=== PATIENT | female | born 1960 | race Caucasian/White ===

== ENCOUNTER → 2020-12-22 08:59 | Outpatient (BNVA) | payer BC, SELFPAY | PROVIDERS: PCP Family Medicine ==

== ENCOUNTER → 2021-01-26 09:30 | Outpatient (BNVA) | payer BC, SELFPAY | PROVIDERS: PCP Family Medicine ==

== ENCOUNTER → 2021-07-29 08:39 | Outpatient (BNVA) | payer BC, SELFPAY | PROVIDERS: PCP Family Medicine ==

== ENCOUNTER → 2021-12-08 08:55 | Outpatient (BNVA) | payer BC, SELFPAY | PROVIDERS: PCP Physician Assistant | DX: R32 Unspecified urinary incontinence (principal) | CPT/HCPCS: 51798 ==

== ENCOUNTER → 2022-11-02 08:41 | Outpatient (BNVA) | payer BC, SELFPAY | PROVIDERS: PCP Physician Assistant; Visit Provider Nurse Practitioner Family ==

== ENCOUNTER 2023-05-07 09:08 | Outpatient (AMB) | payer BC, SELFPAY ==
--- NOTE | 2023-05-07 09:45 | MHC.OFFVIS ---
Intake Intake Visit Reasons: 6m/PVR Intake Note: Patient is present for follow up incontinence Urology Medications: oxybutynin Blood Thinner: none PVR: 161ml's Attendant [employer] Required: No Accompanied by: Spouse Allergies lisinopril Allergy (Intermediate, Verified 05/07/23 22:51) Cough Medication List - Last Reconciled 05/07/23 by TRINIDAD Dawson-REY erythromycin 1,000 mg ophthalmic (eye) TID fluoxetine 20 mg PO DAILY fluticasone propionate 50 mcg/actuation 1 spray intranasal DAILY gabapentin 300 mg PO TID losartan 100 mg PO DAILY metoprolol succinate ER 50 mg PO DAILY HPI HPI Comments History of Present Illness Details Genevieve is a pleasant 62 year old female patient of who is accompained by her at todays visit. She presents to the office today for follow-up of her urinary incontinence. She has a PMH of cardiac arrest, depression, HTN, and osteoarthritis. In discussion with the patient her today they discuss at length patient has new diagnosis of white matter disease. They report patient to have had MRI in March due to worsening balance issues and is undergoing further assessment and evaluation. Patient with previous neurologist Олег Griffin however the discuss upcoming 2nd opinion appointment in August with [facility]. They also discuss patient is undergoing physical therapy in [place] for assistance with her gait and mobility. They discuss feeling lower urinary tract symptoms of mixed urinary incontinence continue and do feel episodes of unsensed incontinence at night have worsened. During last office visit approximately 6 months ago recommendations were made for switching oxybutynin to Myrbetriq given patient's history of TBI however patient felt oxybutynin was effective and hesitant doing so as she felt it had really worked well for her. Unable to obtain urine for urinalysis today as patient unable to void however PVR 161ml's. Discussed discontinuation of medications at this time given incomplete bladder emptying as well as current neurology workup. When asked she denies hematuria, dysuria, foul-smelling urine, changes to urinary stream, flank pain, fever, and or chills. Discussed at length importance of timed voiding and drinking adequate amount of water daily. Discussed further sleep apnea workup given episodes of nocturia as well as history of snoring. Patient otherwise offers no issues or concerns at this time. [facility] Medical History HTN (hypertension) Cardiac arrest Urinary incontinence OA (osteoarthritis) Depression Surgical History History of appendectomy Review of Systems Const Reports as per HPI and Reports headache(s) Eyes Reports no additional complaints ENT Reports no additional complaints and Reports headache(s) Card Reports no additional complaints Resp Reports no additional complaints GI Reports no additional complaints Reports as per HPI Musc Reports as per HPI Neuro Reports as per HPI and Reports headache(s) Psych Reports no additional complaints Endo Reports no additional complaints Zbigniew/Lymph Reports no additional complaints Aller/Immun Reports no additional complaints Physical Exam Const General: cooperative, healthy appearing, comfortable, no acute distress, well developed, alert and awake Orientation/consciousness: patient oriented x3 Limitations: ambulation with walker HEENT Head: Yes normal to inspection, Yes normocephalic and Yes atraumatic Ears: hearing grossly normal bilaterally Eyes General: appearance normal, both eyes and all related structures Neck Neck: Yes normal visual inspection and Yes trachea midline Chest Chest palpation & inspection: normal inspection of the chest Resp Effort & Inspection: normal respiratory effort and able to speak in complete sentences Cardio Rate: regular rate GI Inspection: Yes normal to inspection General: Yes no CVA tenderness Back/Spine/Pelvis Back: no CVA tenderness Skin General skin exam: no rashes or lesions noted Neuro General: patient oriented x3 Extrem General: Yes normal to inspection Psych Appearance: grossly normal and well kempt Mental Status: mental status grossly normal Speech and movement: Clear speech present Affect: normal affect Attitude: cooperative Thought process: Normal thought process present Thought content: Normal thought content present Insight: Fair insight present (Psych) Judgement: Fair judgement present (Psych) Office Procedures Post Void Residual Post Residual Void Post Void Residual (PVR): 161 [id number] Void Residual by ultrasound Assessment & Plan Assessment & Plan (1) Snoring: Code(s): R06.83 - Snoring (2) Nocturia: Code(s): R35.1 - Nocturia (3) Urinary incontinence: Code(s): R32 - Unspecified urinary incontinence (4) Incomplete bladder emptying: Code(s): R33.9 - Retention of urine, unspecified Plan Unable to obtain urine for urinalysis as patient unable to void PVR 161 mL. Stop oxybutynin as discussed. Will refer for further assessment evaluation of sleep apnea; as noted above. Discussed at length importance of timed/scheduled voiding. Discussed attempting to limit fluids 3-4 hours prior to bed to assist with decreasing episodes of nocturia. Discussed at length potential causes and affects of incomplete bladder emptying. Follow-up in 6 weeks with PVR; or sooner with any issues, concerns, and or questions. Orders: Orders RT home sleep study Today R06.83 - Snoring, R32 - Unspecified urinary incontinence, R33.9 - Retention of urine, unspecified, R35.1 - Nocturia AMB Urinalysis Automated Today Z13.9 - Encounter for screening, unspecified AMB Post Void Residual by ultrasound Today R32 - Unspecified urinary incontinence Medications: Discontinued oxybutynin chloride ER Discontinued Reason: Doctor's Order 10 mg PO DAILY 30 days 90 tabs 3RF OAB R35.0 - Frequency of micturition oxybutynin chloride ER Discontinued Reason: Doctor's Order 15 mg (1.5 x 10 mg) PO DAILY 90 days 135 tabs 3RF N32.81 - Overactive bladder Patient Instructions: The patient had an opportunity to ask questions regarding the treatment plan. All questions were answered. Physical exam, labs, and imaging were discussed and reviewed in detail. As well as risks, benefits, and discussion of treatment choices. No major barriers to understanding were identified. The patient expressed understanding and agreement with the above treatment plan. The patient was made aware they should contact our office by phone for worsening of their current condition, the appearance of new symptoms, or with any questions or concerns. Compliance is encouraged with any medications and follow up testing that is ordered. It is a privilege to be allowed the opportunity to participate in? your urological care.? Again, if you have any questions or concerns If you have any questions or concerns please do not hesitate to contact me. The office is [phone]. This note is constructed using voice recognition software. While every effort has been made to ensure accuracy audio technician errors may have been included. Yours sincerely, TRINIDAD Dawson-REY Coding Level of Care Code Est Pt Level 3 (03373) Diagnoses Snoring R06.83 Nocturia R35.1 Urinary incontinence R32 Incomplete bladder emptying R33.9 CPT Codes Post Residual Void - PVR CPT Code: 54261-Szxm Void Residual by ultrasound ([id number])
== END 2023-05-07 10:38 | disposition home or self-care (01) ==
PROVIDERS: PCP Physician Assistant; Visit Provider Nurse Practitioner Family
DX: R06.83 Snoring (principal); R35.1 Nocturia; R32 Unspecified urinary incontinence; R33.9 Retention of urine, unspecified
CPT/HCPCS: 99213

== ENCOUNTER → 2023-05-07 09:08 | Outpatient (BNVA) | payer BC, SELFPAY | PROVIDERS: PCP Physician Assistant; Visit Provider Nurse Practitioner Family | DX: R33.9 Retention of urine, unspecified (principal); R35.1 Nocturia; R32 Unspecified urinary incontinence; R06.83 Snoring | CPT/HCPCS: 51798 ==

== ENCOUNTER → 2023-06-18 08:11 | Outpatient (REF) | payer BC, SELFPAY | LOC: HO.SL 08:11 | PROVIDERS: PCP Physician Assistant; Visit Provider Nurse Practitioner Family | DX: G47.33 Obstructive sleep apnea (adult) (pediatric) (principal); R06.83 Snoring | CPT/HCPCS: 95806 ==

== ENCOUNTER → 2023-06-18 08:25 | Outpatient (BNV) | payer BC, SELFPAY | PROVIDERS: PCP Physician Assistant; Visit Provider Internal Medicine | DX: G47.33 Obstructive sleep apnea (adult) (pediatric) (principal) | CPT/HCPCS: 95806 ==

== ENCOUNTER 2023-06-19 09:39 | Outpatient (AMB) | payer BC, SELFPAY ==
--- NOTE | 2023-06-19 10:07 | A.OFFVIS_ITS ---
Intake Intake Visit Reasons: 6w/PVR Intake Note: Patient is present for follow up incontinence with PVR Urology Medications: none Blood Thinner: none PVR: 0ml Speech And Language Assistant Required: No Accompanied by: Spouse Allergies lisinopril Allergy (Intermediate, Verified 06/19/23 10:27) Cough Medication List - Last Reconciled 06/19/23 by DEREK Dawson erythromycin 1,000 mg ophthalmic (eye) TID fluoxetine 20 mg PO DAILY fluticasone propionate 50 mcg/actuation 1 spray intranasal DAILY gabapentin 300 mg PO TID losartan 100 mg PO DAILY metoprolol succinate ER 50 mg PO DAILY HPI HPI Comments History of Present Illness Details Mandy is a pleasant 62 year old female patient of Dr. Barba who is accompained by her at todays visit. She presents to the office today for follow-up of her urinary incontinence. She has a PMH of cardiac arrest, depression, HTN, and osteoarthritis. Of note, patient was seen approximately 6 weeks ago at which time her oxybutynin was discontinued due to question of confusion. In discussion with the patient and her today she reports to be doing much better. She reports having stopped her oxybutynin as prescribed as well as decreasing her dose of gabapentin per her neurologist and feels the combination of this has been helpful. In office urinalysis results reviewed with the patient today. PVR 0 mL. She does continue to have episodes of incontinence at night however does not find this bothersome and per the patient is sleeping when this happens. She otherwise denies any bothersome urinary issues or concerns. When asked she denies hematuria, dysuria, foul- smelling urine, changes to urinary stream, flank pain, fever, and or chills. Will continue with surveillance monitoring at this time. Discussed, educated, and stressed the importance of drinking water daily. She otherwise offers no other issues or concerns at this time. [facility] Medical History HTN (hypertension) Cardiac arrest Urinary incontinence OA (osteoarthritis) Depression Surgical History History of appendectomy Review of Systems Const Reports as per HPI and Reports headache(s) Eyes Reports no additional complaints ENT Reports no additional complaints and Reports headache(s) Card Reports no additional complaints Resp Reports no additional complaints GI Reports no additional complaints Reports as per HPI Musc Reports as per HPI Neuro Reports as per HPI and Reports headache(s) Psych Reports no additional complaints Endo Reports no additional complaints Zbigniew/Lymph Reports no additional complaints Aller/Immun Reports no additional complaints Physical Exam Const General: cooperative, healthy appearing, comfortable, no acute distress, well developed, alert and awake Orientation/consciousness: patient oriented x3 Limitations: ambulation with walker HEENT Head: Yes normal to inspection, Yes normocephalic and Yes atraumatic Ears: hearing grossly normal bilaterally Eyes General: appearance normal, both eyes and all related structures Neck Neck: Yes normal visual inspection and Yes trachea midline Chest Chest palpation & inspection: normal inspection of the chest Resp Effort & Inspection: normal respiratory effort and able to speak in complete sentences Cardio Rate: regular rate GI Inspection: Yes normal to inspection General: Yes no CVA tenderness Back/Spine/Pelvis Back: no CVA tenderness Skin General skin exam: no rashes or lesions noted Neuro General: patient oriented x3 Extrem General: Yes normal to inspection Psych Appearance: grossly normal and well kempt Mental Status: mental status grossly normal Speech and movement: Clear speech present Affect: normal affect Attitude: cooperative Thought process: Normal thought process present Thought content: Normal thought content present Insight: Fair insight present (Psych) Judgement: Fair judgement present (Psych) Office Procedures Post Void Residual Post Residual Void Post Void Residual (PVR): 0 [id number] Void Residual by ultrasound Results AMB Urinalysis, Automated UA Leukoctes 0 Claudia/uL Last Edit by Kasey Rodriguez [facility] on 06/19/23 10 :23 UA Nitrite Negative Last Edit by Kasey Rodriguez [facility] on 06/19/23 10: 23 UA Urobilinogen 0.2 mg/dL Last Edit by Kasey Rodriguez [facility] on 4 10:23 UA Protein 15 mg/dL Last Edit by Kasey Rodriguez [facility] on 06/19/23 10:2 3 UA pH 6.5 Last Edit by Kasey Rodriguez [facility] on 06/19/23 10:23 UA Blood 0 Ajith/uL Last Edit by Kasey Rodriguez [facility] on 06/19/23 10:23 UA Specific [place] 1.015 Last Edit by Kasey Rodriugez CMA on 10:23 UA Ketone Negative Last Edit by Kasey Rodriguez CMA on 06/19/23 10:2 3 UA Bilirubin 0 mg/dL Last Edit by Kasey Rodriguez CMA on 06/19/23 10: 23 UA Glucose 0 mg/dL Last Edit by Kasey Rodriguez CMA on 06/19/23 10:23 Results Reviewed Results Reviewed: Laboratory Last Values Urine pH (Auto) 6.5 06/19/23 10:19 Specific [place] (Auto) 1.015 06/19/23 10:19 Urine Protein (Auto) 15 mg/dL 06/19/23 10:19 Glucose (UA)(Auto) 0 mg/dL 06/19/23 10:19 Urine Ketones (Auto) Negative 06/19/23 10:19 Urine Blood (Auto) 0 Ajith/uL 06/19/23 10:19 Urine Nitrite (Auto) Negative 06/19/23 10:19 Urine Bilirubin (Auto) 0 mg/dL 06/19/23 10:19 Urine Urobilinogen (Auto) 0.2 mg/dL 06/19/23 10:19 Leukocyte Esterase (Auto) 0 Claudia/uL 06/19/23 10:19 Assessment & Plan Assessment & Plan (1) Snoring: Code(s): R06.83 - Snoring (2) Nocturia: Code(s): R35.1 - Nocturia (3) Urinary incontinence: Code(s): R32 - Unspecified urinary incontinence Plan In office urinalysis results reviewed with the patient today; as noted above. PVR 0 mL. Patient currently denies any bothersome urinary issues or concerns. Discussed at length importance of timed/scheduled voiding. Discussed attempting to limit fluids 3-4 hours prior to bed to assist with decreasing episodes of nocturia. Follow-up in 3 months with PVR; or sooner with any issues, concerns, and or questions. Orders: Orders AMB Urinalysis Automated Today R32 - Unspecified urinary incontinence, R33.9 - Retention of urine, unspecified, R35.1 - Nocturia AMB Post Void Residual by ultrasound Today R32 - Unspecified urinary incontinence, R33.9 - Retention of urine, unspecified, R35.1 - Nocturia Patient Instructions: The patient had an opportunity to ask questions regarding the treatment plan. All questions were answered. Physical exam, labs, and imaging were discussed and reviewed in detail. As well as risks, benefits, and discussion of treatment choices. No major barriers to understanding were identified. The patient expressed understanding and agreement with the above treatment plan. The patient was made aware they should contact our office by phone for worsening of their current condition, the appearance of new symptoms, or with any questions or concerns. Compliance is encouraged with any medications and follow up testing that is ordered. It is a privilege to be allowed the opportunity to participate in? your urological care.? Again, if you have any questions or concerns If you have any questions or concerns please do not hesitate to contact me. The office is [phone]. This note is constructed using voice recognition software. While every effort has been made to ensure accuracy diesel truck crane operator errors may have been included. Yours sincerely, DEREK Dawson Coding Level of Care Code Est Pt Level 3 (77859) Diagnoses Snoring R06.83 Nocturia R35.1 Urinary incontinence R32 CPT Codes Post Residual Void - PVR CPT Code: 08878-Bmdj Void Residual by ultrasound ([id number])
== END 2023-06-19 10:28 | disposition home or self-care (01) ==
PROVIDERS: PCP Physician Assistant; Visit Provider Nurse Practitioner Family
DX: R33.9 Retention of urine, unspecified (principal); R35.1 Nocturia; R32 Unspecified urinary incontinence; R06.83 Snoring
CPT/HCPCS: 99213

== ENCOUNTER → 2023-06-19 09:39 | Outpatient (BNVA) | payer BC, SELFPAY | PROVIDERS: PCP Physician Assistant; Visit Provider Nurse Practitioner Family | DX: R06.83 Snoring (principal); R35.1 Nocturia; R32 Unspecified urinary incontinence; R33.9 Retention of urine, unspecified | CPT/HCPCS: 51798; 81003 ==

== ENCOUNTER 2023-08-16 10:23 | Outpatient (AMB) | payer BC, SELFPAY ==
[2023-08-16 10:35] VITALS: BP 110/78; PULSE 75; O2SAT 99; BMI 21.6
--- NOTE | 2023-08-16 10:35 | A.OFFVIS_ITS ---
Intake Vital Signs 08/16/23 10:35 Height 3 ft 10 in Weight 65 lb 0.582 oz BMI 21.6 BP 110/78 Blood Pressure Location Rt brachial Position Sitting Pulse 75 Pulse Source Doppler Pulse Oximetry (%) 99 Oxygen Delivery Method Room Air Intake Visit Reasons: Sleep apnea Allergies lisinopril Allergy (Intermediate, Verified 08/16/23 10:39) Cough HPI Sleep apnea HPI Details 63-year-old lady, nonsmoker, with recent diagnosis of severe obstructive sleep apnea presents to establish care. Patient is interested in trying CPAP therapy. She does complain of daytime somnolence and unrestful sleep. [facility] Medical History HTN (hypertension) Cardiac arrest Urinary incontinence OA (osteoarthritis) Depression Surgical History History of appendectomy Review of Systems Const Denies daytime sleepiness, Denies excessive sweating, Denies fatigue, Denies fever(s), Denies lethargy, Denies malaise, Denies night sweats, Denies snoring and Denies weight loss Eyes Denies blurry vision and Denies itchy eyes ENT Denies nasal congestion, Denies post nasal drip, Denies sinus pain, Denies sinus pressure and Denies other ( Thrush) Card Denies chest pain, Denies pedal edema, Denies dyspnea, Denies orthopnea and Denies paroxysmal nocturnal dyspnea Resp Denies cough, Denies hemoptysis, Denies excessive phlegm production, Denies dyspnea, Denies snoring and Denies wheezing GI Denies abdominal pain and Denies heartburn Musc Denies myalgias, Denies arthralgias and Denies joint swelling Skin/Breast Denies rash Neuro Denies memory loss and Denies seizure-like activity Psych Denies abnormal sleep pattern, Denies anxiety and Denies memory loss Endo Denies excessive sweating, Denies fatigue and Denies heat intolerance Zbigniew/Lymph Denies easy bruising Aller/Immun Denies itchy eyes, Denies seasonal rhinorrhea and Denies wheezing Physical Exam Vital Signs: Last Vital Signs Pulse 75 08/16/23 10:35 BP 110/78 08/16/23 10:35 Pulse Ox 99 08/16/23 10:35 Oxygen Delivery Method Room Air 08/16/23 10:35 BMI result Body Mass Index 21.6 Const General: no acute distress and alert Nutritional Appearance: not obese Orientation/consciousness: Other orientation findings ( oriented) HEENT Head: Yes atraumatic Eyes General: appearance normal, both eyes and all related structures Sclerae: sclerae normal EOM: EOMs intact bilaterally Neck Neck: Yes supple Lymphatic: no lymphadenopathy noted Resp Effort & Inspection: normal respiratory effort and no use of accessory muscles Auscultation: clear to auscultation bilaterally Cardio Rate: regular rate Rhythm: regular rhythm Heart sounds: no gallops, no murmurs and no rubs Skin General skin exam: other ( warm) Extrem General: No clubbing, No cyanosis and No edema Assessment & Plan Assessment & Plan (1) Sleep apnea: Code(s): G47.30 - Sleep apnea, unspecified Plan: Sleep study results reviewed. Underlying severe KISHORE. Will start on APAP of 6- 16 cm of water. Coding Level of Care Code New Pt Level 3 (81506) Diagnoses Sleep apnea G47.30
== END 2023-08-16 10:53 | disposition home or self-care (01) ==
PROVIDERS: PCP Physician Assistant; Visit Provider Internal Medicine Pulmonary Disease
DX: G47.30 Sleep apnea, unspecified (principal)
CPT/HCPCS: 99203

== ENCOUNTER → 2023-08-16 10:23 | Outpatient (BNVA) | payer BC, SELFPAY | PROVIDERS: PCP Physician Assistant; Visit Provider Internal Medicine Pulmonary Disease ==

== ENCOUNTER 2023-09-19 09:57 | Outpatient (AMB) | payer BC, SELFPAY ==
--- NOTE | 2023-09-19 10:01 | A.OFFVIS_ITS ---
Intake Intake Visit Reasons: 3m/PVR Intake Note: Patient is present for follow up incontinence with PVR Urology Medications: none Blood Thinner: none PVR: 0ml's Ladies' Hat Trimmer Required: No Accompanied by: Spouse Allergies lisinopril Allergy (Intermediate, Verified 09/19/23 21:59) Cough Medication List - Last Reconciled 09/19/23 by DEREK Dawson atorvastatin 10 mg PO DAILY erythromycin 1,000 mg ophthalmic (eye) TID fluoxetine 20 mg PO DAILY gabapentin 300 mg PO TID losartan 100 mg PO DAILY metoprolol succinate ER 50 mg PO DAILY HPI HPI Comments History of Present Illness Details Mandy is a pleasant 63 year old female patient of Dr. Barba who is accompained by her at todays visit. She presents to the office today for follow-up of her urinary incontinence. She has a PMH of cardiac arrest, depression, HTN, and osteoarthritis. In discussion with the patient and her today she discusses her ongoing issues with worsening memory loss and decreased mobility. Since last office visit approximately 3 months ago patient has since been diagnosed with sleep apnea and referral was placed to pulmonology for further assessment evaluation and management of sleep apnea as sleep study that was ordered noted sleep apnea. She continues to follow-up with pulmonology as she has had some difficulty with applying sleep apnea mask appropriately. In discussion with the patient today regarding her nocturia and urinary incontinence she does report episodes of nocturia and incontinence have lessened when she is able to be compliant with her sleep apnea machine. She discusses having less episodes of urinary incontinence throughout the day and has been able to lessen the use of adult diapers. She currently utilizes 2-4 adult diapers per day. She does continue with intermittent episodes of incontinence at night. She otherwise denies hematuria, dysuria, foul smelling urine, changes to urinary stream, flank pain, fever, and or chills. She is happy with her current voiding parameters. Of note, patient was previously on oxybutynin however discontinued due to question of confusion. In office urinalysis results reviewed with the patient today. PVR 0 mL. She otherwise offers no other issues or concerns at this time. [facility], LAT[facility] Medical History HTN (hypertension) Cardiac arrest Urinary incontinence OA (osteoarthritis) Depression Surgical History History of appendectomy Review of Systems Const Reports as per HPI and Reports headache(s) Eyes Reports no additional complaints ENT Reports no additional complaints and Reports headache(s) Card Reports no additional complaints Resp Reports no additional complaints GI Reports no additional complaints Reports as per HPI Musc Reports as per HPI Neuro Reports as per HPI and Reports headache(s) Psych Reports no additional complaints Endo Reports no additional complaints Zbigniew/Lymph Reports no additional complaints Aller/Immun Reports no additional complaints Physical Exam Const General: cooperative, healthy appearing, comfortable, no acute distress, well developed, alert and awake Orientation/consciousness: patient oriented x3 Limitations: ambulation with walker HEENT Head: Yes normal to inspection, Yes normocephalic and Yes atraumatic Ears: hearing grossly normal bilaterally Eyes General: appearance normal, both eyes and all related structures Neck Neck: Yes normal visual inspection and Yes trachea midline Chest Chest palpation & inspection: normal inspection of the chest Resp Effort & Inspection: normal respiratory effort and able to speak in complete sentences Cardio Rate: regular rate GI Inspection: Yes normal to inspection General: Yes no CVA tenderness Back/Spine/Pelvis Back: no CVA tenderness Skin General skin exam: no rashes or lesions noted Neuro General: patient oriented x3 Extrem General: Yes normal to inspection Psych Appearance: grossly normal and well kempt Mental Status: mental status grossly normal Speech and movement: Clear speech present Affect: normal affect Attitude: cooperative Thought process: Normal thought process present Thought content: Normal thought content present Insight: Fair insight present (Psych) Judgement: Fair judgement present (Psych) Office Procedures Post Void Residual Post Residual Void Post Void Residual (PVR): 0 42294-Pvgx Void Residual by ultrasound Results AMB Urinalysis, Automated UA Leukoctes 0 Claudia/uL Last Edit by Sorbisense Diamante on 09/19/23 10:37 UA Nitrite Negative Last Edit by Sorbisense Diamante on 09/19/23 10:37 UA Urobilinogen 0.2 mg/dL Last Edit by [employer] Bobby on 09/19/23 10:37 UA Protein 15 mg/dL Last Edit by [employer] Bobby on 09/19/23 10:37 UA pH 6.5 Last Edit by [employer] Bobby on 09/19/23 10:37 UA Blood 0 Ajith/uL Last Edit by Abelardo Chandvicki on 09/19/23 10:37 UA Specific Jbphh 1.015 Last Edit by Abelardo Bobby on 09/19/23 10:37 UA Ketone Negative Last Edit by Abelardo Bobby on 09/19/23 10:37 UA Bilirubin 0 mg/dL Last Edit by Abelardo Bobby on 09/19/23 10:37 UA Glucose 0 mg/dL Last Edit by Abelardo Bobby on 09/19/23 10:37 Results Reviewed Results Reviewed: Laboratory Last Values Urine pH (Auto) 6.5 09/19/23 10:02 Specific Jbphh (Auto) 1.015 09/19/23 10:02 Urine Protein (Auto) 15 mg/dL 09/19/23 10:02 Glucose (UA)(Auto) 0 mg/dL 09/19/23 10:02 Urine Ketones (Auto) Negative 09/19/23 10:02 Urine Blood (Auto) 0 Ajith/uL 09/19/23 10:02 Urine Nitrite (Auto) Negative 09/19/23 10:02 Urine Bilirubin (Auto) 0 mg/dL 09/19/23 10:02 Urine Urobilinogen (Auto) 0.2 mg/dL 09/19/23 10:02 Leukocyte Esterase (Auto) 0 Claudia/uL 09/19/23 10:02 Assessment & Plan Assessment & Plan (1) Nocturia: Code(s): R35.1 - Nocturia (2) Urinary incontinence: Code(s): R32 - Unspecified urinary incontinence Plan In office urinalysis results reviewed with the patient today; as noted above. PVR 0 mL. Patient currently denies any bothersome urinary issues or concerns. Discussed at length importance of timed/scheduled voiding. Discussed continuing to follow up with pulmonology for further assessment evaluation of sleep apnea and Education regarding sleep apnea machine. Discussed attempting to limit fluids 3-4 hours prior to bed to assist with decreasing episodes of nocturia. Follow-up in 6 months with PVR; or sooner with any issues, concerns, and or questions. Orders: Orders AMB Post Void Residual by ultrasound Today R33.9 - Retention of urine, unspecified AMB Urinalysis Automated Today Z13.9 - Encounter for screening, unspecified Patient Instructions: The patient had an opportunity to ask questions regarding the treatment plan. All questions were answered. Physical exam, labs, and imaging were discussed and reviewed in detail. As well as risks, benefits, and discussion of treatment choices. No major barriers to understanding were identified. The patient expressed understanding and agreement with the above treatment plan. The patient was made aware they should contact our office by phone for worsening of their current condition, the appearance of new symptoms, or with any questions or concerns. Compliance is encouraged with any medications and follow up testing that is ordered. It is a privilege to be allowed the opportunity to participate in? your urological care.? Again, if you have any questions or concerns If you have any questions or concerns please do not hesitate to contact me. The office is [phone]. This note is constructed using voice recognition software. While every effort has been made to ensure accuracy cement and concrete plant worker errors may have been included. Yours sincerely, DEREK Dawson Coding Level of Care Code Est Pt Level 3 (65531) Diagnoses Nocturia R35.1 Urinary incontinence R32 CPT Codes Post Residual Void - PVR CPT Code: 33555-Tebv Void Residual by ultrasound ([id number])
== END 2023-09-19 10:59 | disposition home or self-care (01) ==
PROVIDERS: PCP Physician Assistant; Visit Provider Nurse Practitioner Family
DX: R35.1 Nocturia (principal); R32 Unspecified urinary incontinence
CPT/HCPCS: 99213

== ENCOUNTER → 2023-09-19 09:57 | Outpatient (BNVA) | payer BC, SELFPAY | PROVIDERS: PCP Physician Assistant; Visit Provider Nurse Practitioner Family | DX: R35.1 Nocturia (principal); R32 Unspecified urinary incontinence; R33.9 Retention of urine, unspecified | CPT/HCPCS: 51798; 81003 ==

== ENCOUNTER → 2023-11-20 20:30 | Outpatient (REF) | payer BC, SELFPAY | LOC: HO.SL 20:30 | PROVIDERS: PCP Physician Assistant; Visit Provider Internal Medicine Pulmonary Disease | DX: G47.33 Obstructive sleep apnea (adult) (pediatric) (principal) | CPT/HCPCS: 95811 ==

== ENCOUNTER → 2023-11-20 20:57 | Outpatient (BNV) | payer BC, SELFPAY | PROVIDERS: PCP Physician Assistant; Visit Provider Psychiatry & Neurology Neurology | DX: G47.33 Obstructive sleep apnea (adult) (pediatric) (principal) | CPT/HCPCS: 95811 ==

== ENCOUNTER 2023-11-29 10:39 | Outpatient (AMB) | payer BC, SELFPAY ==
[2023-11-29 10:47] VITALS: BP 132/78; PULSE 78; O2SAT 96; BMI 23.1
--- NOTE | 2023-11-29 10:47 | MHC.OFFVIS ---
Vital Signs 11/29/23 10:47 Height 3 ft 10 in Weight 69 lb 7.13 oz BMI 23.1 BP 132/78 Blood Pressure Location Rt brachial Position Sitting Pulse 78 Pulse Source Doppler Pulse Oximetry (%) 96 Intake Visit Reasons: Sleep apnea Allergies lisinopril Allergy (Intermediate, Verified 09/19/23 21:59) Cough HPI HPI Sleep apnea: Details: 63-year-old lady, nonsmoker, with underlying severe obstructive sleep apnea. After the last office visit she was started on CPAP with excellent compliance, however suboptimal control of her symptoms. She has had titration study that showed that she requires BiPAP therapy. Updated order has been placed with her [employer]. [facility] Medical History HTN (hypertension) Cardiac arrest Urinary incontinence OA (osteoarthritis) Depression Surgical History History of appendectomy Review of Systems Const Denies daytime sleepiness, Denies excessive sweating, Denies fatigue, Denies fever(s), Denies lethargy, Denies malaise, Denies night sweats, Denies snoring and Denies weight loss Eyes Denies blurry vision and Denies itchy eyes ENT Denies nasal congestion, Denies post nasal drip, Denies sinus pain, Denies sinus pressure and Denies other ( Thrush) Card Denies chest pain, Denies pedal edema, Denies dyspnea, Denies orthopnea and Denies paroxysmal nocturnal dyspnea Resp Denies cough, Denies hemoptysis, Denies excessive phlegm production, Denies dyspnea, Denies snoring and Denies wheezing GI Denies abdominal pain and Denies heartburn Musc Denies myalgias, Denies arthralgias and Denies joint swelling Skin/Breast Denies rash Neuro Denies memory loss and Denies seizure-like activity Psych Denies abnormal sleep pattern, Denies anxiety and Denies memory loss Endo Denies excessive sweating, Denies fatigue and Denies heat intolerance Zbigniew/Lymph Denies easy bruising Aller/Immun Denies itchy eyes, Denies seasonal rhinorrhea and Denies wheezing Physical Exam Vital Signs: Last Vital Signs Pulse 78 11/29/23 10:47 BP 132/78 11/29/23 10:47 Pulse Ox 96 11/29/23 10:47 BMI result Body Mass Index 23.1 Const General: no acute distress and alert Nutritional Appearance: not obese Orientation/consciousness: Other orientation findings ( oriented) HEENT Head: Yes atraumatic Eyes General: appearance normal, both eyes and all related structures Sclerae: sclerae normal EOM: EOMs intact bilaterally Neck Neck: Yes supple Lymphatic: no lymphadenopathy noted Resp Effort & Inspection: normal respiratory effort and no use of accessory muscles Auscultation: clear to auscultation bilaterally Cardio Rate: regular rate Rhythm: regular rhythm Heart sounds: no gallops, no murmurs and no rubs Skin General skin exam: other ( warm) Extrem General: No clubbing, No cyanosis and No edema Assessment & Plan Assessment & Plan (1) Sleep apnea: Code(s): G47.30 - Sleep apnea, unspecified Category: Medical Plan: Severe KISHORE suboptimally controlled on CPAP. Now status post titration study, requiring BiPAP. BiPAP ordered. Coding Level of Care Code Est Pt Level 3 (43370) Diagnoses Sleep apnea G47.30
== END 2023-11-29 11:32 | disposition home or self-care (01) ==
PROVIDERS: PCP Physician Assistant; Visit Provider Internal Medicine Pulmonary Disease
DX: G47.30 Sleep apnea, unspecified (principal)
CPT/HCPCS: 99213

== ENCOUNTER → 2023-11-29 10:39 | Outpatient (BNVA) | payer BC, SELFPAY | PROVIDERS: PCP Physician Assistant; Visit Provider Internal Medicine Pulmonary Disease ==

== ENCOUNTER 2024-03-19 09:26 | Outpatient (AMB) | payer BC, SELFPAY ==
--- NOTE | 2024-03-19 09:44 | A.OFFVIS_ITS ---
Intake Visit Reasons: 6m/PVR Intake Note: Patient is present for follow up incontinence with PVR Urology Medications: none Blood Thinner: none PVR: 0ml's Retail Specialist Required: No Accompanied by: Spouse Allergies lisinopril Allergy (Intermediate, Verified 03/19/24 13:43) Cough Medication List - Last Reconciled 03/19/24 by DEREK Dawson atorvastatin 10 mg PO DAILY fluoxetine 40 mg PO DAILY gabapentin 300 mg PO TID losartan 100 mg PO DAILY metoprolol succinate ER 50 mg PO DAILY HPI Comments Details: Mandy is a pleasant 63 year old female patient of Dr. Barba who is accompained by her at todays visit. She presents to the office today for follow-up of her urinary incontinence. She has a PMH of cardiac arrest, depression, HTN, and osteoarthritis. In discussion with the patient and her today she reports to be doing and feeling well. She reports having followed up with pulmonology since her last office visit here approximately 6 months ago and has switched her CPAP to BiPAP and has decreased her events from 50 to approximately 5 per night. She reports feeling this has been extremely helpful with episodes of nocturia as well as memory issue she had been experiencing. She does continue to report intermittent episodes of urinary incontinence however these have been manageable and she denies any bothersome urinary issues or concerns. In office urinalysis results reviewed with the patient today. PVR 0 mL. When asked she denies hematuria, dysuria, foul smelling urine, changes to urinary stream, flank pain, fever, and or chills. She is happy with her current voiding parameters. Of note, patient had previously been on oxybutynin however this has since been discontinued and patient has been self managing urinary issues and does not currently wish to undergo further treatment options. She otherwise offers no other issues or concerns at this time. [facility] Medical History HTN (hypertension) Cardiac arrest Urinary incontinence OA (osteoarthritis) Depression Surgical History History of appendectomy Review of Systems Const Reports as per HPI Eyes Reports no additional complaints ENT Reports no additional complaints Card Reports no additional complaints Resp Reports no additional complaints GI Reports no additional complaints Reports as per HPI Musc Reports as per HPI Neuro Reports as per HPI Psych Reports no additional complaints Endo Reports no additional complaints Zbigniew/Lymph Reports no additional complaints Aller/Immun Reports no additional complaints Physical Exam Const General: cooperative, healthy appearing, comfortable, no acute distress, well developed, alert and awake Orientation/consciousness: patient oriented x3 Limitations: ambulation with walker HEENT Head: Yes normal to inspection, Yes normocephalic and Yes atraumatic Ears: hearing grossly normal bilaterally Eyes General: appearance normal, both eyes and all related structures Neck Neck: Yes normal visual inspection and Yes trachea midline Chest Chest palpation & inspection: normal inspection of the chest Resp Effort & Inspection: normal respiratory effort and able to speak in complete sentences Cardio Rate: regular rate GI Inspection: Yes normal to inspection General: Yes no CVA tenderness Back/Spine/Pelvis Back: no CVA tenderness Skin General skin exam: no rashes or lesions noted Neuro General: patient oriented x3 Extrem General: Yes normal to inspection Psych Appearance: grossly normal and well kempt Mental Status: mental status grossly normal Speech and movement: Clear speech present Affect: normal affect Attitude: cooperative Thought process: Normal thought process present Thought content: Normal thought content present Insight: Fair insight present (Psych) Judgement: Fair judgement present (Psych) Office Procedures Post Void Residual Post Residual Void Post Void Residual (PVR): 0 [id number]-Eqsn Void Residual by ultrasound Results AMB Urinalysis, Automated UA Leukoctes 70 Claudia/uL Last Edit by Abelardo Bobby on 03/19/24 10:33 UA Nitrite Last Edit by Abelardo Bobby on 03/19/24 10:33 UA Urobilinogen 0.2 mg/dL Last Edit by Abelardo Bobby on 03/19/24 10:33 UA Protein 15 mg/dL Last Edit by Abelardo Bobby on 03/19/24 10:33 UA pH 6.0 Last Edit by Abelardo Bobby on 03/19/24 10:33 UA Blood 25 Ajith/uL Last Edit by Abelardo Bobyb on 03/19/24 10:33 UA Specific Leburn 1.015 Last Edit by Seferinojennadelores Chandvicki on 03/19/24 10:33 UA Ketone Negative Last Edit by Abelardo Chandvicki on 03/19/24 10:33 UA Bilirubin 0 mg/dL Last Edit by Seferinojennadelores Chandvicki on 03/19/24 10:33 UA Glucose 0 mg/dL Last Edit by Seferinogina Jagrutivicki on 03/19/24 10:33 Results Reviewed Results Reviewed: Laboratory Last Values Urine pH (Auto) 6.0 03/19/24 10:32 Specific Leburn (Auto) 1.015 03/19/24 10:32 Urine Protein (Auto) 15 mg/dL 03/19/24 10:32 Glucose (UA)(Auto) 0 mg/dL 03/19/24 10:32 Urine Ketones (Auto) Negative 03/19/24 10:32 Urine Blood (Auto) 25 Ajith/uL 03/19/24 10:32 Urine Bilirubin (Auto) 0 mg/dL 03/19/24 10:32 Urine Urobilinogen (Auto) 0.2 mg/dL 03/19/24 10:32 Leukocyte Esterase (Auto) 70 Claudia/uL 03/19/24 10:32 Assessment & Plan Assessment & Plan (1) Incomplete bladder emptying: Code(s): R33.9 - Retention of urine, unspecified Category: Medical (2) Nocturia: Code(s): R35.1 - Nocturia Category: Medical (3) Urinary incontinence: Code(s): R32 - Unspecified urinary incontinence Category: Medical Plan In office urinalysis results reviewed with the patient today; as noted above. PVR 0 mL. Patient currently denies any bothersome urinary issues or concerns. Discussed at length importance of timed/scheduled voiding. She reports be happy with current voiding parameters. Follow-up in 6 months with PVR; or sooner with any issues, concerns, and or questions. Orders: Orders AMB Urinalysis Automated Today Z13.9 - Encounter for screening, unspecified AMB Post Void Residual by ultrasound Today N39.41 - Urge incontinence, R33.9 - Retention of urine, unspecified Patient Instructions: The patient had an opportunity to ask questions regarding the treatment plan. All questions were answered. Physical exam, labs, and imaging were discussed and reviewed in detail. As well as risks, benefits, and discussion of treatment choices. No major barriers to understanding were identified. The patient expressed understanding and agreement with the above treatment plan. The patient was made aware they should contact our office by phone for worsening of their current condition, the appearance of new symptoms, or with any questions or concerns. Compliance is encouraged with any medications and follow up testing that is ordered. It is a privilege to be allowed the opportunity to participate in? your urological care.? Again, if you have any questions or concerns If you have any questions or concerns please do not hesitate to contact me. The office is [phone]. This note is constructed using voice recognition software. While every effort has been made to ensure accuracy supervisor research kennel errors may have been included. Yours sincerely, DEREK Dawson Coding Level of Care Code Est Pt Level 3 (75672) Complex EM visit Add On G2211 Diagnoses Incomplete bladder emptying R33.9 Nocturia R35.1 Urinary incontinence R32 CPT Codes Post Residual Void - PVR CPT Code: 08602-Mssu Void Residual by ultrasound ([id number])
== END 2024-03-19 10:48 | disposition home or self-care (01) ==
PROVIDERS: PCP Physician Assistant; Visit Provider Nurse Practitioner Family
DX: R33.9 Retention of urine, unspecified (principal); R35.1 Nocturia; R32 Unspecified urinary incontinence; Z13.9 Encounter for screening, unspecified
CPT/HCPCS: 99213

== ENCOUNTER → 2024-03-19 09:26 | Outpatient (BNVA) | payer BC, SELFPAY | PROVIDERS: PCP Physician Assistant; Visit Provider Nurse Practitioner Family | DX: R32 Unspecified urinary incontinence (principal); R33.9 Retention of urine, unspecified; R35.1 Nocturia | CPT/HCPCS: 51798; 81003 ==

== ENCOUNTER 2024-09-18 10:07 | Outpatient (AMB) | payer BC, SELFPAY ==
--- NOTE | 2024-09-18 10:55 | A.OFFVIS_ITS ---
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 Barba who is accompained by her at todays visit. She presents to the office today for follow-up of her urinary incontinence. She has a PMH of cardiac arrest, depression, HTN, and osteoarthritis. In discussion with the patient and her today she reports to be doing and feeling well. She discusses having had no bothersome urinary issues or concerns since her last office visit here. She reports since her diagnosis of sleep apnea in compliance with BiPAP her episodes of nocturia have significantly decreased. She does report infrequent episodes of urinary incontinence. In office urinalysis results reviewed with the patient today. PVR 97mls. When asked she denies hematuria, dysuria, foul smelling urine, changes to urinary stream, flank pain, fever, and or chills. She is happy with her current voiding parameters. Of note, patient had previously been on oxybutynin however this has since been discontinued and patient has been self managing urinary issues and does not currently wish to undergo further treatment options. She otherwise offers no other issues or concerns at this time. [facility] Medical History HTN (hypertension) Cardiac arrest Urinary incontinence OA (osteoarthritis) Depression Surgical History History of appendectomy Review of Systems Const Reports as per HPI Eyes Reports no additional complaints ENT Reports no additional complaints Card Reports no additional complaints Resp Reports no additional complaints GI Reports no additional complaints Reports as per HPI Musc Reports as per HPI Neuro Reports as per HPI Psych Reports no additional complaints Endo Reports no additional complaints Zbigniew/Lymph Reports no additional complaints Aller/Immun Reports no additional complaints Physical Exam Const General: cooperative, healthy appearing, comfortable, no acute distress, well developed, alert and awake Orientation/consciousness: patient oriented x3 Limitations: wheelchair HEENT Head: Yes normal to inspection, Yes normocephalic and Yes atraumatic Ears: hearing grossly normal bilaterally Eyes General: appearance normal, both eyes and all related structures Neck Neck: Yes normal visual inspection and Yes trachea midline Chest Chest palpation & inspection: normal inspection of the chest Resp Effort & Inspection: normal respiratory effort and able to speak in complete sentences Cardio Rate: regular rate GI Inspection: Yes normal to inspection General: Yes no CVA tenderness Back/Spine/Pelvis Back: no CVA tenderness Skin General skin exam: no rashes or lesions noted Neuro General: patient oriented x3 Extrem General: Yes normal to inspection Psych Appearance: grossly normal and well kempt Mental Status: mental status grossly normal Speech and movement: Clear speech present Affect: normal affect Attitude: cooperative Thought process: Normal thought process present Thought content: Normal thought content present Insight: Fair insight present (Psych) Judgement: Fair judgement present (Psych) Office Procedures Post Void Residual Post Residual Void Post Void Residual (PVR): [id number] Void Residual by ultrasound Results AMB Urinalysis, Automated UA Leukoctes 0 Claudia/uL Last Edit by [employer] Diamante on 09/18/24 15:07 UA Nitrite Last Edit by [employer] on 09/18/24 15:07 UA Urobilinogen 0.2 mg/dL Last Edit by [employer] on 09/18/24 15:07 UA Protein 15 mg/dL Last Edit by [employer] on 09/18/24 15:07 UA pH 6.0 Last Edit by [employer] Diamante on 09/18/24 15:07 UA Blood 10 Ajith/uL Last Edit by [employer] on 09/18/24 15:07 UA Specific Woodman 1.025 Last Edit by [employer] on 09/18/24 15:07 UA Ketone Last Edit by Abelardo Bobby on 09/18/24 15:07 UA Bilirubin 1 mg/dL Last Edit by [employer] on 09/18/24 15:07 UA Glucose 0 mg/dL Last Edit by Abel[employer] Bobby on 09/18/24 15:07 Results Reviewed Results Reviewed: Laboratory Last Values Urine pH (Auto) 6.0 09/18/24 15:05 Specific Woodman (Auto) 1.025 09/18/24 15:05 Urine Protein (Auto) 15 mg/dL 09/18/24 15:05 Glucose (UA)(Auto) 0 mg/dL 09/18/24 15:05 Urine Blood (Auto) 10 Ajith/uL 09/18/24 15:05 Urine Bilirubin (Auto) 1 mg/dL 09/18/24 15:05 Urine Urobilinogen (Auto) 0.2 mg/dL 09/18/24 15:05 Leukocyte Esterase (Auto) 0 Claudia/uL 09/18/24 15:05 Assessment & Plan Assessment & Plan (1) Incomplete bladder emptying: Code(s): R33.9 - Retention of urine, unspecified Category: Medical (2) Nocturia: Code(s): R35.1 - Nocturia Category: Medical (3) Urinary incontinence: Code(s): R32 - Unspecified urinary incontinence Category: Medical Plan In office urinalysis results reviewed with the patient today; as noted above. PVR 97ml's. Patient currently denies any bothersome urinary issues or concerns. Discussed at length importance of timed/scheduled voiding. She reports be happy with current voiding parameters. Follow-up in 6 months with PVR; or sooner with any issues, concerns, and or questions. Orders: Orders AMB Urinalysis Automated 09/18/24 Z13.9 - Encounter for screening, unspecified AMB Post Void Residual by ultrasound 09/18/24 R33.9 - Retention of urine, unspecified Patient Instructions: The patient had an opportunity to ask questions regarding the treatment plan. All questions were answered. Physical exam, labs, and imaging were discussed and reviewed in detail. As well as risks, benefits, and discussion of treatment choices. No major barriers to understanding were identified. The patient expressed understanding and agreement with the above treatment plan. The patient was made aware they should contact our office by phone for worsening of their current condition, the appearance of new symptoms, or with any questions or concerns. Compliance is encouraged with any medications and follow up testing that is ordered. It is a privilege to be allowed the opportunity to participate in? your urological care.? Again, if you have any questions or concerns If you have any questions or concerns please do not hesitate to contact me. The office is [phone]. This note is constructed using voice recognition software. While every effort has been made to ensure accuracy shoer errors may have been included. Yours sincerely, DEREK Dawson Coding Level of Care Code Est Pt Level 3 (83576) Complex EM visit Add On G2211 Diagnoses Incomplete bladder emptying R33.9 Nocturia R35.1 Urinary incontinence R32 CPT Codes Post Residual Void - PVR CPT Code: 12900-Svqh Void Residual by ultrasound ([id number])
--- OUTSIDE RECORDS SUMMARY | 2024-09-18 11:57 | XMS_ITS | Data Portability ---
Author Organization [facility] [employer] [place] [facility] [employer] Address [address] [place] [address] [place] [address] Care Team Providers Care Hand I Cutter Name Role Phone TAWANNAANGELOD Primary Care Provider Assessment Encounter Date Assessment Date Assessment LastModified by Organization Details LastModified Time 12/20/2020 12/20/2020 IMPRESSION: Even t of sudden unconsciousness, possibly a seizure, now off of levetiracetam which had caused side effects. On gabapentin for tingling in distal upper extremities likely residual from cervical myelopathy status post cervical spine surgery. TINGLING AND MYELOPATHY I asked if the residual tingling bothers her sufficiently to make any changes. She says that it does not. She is not even interested in a change in gabapentin dose or another medication for neuropathic pain. She is certainly not bothered enough by the tingling to consider repeat surgery. She understands that the numbness would not be helped by any repeat surgery. I agree with holding off on any repeat surgery. I am unclear what the purpose of the surgery would be. In the big picture, there is symptomatology for which it is indicated from my point of view. To review discussion with patient, November 2017, on myelopathic and/or radiculopathic weakness, numbness and sensory symptomatology in upper and lower extremities status post 2017 and 2018 C-spine surgery: I cannot treat the weakness directly from a neurological perspective. To the extent that there has been motor radiculopathy and to the extent that surgery has removed potential compressive radiculopathic abnormality, healing and regeneration can take place along the nerve roots and nerves and physical therapy with gentle strengthening balance with stretching might help/accelerate at least partial strengthening. To the extent that there has been motor myelopathy, there is less potential for strengthening as spinal motor neurons do not regenerate as peripheral nerves do from nerve roots. Numbness cannot be treated. This is differentiated from abnormal sensation such as tingling which can. Medication for neuropathic discomfort is the main mode of treatment. She states that the gabapentin is providing ideal help. Therefore no further assistance is needed for me in this direction. The [place] consultation has recommended physical therapy. This has also been recommended by others. Blade Aligner with experience in rehabilitation is the best type of physician to guide the above discussed physical therapy that might be of benefit. UNCONSCIOUSNESS EPISODE We again review our reasoning pathway starting from the chart notes from the event and subsequent hospital stay January 2019. There is no definitive information for diagnosis of seizure. The description of the reflects atypical features for seizure. There was no shaking from the husbands memory. This is in contrast to a summary in a transfer note, cardiac arrest possibly following seizure-like activity is mentioned. Eyes were open according to discharge summary, but the is not sure. He has not remembered that his ? s eyes were open as the chart reports. He affirms that there was no shaking. Her limbs were relaxed, not stiff. SUDEP, sudden from epilepsy, may theoretically be mediated by cardiac or respiratory arrest after seizure. Rarely, seizure may present with cardiac arrest and no other signs to suggest seizure. Cardiology has found no abnormality to suggest a predisposition to dysrhythmia/arrhyt hmia. Mild prolonged QTC was seen, EKG was otherwise benign. On the other hand, chart has notation that cardiology felt her history and evaluation to be consistent with primary respiratory arrest. There are brain MRI abnormalities, some undoubtedly developmental, and this statistically increases the risk of seizure. There is no history of seizure before January 2019, however. The morbidity of staying on levetiracetam is now more certain. The is quite sure that it was causing side effects of somnolence and irritability, especially irritability about eating sufficient food at meal times. This was from observation of patient's improvement after January 2020 discontinuation of levetiracetam. The patient has not changed her decision to stop driving and leave all the driving to her . They both remain happy with this decision. PLAN Mandy Triana December 20, 2020 Stay off of levetiracetam 500 mg every 12 hours that was stopped in January 2020 as we have agreed that the likelihood of your event in January 2019 having been seizure is low. Also, levetiracetam in particular caused side effects of tiredness and irritability. You and your have decided that he will do all the driving indefinitely. Follow-up as needed for neurological issues. lino Not available 12/20/2020 11:48:48 04/06/2022 04/06/2022 IMPRESSION: --1 month of increased difficulty ambulating and getting into a car and increased difficulty writing (right-handed) and using utensils --January 2019Event of sudden unconsciousness, possibly a seizure, off of levetiracetam since 01/2020 which had caused side effects. --On gabapentin for tingling in distal upper extremities likely residual from cervical myelopathy status post August 2016 and July 02, 2017 cervical spine surgery at [facility], With subsequent opinion from neurosurgery at [facility] that further spine surgery was not advisable TINGLING AND MYELOPATHY She is weaker in her hip flexors in the lower extremities and has distal weakness on the right in her upper extremities? t his was only on the left at December 2020 exam. There is worsened hyperreflexia. Repeat MRI cervical spine is indicated. They are agreeable to this. Her further notes that every time she falls she loses confidence and this further worsens her walking. I sympathize and say that we will consider sending her to a physical therapist who can help her with her fear of walking. First toe, I want to make sure there is no situation in her cervical spine that might motivate change in opinion of neurosurgery towards consideration of repeat cervical spine surgery. There has been discussion about repeat C-spine surgery in the past but that was when she was not having worsening symptoms or signs. Details are discussed on this below. December 2020: I asked if the residual tingling bothers her sufficiently to make any changes. She says that it does not. She is not even interested in a change in gabapentin dose or another medication for neuropathic pain. She is certainly not bothered enough by the tingling to consider repeat surgery. She understands that the numbness would not be helped by any repeat surgery. I agree with holding off on any repeat surgery. I am unclear what the purpose of the surgery would be. In the big picture, there is symptomatology for which it is indicated from my point of view. To review discussion with patient, November 2017, on myelopathic and/or radiculopathic weakness, numbness and sensory symptomatology in upper and lower extremities status post 2017 and 2018 C-spine surgery: I cannot treat the weakness directly from a neurological perspective. To the extent that there has been motor radiculopathy and to the extent that surgery has removed potential compressive radiculopathic abnormality, healing and regeneration can take place along the nerve roots and nerves and physical therapy with gentle strengthening balance with stretching might help/accelerate at least partial strengthening. To the extent that there has been motor myelopathy, there is less potential for strengthening as spinal motor neurons do not regenerate as peripheral nerves do from nerve roots. Numbness cannot be treated. This is differentiated from abnormal sensation such as tingling which can. Medication for neuropathic discomfort is the main mode of treatment. She states that the gabapentin is providing ideal help. Therefore no further assistance is needed for me in this direction. The [place] consultation has recommended physical therapy. This has also been recommended by others. Blade Aligner with experience in rehabilitation is the best type of physician to guide the above discussed physical therapy that might be of benefit. UNCONSCIOUSNESS EPISODE We again review our reasoning pathway starting from the chart notes from the event and subsequent hospital stay January 2019. There is no definitive information for diagnosis of seizure. The description of the reflects atypical features for seizure. There was no shaking from the husbands memory. This is in contrast to a summary in a transfer note, cardiac arrest possibly following seizure-like activity is mentioned. Eyes were open according to discharge summary, but the is not sure. He has not remembered that his ? s eyes were open as the chart reports. He affirms that there was no shaking. Her limbs were relaxed, not stiff. SUDEP, sudden from epilepsy, may theoretically be mediated by cardiac or respiratory arrest after seizure. Rarely, seizure may present with cardiac arrest and no other signs to suggest seizure. Cardiology has found no abnormality to suggest a predisposition to dysrhythmia/arrhyt hmia. Mild prolonged QTC was seen, EKG was otherwise benign. On the other hand, chart has notation that cardiology felt her history and evaluation to be consistent with primary respiratory arrest. There are brain MRI abnormalities, some undoubtedly developmental, and this statistically increases the risk of seizure. There is no history of seizure before January 2019, however. The morbidity of staying on levetiracetam is now more certain. The is quite sure that it was causing side effects of somnolence and irritability, especially irritability about eating sufficient food at meal times. This was from observation of patient's improvement after January 2020 discontinuation of levetiracetam. The patient has not changed her decision to stop driving and leave all the driving to her . They both remain happy with this decision. PLAN Mandy Triana April 06, 2022 Cervical spine MRI with and without contrast for: worsening UE & LE strength, hyper-reflexia , s/p August 2016 and July 02, 2017 [facility] surgery [facility] [address] [facility] will call you to schedule the imaging. Since 2020: You and your have decided that he will do all the driving indefinitely. Please use your cane at all times. Follow-up After imaging [email or web address] Not available 04/06/2022 13:14:45 06/08/2022 06/08/2022 IMPRESSION: --1 month of increased difficulty ambulating and getting into a car and increased difficulty writing (right-handed) and using utensils --January 2019Event of sudden unconsciousness, possibly a seizure, off of levetiracetam since 01/2020 which had caused side effects. --On gabapentin for tingling in distal upper extremities likely residual from cervical myelopathy status post August 2016 and July 02, 2017 cervical spine surgery at [facility], With subsequent opinion from neurosurgery at [facility] that further spine surgery was not advisable IMAGING MRI cervical spine April 30, 2022 with and without contrast compared to previous MRI cervical spine September 23, 2020 per dictation [facility] radiology: Evidence of prior surgery with posterior decompression and fusion C3-C6 with fusion hardware; and intervertebral disc spacer at C4-5; Spinal cord with no change of C4-5 0.8 cm region of increased T2 signal and C2 linear increased T2 signal with atrophy; No evidence of cord compression or high-grade stenosis. Unchanged narrowing at cervical medullary junction; Multilevel degenerative changes are noted, unchanged, not described, referral given to MRI report of September 23, 2020. TINGLING AND MYELOPATHY She is weaker in her hip flexors in the lower extremities and has distal weakness on the right in her upper extremities? t his was only on the left at December 2020 exam. There is worsened hyperreflexia On April 06, 2022 exam. However, radiology states that MRI cervical spine is both without significant cord compression or high-grade stenosis and unchanged from September 2020. The changing symptoms plausibly relate to deconditioning; the changing signs may relate to day-to-day variability of exam or the natural history of aging superimposed on chronic myelopathy. Her has noted that she falls and then loses confidence in this further with worsens her walking. Physical therapy is indicated. I suggest physical therapy. 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 I therefore have no further suggestions for changes in management for the neurological perspective except for the use of trekking poles when climbing mount time as discussed in the HPI. To review, before 12/20/21 initial consult with me, She has had consultation in [place] with neurosurgery. They have suggested repeat surgery in her neck to change everything back from what is there in the context of her previous August 2016 and July 02, 2017 C3 6 fusion & C4-5 laminectomy. She has had second opinion in the [facility] in [facility]. They have recommended against any such repeat cervical spine surgery and in favor of physical therapy. Blade Aligner with experience in rehabilitation is the best type of physician to guide the above discussed physical therapy that might be of benefit. I am unclear what the purpose of any surgery would be from the symptom perspective. To review discussion with patient, November 2017, on myelopathic and/or radiculopathic weakness, numbness and sensory symptomatology in upper and lower extremities status post 2017 and 2018 C-spine surgery: I cannot treat the weakness directly from a neurological perspective. To the extent that there has been motor radiculopathy and to the extent that surgery has removed potential compressive radiculopathic abnormality, healing and regeneration can take place along the nerve roots and nerves and physical therapy with gentle strengthening balance with stretching might help/accelerate at least partial strengthening. To the extent that there has been motor myelopathy, there is less potential for strengthening as spinal motor neurons do not regenerate as peripheral nerves do from nerve roots. Painless numbness part of her symptoms cannot be treated. This is differentiated from abnormal sensation such as tingling which can. Medication for neuropathic discomfort is the main mode of treatment. She states that the gabapentin is providing ideal help. Therefore no further assistance is needed for me in this direction. December 2020: I asked if the residual tingling bothers her sufficiently to make any changes. She says that it does not. She is not even interested in a change in gabapentin dose or another medication for neuropathic pain. UNCONSCIOUSNESS EPISODE We review our reasoning pathway deciding against seizure diagnosis and therefore against levetiracetam, starting from the chart notes from the event and subsequent hospital stay January 2019. There is no definitive information for diagnosis of seizure. The description of the reflects atypical features for seizure. There was no shaking from the husbands memory. This is in contrast to a summary in a transfer note, cardiac arrest possibly following seizure-like activity is mentioned. Eyes were open according to discharge summary, but the is not sure. He has not remembered that his ? s eyes were open as the chart reports. He affirms that there was no shaking. Her limbs were relaxed, not stiff. SUDEP, sudden from epilepsy, may theoretically be mediated by cardiac or respiratory arrest after seizure. Rarely, seizure may present with cardiac arrest and no other signs to suggest seizure. Cardiology has found no abnormality to suggest a predisposition to dysrhythmia/arrhyt hmia. Mild prolonged QTC was seen, EKG was otherwise benign. On the other hand, chart has notation that cardiology felt her history and evaluation to be consistent with primary respiratory arrest. There are brain MRI abnormalities, some undoubtedly developmental, and this statistically increases the risk of seizure. There is no history of seizure before January 2019, however. The morbidity of staying on levetiracetam is now more certain. The is quite sure that it was causing side effects of somnolence and irritability, especially irritability about eating sufficient food at meal times. This was from observation of patient's improvement after January 2020 discontinuation of levetiracetam. The patient has not changed her decision to stop driving and leave all the driving to her . They both remain happy with this decision. PLAN Mandy Triana June 08, 2022 Since 2020: You and your have decided that he will do all the driving indefinitely. Please use your cane at all times : Inside and outside of the house in the neighborhood; and trekking poles for more adventure some outings such as climbing [place]. Follow-up As needed lino Not available 06/08/2022 12:44:33 Plan of Treatment Reminders Order Date Submit Date Provider Last Modified By Organization Details Last Modified Time Details Appointments None recorded. Lab None recorded. Referral None recorded. Procedures None recorded. Surgeries None recorded. Imaging MRI, cervical spine, w/wo contrast - worsening UE & LE strength, hyper-refl exia , s/p August 2016 and July 02, 2017 [facility] cspine surgery 2021 022 PARI Not available 15:26:46 Medication Orders None recorded. Patient TargetsNo targets recorded. Patient Instructions Encounter Date Encounter Id Patient Instructions Last Modified By Organization Details Last Modified Time 04/06/2022 [id number] PREVIOUS MEDICATION December 2020: Stay off of levetiracetam 500 mg every 12 hours that was stopped in January 2020 as we have agreed that the likelihood of your event in January 2019 having been seizure is low. Also, levetiracetam in particular caused side effects of tiredness and irritability. Discussion across issues of diagnoses and management and same day associated chart review and management greater than 50% greater than 40 minutes [email or web address] Not available 04/06/2022 13:14:54 06/08/2022 [id number] PREVIOUS MEDICATION December 2020: Stay off of levetiracetam 500 mg every 12 hours that was stopped in January 2020 as we have agreed that the likelihood of your event in January 2019 having been seizure is low. Also, levetiracetam in particular caused side effects of tiredness and irritability. Discussion across issues of diagnoses and management and same day associated chart review and management greater than 50% greater than 40 minutes [email or web address] Not available 06/08/2022 12:03:25 Reason for Referral None Reported. Results Created Date Observation Date Name Description Value Unit Range Abnormal Flag Note LastModifiedBy Organization Detail LastModifiedTime 12/21/19 21 11/09/2020 elect romyo gram + nerve condu ction study No observ ation record ed. [address] [facility] (Imaging) [address] [place], [address], 12/22/2020 16:51:55 04/30/20 22 04/30/2022 MRI, cervi sarah spine , w/wo contr ast No observ ation record ed. [address] [facility] [address] [place], [address], 05/01/2022 11:40:44 05/22/2004/30/2022 MRI, cervi sarah spine , w/wo contr ast No observ ation record ed. [address] [facility] [address] [place], [address], 05/25/2022 14:36:26 Result Notes None recorded. Procedures Surgical History Date Name Laterality Status Provider Name and Address Organization Details Recorded Time 06/08/2022 DATA REVIEW completed Alberto Robles MD [address] [place] [address] [place], [phone], [facility] [employer] 06/08/2022 12:13:28 04/06/2022 DATA REVIEW completed Alberto Robles MD [address] [place] [address] [place], [id number], [employer] [place] [employer] 04/06/2022 12:34:55 12/20/2020 DATA REVIEW completed Alberto Robles MD [address] [place] [address] [place], [id number], [employer] [place] [employer] [place] [employer] 12/20/2020 11:51:28 Imaging Results Imaging Date Name Status LastModified by Organization Details LastModified Time 11/09/2020 electromyogram + nerve conduction study completed [address] [facility] ([facility]) [address] [place], [address], 12/22/2020 16:51:55 04/30/2022 MRI, cervical spine, w/wo contrast completed [address] [facility] [address] [place], [address], 05/01/2022 11:40:44 04/30/2022 MRI, cervical spine, w/wo contrast completed [address] [facility] [address] [place], [address], 05/25/2022 14:36:26 Procedure Notes None recorded. Medical Equipment None Reported. Medications Name Sig Start Date Stop Date Status Note LastModified by Organization Details LastModified Time losartan 50 mg tablet TAKE 1 TABLET BY MOUTH EVERY DAY active Not Available Not Available No t Available oxybutynin chloride ER 10 mg tablet,exten ded release 24 hr TAKE 1 TABLET BY MOUTH EVERY DAY active Not Available Not Available No t Available metoprolol succinate ER 50 mg tablet,exten ded release 24 hr TAKE 1 TABLET BY MOUTH EVERY DAY active Not Available Not Available No t Available ciprofloxaci n 250 mg tablet TAKE 1 TABLET BY MOUTH EVERY 12 HOURS FOR 7 DAYS active Not Available Not Available N ot Available cephalexin 500 mg capsule TAKE 1 CAPSULE BY MOUTH THREE TIMES A DAY FOR 7 DAYS active Not Available Not Available N ot Available erythromycin 5 mg/gram (0.5 %) eye ointment APPLY 1 CM RIBBON INTO THE LOWER CONJUNCTIVA L SAC(S) IN THE AFFECTED EYE(S) 3 TIMES PER DAY active Not Available Not Available No t Available nystatin 100,000 unit/gram topical cream APPLY TO AFFECTED AREA TOPICALLY TWICE A DAY FOR 2 WEEKS active Not Available Not Available Not Available clobetasol 0.05 % topical foam APPLY TO THE AFFECTED AREA(S) BY TOPICAL ROUTE TWICE DAILY IN THE MORNING AND EVENING active Not Available Not Available Not Available fluoxetine 10 mg capsule TAKE 1 CAPSULE DAILY, THEN IN 3 DAYS IF TOLERATING WELL CAN INCREASE TO 2 CAPSULES DAILY. active Not Available Not Available No t Available gabapentin 300 mg capsule TAKE 1 CAPSULE BY MOUTH THREE TIMES A DAY active Not Available Not Available Not Available gabapentin 100 mg capsule TAKE 2 CAPSULES BY MOUTH 3 TIMES A DAY active Not Available Not Available Not Available losartan 100 mg tablet TAKE 1 TABLET BY MOUTH EVERY DAY active Not Available Not Available No t Available fluoxetine 20 mg capsule TAKE 1 CAPSULE BY MOUTH EVERY DAY active Not Available Not Available No t Available fluticasone propionate 50 mcg/actuatio n nasal spray,suspen sudheer SPRAY 1 SPRAY EVERY DAY BY INTRANASAL ROUTE. active Not Available Not Available No t Available nitrofuranto in monohydrate/ macrocrystal s 100 mg capsule TAKE 1 CAPSULE BY MOUTH EVERY 12 HOURS FOR 5 DAYS active Not Available Not Available N ot Available Vitals None Recorded Social History None recorded. Functional Status None recorded. Mental Status None recorded. Family History Nothing Reported. Medical History No medical history recorded. Gynecological HistoryNo gynecological history recorded. Obstetrics History GPAL:G 0 P 0 0 0 0 Past Encounters Encounter ID Performer Location Encounter Start Date Encounter Closed Date Diagnosis/Indication Diagnosis SNOMED-CT Code Diagnosis ICD10 Code Diagnosis Note [id number] Alberto Robles MD [address] [place] [address] 12/20/2020 08:39:57 12/20/2020 11:54:41 Brief loss of consciousness 25820392 R55 Cervical d isc prolapse with myelopathy 913287521 M50.021 [id number] Alberto Robles MD [address] [place] [address] 04/06/2022 12:33:26 04/06/2022 14:42:16 Brief loss of consciousness [id number] R55 Cervical d isc prolapse with myelopathy [id number] M50.021 [id number] Alberto Robles MD [address] [place] [address] 06/08/2022 11:59:26 06/08/2022 17:07:29 Brief loss of consciousness [id number] R55 Abnormal gait [id number] R 26.81 Health Concerns Section Related Observation LastModified by Organization Detai ls LastModified Time None Recorded Concern Status LastModified by Organization Details LastModified Time None Recorded Advance Directives Directive None Recorded Payers Encounter Date Sequence Insurance Name Policy Number Policy Lamar Covered Member ID Lamar Member ID Guarantor Name 12/20/2020 1 [place] [facility] (HMO) [id number] Junior Triana [id number] Mandy Triana 04/06/2022 1 [place] [id number] Mandy Triana [id number] Mandy Triana 06/08/2022 1 [place] [id number] Mandy Triana [id number] Mandy Triana Notes Date Note Type Note Provider Name and Address Organization Details Recorded Time 12/20/2020 text/html Reconsultation f or January 2019 seizure. She is a previous patient of Dr. Butcher, neurology, [facility]. I saw her once previously, November 20, 2017, for symptoms status post cervical spine surgery, including left arm weakness, left greater than right extremity numbness and tingling. She is accompanied by her significant other, who helps with history. Since July 22, 2020 neurology follow-up encounter, she again has had no concerning symptomatology. She has had no episodes of unconsciousness or other symptoms to suggest seizure in the context of discontinuation of levetiracetam 500 mg every 12 hours in January 2020, the levetiracetam having been for events with unconsciousness previous to that. There has been no change in her tingling bilaterally in hands and more mildly in forearms and lack of feeling in her hands. She has continued on gabapentin which helps significantly for the tingling. She has had consultation in [place] with neurosurgery. They have suggested repeat surgery in her neck to change everything back from what is there in the context of her previous surgery. She has had second opinion in the hospital for special needs in [facility]. They have recommended against any such repeat cervical spine surgery. Presenting symptomatology relating to post cervical spine surgery is reviewed from initial neurology consultation November 20, 2017: In approximately 2015, she began having left sided upper extremity numbness/tingling and weakness. Soon after this, she noticed more mild similar tingling in the right upper extremity. Over ensuing months or year or so, she began noticing left greater than right foot tingling and dragging of her left foot. She presented for diagnostic evaluation, first with [facility] and then with spine surgery, Dr. Galicia. Carpal tunnel syndrome was entertained at first but then was not found, per patient report. 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 She had a second opinion with Dr. Daniel melgar, [facility] neurosurgeon and has subsequently had 2 surgeries for pressure on my spinal cord, August 2016 and July 02, 2017. She remembers no immediate improvement or worsening in the above-described symptoms after either of the surgeries. There has been gradual worsening of her tingling symptomatology independent of the surgeries. Gabapentin has been started and titrated to effect without side effects. It helps her tingling ideally if I remember the medication. It does not help her numbness. She continues with weakness in her left upper extremity. When she uses her left arm, she has aching pain in her anterior shoulder. She has frequent intermittent tight/stiff posterior neck discomfort. She has dull head pain at night. She has had physical therapy since her surgeries. It has not helped with the symptoms. Alberto Robles MD [address] [place] [address] [place], [phone], [facility] 12/20/2020 11:51:48 04/06/2022 text/html Reconsultation f or January 2019 seizure. She is a previous patient of Dr. Butcher, neurology, [facility]. I saw her once previously, November 20, 2017, for symptoms status post cervical spine surgery, including left arm weakness, left greater than right extremity numbness and tingling. She is accompanied by her significant other, who helps with history.Since December 20, 2020 neurology follow-up encounter, 1 year and 4 months ago, starting about a month ago, she has been having more trouble maneuvering on her feet. She has trouble lifting her left leg? h er better leg? w hen getting into the car. She has had falls for the first time in a while, three over the past week. She hit her head after the first fall and went to [facility] emergency room from which she was discharged with no clear diagnosis. She has had two further falls. All have been falling backwards ((one triggered by a dog jumping at her). All have been without her cane which she otherwise usually uses. She has no neck pain or back pain. Interim history from December 20, 2020 after she had discontinued her levetiracetam but continued her gabapentin which helps for chronic tingling:Since July 22, 2020 neurology follow-up encounter, she again has had no concerning symptomatology. She has had no episodes of unconsciousness or other symptoms to suggest seizure in the context of discontinuation of levetiracetam 500 mg every 12 hours in January 2020, the levetiracetam having been for events with unconsciousness previous to that. There has been no change in her tingling bilaterally in hands and more mildly in forearms and lack of feeling in her hands. She has continued on gabapentin which helps significantly for the tingling. She has had consultation in [place] with neurosurgery. They have suggested repeat surgery in her neck to change everything back from what is there in the context of her previous surgery. She has had second opinion in the hospital for special needs in [facility]. They have recommended against any such repeat cervical spine surgery. Presenting symptomatology relating to post cervical spine surgery is reviewed from initial neurology consultation November 20, 2017: In approximately 2015, she began having left sided upper extremity numbness/tingling and weakness. Soon after this, she noticed more mild similar tingling in the right upper extremity. Over ensuing months or year or so, she began noticing left greater than right foot tingling and dragging of her left foot. She presented for diagnostic evaluation, first with [facility] and then with spine surgery, Dr. Galicia. Carpal tunnel syndrome was entertained at first but then was not found, per patient report. 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 She had a second opinion with Dr. Daniel melgar, [facility] neurosurgeon and has subsequently had 2 surgeries for pressure on my spinal cord, August 2016 and July 02, 2017. She remembers no immediate improvement or worsening in the above-described symptoms after either of the surgeries. There has been gradual worsening of her tingling symptomatology independent of the surgeries. Gabapentin has been started and titrated to effect without side effects. It helps her tingling ideally if I remember the medication. It does not help her numbness. She continues with weakness in her left upper extremity. When she uses her left arm, she has aching pain in her anterior shoulder. She has frequent intermittent tight/stiff posterior neck discomfort. She has dull head pain at night. She has had physical therapy since her surgeries. It has not helped with the symptoms. Alberto Robles MD [address] [place] [address], [phone], [facility] 04/06/2022 13:15:40 06/08/2022 text/html Reconsultation f or January 2019 seizure. She is a previous patient of Dr. Butcher, neurology, [facility]. I saw her once previously, November 20, 2017, for symptoms status post cervical spine surgery, including left arm weakness, left greater than right extremity numbness and tingling. She is accompanied by her significant other, who helps with history. Since April 06, 2022 neurology follow-up, she has had no further falls? h er describes the falls around the beginning of March 2022 as four freak falls over a week. Her trouble maneuvering is also better. 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 They have guided her improvement. She felt better by early May 2022 but she is still improving with her maneuverability. She states that she uses her cane all the time. On the other hand, her adds that they climbed mount [place] recently without a cane or without trekking poles that she owns. Her notes that every time she falls she takes three steps backwards. I add that it seems like she takes 2 months backwards as it took 2 months from march through early May for her to feel significantly better after the falls in early March. Climbing [place] without trekking poles increases the risk of further falls. She agrees to use trekking poles in such situations in the future. April 06, 2022 history when she reported three or four falls at the beginning of March 2022 and reduced maneuverability:Since December 20, 2020 neurology follow-up encounter, 1 year and 4 months ago, starting about a month ago, she has been having more trouble maneuvering on her feet. She has trouble lifting her left leg? h er better leg? w hen getting into the car. She has had falls for the first time in a while, three over the past week. She hit her head after the first fall and went to [facility] emergency room from which she was discharged with no clear diagnosis. She has had two further falls. All have been falling backwards ((one triggered by a dog jumping at her). All have been without her cane which she otherwise usually uses. She has no neck pain or back pain. Interim history from December 20, 2020 after she had discontinued her levetiracetam but continued her gabapentin which helps for chronic tingling:Since July 22, 2020 neurology follow-up encounter, she again has had no concerning symptomatology. She has had no episodes of unconsciousness or other symptoms to suggest seizure in the context of discontinuation of levetiracetam 500 mg every 12 hours in January 2020, the levetiracetam having been for events with unconsciousness previous to that. There has been no change in her tingling bilaterally in hands and more mildly in forearms and lack of feeling in her hands. She has continued on gabapentin which helps significantly for the tingling. She has had consultation in [place] with neurosurgery. They have suggested repeat surgery in her neck to change everything back from what is there in the context of her previous surgery. She has had second opinion in the hospital for special needs in [facility]. They have recommended against any such repeat cervical spine surgery. Presenting symptomatology relating to post cervical spine surgery is reviewed from initial neurology consultation November 20, 2017: In approximately 2015, she began having left sided upper extremity numbness/tingling and weakness. Soon after this, she noticed more mild similar tingling in the right upper extremity. Over ensuing months or year or so, she began noticing left greater than right foot tingling and dragging of her left foot. She presented for diagnostic evaluation, first with [facility] and then with spine surgery, Dr. Galicia. Carpal tunnel syndrome was entertained at first but then was not found, per patient report. 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 She had a second opinion with Dr. Daniel melgar, [facility] neurosurgeon and has subsequently had 2 surgeries for pressure on my spinal cord, August 2016 and July 02, 2017. She remembers no immediate improvement or worsening in the above-described symptoms after either of the surgeries. There has been gradual worsening of her tingling symptomatology independent of the surgeries. Gabapentin has been started and titrated to effect without side effects. It helps her tingling ideally if I remember the medication. It does not help her numbness. She continues with weakness in her left upper extremity. When she uses her left arm, she has aching pain in her anterior shoulder. She has frequent intermittent tight/stiff posterior neck discomfort. She has dull head pain at night. She has had physical therapy since her surgeries. It has not helped with the symptoms. Alberto Robles MD [address] [place] [address] [place], [phone], [facility] 06/08/2022 12:46:35 OBGyn Episode No OBEpisode recorded.
== END 2024-09-18 11:53 | disposition home or self-care (01) ==
LOC: HO.HUSH 10:08
PROVIDERS: PCP Physician Assistant; Visit Provider Nurse Practitioner Family
DX: Z13.9 Encounter for screening, unspecified (principal)

== ENCOUNTER → 2024-09-18 10:07 | Outpatient (BNVA) | payer BC, SELFPAY | PROVIDERS: PCP Physician Assistant; Visit Provider Nurse Practitioner Family | DX: R35.1 Nocturia (principal); R32 Unspecified urinary incontinence; R33.9 Retention of urine, unspecified | CPT/HCPCS: 51798; 81003 ==

== ENCOUNTER 2025-02-03 12:51 | Outpatient (AMB) | payer BC, SELFPAY ==
--- OUTSIDE RECORDS SUMMARY | 2016-06-08 01:00 | XMS_ITS | Encounter Summary ---
Author Organization [facility] Address [address] [facility] [address] [place] [address] Phone Care Team Providers Care Physical Therapy Technician Name Role Phone Unavailable Primary Care Provider Unavailabl e Encounter Details Date Type Department Care Team ([facility] st Contact Info) Description 06/08/2016 Hospital Encounter [facility] Imaging [address] [place] [address] Cody Velazquez MD 123 [facility] [address] [place] [address] Social History Tobacco Use Types Packs/Day Years [...] No Risk Indicated 05/13/2024 1:07 AM Oleg Miramontes RN * [place] Suicide Severity Rating Scale (Screener/Recent Self-Report) Question [...] st Contact Info) Description 03/13/2024 Procedure Pass [address] [address] 03/09/2025 8:30 AM EDT Appointment [address] [address] Trisha Abrams PA [address] [place] [address] [email or web address] documented as of this encounter Procedures Procedure Name Priority Date/Time Associated Diagnosis Comments XR SPINE OUTSIDE (NO INTERPRETATION) Routine 06/08/2016 12:00 AM EST documented in this encounter Results * XR SPINE OUTSIDE(NO INTERPRETATION) (06/08/2016 12:00 AM EST) Narrative [facility] - 08/11/2016 8:34 AM EST This study is for PACS storage only and not for interpretation. us Cody Velazquez MD IMG OUTSIDE IMAGING W/OUT INTERPRETATION Final Result [facility] documented in this encounter Visit Diagnoses Not on filedocumented in this encounter Additional Health Concerns Infection Onset Date Last Indicated Resolved Time CoV-Risk 12/10/2020 12/11/2020 12/20/2020 1:23 AM EDT documented as of this encounter Additional Source Comments The information contained in this document represents components of the legal health record. It is not the complete legal health record.[facility]
--- OUTSIDE RECORDS SUMMARY | 2016-06-25 01:00 | XMS_ITS | Encounter Summary ---
Author Organization [facility] Address [address] [facility] [address] [place] [address] Phone Care Team Providers Care Channeler Runner Name Role Phone Unavailable Primary Care Provider Unavailabl e Reason for Visit * MRI/CAT Scan - Closed Specialty Diagnoses / Procedures Referred By Radha huertas Referred To Contact Procedures MRI Spine (Bone) Outside (No Interpretation) Cody Velazquez MD [address] [address] Phone: tel: fax: mailto:[email or web address] Referral ID Status Reason Start Date Expiration Date Visits Re quested Visits Authorized [id number] Closed 08/11/2016 08/11/2017 1 1 Encounter Details Date Type Department Care Team ([facility] Contact Info) Description 06/25/2016 Hospital Encounter [facility] General Imaging [address] [facility] [place] [address] Cody Velazquez MD 123 [facility] [address] [place] [address] [email or web address] Social History Tobacco Use Types Packs/Day Years [...] 05/13/2024 1:07 AM Oleg Miramontes, DILLAN * [place] Suicide Severity Rating Scale (Screener/Recent Self-Report) Question Answer Date of Assessment Author 1. Wish to be (Past 1 Month) No 024 1:07 AM Oleg Miramontes, DILLAN 2. Non-Specific Active Suici martha Thoughts (Past 1 Month) No 05/13/2024 1:07 AM Raymond Miramontes, RN 6. Suicidal Behavior (Lifetime) No 4 1:07 AM Oleg Miramontes, RN documented as of this encounter Plan of Treatment Upcoming Encounters Date Type Department Care Team (Late st Contact Info) Description 03/13/2024 Procedure Pass [address] [address] 03/09/2025 8:30 AM EDT Appointment [facility] [address] [place] [address] Trisha Abrams PA [address] [place] [address] [email or web address] documented as of this encounter Procedures Procedure Name Priority Date/Time Associated Diagnosis Comments MRI SPINE MUSCULOSKELETAL FOCUS OUTSIDE (NO INTERPRETATION) Routine 06/25/2016 12:00 AM EST documented in this encounter Results * MRI Spine (Bone) Outside (No Interpretation) (06/25/2016 12:00 AM EST) Narrative [facility] INTERFACES - 08/11/2016 8:33 AM EST This study is for PACS storage only and not for interpretation. Cody Velazquez MD IMG OUTSIDE IMAGING W/OUT INTERPRETATION Final Result Performing Organization Address City/State/[facility] Co de Phone Number [facility] documented in this encounter Visit Diagnoses Not on filedocumented in this encounter Additional Health Concerns Infection Onset Date Last Indicated Resolved Time CoV-Risk 12/10/2020 12/11/2020 12/20/2020 1:23 AM EDT documented as of this encounter Additional Source Comments The information contained in this document represents components of the legal health record. It is not the complete legal health record.[facility]
--- OUTSIDE RECORDS SUMMARY | 2016-06-25 01:15 | XMS_ITS | Encounter Summary ---
Author Organization [facility] Address [address] [facility] [address] [place] [address] Phone Care Team Providers Care Repair Department Manager Name Role Phone Unavailable Primary Care Provider Unavailabl e Reason for Visit * MRI/CAT Scan - Closed Specialty Diagnoses / Procedures Referred By Radha huertas Referred To Contact Procedures MRI Spine (Bone) Outside (No Interpretation) Cody Velazquez MD [address] [address] Phone: tel: fax: mailto:[email or web address] Referral ID Status Reason Start Date Expiration Date Visits Re quested Visits Authorized [id number] Closed 08/11/2016 08/11/2017 1 1 Encounter Details Date Type Department Care Team ([facility] Contact Info) Description 06/25/2016 12:15 AM EST Hospital Encounter [facility] General Imaging [address] [facility] [place] [address] Cody Velazquez MD [address] [address] [email or web address] Social History Tobacco Use Types Packs/Day Years [...] Risk Indicated 05/13/2024 1:07 AM Oleg Miramontes, RN * [place] Suicide Severity Rating Scale (Screener/Recent Self-Report) Question [...] st Contact Info) Description 03/13/2024 Procedure Pass [address] [address] 03/09/2025 8:30 AM EDT Appointment [facility] [address] [place] [address] Trisha Abrams PA [address] [place] [address] [email or web address] documented as of this encounter Procedures Procedure Name Priority Date/Time Associated Diagnosis Comments MRI SPINE MUSCULOSKELETAL FOCUS OUTSIDE (NO INTERPRETATION) Routine 06/25/2016 12:15 AM EST documented in this encounter Results * MRI Spine (Bone) Outside (No Interpretation) (06/25/2016 12:15 AM EST) Narrative [facility] - 08/11/2016 8:34 AM EST This study is for PACS storage only and not for interpretation. Cody Velazquez MD IMG OUTSIDE IMAGING W/OUT INTERPRETATION Final Result Performing Organization Address City/State/[facility] Co de Phone Number [facility] documented in this encounter Visit Diagnoses Not on filedocumented in this encounter Additional Health Concerns Infection Onset Date Last Indicated Resolved Time CoV-Risk 12/10/2020 12/11/2020 12/20/2020 1:23 AM EDT documented as of this encounter Additional Source Comments The information contained in this document represents components of the legal health record. It is not the complete legal health record.[facility]
--- OUTSIDE RECORDS SUMMARY | 2016-06-27 01:00 | XMS_ITS | Encounter Summary ---
Author Organization [facility] Address [address] [facility] [address] [place] [address] Phone Care Team Providers Care Air Tucker Name Role Phone Unavailable Primary Care Provider Unavailabl e Encounter Details Date Type Department Care Team ([facility] st Contact Info) Description 06/27/2016 Hospital Encounter [facility] General Imaging [address] [place] [address] Cody Velazquez MD 123 [facility] [address] [place] [address] Social History Tobacco Use Types Packs/Day Years [...] 05/13/2024 1:07 AM Oleg Miramontes RN * [place] Suicide Severity Rating Scale (Screener/Recent Self-Report) Question [...] st Contact Info) Description 03/13/2024 Procedure Pass [address] [address] 03/09/2025 8:30 AM EDT Appointment [address] [address] Trisha Abrams PA [address] [place] [phone] [email or web address] documented as of this encounter Procedures Procedure Name Priority Date/Time Associated Diagnosis Comments XR SPINE OUTSIDE (NO INTERPRETATION) Routine 06/27/2016 12:00 AM EST documented in this encounter Results * XR SPINE OUTSIDE(NO INTERPRETATION) (06/27/2016 12:00 AM EST) Narrative [facility] IMG INTERFACES - 08/11/2016 8:32 AM EST This study is for PACS storage only and not for interpretation. us Cody Velazquez MD IMG OUTSIDE IMAGING W/OUT INTERPRETATION [facility] documented in this encounter Visit Diagnoses Not on filedocumented in this encounter Additional Health Concerns Infection Onset Date Last Indicated Resolved Time CoV-Risk 12/10/2020 12/11/2020 12/20/2020 1:23 AM EDT documented as of this encounter Additional Source Comments The information contained in this document represents components of the legal health record. It is not the complete legal health record.[facility]
--- OUTSIDE RECORDS SUMMARY | 2016-06-27 01:15 | XMS_ITS | Encounter Summary ---
Author Organization [employer] [facility] Address [address] [facility] [address] [place] [address] Phone Care Team Providers Care Membership Correspondent Name Role Phone Unavailable Primary Care Provider Unavailabl e Encounter Details Date Type Department Care Team ([facility] Contact Info) Description 06/27/2016 12:15 AM EST Hospital Encounter [facility] Imaging [address] [place] [address] Cody Velazquez MD 123 [facility] [address] [place] [address] [email or web address] Social History Tobacco Use Types Packs/Day Years [...] 05/13/2024 1:07 AM Oleg Miramontes, DILLAN * [place] Suicide Severity Rating Scale (Screener/Recent Self-Report) Question [...] st Contact Info) Description 03/13/2024 Procedure Pass [address] [address] 03/09/2025 8:30 AM EDT Appointment [address] [address] Trisha Abrams PA [address] [place] [phone] [email or web address] documented as of this encounter Procedures Procedure Name Priority Date/Time Associated Diagnosis Comments XR SPINE OUTSIDE (NO INTERPRETATION) Routine 06/27/2016 12:15 AM EST documented in this encounter Results * XR SPINE OUTSIDE(NO INTERPRETATION) (06/27/2016 12:15 AM EST) Narrative [facility] IMG INTERFACES - 08/11/2016 8:33 AM EST This study is for PACS storage only and not for interpretation. us Cody Velazquez MD IMG OUTSIDE IMAGING W/OUT INTERPRETATION Final Result [facility] IMG INTERFACES documented in this encounter Visit Diagnoses Not on filedocumented in this encounter Additional Health Concerns Infection Onset Date Last Indicated Resolved Time CoV-Risk 12/10/2020 12/11/2020 12/20/2020 1:23 AM EDT documented as of this encounter Additional Source Comments The information contained in this document represents components of the legal health record. It is not the complete legal health record.[facility]
--- OUTSIDE RECORDS SUMMARY | 2016-08-16 | XMS_ITS | Encounter Summary ---
Author Organization [facility] Address [address] [place] [address] Phone Care Team Providers Care Ferry Hand Name Role Phone Orville Palomino MD Primary Care Provider [phone] Reason for Visit * MRI/CAT Scan - Closed Specialty Diagnoses / Procedures Referred By Radha t Referred To Contact Procedures CT Spine (Bone) Focus Outside (No Interpretation) Cody Velazquez MD [address] [place] [address] Phone: tel: fax: [email or web address]:[email or web address] Referral ID Status Reason Start Date Expiration Date Visits Re quested Visits Authorized [id number] Closed 08/21/2016 08/21/2017 1 1 Encounter Details Date Type Department Care Team ([facility] Contact Info) Description 08/16/2016 Hospital Encounter [facility] [address] [place] [address] Cody Velazquez MD [address] [place] [address] [email or web address] Social History Tobacco Use Types Packs/Day Years [...] 05/13/2024 1:07 AM Oleg Miramontes, RN * [place] Suicide Severity Rating Scale (Screener/Recent Self-Report) Question [...] st Contact Info) Description 03/13/2024 Procedure Pass [address] [address] 03/09/2025 8:30 AM EDT Appointment [facility] [address] [place] [address] Trisha Abrams PA [address] [place] [address] [email or web address] m documented as of this encounter Procedures Procedure Name Priority Date/Time Associated Diagnosis Comments CT SPINE (BONE) OUTSIDE (NO INTERPRETATION) Routine 08/16/2016 12:00 AM EDT documented in this encounter Results * CT Spine (Bone) Focus Outside (No Interpretation) (08/16/2016 12:00 AM EDT) Narrative [facility] - 08/21/2016 10:49 AM EDT This study is for PACS storage only and not for interpretation. Cody Velazquez MD IMG OUTSIDE IMAGING W/OUT INTERPRETATION Final Result Performing Organization Address City/State/[facility] Co de Phone Number [facility] documented in this encounter Visit Diagnoses Not on filedocumented in this encounter Additional Health Concerns Infection Onset Date Last Indicated Resolved Time CoV-Risk 12/10/2020 12/11/2020 12/20/2020 1:23 AM EDT documented as of this encounter Care Teams Ferry Hand Relationship Specialty Start Date End Date Orville Palomino MD [address] [place] [address] [email or web address] PCP - General 07/12/16 03/08/17 documented as of this encounter Additional Source Comments The information contained in this document represents components of the legal health record. It is not the complete legal health record.[facility]
--- NOTE | 2025-02-03 13:03 | MHC.OFFVIS ---
Vital Signs 02/03/25 13:07 Height 3 ft 10 in Weight 65 lb BMI 21.6 BP 109/62 Blood Pressure Location Rt brachial Position Sitting Pulse 65 Pulse Source Pulse Oximeter Pulse Oximetry (%) 95 Oxygen Delivery Method Room Air Comment verbal weight Intake Visit Reasons: Obstructive sleep apnea Allergies lisinopril Allergy (Intermediate, Verified 09/19/24 20:55) Cough HPI HPI Obstructive sleep apnea: Details: 64-year-old lady, nonsmoker, with underlying severe obstructive sleep apnea well controlled on current BiPAP therapy. [facility] Medical History HTN (hypertension) Cardiac arrest Urinary incontinence OA (osteoarthritis) Depression Surgical History History of appendectomy Review of Systems Const Denies daytime sleepiness, Denies excessive sweating, Denies fatigue, Denies fever(s), Denies lethargy, Denies malaise, Denies night sweats, Denies snoring and Denies weight loss Eyes Denies blurry vision and Denies itchy eyes ENT Denies nasal congestion, Denies post nasal drip, Denies sinus pain, Denies sinus pressure and Denies other ( Thrush) Card Denies chest pain, Denies pedal edema, Denies dyspnea, Denies orthopnea and Denies paroxysmal nocturnal dyspnea Resp Denies cough, Denies hemoptysis, Denies excessive phlegm production, Denies dyspnea, Denies snoring and Denies wheezing GI Denies abdominal pain and Denies heartburn Musc Denies myalgias, Denies arthralgias and Denies joint swelling Skin/Breast Denies rash Neuro Denies memory loss and Denies seizure-like activity Psych Denies abnormal sleep pattern, Denies anxiety and Denies memory loss Endo Denies excessive sweating, Denies fatigue and Denies heat intolerance Zbigniew/Lymph Denies easy bruising Aller/Immun Denies itchy eyes, Denies seasonal rhinorrhea and Denies wheezing Physical Exam Vital Signs: Last Vital Signs Pulse 65 02/03/25 13:07 BP 109/62 02/03/25 13:07 Pulse Ox 95 02/03/25 13:07 Oxygen Delivery Method Room Air 02/03/25 13:07 BMI result Body Mass Index 21.6 Const General: no acute distress and alert Nutritional Appearance: not obese Orientation/consciousness: Other orientation findings ( oriented) HEENT Head: Yes atraumatic Eyes General: appearance normal, both eyes and all related structures Sclerae: sclerae normal EOM: EOMs intact bilaterally Neck Neck: Yes supple Lymphatic: no lymphadenopathy noted Resp Effort & Inspection: normal respiratory effort and no use of accessory muscles Auscultation: clear to auscultation bilaterally Cardio Rate: regular rate Rhythm: regular rhythm Heart sounds: no gallops, no murmurs and no rubs Skin General skin exam: other ( warm) Extrem General: No clubbing, No cyanosis and No edema Assessment & Plan Assessment & Plan (1) Sleep apnea: Code(s): G47.30 - Sleep apnea, unspecified Category: Medical Plan: Therapy and compliance report reviewed - patient is benefitting from and is compliant with noninvasive positive pressure ventilation treatment, using it greater than 70% of the time, more than 4 hours per night. Severe obstructive sleep apnea well controlled on current BiPAP therapy. Continue BiPAP therapy. Coding Level of Care Code Est Pt Level 3 (25729) Diagnoses Sleep apnea G47.30
[2025-02-03 13:07] VITALS: BP 109/62; PULSE 65; O2SAT 95; BMI 21.6
--- OUTSIDE RECORDS SUMMARY | 2025-02-03 14:08 | XMS_ITS | Encounter Summary ---
Author Organization [facility] Address [facility] [address] [place] [address] Phone Care Team Providers Care Racquet Maker Name Role Phone Radha Fenton Primary Care Prov ider Trisha Abrams Primary Care Provider [email or web address] Encounter Details Date Type Department Care Team (Late st Contact Info) Description 05/10/2022 Transcribe Orders Virtual Department [address] [place] [address] Radha Fenton PA [address] [place], [place] [id number] [email or web address] Other abnormal and inconclusive findings on diagnostic imaging of breast (Primary Dx) Social History Tobacco Use Types Packs/Day Years Used Date Smoking Tobacco: Never Smokeless Tobacco: Never Alcohol Use Standard Drinks/Week Comments Not Currently 14 (1 standard drink = 0.6 oz pu re alcohol) 2+ glasses of wine per day Comments No Sex and Gender Information Value Date Recorded Sex Assigned at Female 10/01/2021 1:03 PM EDT Legal Sex Female 5:41 PM EST Gender Identity Female 10/01/2021 1:03 PM EDT Sexual Orientation Straight 05/13/2024 2: 08 AM EST documented as of this encounter Functional Status * Patient is deaf or has serious difficulty with hearing Answer Date of Assessment Author No 08/24/2016 11:25 AM Eloina Herrera CNP * Patient is blind or has serious difficulty with seeing, even when wearing glasses Answer Date of Assessment Author No 08/24/2016 11:25 AM Eloina Herrera CNP * Patient has serious difficulty walking or climbing stairs (5yr old or older) Answer Date of Assessment Author No 08/24/2016 11:25 AM Eloina Herrera CNP * Patient has serious difficulty dressing or bathing (5yr old or older) Answer Date of Assessment Author No 08/24/2016 11:25 AM Eloina Herrera CNP * Patient has serious difficulty doing errands alone such as visiting a doctor???s office or shopping, due to physical, mental, or emotional condition (15 years old or older) Answer Date of Assessment Author No 08/24/2016 11:25 AM Eloina Herrera CNP documented as of this encounter Mental Status * Patient has serious difficulty concentrating, remembering, or making decisions due to physical, mental, or emotional condition Answer Entry Date Author No 08/24/2016 11:25 AM Eloina Herrera CNP documented in this encounter Plan of Treatment Upcoming Encounters Date Type Department Care Team (Late st Contact Info) Description 03/13/2024 Procedure Pass [address] [address] 03/09/2025 8:30 AM EDT Appointment [address] [address] Trisha Abrams PA [address] [place] [phone] [email or web address] Scheduled Orders Name Type Priority Associated Diagnoses Orde r Schedule US Breast (Left) Imaging Routine Other abnormal and inconclusive findings on diagnostic imaging of breast Expected: 05/10/2022, Expires: 05/10/2023 documented as of this encounter Results * BI MAMMOGRAM DIAGNOSTIC WITH TOMOSYNTHESIS WITH CAD (LEFT) (06/23/2022 8:44 AM EST) Anatomical Region Laterality Modality Breast Left, Breast Bilateral Left Ma mmography 06/23/2022 9:09 AM EST Impressions 06/23/2022 10:19 AM EST No findings suspicious for malignancy. Bilateral screening mammography in 6 months is recommended. Findings and recommendation conveyed to the patient before she left the breast center. BI-RADS CATEGORY: 2 - Benign finding. DENSITY: The breast tissue is heterogeneously dense, which could obscure a lesion on mammography. Narrative 06/23/2022 10:19 AM EST EXAM: Unilateral left full field digital mammography was obtained with computer-aided detection. 2-D and 2-D C view imaging obtained as well as tomosynthesis images in two projections of the breast was also obtained. COMPARISON: Prior left mammograms as far back as 03/27/2014 and as recent as 12/15/2021. FINDINGS: No evidence of new or residual architectural distortion. Previously described microcalcifications in the upper aspect of the left breast have largely resolved and may have been artifactual. No suspicious groups of microcalcifications. No suspicious masses. Radha [facility] Fi nal Result documented in this encounter Visit Diagnoses Diagnosis Other abnormal and inconclusive findings on diagnostic imaging of breast- Primary Other abnormal and inconclusive findings on diagnostic imaging of breast documented in this encounter Care Teams Racquet Maker Relationship Specialty Start Date End Date Radha Fenton PA [address] [place] [id number] PCP - General 10/01/21 05/12/24 Trisha Abrams [address] [place] [address] PCP - General 05/13/24 documented as of this encounter Additional Source Comments The information contained in this document represents components of the legal health record. It is not the complete legal health record.[facility]
--- OUTSIDE RECORDS SUMMARY | 2025-02-03 14:08 | XMS_ITS | Encounter Summary ---
Author Organization [facility] Address [address] [place] [address] Phone Care Team Providers Care Matchbook Maker Name Role Phone Radha Fenton Primary Care Prov ider Trisha Abrams Primary Care Provider [email or web address] Encounter Details Date Type Department Care Team (Late st Contact Info) Description 12/15/2022 Procedure Pass [facility], [address] [id number] Social History Tobacco Use Types Packs/Day Years Used Date Smoking Tobacco: Never Smokeless Tobacco: Never Alcohol Use Standard Drinks/Week Comments Not Currently 14 (1 standard drink = 0.6 oz pu re alcohol) 2+ glasses of wine per day Education Answer Date Recorded Are you interested in more education? Not on berenice e 09/30/2022 Are you concerned about learning? Not on file 09/30/2022 No 09/30/2022 No 09/30/2022 Digital Access Answer Date Recorded No 10/29/2022 No 10/29/2022 Reliable internet access at home? Not on file 10/29/2022 Device with a working camera? Not on file Comments No Sex and Gender Information Value [...] st Contact Info) Description 03/13/2024 Procedure Pass [address] [address] 03/09/2025 8:30 AM EDT Appointment [address] [address] Trisha Abrams PA [address] [place] [phone] [email or web address] documented as of this encounter Visit Diagnoses Not on filedocumented in this encounter Care Teams Matchbook Maker Relationship Specialty Start Date End Date Radha Fenton PA [address] [place] [address] PCP - General 10/01/21 05/12/24 Trisha Abrams [address] [place] [address] [email or web address] PCP - General 05/13/24 documented as of this encounter Additional Source Comments The information contained in this document represents components of the legal health record. It is not the complete legal health record.[facility]
--- OUTSIDE RECORDS SUMMARY | 2025-02-03 14:08 | XMS_ITS | Encounter Summary ---
Author Organization [facility] Address [facility]ly [facility] [address] [place] [address] Phone Care Team Providers Care Manifold Builder Name Role Phone Orville Palomino MD Primary Care Provider Susana CookM Unavailable Huma Sumner PUPPET MASTER Unavailable [phone] Angy Haywood PUPPET MASTER Unavailable Carl Collins MD Unavailable [phone] Issa Nguyen MD Unavailable Lana Hardy PUPPET MASTER Unavailable Rena Ruff MD Unavailable Yanni Walker MD Unavailable Radha Johnson MD Unavailable [phone] Erika Ceja CERTIFIED CODING SPECIALIST Unavailable Radha Fenton Primary Care Prov ider Trisha Abrams Primary Care Provider tia Reason for Referral * Occupational Therapy (Routine) - Closed Specialty Diagnoses / Procedures Referred By Contac t Referred To Contact 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 Orville Palomino MD Phone: tel: fax: [email or web address] [facility] [address] [place] [address] Phone: tel: Referral ID Status Reason Start Date Expiration Date Visits Re quested Visits Authorized [id number] Closed 12/29/2020 06/03/2021 17 17 Encounter Details Date Type Department Care Team (Latest Contact Info) Description 12/29/2020 Transcribe Orders [facility] [address] [place] [address] Orville Palomino MD 230 [facility] [address] [place] [phone] [email or web address] Encounter for rehabilitation (Primary Dx) Social History Tobacco Use Types Packs/Day Years Used Date Smoking Tobacco: Never Smokeless Tobacco: Never Alcohol Use Standard Drinks/Week Comments Yes 14 (1 standard drink = 0.6 oz pu re alcohol) 2+ glasses of wine per day Comments Unknown Sex and Gender Information Value Date Recorded Sex Assigned at Female 10/01/2021 1:03 PM EDT Legal Sex Female 5:41 PM EST Gender Identity Female 10/01/2021 1:03 PM EDT Sexual Orientation Straight 05/13/2024 2: 08 AM EST documented as of this encounter Functional Status * Patient is deaf or has serious difficulty with hearing Answer Date of Assessment Author No 08/24/2016 11:25 AM EDT Eloina Carlisle CNP * Patient is blind or has serious difficulty with seeing, even when wearing glasses Answer Date of Assessment Author No 08/24/2016 11:25 AM EDT Eloina Carlisle CNP * Patient has serious difficulty walking or climbing stairs (5yr old or older) Answer Date of Assessment Author No 08/24/2016 11:25 AM EDT Eloina Carlisle CNP * Patient has serious difficulty dressing or bathing (5yr old or older) Answer Date of Assessment Author No 08/24/2016 11:25 AM EDEloina Dean CNP * Patient has serious difficulty doing [...] Contact Info) Description 03/13/2024 Procedure Pass [address] [address] 03/09/2025 8:30 AM EDT Appointment [address] [address] Trihsa Abrams PA [address] [place] [address] [email or web address] Scheduled Referrals Name Type Priority Associated Diagnoses Orde r Schedule Ambulatory referral to [facility] Occupational Therapy Outpatient Referral Routine Encounter for rehabilitation Ordered: 12/29/2020 documented as of this encounter Visit Diagnoses Diagnosis Encounter for rehabilitation- Primary documented in this encounter Care Teams Manifold Builder Relationship Specialty Start Date End Date Orville Palomino MD [address] [place] [address] [address] [place] [address] [email or web address] PCP - General 03/09/17 09/30/21 Radha Fenton PA [address] [place] [address] PCP - General 10/01/21 05/12/24 Trisha Abrams [address] [place] [address] PCP - General 05/13/24 Susana Cook CNM [address] [place] [address] Historical LMR Provider 03/25/17 2 Huma Sumner NP [address] [place] [address] [email or web address] Historical LMR Provider 03/25/17 06/11/21 Angy Haywood NP [address] [place] [address] Historical LMR Provider 03/25/17 2 Carl Collins MD [address] [place] [address] Historical LMR Provider 03/25/17 06/11/21 Issa Nguyen MD [address] [place] [phone] Historical LMR Provider 03/25/17 2 Lana Hardy NP [address] [place] [address] Historical LMR Provider 03/25/17 2 Rena Ruff MD [address] [place] [address] [facility], [place] [address] jose Historical LMR Provider 03/25/17 Yanni Walker MD 4 [facility], [place] [address] [email or web address] Historical LMR Provider 03/25/17 06/11/21 Radha Johnson MD [address], [place] [phone] Historical LMR Provider 03/25/17 2 Erika Ceja CNP [address] [place], [place] [address] [place] [address] [email or web address] Historical LMR Provider 03/25/17 documented as of this encounter Additional Source Comments The information contained in this document represents components of the legal health record. It is not the complete legal health record.[facility]
--- OUTSIDE RECORDS SUMMARY | 2025-02-03 14:08 | XMS_ITS | Encounter Summary ---
Author Organization [facility] Address [facility] [address] [place] [address] Phone Care Team Providers Care Tier Lift Truck Operator Name Role Phone Orville Palomino MD Primary Care Provider Susana Cook CNM Unavailable Huma Sumner WESTERN TACK ASSEMBLY LINE WORKER Unavailable [phone] Angy Haywood WESTERN TACK ASSEMBLY LINE WORKER Unavailable Carl Collins MD Unavailable [phone] Issa Nguyen MD Unavailable Lana Hardy WESTERN TACK ASSEMBLY LINE WORKER Unavailable Rena Ruff MD Unavailable Yanni Walker MD Unavailable Radha Johnson MD Unavailable [phone] Erika Ceja ONCOLOGY PHYSICIAN ASSISTANT Unavailable Radha Fenton Primary Care Prov ider Trisha Abrams Primary Care Provider tia Encounter Details Date Type Department Care Team (Late st Contact Info) Description 06/21/2020 Ancillary Orders [facility] at [address] [address] Radha Fenton PA [address] [place] [address] [email or web address] Breast screening Social History Tobacco Use Types Packs/Day Years [...] st Contact Info) Description 03/13/2024 Procedure Pass [address] [address] 03/09/2025 8:30 AM EDT Appointment [address] [address] Trisha Abrams PA [address] [place] [address] [email or web address] documented as of this encounter Results * (ABNORMAL) BI MAMMOGRAM SCREENING WITH TOMOSYNTHESIS WITH CAD (BILATERAL) (12/01/2021 9:05 AM EDT) Anatomical Region Laterality Modality Breast Left, Breast Right, Breast Bilateral Bila teral Mammography 12/01/2021 10:2 8 AM EDT Impressions 12/01/2021 11:49 AM EDT Recommend recalling the patient for potential left breast distortion and calcifications. Radiology department will attempt to recall the patient. Recall views: Spot mag left MLO view. Exaggerated lateral left CC and Left ML views. Ultrasound if necessary. BI-RADS CATEGORY: 0 - Incomplete. Need additional imaging evaluation. DENSITY: The breast tissue is heterogeneously dense, which could obscure a lesion on mammography. LEFT RECOMMENDATION DUE DATE: 1 month. Left Additional Imaging RIGHT RECOMMENDATION DUE DATE: on schedule Right Mammography Screening Narrative 12/01/2021 11:49 AM EDT 61-year-old female. Comparison made to previous on 03/30/2015 and as far back as 08/11/2003. Interpretation made in conjunction with computer-aided detection and tomosynthesis. The breasts are heterogeneously dense, which may obscure small masses. No visible benign right breast vascular calcifications. New potential distortion and microcalcifications in the posterior upper left breast on the MLO view. No mass. Procedure Note Ernie Beck MD - 12/01/2021 61-year-old female. Comparison made to previous on 03/30/2015 and as farback as 08/11/2003. Interpretation made in conjunction with computer-aideddetection and tomosynthesis. The breasts are heterogeneously dense, which may obscure small masses. Novisible benign right breast vascular calcifications. New potentialdistortion and microcalcifications in the posterior upper left breast onthe MLO view. No mass. IMPRESSION: Recommend recalling the patient for potential left breast distortion andcalcifications. Radiology department will attempt to recall the patient. Recall views: Spot mag left MLO view. Exaggerated lateral left CC and LeftML views. Ultrasound if necessary. BI-RADS CATEGORY: 0 - Incomplete. Need additional imaging evaluation. DENSITY: The breast tissue is heterogeneously dense, which could obscurea lesion on mammography. LEFT RECOMMENDATION DUE DATE: 1 month. Left Additional Imaging RIGHT RECOMMENDATION DUE DATE: on schedule Right Mammography Screening us Radha ARREOLA IMG MG EXAMS Fi nal Result documented in this encounter Visit Diagnoses Diagnosis Breast screening Breast screening, unspecified Breast screening Breast screening, unspecified documented in this encounter Additional Health Concerns Infection Onset Date Last Indicated Resolved Time CoV-Risk 12/10/2020 12/11/2020 12/20/2020 1:23 AM EDT documented as of this encounter Care Teams Tier Lift Truck Operator Relationship Specialty Start Date End Date Orville Palomino MD [address] [place] [phone] [email or web address] PCP - General 03/09/17 09/30/21 Radha Fenton PA [address] [place] [address] PCP - General 10/01/21 05/12/24 Trisha Abrams 30 [place] [address] PCP - General 05/13/24 Susana Cook CNM 30 [place] [address] Historical LMR Provider 03/25/17 2 Huma Sumner NP 30 [place] [address] [email or web address] Historical LMR Provider 03/25/17 06/11/21 Angy Haywood NP [address] [place] [address] Historical LMR Provider 03/25/17 2 Carl Collins MD [address] [place] [address] [email or web address] Historical LMR Provider 03/25/17 06/11/21 Issa Nguyen MD [address] [place] [phone] Historical LMR Provider 03/25/17 2 Lana Hardy NP [address] [place] [address] Historical LMR Provider 03/25/17 2 Rena Ruff MD [address] [place] [address] [facility], [place] [address] jose Historical LMR Provider 03/25/17 Yanni Wakler MD [address] [place] [address] [facility], [place] [address] Historical LMR Provider 03/25/17 06/11/21 Radha Johnson MD [address] [place] [address] Historical LMR Provider 03/25/17 2 Erika Ceja CNP [address] [place] [address], [address] [place] [address] [email or web address] Historical LMR Provider 03/25/17 documented as of this encounter Additional Source Comments The information contained in this document represents components of the legal health record. It is not the complete legal health record.[facility]
--- OUTSIDE RECORDS SUMMARY | 2025-02-03 14:08 | XMS_ITS | Encounter Summary ---
Author Organization [facility] Address [facility] [employer] [facility] [address] [place] [address] Phone Care Team Providers Care Loom Fixer Supervisor Name Role Phone Orville Palomino MD Primary Care Provider [phone] Susana Cook CNM Unavailable Huma Sumner CT TECHNOLOGIST Unavailable [phone] TECHNOLOGIST Unavailable Carl Collins MD Unavailable [phone] Issa Nguyen MD Unavailable Lana Hardy CT TECHNOLOGIST Unavailable Rena Ruff MD Unavailable Yanni Walker MD Unavailable Radha Johnson MD Unavailable [phone] Erika Ceja CAMPUS PRESIDENT Unavailable Radha Fenton Primary Care Prov ider Trisha Abrams Primary Care Provider tia Encounter Details Date Type Department Care Team (Late st Contact Info) Description 09/10/2020 Procedure Pass [facility], [address] [address] Social History Tobacco Use Types Packs/Day Years [...] st Contact Info) Description 03/13/2024 Procedure Pass [address] [address] 03/09/2025 8:30 AM EDT Appointment [facility], [address] [address] Trisha Abrams PA [address] [place] [address] [email or web address] documented as of this encounter Visit Diagnoses Not on filedocumented in this encounter Additional Health Concerns Infection Onset Date Last Indicated Resolved Time CoV-Risk 12/10/2020 12/11/2020 12/20/2020 1:23 AM EDT documented as of this encounter Care Teams Loom Fixer Supervisor Relationship Specialty Start Date End Date Orville Palomino MD [address] [phone] [email or web address] PCP - General 03/09/17 09/30/21 Radha Fenton PA [address] [place] [address] PCP - General 10/01/21 05/12/24 Trisha Abrams [address] [place] [address] PCP - General 05/13/24 Susana Cook CNM [address] [place] [address] Historical LMR Provider 03/25/17 2 Huma Sumner NP [address] [place] [address] Historical LMR Provider 03/25/17 06/11/21 Angy Haywood NP [address] [place] [address] Historical LMR Provider 03/25/17 2 Carl Collins MD 22 [facility], [address] [place] [address] Historical LMR Provider 03/25/17 06/11/21 Issa Nguyen MD [address] [place] [address] 7 [place] [phone] Historical LMR Provider 03/25/17 2 Lana Hardy NP [address] [place] [address] Historical LMR Provider 03/25/17 2 Rena Ruff MD [address] [place] [address] [facility], [place] [address] [email or web address] Historical LMR Provider 03/25/17 Yanni Walker MD [address] [place] [address] Orthopedics & Sports [facility], [place] [address] Historical LMR Provider 03/25/17 06/11/21 Radha Johnson MD [address] [place] [address] Historical LMR Provider 03/25/17 2 Erika Ceja CNP [address] [place] [address], [address] [place] [address] Historical LMR Provider 03/25/17 documented as of this encounter Additional Source Comments The information contained in this document represents components of the legal health record. It is not the complete legal health record.[facility]
--- OUTSIDE RECORDS SUMMARY | 2025-02-03 14:08 | XMS_ITS | Encounter Summary ---
Author Organization [facility] Address [facility] [address] [place] [address] Phone Care Team Providers Care Superintendent Car Construction Name Role Phone Radha Fenton Primary Care Prov ider Trisha Abrams Primary Care Provider tia [email or web address] Encounter Details Date Type Department Care Team (Late st Contact Info) Description 05/10/2022 Procedure Pass [facility], [address] [phone] Social History Tobacco Use Types Packs/Day Years [...] Author No 08/24/2016 11:25 AM EDT Eloina Carlisle, ENOCH * Patient is blind or has serious [...] st Contact Info) Description 03/13/2024 Procedure Pass [address] [address] 03/09/2025 8:30 AM EDT Appointment [address] [address] Trisha Abrams PA [address] [place] [address] [email or web address] documented as of this encounter Visit Diagnoses Not on filedocumented in this encounter Care Teams Superintendent Car Construction Relationship Specialty Start Date End Date Radha Fenton PA [address] [place] [address] PCP - General 10/01/21 05/12/24 Trisha Abrams [address] [place] [id number] PCP - General 05/13/24 documented as of this encounter Additional Source Comments The information contained in this document represents components of the legal health record. It is not the complete legal health record.[facility]
--- OUTSIDE RECORDS SUMMARY | 2025-02-03 14:08 | XMS_ITS | Encounter Summary ---
Author Organization [facility] Address [facility] [employer] [facility] [address] [place] [address] Phone Care Team Providers Care Veterinary Manager Name Role Phone Orville Palomino MD Primary Care Provider Susana Cook CNM Unavailable Huma Sumner KILN REMOVER Unavailable [phone] Angy Haywood KILN REMOVER Unavailable Carl Collins MD Unavailable [phone] Issa Nguyen MD Unavailable Lana Hardy KILN REMOVER Unavailable Rena Ruff MD Unavailable Yanni Walker MD Unavailable Radha Johnson MD Unavailable [phone] Erika Ceja FIELD SERVICE MANAGER Unavailable Radha Fenton Primary Care Prov ider Trisha Abrams Primary Care Provider tia Encounter Details Date Type Department Care Team (Late st Contact Info) Description 09/12/2020 Transcribe Orders Virtual Department [address] [place] [address] Wade Garrison MD [address] [place] [address] Social History Tobacco Use Types Packs/Day Years [...] st Contact Info) Description 03/13/2024 Procedure Pass [facility], [address] [address] 03/09/2025 8:30 AM EDT Appointment [facility], [address] [address] Trisha Abrams PA [address] [place] [address] [email or web address] documented as of this encounter Visit Diagnoses Not on filedocumented in this encounter Additional Health Concerns Infection Onset Date Last Indicated Resolved Time CoV-Risk 12/10/2020 12/11/2020 12/20/2020 1:23 AM EDT documented as of this encounter Care Teams Veterinary Manager Relationship Specialty Start Date End Date Orville Palomino MD [address] [place] [address] [place] [phone] [email or web address] PCP - General 03/09/17 09/30/21 Radha Fenton PA [address] [place] [address] PCP - General 10/01/21 05/12/24 Trisha Abrams [address] [place] [address] PCP - General 05/13/24 Susana Cook CNM [address] [place] [address] Historical LMR Provider 03/25/17 2 Huma Sumner NP [address] [place] [address] Historical LMR Provider 03/25/17 06/11/21 Angy Haywood NP [address] [place] [address] Historical LMR Provider 03/25/17 2 Carl Collins MD [address] [place] [address], [address] [place] [address] Historical LMR Provider 03/25/17 06/11/21 Issa Nguyen MD [address] [place] [address] 7 [place] [phone] Historical LMR Provider 03/25/17 2 Lana Hardy NP [address] [place] [address] Historical LMR Provider 03/25/17 2 Rena Ruff MD [address] [place] [address] [facility], [place] [address] jose Historical LMR Provider 03/25/17 Yanni Walker MD [address] [place] [address] [facility], [facility] [place] [address] Historical LMR Provider 03/25/17 06/11/21 Radha Johnson MD [address] [place] [address] Historical LMR Provider 03/25/17 2 Erika Ceja CNP [address] [place] [address], [address] [place] [address] Historical LMR Provider 03/25/17 documented as of this encounter Additional Source Comments The information contained in this document represents components of the legal health record. It is not the complete legal health record.[facility]
--- OUTSIDE RECORDS SUMMARY | 2025-02-03 14:08 | XMS_ITS | Encounter Summary ---
Author Organization [facility] Address [facility] [address] [place] [address] Phone Care Team Providers Care Dentist/Owner Name Role Phone Orville Palomino MD Primary Care Provider Susana Cook CNM Unavailable Huma Sumner BOARD MIXER TENDER Unavailable [phone] Angy Haywood BOARD MIXER TENDER Unavailable Carl Collins MD Unavailable [phone] Issa Nguyen MD Unavailable Lana Hardy BOARD MIXER TENDER Unavailable Rena Ruff MD Unavailable Yanni Walker MD Unavailable Radha Johnson MD Unavailable [phone] Erika Ceja RAMP JOCKEY Unavailable Radha Fenton Primary Care Prov ider Trisha Abrams Primary Care Provider tia Encounter Details Date Type Department Care Team (Late st Contact Info) Description 09/10/2020 Procedure Pass [facility], [address] [address] Social History Tobacco Use Types Packs/Day Years [...] st Contact Info) Description 03/13/2024 Procedure Pass [address] [address] 03/09/2025 8:30 AM EDT Appointment [facility], [address] [address] Trisha Abrams PA [address] [place] [address] [email or web address] documented as of this encounter Visit Diagnoses Not on filedocumented in this encounter Additional Health Concerns Infection Onset Date Last Indicated Resolved Time CoV-Risk 12/10/2020 12/11/2020 12/20/2020 1:23 AM EDT documented as of this encounter Care Teams Dentist/Owner Relationship Specialty Start Date End Date Orville Palomino MD [address] [phone] [email or web address] PCP - General 03/09/17 09/30/21 Radha Fenton PA [address] [place] [address] PCP - General 10/01/21 05/12/24 Trisha Abrams [address] [place] [address] PCP - General 05/13/24 Susana Cook CNM [address] [place] [address] Historical LMR Provider 03/25/17 2 Huma Sumner NP [address] [place] [address] Historical LMR Provider 03/25/17 06/11/21 Angy Haywood NP [address] [place] [address] Historical LMR Provider 03/25/17 2 Carl Collins MD 22 [facility], [address] [place] [address] Historical LMR Provider 03/25/17 06/11/21 Issa Nguyen MD [address] [place] [address] 7 [place] [phone] Historical LMR Provider 03/25/17 2 Lana Hardy NP [address] [place] [address] Historical LMR Provider 03/25/17 2 Rena Ruff MD [address] [place] [address] [facility], [place] [address] [email or web address] Historical LMR Provider 03/25/17 Yanni Walker MD [address] [place] [address] [facility], [place] [address] Historical LMR Provider 03/25/17 06/11/21 Radha Johnson MD [address] [place] [address] Historical LMR Provider 03/25/17 2 Erika Ceja CNP [address] [place] [address], [address] [place] [address] Historical LMR Provider 03/25/17 documented as of this encounter Additional Source Comments The information contained in this document represents components of the legal health record. It is not the complete legal health record.[facility]
--- OUTSIDE RECORDS SUMMARY | 2025-02-03 14:08 | XMS_ITS | Encounter Summary ---
Author Organization [facility] Address [facility] [address] [place] [address] Phone Care Team Providers Care Certified Drug Counselor Name Role Phone Orville Palomino MD Primary Care Provider Susana Cook CNM Unavailable Huma Sumner FIRE PREVENTION CHIEF Unavailable [phone] Angy Haywood FIRE PREVENTION CHIEF Unavailable Carl Collins MD Unavailable [phone] Issa Nguyen MD Unavailable Lana Hardy FIRE PREVENTION CHIEF Unavailable Rena Ruff MD Unavailable Yanni Walker MD Unavailable Radha Johnson MD Unavailable [phone] Erika Ceja BASKET OPERATOR Unavailable Radha Fenton Primary Care Prov ider Trisha Abrams Primary Care Provider tia Reason for Referral * MRI/CAT Scan - Closed Specialty Diagnoses / Procedures Referred By Contac t Referred To Contact Radiology Diagnoses Lumbar back pain Procedures MRI Lumbar Spine CHG MRI, LUMBAR SPINE Wade Dos Santos MD Phone: tel: fax: [address] Phone: tel: Referral ID Status Reason Start Date Expiration Date Visits Re quested Visits Authorized [id number] Closed 09/24/2020 10/24/2020 1 1 * MRI/CAT Scan - Closed Specialty Diagnoses / Procedures Referred By Contac t Referred To Contact Radiology Diagnoses Acute thoracic back pain, unspecified back pain laterality Procedures MRI Thoracic Spine CHG MRI, DORSAL SPINE Wade Dos Santos MD Phone: tel: fax: [address] Phone: tel: Referral ID Status Reason Start Date Expiration Date Visits Re quested Visits Authorized [id number] Closed 09/23/2020 10/23/2020 1 1 * MRI/CAT Scan - Closed Specialty Diagnoses / Procedures Referred By Contac t Referred To Contact Radiology Diagnoses Cervicalgia Procedures MRI Cervical Spine CHG MRI, CERV SPINE Wade Dos Santos MD Phone: tel: fax: [address] Phone: tel: Referral ID Status Reason Start Date Expiration Date Visits Re quested Visits Authorized [id number] Closed 09/23/2020 10/23/2020 1 1 Encounter Details Date Type Department Care Team (Late st Contact Info) Description 09/10/2020 Ancillary Orders Virtual Department [address] [place] [id number] Wade Garrison MD [address] [place] [id number] Cervicalgia; Acute thoracic back pain, unspecified back pain laterality; Lumbar back pain Social History Tobacco Use Types Packs/Day Years [...] st Contact Info) Description 03/13/2024 Procedure Pass [address] [address] 03/09/2025 8:30 AM EDT Appointment [address] [address] Trisha Abrams PA [address] [place] [address] [email or web address] documented as of this encounter Results * MRI LUMBAR SPINE (NEURO) WITHOUT CONTRAST (09/24/2020 8:54 AM EDT) Anatomical Region Laterality Modality L-spine Magnetic Resonan ce 09/24/2020 9:17 AM EDT Narrative 09/24/2020 9:43 AM EDT TECHNIQUE: MRI LUMBAR SPINE (NEURO) WITHOUT CONTRAST CLINICAL HISTORY: Lower back pain. FINDINGS: Comparison is made with MRI examination dated 08/08/2018. There is degenerative decreased water content of lower thoracic and lumbar intervertebral discs, lower thoracic and upper lumbar levoconvex scoliosis and moderate mid to lower lumbar dextro convex scoliosis. Again noted is a moderate increase in lumbar lordosis and lumbosacral lordotic junction curvature. Lumbar vertebral pedicles are congenitally towards the lower limits of normal in size. T10-T11 and T11-T12 levels: These intervertebral discs demonstrates small posterior protrusions with evidence of slight cord contact at T10-T11 level. Visualized lower thoracic spinal cord and conus medullaris demonstrate no intramedullary signal abnormalities. T12-L1 level: Small broad-based posterior and slightly right posterolateral disc protrusion disc protrusion. Facet arthropathy with moderate left and mild right neural foraminal narrowing. L1-L2 level: Small broad-based posterior disc bulge. Moderate facet arthropathy without central canal stenosis. Moderate bilateral neural foraminal narrowing. L2-L3 level: Moderate broad-based posterior, left paramedian left posterolateral disc protrusion extending into inferior aspect of left neural foramen. Facet arthropathy with severe central canal stenosis. Severe left neural foraminal narrowing with compression of exiting intraforaminal left L2 nerve root. Severe right neural foraminal narrowing with encroachment upon exiting right L2 nerve root. L3-L4 level: Small broad-based posterior slightly left posterolateral disc protrusion extending into the neural foramina, larger on the left side. Facet arthropathy with severe central canal stenosis. Protruding disc extends into the neural foramina bilaterally, slightly larger on the left side. Severe bilateral neural foraminal narrowing with compression of exiting intraforaminal left L3 nerve root and encroachment upon the exiting right L3 nerve root. Further laterally protruding disc displaces extraforaminal left L3 nerve root. L4-L5 level: Small broad-based posterior disc protrusion. Status post bilateral L4-L5 decompressive hemilaminectomies. This allows moderate decompression of the intrathecal nerve roots. Facet arthropathy with mild central canal stenosis. Severe narrowing of lateral recesses with encroachment upon proximal L5 nerve root. Moderate severe bilateral neural foraminal narrowing with bilateral encroachment upon exiting intraforaminal L4 nerve roots. L5-S1 level: Grade 1 L5 on S1 vertebral body anterolisthesis, without interval change, with slight unroofing of the intervertebral disc with moderate impression upon the thecal sac. Possible left L5 unilateral pars articularis defect. Status post bilateral L5-S1 decompressive hemilaminectomies which allows for moderate decompression of the intrathecal nerve roots. Severe facet arthropathy with mild central canal stenosis. Severe narrowing of lateral recesses with encroachment upon proximal S1 nerve roots. Moderate severe bilateral neural foraminal narrowing with bilateral encroachment upon exiting to foraminal L5 nerve roots. CONCLUSION: Lower thoracic and upper lumbar dextro convex scoliosis and moderate mid to lower lumbar dextro convex scoliosis, increased lumbar lordosis with increased apposition of L2-L4 spinous processes and increased lordosis of lumbosacral junction. Moderate lumbar spondylosis without significant interval change since comparison examination dated 08/08/2018. L5-S1 level: Mild grade 1 L5 on S1 vertebral body anterolisthesis with moderate impression upon the thecal sac. Status post bilateral decompressive hemilaminectomies. Facet arthropathy with mild central canal stenosis and severe narrowing of lateral recesses. Moderately severe neural foraminal narrowing. L4-L5 level: Small posterior disc protrusion. Bilateral L4-L5 decompressive hemilaminectomies. Mild central canal stenosis. Severe narrowing of lateral recesses. Moderately severe neural foraminal narrowing. L4 level: Posterior and slightly left posterolateral disc protrusion. Severe central canal stenosis. Severe neural foraminal narrowing. L2-L3 level: Posterior and left paramedian-left posterolateral disc protrusion. Severe central canal stenosis. Severe left neural foraminal narrowing. Additional findings, as described. Procedure Note Mega Mathew MD - 09/24/2020 TECHNIQUE: MRI LUMBAR SPINE (NEURO) WITHOUT CONTRAST CLINICAL HISTORY: Lower back pain. FINDINGS: Comparison is made with MRI examination dated 08/08/2018. There is degenerative decreased water content of lower thoracic and lumbarintervertebral discs, lower thoracic and upper lumbar levoconvex scoliosisand moderate mid to lower lumbar dextro convex scoliosis. Again noted is amoderate increase in lumbar lordosis and lumbosacral lordotic junctioncurvature. Lumbar vertebral pedicles are congenitally towards the lower limits ofnormal in size. T10-T11 and T11-T12 levels: These intervertebral discs demonstrates smallposterior protrusions with evidence of slight cord contact at [id number]. Visualized lower thoracic spinal cord and conus medullarisdemonstrate no intramedullary signal abnormalities. T12-L1 level: Small broad-based posterior and slightly rightposterolateral disc protrusion disc protrusion. Facet arthropathy withmoderate left and mild right neural foraminal narrowing. L1-L2 level: Small broad-based posterior disc bulge. Moderate facetarthropathy without central canal stenosis. Moderate bilateral neuralforaminal narrowing. L2-L3 level: Moderate broad-based posterior, left paramedian leftposterolateral disc protrusion extending into inferior aspect of leftneural foramen. Facet arthropathy with severe central canal stenosis.Severe left neural foraminal narrowing with compression of exitingintraforaminal left L2 nerve root. Severe right neural foraminal narrowingwith encroachment upon exiting right L2 nerve root. L3-L4 level: Small broad-based posterior slightly left posterolateral discprotrusion extending into the neural foramina, larger on the left side.Facet arthropathy with severe central canal stenosis. Protruding discextends into the neural foramina bilaterally, slightly larger on the leftside. Severe bilateral neural foraminal narrowing with compression ofexiting intraforaminal left L3 nerve root and encroachment upon theexiting right L3 nerve root. Further laterally protruding disc displacesextraforaminal left L3 nerve root. L4-L5 level: Small broad-based posterior disc protrusion. Status postbilateral L4-L5 decompressive hemilaminectomies. This allows moderatedecompression of the intrathecal nerve roots. Facet arthropathy with mildcentral canal stenosis. Severe narrowing of lateral recesses withencroachment upon proximal L5 nerve root. Moderate severe bilateral neuralforaminal narrowing with bilateral encroachment upon exitingintraforaminal L4 nerve roots. L5-S1 level: Grade 1 L5 on S1 vertebral body anterolisthesis, withoutinterval change, with slight unroofing of the intervertebral disc withmoderate impression upon the thecal sac. Possible left L5 unilateral parsarticularis defect. Status post bilateral L5-S1 decompressivehemilaminectomies which allows for moderate decompression of theintrathecal nerve roots. Severe facet arthropathy with mild central canalstenosis. Severe narrowing of lateral recesses with encroachment uponproximal S1 nerve roots. Moderate severe bilateral neural foraminalnarrowing with bilateral encroachment upon exiting to foraminal L5 nerveroots. CONCLUSION: Lower thoracic and upper lumbar dextro convex scoliosis and moderate midto lower lumbar dextro convex scoliosis, increased lumbar lordosis withincreased apposition of L2-L4 spinous processes and increased lordosis oflumbosacral junction. Moderate lumbar spondylosis without significantinterval change since comparison examination dated 08/08/2018. L5-S1 level: Mild grade 1 L5 on S1 vertebral body anterolisthesis withmoderate impression upon the thecal sac. Status post bilateraldecompressive hemilaminectomies. Facet arthropathy with mild central canalstenosis and severe narrowing of lateral recesses. Moderately severeneural foraminal narrowing. L4-L5 level: Small posterior disc protrusion. Bilateral L4-[id number] hemilaminectomies. Mild central canal stenosis. Severenarrowing of lateral recesses. Moderately severe neural foraminalnarrowing. L4 level: Posterior and slightly left posterolateral disc protrusion.Severe central canal stenosis. Severe neural foraminal narrowing. L2-L3 level: Posterior and left paramedian-left posterolateral discprotrusion. Severe central canal stenosis. Severe left neural foraminalnarrowing. Additional findings, as described. Wade Garrison MD IMG MR XSPECIALTY Fi nal Result * MRI THORACIC SPINE (NEURO) WITHOUT CONTRAST (09/23/2020 10:33 AM EDT) Anatomical Region Laterality Modality T-spine Magnetic Resonan ce 09/23/2020 11:1 9 AM EDT Impressions 09/23/2020 11:30 AM EDT 1. No evidence of myelitis. 2. Degenerative disc and endplate changes in the lower thoracic spine. Kyphosis. No compression fractures. 3. No evidence of significant focal disc abnormalities or central canal stenosis or high-grade neuroforaminal narrowing. Narrative 09/23/2020 11:30 AM EDT HISTORY: Acute thoracic back pain. COMPARISON: None. TECHNIQUE: Exam performed on a 1.5 Annette high-field MRI scanner. Sagittal T1, T2 and STIR sequences were obtained. FINDINGS: Vertebrae/marrow signal: No compression fractures. No suspicious marrow signal abnormalities. No subluxations. There is kyphosis. Disc spaces/endplates: Mild-moderate degenerative disc and endplate changes in the lower thoracic spine from T8-T9 to T11-T12. More mild degenerative changes more proximally in the thoracic spine. Small posterior disc-osteophyte complexes. No focal disc protrusions or extrusions. Central canal/neural foramina: Narrowing of the central canal at multiple levels, particularly T8-T9 due to disc-osteophyte complexes and thickening of the ligamentum flavum but no central canal stenosis. No evidence of high-grade neuroforaminal narrowing. Spinal cord: No evidence of spinal cord lesions in the thoracic region. Soft tissues: No evidence of paravertebral masses. Procedure Note Dane Villalobos MD - 09/23/2020 HISTORY: Acute thoracic back pain. COMPARISON: None. TECHNIQUE: Exam performed on a 1.5 Annette high-field MRI scanner. SagittalT1, T2 and STIR sequences were obtained. FINDINGS: Vertebrae/marrow signal: No compression fractures. No suspicious marrowsignal abnormalities. No subluxations. There is kyphosis. Disc spaces/endplates: Mild-moderate degenerative disc and endplatechanges in the lower thoracic spine from T8-T9 to T11-T12. More milddegenerative changes more proximally in the thoracic spine. Smallposterior disc-osteophyte complexes. No focal disc protrusions orextrusions. Central canal/neural foramina: Narrowing of the central canal at multiplelevels, particularly T8-T9 due to disc-osteophyte complexes and thickeningof the ligamentum flavum but no central canal stenosis. No evidence ofhigh-grade neuroforaminal narrowing. Spinal cord: No evidence of spinal cord lesions in the thoracic region. Soft tissues: No evidence of paravertebral masses. IMPRESSION: 1. No evidence of myelitis. 2. Degenerative disc and endplate changes in the lower thoracic spine.Kyphosis. No compression fractures. 3. No evidence of significant focal disc abnormalities or central canalstenosis or high-grade neuroforaminal narrowing. Wade Garrison MD IMG MR XSPECIALTY Fi nal Result * MRI CERVICAL SPINE (NEURO) FOCUS WITHOUT CONTRAST (09/23/2020 10:33 AM EDT) Anatomical Region Laterality Modality C-spine Magnetic Resonan ce 09/23/2020 10:5 9 AM EDT Impressions 09/23/2020 11:19 AM EDT No significant changes from 11/21/2019. POS [id number] Narrative 09/23/2020 11:19 AM EDT HISTORY:. Cervical pain, bilateral arm pain and numbness in hands, abnormal previous exam, COMPARISON: MRI cervical spine . TECHNIQUE: Exam performed on a 1.5 Annette high-field MRI scanner. Sagittal T1, T2 and STIR, axial T2* gradient echo and 3-D bright fluid sequences were obtained. FINDINGS: Cervicomedullary junction: No significant changes. Spinal cord: An approximate 1.1 cm long T2 hyperintense lesion within the proximal spinal cord at the level of C2 appears stable. Similar atrophy of the spinal cord at this level. Approximate 8 mm long T2 hyperintense lesion within the spinal cord at the level of C4-C5 does not appear significantly changed. No evidence of new spinal cord lesions. C2-C3: Small central disc bulge appears stable. No evidence of central canal stenosis. No other significant changes. C3-C4: Similarly limited evaluation due to artifact. No definite changes. No evidence of central canal stenosis. C4-C5: Similarly limited evaluation due to artifact. No definite changes. Similar fusion of the bodies of C4 and C5. No evidence of central canal stenosis. C5-C6: Similarly limited evaluation due to artifact. Stable disc space narrowing. No definite changes. No evidence of central canal stenosis. C6-C7: Similarly limited evaluation due to artifact. Stable disc space narrowing and degenerative endplate changes. No other significant changes. No evidence of central canal stenosis. C7-T1: Similar loss of T2 signal within the disc and mild degenerative endplate changes. Stable disc-osteophyte complex. No other significant changes. Similar narrowing of the central canal without definite central canal stenosis. Similar moderate narrowing of the right neuroforamen and more mild narrowing of the left neuroforamen. Vertebrae: No subluxations. No suspicious marrow signal abnormalities. Soft tissue: No evidence of paravertebral masses. Procedure Note Dane Villalobos MD - 09/23/2020 HISTORY:. Cervical pain, bilateral arm pain and numbness in hands,abnormal previous exam, COMPARISON: MRI cervical spine 6 is 1920. TECHNIQUE: Exam performed on a 1.5 Annette high-field MRI scanner.Sagittal T1, T2 and STIR, axial T2* gradient echo and 3-D bright fluidsequences were obtained. FINDINGS: Cervicomedullary junction: No significant changes. Spinal cord: An approximate 1.1 cm long T2 hyperintense lesion within theproximal spinal cord at the level of C2 appears stable. Similar atrophy ofthe spinal cord at this level. Approximate 8 mm long T2 hyperintenselesion within the spinal cord at the level of C4-C5 does not appearsignificantly changed. No evidence of new spinal cord lesions. C2-C3: Small central disc bulge appears stable. No evidence of centralcanal stenosis. No other significant changes. C3-C4: Similarly limited evaluation due to artifact. No definite changes.No evidence of central canal stenosis. C4-C5: Similarly limited evaluation due to artifact. No definite changes.Similar fusion of the bodies of C4 and C5. No evidence of central canalstenosis. C5-C6: Similarly limited evaluation due to artifact. Stable disc spacenarrowing. No definite changes. No evidence of central canal stenosis. C6-C7: Similarly limited evaluation due to artifact. Stable disc spacenarrowing and degenerative endplate changes. No other significant changes.No evidence of central canal stenosis. C7-T1: Similar loss of T2 signal within the disc and mild degenerativeendplate changes. Stable disc-osteophyte complex. No other significantchanges. Similar narrowing of the central canal without definite centralcanal stenosis. Similar moderate narrowing of the right neuroforamen andmore mild narrowing of the left neuroforamen. Vertebrae: No subluxations. No suspicious marrow signal abnormalities. Soft tissue: No evidence of paravertebral masses. IMPRESSION: No significant changes from 11/21/2019. POS [id number] Wade Garrison MD IMG MR XSPECIALTY Fi nal Result documented in this encounter Visit Diagnoses Diagnosis Cervicalgia Acute thoracic back pain, unspecified back pain laterality Lumbar back pain Lumbago Cervicalgia Acute thoracic back pain, unspecified back pain laterality Lumbar back pain Lumbago documented in this encounter Additional Health Concerns Infection Onset Date Last Indicated Resolved Time CoV-Risk 12/10/2020 12/11/2020 12/20/2020 1:23 AM EDT documented as of this encounter Care Teams Certified Drug Counselor Relationship Specialty Start Date End Date Orville Palomino MD [address] [place] [address] [place] [phone] [email or web address] PCP - General 03/09/17 09/30/21 Radha Fenton PA [address] [place] [id number] PCP - General 10/01/21 05/12/24 Trisha Abrams [address] [place] [address] PCP - General 05/13/24 Susana Cook CNM [address] [place] [address] Historical LMR Provider 03/25/17 2 Huma Sumner NP [address] [place] [address] Historical LMR Provider 03/25/17 06/11/21 Angy Haywood NP [address] [place] [address] Historical LMR Provider 03/25/17 2 Carl Collins MD [address] [place] [address] Historical LMR Provider 03/25/17 06/11/21 Issa Nguyen MD [address] [place] [phone] Historical LMR Provider 03/25/17 2 Lana Hardy NP [address] [place] [address] Historical LMR Provider 03/25/17 2 Rena Ruff MD [address] [place] [address] Orthopedics & Sports Medicine, [facility] [place] [address] jose Historical LMR Provider 03/25/17 Yanni Walker MD 4 [facility], [facility] [place] [address] [email or web address] Historical LMR Provider 03/25/17 06/11/21 Radha Johnson MD [address] [place] [address] Historical LMR Provider 03/25/17 2 Erika Ceja CNP [address] [facility], [address] [place] [address] [email or web address] Historical LMR Provider 03/25/17 documented as of this encounter Additional Source Comments The information contained in this document represents components of the legal health record. It is not the complete legal health record.[facility]
--- OUTSIDE RECORDS SUMMARY | 2025-02-03 14:08 | XMS_ITS | Encounter Summary ---
Author Organization [facility] Address [facility] [address] [place] [address] Phone Care Team Providers Care Technical Support Analyst Name Role Phone Orville Palomino MD Primary Care Provider Susana Cook CNM Unavailable Huma Sumner LINE ASSEMBLY UTILITY WORKER Unavailable [phone] Angy Haywood LINE ASSEMBLY UTILITY WORKER Unavailable Carl Collins MD Unavailable [phone] Issa Nguyen MD Unavailable Lana Hardy LINE ASSEMBLY UTILITY WORKER Unavailable Rena Ruff MD Unavailable Yanni Walker MD Unavailable Radha Johnson MD Unavailable [phone] Erika Ceja POULTRY SLAUGHTERER Unavailable Radha Fenton Primary Care Prov ider Trisha Abrams Primary Care Provider tia Encounter Details Date Type Department Care Team (Late st Contact Info) Description 09/10/2020 Procedure Pass [facility] [place], [address] [address] Social History Tobacco Use Types Packs/Day Years [...] st Contact Info) Description 03/13/2024 Procedure Pass [address] [address] 03/09/2025 8:30 AM EDT Appointment [facility], [address] [address] Trisha Abrams PA [address] [place] [address] [email or web address] documented as of this encounter Visit Diagnoses Not on filedocumented in this encounter Additional Health Concerns Infection Onset Date Last Indicated Resolved Time CoV-Risk 12/10/2020 12/11/2020 12/20/2020 1:23 AM EDT documented as of this encounter Care Teams Technical Support Analyst Relationship Specialty Start Date End Date Orville Palomino MD [address] [phone] [email or web address] PCP - General 03/09/17 09/30/21 Radha Fenton PA [address] [place] [address] PCP - General 10/01/21 05/12/24 Trisha Abrams [address] [place] [address] PCP - General 05/13/24 Susana Cook CNM [address] [place] [address] Historical LMR Provider 03/25/17 2 Huma Sumner NP [address] [place] [address] Historical LMR Provider 03/25/17 06/11/21 Angy Haywood NP [address] [place] [address] Historical LMR Provider 03/25/17 2 Carl Collins MD [address] [facility], [address] [place] [address] Historical LMR Provider 03/25/17 06/11/21 Issa Nguyen MD [address] [place] [address] 7 [place] [phone] Historical LMR Provider 03/25/17 2 Lana Hardy NP [address] [place] [address] Historical LMR Provider 03/25/17 2 Rena Ruff MD [address] [place] [address] [facility], [place] [address] [email or web address] Historical LMR Provider 03/25/17 Yanni Walker MD [address] [place] [address] Orthopedics & Sports [facility], [place] [address] Historical LMR Provider 03/25/17 06/11/21 Radha Johnson MD [address] [place] [address] Historical LMR Provider 03/25/17 2 Erika Ceja CNP [address] [place] [address], [address] [place] [address] Historical LMR Provider 03/25/17 documented as of this encounter Additional Source Comments The information contained in this document represents components of the legal health record. It is not the complete legal health record.[facility]
--- OUTSIDE RECORDS SUMMARY | 2025-02-03 14:08 | XMS_ITS | Encounter Summary ---
Author Organization [facility] Address [address] [facility] [facility] [address] [place] [address] Phone Care Team Providers Care Legislative Assistant Name Role Phone Radha Fenton Primary Care Prov ider Trisha Abrams Primary Care Provider [email or web address] Encounter Details Date Type Department Care Team (Late st Contact Info) Description 12/15/2022 Transcribe Orders Virtual Department 30 [place] [address] Radha Fenton PA 70 [place], [place] [phone] sandra Breast screening (Primary Dx) Social History Tobacco Use Types [...] st Contact Info) Description 03/13/2024 Procedure Pass [address] [address] 03/09/2025 8:30 AM EDT Appointment [address] [address] Trisha Abrams PA [address] [place] [address] [email or web address] documented as of this encounter Results * BI MAMMOGRAM SCREENING WITH TOMOSYNTHESIS WITH CAD (BILATERAL) (01/19/2023 9:51 AM EDT) Anatomical Region Laterality Modality Breast Left, Breast Right, Breast Bilateral Bila teral Mammography 01/24/2023 5:41 PM EDT Impressions 01/24/2023 6:08 PM EDT No mammographic signs of malignancy. Annual screening is recommended. BI-RADS CATEGORY: 1 - Negative. DENSITY: The breast tissue is heterogeneously dense, which could obscure a lesion on mammography. Narrative 01/24/2023 6:08 PM EDT Bilateral mammography is performed in conjunction with computed aided detection. 3-D tomography along with 2-D C view imaging was also performed. Comparison made to previous dated as far back as 03/30/2015 and as recent as 06/23/2022. Limited images once again obtained due to patient's stature and limited mobility. No suspicious masses, areas of architectural distortion or suspicious microcalcifications. Procedure Note Dane Villalobos MD - 01/24/2023 Bilateral mammography is performed in conjunction with computed aideddetection. 3-D tomography along with 2-D C view imaging was alsoperformed. Comparison made to previous dated as far back as 03/30/2015 andas recent as 06/23/2022. Limited images once again obtained due to patient's stature and limitedmobility. No suspicious masses, areas of architectural distortion or suspiciousmicrocalcifications. IMPRESSION: No mammographic signs of malignancy. Annual screening is recommended. BI-RADS CATEGORY: 1 - Negative. DENSITY: The breast tissue is heterogeneously dense, which could obscurea lesion on mammography. Radha ARREOLA IMG MG EXAMS Fi nal Result documented in this encounter Visit Diagnoses Diagnosis Breast screening- Primary Breast screening, unspecified Breast screening Breast screening, unspecified documented in this encounter Care Teams Legislative Assistant Relationship Specialty Start Date End Date Radha Fenton PA [address] [place] [address] PCP - General 10/01/21 05/12/24 Trisha Abrams [address] [place] [address] [email or web address] PCP - General 05/13/24 documented as of this encounter Additional Source Comments The information contained in this document represents components of the legal health record. It is not the complete legal health record.[facility]
--- OUTSIDE RECORDS SUMMARY | 2025-02-03 14:08 | XMS_ITS | Encounter Summary ---
Author Organization [facility] Address [address] [place] [address] [address] [place] [address] Phone Care Team Providers Care Offender Employment Specialist Name Role Phone Orville Palomino MD Primary Care Provider Orville Palomnio MD Primary Care Provider [phone] Susnaa Cook CNM Unavailable Huma Sumner LABORATORY APPARATUS GLASS BLOWER Unavailable [phone] Angy Haywood LABORATORY APPARAT[employer] GLASS BLOWER Unavailable PerCarl olivo MD Unavailable [phone] Issa Nguyen MD Unavailable Lana Hardy LABORATORY APPARAT[employer] GLASS BLOWER Unavailable Rena Ruff MD Unavailable Yanni Walker MD Unavailable Radha Johnson MD Unavailable [phone] Erika Ceja PC INSTALLATION ENGINEER Unavailable Radha Fenton Primary Care Prov ider Trisha Abrams Primary Care Provider tia Encounter Details Date Type Department Care Team (Late st Contact Info) Description 08/11/2016 Procedure Pass [facility] [address] [place] [address] Social History Tobacco Use Types Packs/Day Years Used Date Smoking Tobacco: Never Smokeless Tobacco: Never Alcohol Use Standard Drinks/Week Comments Yes 0 (1 standard drink = 0.6 oz pur e alcohol) occassional Comments No Sex and Gender Information Value Date Recorded Sex Assigned at Female 10/01/2021 1:03 PM EDT Legal Sex Female 5:41 PM EST Gender Identity Female 10/01/2021 1:03 PM EDT Sexual Orientation Straight 05/13/2024 2: 08 AM EST documented as of this encounter Plan of Treatment Upcoming Encounters Date Type Department Care Team (Late st Contact Info) Description 03/13/2024 Procedure Pass [address] [address] 03/09/2025 8:30 AM EDT Appointment [address] [address] Trisha Abrams PA [address] [place] [address] [email or web address] documented as of this encounter Visit Diagnoses Not on filedocumented in this encounter Additional Health Concerns Infection Onset Date Last Indicated Resolved Time CoV-Risk 12/10/2020 12/11/2020 12/20/2020 1:23 AM EDT documented as of this encounter Care Teams Offender Employment Specialist Relationship Specialty Start Date End Date Orville Palomino MD [address] [place] [phone] [email or web address] PCP - General 07/12/16 03/08/17 Orville Palomino MD [address] [place] [phone] [email or web address] PCP - General 03/09/17 09/30/21 Radha Fenton PA 70 [place] [address] PCP - General 10/01/21 05/12/24 Aliza Trisha 30 [place] [address] PCP - General 05/13/24 Susana Cook CNM [address] [place] [address] Historical LMR Provider 03/25/17 2 Huma Sumner NP [address] [place] [address] [email or web address] Historical LMR Provider 03/25/17 06/11/21 Angy Haywood NP [address] [place] [address] Historical LMR Provider 03/25/17 2 Carl Collins MD [address] [place] [address] Historical LMR Provider 03/25/17 06/11/21 Issa Nguyen MD [address] [place] [phone] Historical LMR Provider 03/25/17 2 Lana Hardy NP [address] [place] [address] Historical LMR Provider 03/25/17 2 Rena Ruff MD 4 [facility] Medicine, [place] [address] jose Historical LMR Provider 03/25/17 Yanni Walker MD 4 [facility] Orthopedics Sports [facility], [place] [address] Historical LMR Provider 03/25/17 06/11/21 Radha Johnson MD [address] [address] Historical LMR Provider 03/25/17 2 Erika Ceja CNP [address] [place] [address], [address] [place] [address] [email or web address] Historical LMR Provider 03/25/17 documented as of this encounter Additional Source Comments The information contained in this document represents components of the legal health record. It is not the complete legal health record.[facility]
--- OUTSIDE RECORDS SUMMARY | 2025-02-03 14:08 | XMS_ITS | Encounter Summary ---
Author Organization [facility] Address [facility] [address] [place] [address] Phone Care Team Providers Care Nuclear Plant Equipment Operator Name Role Phone Radha Fenton Primary Care Prov ider Trisha Abrams Primary Care Provider [email or web address] Reason for Referral * MRI/CAT Scan - Closed Specialty Diagnoses / Procedures Referred By Contac t Referred To Contact Radiology Diagnoses Cervical disc disorder at C4-C5 level with myelopathy Procedures MRI Cervical Spine CHG MRI, CERV SPINE CHG MRI, CERV SPINE CONTRAST CHG MRI, CERV SPINE COMBO Alberto Robles MD, PhD Phone: tel: fax: [email or web address] [address] Phone: tel: Referral ID Status Reason Start Date Expiration Date Visits Re quested Visits Authorized [id number] Closed 04/30/2022 05/30/2022 1 1 Encounter Details Date Type Department Care Team (Latest Contact Info) Description 04/06/2022 Transcribe Orders [facility] Department [address] [place] [address] Alberto Robles MD, PhD [address] [place] [address] B ELPIDIO Cervantes [email or web address] Cervical disc disorder at C4-C5 level with myelopathy (Primary Dx) Social History Tobacco Use Types [...] st Contact Info) Description 03/13/2024 Procedure Pass [facility], [address] [address] 03/09/2025 8:30 AM EDT Appointment [address] [address] Trisha Abrams PA 70 [place] [address] [email or web address] documented as of this encounter Results * MRI CERVICAL SPINE (BONE) WITH AND WITHOUT CONTRAST (04/30/2022 8:35 AM EST) Anatomical Region Laterality Modality C-spine Magnetic Resonan ce 04/30/2022 2:53 PM EST Impressions 04/30/2022 3:08 PM EST Motion degraded study. Within this confine: No significant change from 09/23/2020. No abnormal enhancement. Narrative 04/30/2022 3:08 PM EST MRI CERVICAL SPINE (BONE) WITH AND WITHOUT CONTRAST TECHNIQUE: MRI CERVICAL SPINE (BONE) WITH AND WITHOUT CONTRAST Multi-sequence, multi-planar MRI of the cervical spine was performed with and without intravenous contrast. COMPARISON: MRI dated 09/23/2020. CT dated 02/13/2020 FINDINGS: CERVICAL SPINE: Patient motion artifact moderately degrades several sequences. Within this confine: Alignment and Vertebrae: Stable postoperative changes of prior posterior decompression and fusion from C3 through C6 with metallic streak artifact from the posterior fusion hardware. There is an intervertebral disc spacer between C4 and C5 with near complete osseous fusion of these vertebral bodies as before. The vertebral body heights are overall maintained. There is 2 mm anterolisthesis of C5 on C6, as before, with stable alignment. Marrow: No bone marrow replacing lesion. Discs and Endplates: There is mild to moderate C2-C3 and C7-T1 disc height loss and dehydration. Moderate to severe intervertebral disc height loss is seen at C3- C4, C5-C6 and C6-C7. There are chronic multilevel degenerative changes, stable from the prior exam. Please refer to Cervical MRI report of 09/23/2020 for detailed level by level description. Spinal Cord: There is narrowing at the craniocervical junction as before. Again seen is a 1 cm linear T2 hyperintense area involving the spinal cord at the level of C2, with associated atrophy, as well as a 0.8 cm T2 hyperintense area at the level of C4-C5, not significantly changed from 09/23/2020. These are consistent with myelomalacia. Otherwise, the spinal cord demonstrates normal morphology and signal intensities. No evidence of cord compression or high-grade stenosis. Contrast: No abnormal enhancement. Soft Tissue: No prevertebral edema. Procedure Note Kit Guzmán MD - 04/30/2022 MRI CERVICAL SPINE (BONE) WITH AND WITHOUT CONTRAST TECHNIQUE: MRI CERVICAL SPINE (BONE) WITH AND WITHOUT CONTRAST Multi-sequence, multi-planar MRI of the cervical spine was performed withand without intravenous contrast. COMPARISON: MRI dated 09/23/2020. CT dated 02/13/2020 FINDINGS: CERVICAL SPINE: Patient motion artifact moderately degrades several sequences. Within thisconfine: Alignment and Vertebrae: Stable postoperative changes of prior posteriordecompression and fusion from C3 through C6 with metallic streak artifactfrom the posterior fusion hardware. There is an intervertebral disc spacer between C4 and C5 with nearcomplete osseous fusion of these vertebral bodies as before. The vertebralbody heights are overall maintained. There is 2 mm anterolisthesis of C5on C6, as before, with stable alignment. Marrow: No bone marrow replacing lesion. Discs and Endplates: There is mild to moderate C2-C3 and C7-T1 disc heightloss and dehydration. Moderate to severe intervertebral disc height lossis seen at C3-C4, C5-C6 and C6-C7. There are chronic multilevel degenerative changes, stable from the priorexam. Please refer to Cervical MRI report of 09/23/2020 for detailed levelby level description. Spinal Cord: There is narrowing at the craniocervical junction asbefore. Again seen is a 1 cm linear T2 hyperintense area involving the spinal cordat the level of C2, with associated atrophy, as well as a 0.8 cm [id number] area at the level of C4-C5, not significantly changed from09/23/2020. These are consistent with myelomalacia. Otherwise, the spinal cord demonstrates normal morphology and signalintensities. No evidence of cord compression or high-grade stenosis. Contrast: No abnormal enhancement. Soft Tissue: No prevertebral edema. IMPRESSION: Motion degraded study. Within this confine: No significant change from 09/23/2020. No abnormal enhancement. Alberto Robles MD, PhD IMG MR XSPECIALTY Final Result documented in this encounter Visit Diagnoses Diagnosis Cervical disc disorder at C4-C5 level with myelopathy- Primary Cervical disc disorder at C4-C5 level with myelopathy documented in this encounter Care Teams Nuclear Plant Equipment Operator Relationship Specialty Start Date End Date Radha Fenton PA [address] [place] [address] PCP - General 10/01/21 05/12/24 Trisha Abrams [address] [place] [address] [email or web address] PCP - General 05/13/24 documented as of this encounter Additional Source Comments The information contained in this document represents components of the legal health record. It is not the complete legal health record.[facility]
--- OUTSIDE RECORDS SUMMARY | 2025-02-03 14:08 | XMS_ITS | Encounter Summary ---
Author Organization [facility] Address [facility] [address] [address] Phone Care Team Providers Care Beef Cattle Farm Manager Name Role Phone Radha Fenton Primary Care Prov ider Trisha Abrams Primary Care Provider [email or web address] Encounter Details Date Type Department Care Team (Latest Contact Info) Description 04/17/2022 Transcribe Orders Virtual Department [address] [place] [address] Alberto Robles MD, PhD [address] [place] [email or web address] Cervical disc disorder at C4-C5 level with [...] Contact Info) Description 03/13/2024 Procedure Pass [address] [address] 03/09/2025 8:30 AM EDT Appointment [address] [address] Trisha Abrams PA [address] [place] [address] [email or web address] documented as of this encounter Visit Diagnoses Diagnosis Cervical disc disorder at C4-C5 level with myelopathy- Primary documented in this encounter Care Teams Beef Cattle Farm Manager Relationship Specialty Start Date End Date Radha Fenton PA [address] [place] [address] PCP - General 10/01/21 05/12/24 Trisha Abrams [address] [place] [address] [email or web address] PCP - General 05/13/24 documented as of this encounter Additional Source Comments The information contained in this document represents components of the legal health record. It is not the complete legal health record.[facility]
--- OUTSIDE RECORDS SUMMARY | 2025-02-03 14:08 | XMS_ITS | Encounter Summary ---
Author Organization [facility] Address [address] [facility] [address] [place] [address] Phone Care Team Providers Care Retirement Administrator Name Role Phone Orville Palomino MD Primary Care Provider [phone] Susana Cook CNM Unavailable Huma Sumner CATHOLIC PRIEST Unavailable [phone] Angy Haywood CATHOLIC PRIEST Unavailable Carl Collins MD Unavailable [phone] Issa Nguyen MD Unavailable Lana Hardy CATHOLIC PRIEST Unavailable Rena Ruff MD Unavailable Yanni Walker MD Unavailable Radha Johnson MD Unavailable [phone] Erika Ceja [employer] Unavailable Radha Fenton Primary Care Prov ider Trisha Abrams Primary Care Provider tia Encounter Details Date Type Department Care Team (Late st Contact Info) Description 01/20/2020 Procedure Pass [facility], Ct Scan - [address] [address] Social History Tobacco Use Types Packs/Day Years [...] st Contact Info) Description 03/13/2024 Procedure Pass [address] [address] 03/09/2025 8:30 AM EDT Appointment [facility], [address] [address] Trisha Abrams PA [address] [place] [address] [email or web address] documented as of this encounter Visit Diagnoses Not on filedocumented in this encounter Additional Health Concerns Infection Onset Date Last Indicated Resolved Time CoV-Risk 12/10/2020 12/11/2020 12/20/2020 1:23 AM EDT documented as of this encounter Care Teams Retirement Administrator Relationship Specialty Start Date End Date Orville Palomino MD [address] [phone] [email or web address] PCP - General 03/09/17 09/30/21 Radha Fenton PA [address] [place] [address] PCP - General 10/01/21 05/12/24 Trisha Abrams [address] [place] [address] PCP - General 05/13/24 Susana Cook CNM [address] [place] [address] Historical LMR Provider 03/25/17 2 Huma Sumner NP [address] [place] [address] Historical LMR Provider 03/25/17 06/11/21 Angy Haywood NP [address] [place] [address] Historical LMR Provider 03/25/17 2 Carl Collins MD 22 [facility], [address] [place] [address] Historical LMR Provider 03/25/17 06/11/21 Issa Nguyen MD [address] [place] [address] 7 [place] [phone] Historical LMR Provider 03/25/17 2 Lana Hardy NP [address] [place] [address] Historical LMR Provider 03/25/17 2 Rena Ruff MD [address] [place] [address] Orthopedics [facility] Sports Medicine, [place] [address] [email or web address] Historical LMR Provider 03/25/17 Yanni Walker MD [address] [place] [address] Orthopedics & Sports [facility], [place] [address] Historical LMR Provider 03/25/17 06/11/21 Radha Johnson MD [address] [place] [address] Historical LMR Provider 03/25/17 2 Erika Ceja CNP [address] [place] [address], [address] [place] [address] Historical LMR Provider 03/25/17 documented as of this encounter Additional Source Comments The information contained in this document represents components of the legal health record. It is not the complete legal health record.[facility]
--- OUTSIDE RECORDS SUMMARY | 2025-02-03 14:08 | XMS_ITS | Encounter Summary ---
Author Organization [facility] Address [facility] [address] [place] [address] Phone Care Team Providers Care Application Manager Name Role Phone Orville Palomino MD Primary Care Provider Susana CookM Unavailable Huma Sumner EDITOR GREETING CARD Unavailable [phone] Angy Haywood EDITOR GREETING CARD Unavailable Carl Collins MD Unavailable [phone] Issa Nguyen MD Unavailable Lana Hardy EDITOR GREETING CARD Unavailable Rena Ruff MD Unavailable Yanni Walker MD Unavailable Radha Johnson MD Unavailable [phone] Erika Ceja DECORATOR INSPECTOR Unavailable Radha Fenton Primary Care Prov ider Trisha Abrams Primary Care Provider tia Reason for Referral * Physical Therapy (Routine) - Closed Specialty Diagnoses / Procedures Referred By Contac t Referred To Contact Physical Therapy Diagnoses Encounter for rehabilitation Orville Palomino MD Phone: tel: fax: [email or web address] [address] [place] [address] Phone: tel: Referral ID Status Reason Start Date Expiration Date Visits Re quested Visits Authorized [id number] Closed 05/07/2019 06/03/2020 60 60 Encounter Details Date Type Department Care Team (Latest Contact Info) Description 05/07/2019 Transcribe Orders [facility] [address] [place] [address] Orville Palomino MD 230 [facility] [address] [place] [phone] [email or web address] Encounter for rehabilitation (Primary Dx) Social History [...] Carlisle CNP * Patient has serious difficulty doing errands alone such as visiting a doctor???s office or shopping, due to physical, mental, or emotional condition (15 years old or older) Answer Date of Assessment Author No 08/24/2016 11:25 AM EDT Eloina Carlisle CNP documented as of this encounter Mental Status * Patient has serious difficulty concentrating, remembering, or making decisions due to physical, mental, or emotional condition Answer Entry Date Author No 08/24/2016 11:25 AM EDT Eloina Carlisle CNP documented in this encounter Plan of Treatment Upcoming Encounters Date Type Department Care Team (Late st Contact Info) Description 03/13/2024 Procedure Pass [address] [address] 03/09/2025 8:30 AM EDT Appointment [address] [address] Trisha Abrams PA [address] [place] [address] [email or web address] documented as of this encounter Procedures Procedure Name Priority Date/Time Associated Diagnosis Comments AMB REFERRAL TO [facility] PHYSICAL THERAPY Routine 05/14/2019 8:35 PM EST Encounter for rehabilitation documented in this encounter Results * Ambulatory referral to [facility] Physical Therapy (05/14/2019 8:35 PM EST) Orville Palomino MD AMB [facility] REFERRALS Final Result documented in this encounter Visit Diagnoses Diagnosis Encounter for rehabilitation- Primary documented in this encounter Additional Health Concerns Infection Onset Date Last Indicated Resolved Time CoV-Risk 12/10/2020 12/11/2020 12/20/2020 1:23 AM EDT documented as of this encounter Care Teams Application Manager Relationship Specialty Start Date End Date Orville Palomino MD 230 [facility] [address] [place] [address] [email or web address] PCP - General 03/09/17 09/30/21 Radha Fenton PA [address] [place] [address] PCP - General 10/01/21 05/12/24 Trisha Abrams 30 [place] [address] PCP - General 05/13/24 Susana Cook CNM [address] [place] [address] Historical LMR Provider 03/25/17 2 Huma Sumner NP [address] [place] [address] [email or web address] Historical LMR Provider 03/25/17 06/11/21 Angy Haywood NP [address] [place] [address] Historical LMR Provider 03/25/17 2 Carl Collins MD [address] [place] [address] [address] [place] [address] Historical LMR Provider 03/25/17 06/11/21 Issa Nguyen MD [address] [place] [phone] Historical LMR Provider 03/25/17 2 Lana Hadry EDITOR GREETING CARD [address] [place] [address] Historical LMR Provider 03/25/17 2 Rena Ruff MD 4 [facility], [place] [address] jose Historical LMR Provider 03/25/17 Yanni Walker MD 4 [facility], [place] [address] Historical LMR Provider 03/25/17 06/11/21 Radha Johsnon MD [address], [place] [address] Historical LMR Provider 03/25/17 2 Erika Ceja CNP [address] [place] [address], [address] [place] [address] [email or web address] Historical LMR Provider 03/25/17 documented as of this encounter Additional Source Comments The information contained in this document represents components of the legal health record. It is not the complete legal health record.[facility]
--- OUTSIDE RECORDS SUMMARY | 2025-02-03 14:08 | XMS_ITS | Encounter Summary ---
Author Organization [facility] Address [facility] [address] [place] [address] Phone Care Team Providers Care Nurse Plastics Name Role Phone Radha Fenton Primary Care Prov ider Trisha Abrams Primary Care Provider [email or web address] Encounter Details Date Type Department Care Team (Late st Contact Info) Description 04/06/2022 Procedure Pass [facility], [address] [address] Social History Tobacco Use Types Packs/Day Years [...] st Contact Info) Description 03/13/2024 Procedure Pass [address] [address] 03/09/2025 8:30 AM EDT Appointment [address] [address] Trisha Abrams PA [address] [place] [address] [email or web address] documented as of this encounter Visit Diagnoses Not on filedocumented in this encounter Care Teams Nurse Plastics Relationship Specialty Start Date End Date Radha Fenton PA [address] [place] [address] PCP - General 10/01/21 05/12/24 Trisha Abrams [address] [place] [address]Kenneth PCP - General 05/13/24 documented as of this encounter Additional Source Comments The information contained in this document represents components of the legal health record. It is not the complete legal health record.[facility]
--- OUTSIDE RECORDS SUMMARY | 2025-02-03 14:09 | XMS_ITS | Encounter Summary ---
Author Organization [facility] Address [address] [place] [address] [address] [place] [address] Phone Care Team Providers Care Bowl Turner Name Role Phone Orville Palomino MD Primary Care Provider Orville Palomino MD Primary Care Provider [phone] Susana Cook CNM Unavailable Huma Sumner CNC OPERATOR MACHINIST Unavailable [phone] Angy Haywood CNC OPERATOR MACHINIST Unavailable PerCarl olivo MD Unavailable [phone] Issa Nguyen MD Unavailable Lana Hardy CNC OPERATOR MACHINIST Unavailable Rena Ruff MD Unavailable Yanni Walker MD Unavailable Radha Johnson MD Unavailable [phone] Erika Ceja GO CART MECHANIC Unavailable Radha Fenton Primary Care Prov ider Trisha Abrams Primary Care Provider tia Encounter Details Date Type Department Care Team (Late st Contact Info) Description 08/11/2016 Procedure Pass [facility] [address] [place] [address] Social History Tobacco Use Types Packs/Day Years [...] st Contact Info) Description 03/13/2024 Procedure Pass [address] [address] 03/09/2025 8:30 AM EDT Appointment [address] [address] Trisha Abrams PA [address] [place] [address] [email or web address] documented as of this encounter Visit Diagnoses Not on filedocumented in this encounter Additional Health Concerns Infection Onset Date Last Indicated Resolved Time CoV-Risk 12/10/2020 12/11/2020 12/20/2020 1:23 AM EDT documented as of this encounter Care Teams Bowl Turner Relationship Specialty Start Date End Date Orville Palomino MD [address] [place] [phone] [email or web address] PCP - General 07/12/16 03/08/17 Orville Palomino MD [address] [place] [phone] [email or web address] PCP - General 03/09/17 09/30/21 Radha Fenton PA 70 [place] [address] PCP - General 10/01/21 05/12/24 Aliza Trisha 30 [place] [address] PCP - General 05/13/24 Susana Cook CNM [address] [place] [address] Historical LMR Provider 03/25/17 2 Huma Sumner NP [address] [place] [address] [email or web address] Historical LMR Provider 03/25/17 06/11/21 Angy Haywood NP [address] [place] [address] Historical LMR Provider 03/25/17 2 Carl Collins MD [address] [place] [address] Historical LMR Provider 03/25/17 06/11/21 Issa Nguyen MD [address] [place] [phone] Historical LMR Provider 03/25/17 2 Lana Hardy NP [address] [place] [address] Historical LMR Provider 03/25/17 2 Rena Ruff MD 4 [facility], [facility] [place] [address] jose Historical LMR Provider 03/25/17 Yanni Walker MD 4 [facility], [place] [address] Historical LMR Provider 03/25/17 06/11/21 Radha Johnson MD [address], [place] [address] Historical LMR Provider 03/25/17 2 Erika Ceja CNP [address] [place] [address], [address] [place] [address] [email or web address] Historical LMR Provider 03/25/17 documented as of this encounter Additional Source Comments The information contained in this document represents components of the legal health record. It is not the complete legal health record.[facility]
--- OUTSIDE RECORDS SUMMARY | 2025-02-03 14:09 | XMS_ITS | Encounter Summary ---
Author Organization [facility] Address [address] [place] [address] Phone Care Team Providers Care Paper Rewinder Operator Name Role Phone Trisha Abrams Primary Care Provider [email or web address] Encounter Details Date Type Department Care Team (Late st Contact Info) Description 06/12/2024 Procedure Pass [facility], [address] [place] [address] Social History Tobacco Use Types Packs/Day Years [...] Contact Info) Description 03/13/2024 Procedure Pass [address] [address] 03/09/2025 8:30 AM EDT Appointment [address] [place] [address] Trisha Abrams PA 70 [place] [address] [email or web address] documented as of this encounter Visit Diagnoses Not on filedocumented in this encounter Care Teams Paper Rewinder Operator Relationship Specialty Start Date End Date Trisha Abrams 30 [place] [address] [email or web address] PCP - General 05/13/24 documented as of this encounter Additional Source Comments The information contained in this document represents components of the legal health record. It is not the complete legal health record.[facility]
--- OUTSIDE RECORDS SUMMARY | 2025-02-03 14:09 | XMS_ITS | Encounter Summary ---
Author Organization [facility] Address [address] [facility] [address] [place] [address] Phone Care Team Providers Care Front End Web Designer Name Role Phone Radha Fenton Primary Care Prov ider Trisha Abrams Primary Care Provider [email or web address] Encounter Details Date Type Department Care Team (Late st Contact Info) Description 11/30/2023 Procedure Pass [facility], [address] [phone] Social History Tobacco Use Types Packs/Day Years [...] st Contact Info) Description 03/13/2024 Procedure Pass [address] [address] 03/09/2025 8:30 AM EDT Appointment [address] [address] Trisha Abrams PA [address] [place] [address] [email or web address] documented as of this encounter Visit Diagnoses Not on filedocumented in this encounter Care Teams Front End Web Designer Relationship Specialty Start Date End Date Radha Fenton PA 70 [place] [address] PCP - General 10/01/21 05/12/24 Trisha Abrams 30 [place] [address] [email or web address] PCP - General 05/13/24 documented as of this encounter Additional Source Comments The information contained in this document represents components of the legal health record. It is not the complete legal health record.[facility]
--- OUTSIDE RECORDS SUMMARY | 2025-02-03 14:09 | XMS_ITS | Encounter Summary ---
Author Organization [facility] Address [facility] hospital [employer] [facility] [address] [place] [address] Phone Care Team Providers Care Project Manager/Team Coach Name Role Phone Orville Palomino MD Primary Care Provider Susana Cook CNM Unavailable Huma Sumner MEDICAL PROGRAM SPECIALIST Unavailable [phone] Angy Haywood MEDICAL PROGRAM SPECIALIST Unavailable Carl Collins MD Unavailable [phone] Issa Nguyen MD Unavailable Lana Hardy MEDICAL PROGRAM SPECIALIST Unavailable Rena Ruff MD Unavailable Yanni Walker MD Unavailable Radha Johnson MD Unavailable [phone] Erika Ceja UMBRELLA TIPPER MACHINE Unavailable Radha Fenton Primary Care Prov ider Trisha Abrams Primary Care Provider tia Encounter Details Date Type Department Care Team (Late st Contact Info) Description 10/09/2017 Procedure Pass [facility], [address] [address] Social History Tobacco Use Types Packs/Day Years [...] Contact Info) Description 03/13/2024 Procedure Pass [address] [address] 03/09/2025 8:30 AM EDT Appointment [facility] 30 [place] [address] Trisha Abrams PA 70 [place] [address] [email or web address] documented as of this encounter Visit Diagnoses Not on filedocumented in this encounter Additional Health Concerns Infection Onset Date Last Indicated Resolved Time CoV-Risk 12/10/2020 12/11/2020 12/20/2020 1:23 AM EDT documented as of this encounter Care Teams Project Manager/Team Coach Relationship Specialty Start Date End Date Orville Palomino MD [address] [phone] [email or web address] PCP - General 03/09/17 09/30/21 Radha Fenton PA [address] [place] [address] PCP - General 10/01/21 05/12/24 Trisha Abrams [address] [place] [address] PCP - General 05/13/24 Susana Cook CNM [address] [place] [address] Historical LMR Provider 03/25/17 2 Huma Sumner NP [address] [place] [address] Historical LMR Provider 03/25/17 06/11/21 Angy Haywood NP [address] [place] [address] Historical LMR Provider 03/25/17 2 Carl Collins MD 22 [facility], [address] [place] [address] Historical LMR Provider 03/25/17 06/11/21 Issa Nguyen MD [address] [place] [address] 7 [place] [phone] Historical LMR Provider 03/25/17 2 Lana Hardy NP [address] [place] [address] Historical LMR Provider 03/25/17 2 Rena Ruff MD [address] [place] [address] Orthopedics & Sports Medicine, [place] [address] [email or web address] Historical LMR Provider 03/25/17 Yanni Walker MD [address] [place] [address] Orthoped[facility], [place] [address] Historical LMR Provider 03/25/17 06/11/21 Radha Johnson MD [address] [place] [address] Historical LMR Provider 03/25/17 2 Erika Ceja CNP [address] [place] [address], [address] [place] [address] Historical LMR Provider 03/25/17 documented as of this encounter Additional Source Comments The information contained in this document represents components of the legal health record. It is not the complete legal health record.[facility]
--- OUTSIDE RECORDS SUMMARY | 2025-02-03 14:09 | XMS_ITS | Encounter Summary ---
Author Organization [facility] Address [address] [place] [address] Phone Care Team Providers Care Dynamo Repairer Name Role Phone Trisha Abrams Primary Care Provider [email or web address] Encounter Details Date Type Department Care Team (Late st Contact Info) Description 06/25/2024 Procedure Pass [facility], [address] [place] [address] Social History Tobacco Use Types Packs/Day Years [...] Contact Info) Description 03/13/2024 Procedure Pass [address] [address] 03/09/2025 8:30 AM EDT Appointment [address] [place] [address] Trisha Abrams PA 70 [place] [address] [email or web address] documented as of this encounter Visit Diagnoses Not on filedocumented in this encounter Care Teams Dynamo Repairer Relationship Specialty Start Date End Date Trisha Abrams 30 [place] [address] [email or web address] PCP - General 05/13/24 documented as of this encounter Additional Source Comments The information contained in this document represents components of the legal health record. It is not the complete legal health record.[facility]
--- OUTSIDE RECORDS SUMMARY | 2025-02-03 14:09 | XMS_ITS | Encounter Summary ---
Author Organization [facility] Address [address] [place] [address] 9[address] [place] [address] Phone Care Team Providers Care Spinneret Person Name Role Phone Orville Palomino MD Primary Care Provider Orville Palomino MD Primary Care Provider [phone] Susana Cook CNM Unavailable Huma Sumner RETAIL ASSISTANT MANAGER Unavailable [phone] Angy Haywood RETAIL ASSISTANT MANAGER Unavailable PerCarl olivo MD Unavailable [phone] Issa Nguyen MD Unavailable Lana Hardy RETAIL ASSISTANT MANAGER Unavailable Rena Ruff MD Unavailable Yanni Walker MD Unavailable Radha Johnson MD Unavailable [phone] Erika Ceja JEWELRY CUTTER Unavailable Radha Fenton Primary Care Prov ider Trisha Abrams Primary Care Provider tia Encounter Details Date Type Department Care Team (Late st Contact Info) Description 08/21/2016 Procedure Pass [facility] [address] [place] [address] Social History Tobacco Use Types Packs/Day Years [...] st Contact Info) Description 03/13/2024 Procedure Pass [address] [address] 03/09/2025 8:30 AM EDT Appointment [address] [address] Trisha Abrams PA [address] [place] [address] [email or web address] documented as of this encounter Visit Diagnoses Not on filedocumented in this encounter Additional Health Concerns Infection Onset Date Last Indicated Resolved Time CoV-Risk 12/10/2020 12/11/2020 12/20/2020 1:23 AM EDT documented as of this encounter Care Teams Spinneret Person Relationship Specialty Start Date End Date Orville Palomino MD [address] [place] [phone] [email or web address] PCP - General 07/12/16 03/08/17 Orville Palomino MD [address] [place] [phone] [email or web address] PCP - General 03/09/17 09/30/21 Radha Fenton PA 70 [place] [address] PCP - General 10/01/21 05/12/24 Aliza Trisha 30 [place] [address] PCP - General 05/13/24 Susana Cook CNM [address] [place] [address] Historical LMR Provider 03/25/17 2 Huma Sumner NP [address] [place] [address] [email or web address] Historical LMR Provider 03/25/17 06/11/21 Angy Haywood NP [address] [place] [address] Historical LMR Provider 03/25/17 2 Carl Collins MD [address] [place] [address] Historical LMR Provider 03/25/17 06/11/21 Issa Nguyen MD [address] [place] [phone] Historical LMR Provider 03/25/17 2 Lana Hardy NP [address] [place] [address] Historical LMR Provider 03/25/17 2 Rena Ruff MD 4 [facility], [facility] [place] [address] jose Historical LMR Provider 03/25/17 Yanni Walker MD 4 [facility] Sports [facility], [place] [address] Historical LMR Provider 03/25/17 06/11/21 Radha Johnson MD [address] [address] Historical LMR Provider 03/25/17 2 Erika Ceja CNP [address] [place] [address], [address] [place] [address] [email or web address] Historical LMR Provider 03/25/17 documented as of this encounter Additional Source Comments The information contained in this document represents components of the legal health record. It is not the complete legal health record.[facility]
--- OUTSIDE RECORDS SUMMARY | 2025-02-03 14:09 | XMS_ITS | Encounter Summary ---
Author Organization [facility] Address [address] [place], [place] [address] [place] [address] Phone Care Team Providers Care Infantryman Name Role Phone Orville Palomino MD Primary Care Provider Orville Palomino MD Primary Care Provider [phone] Susana Cook CNM Unavailable Huma Sumner BULK PLANT MANAGER Unavailable [phone] Angy Haywood BULK PLANT MANAGER Unavailable PerCarl olivo MD Unavailable [phone] Issa Nguyen MD Unavailable Lana Hardy BULK PLANT MANAGER Unavailable Rena Ruff MD Unavailable Yanni Walker MD Unavailable Radha Johnson MD Unavailable [phone] Erika Ceja PARK RANGER Unavailable Radha Fenton Primary Care Prov ider Trisha Abrams Primary Care Provider tia Encounter Details Date Type Department Care Team (Late st Contact Info) Description 08/23/2016 Procedure Pass [facility] [address] [place] [address] Social History Tobacco Use Types Packs/Day Years [...] st Contact Info) Description 03/13/2024 Procedure Pass [address] [address] 03/09/2025 8:30 AM EDT Appointment [address] [address] Trisha Abrams PA [address] [place] [address] [email or web address] documented as of this encounter Visit Diagnoses Not on filedocumented in this encounter Additional Health Concerns Infection Onset Date Last Indicated Resolved Time CoV-Risk 12/10/2020 12/11/2020 12/20/2020 1:23 AM EDT documented as of this encounter Care Teams Infantryman Relationship Specialty Start Date End Date Orville Palomino MD [address] [place] [address] [email or web address] PCP - General 07/12/16 03/08/17 Orville Palomino MD [address] [place] [address] [email or web address] PCP - General 03/09/17 09/30/21 Radha Fenton PA [address] [place] [address] PCP - General 10/01/21 05/12/24 Trisha Abrams [address] [place] [address] PCP - General 05/13/24 Susana Cook CNM [address] [place] [address] Historical LMR Provider 03/25/17 2 Huma Sumner NP [address] [place] [address] [email or web address] Historical LMR Provider 03/25/17 06/11/21 Angy Haywood NP [address] [place] [address] Historical LMR Provider 03/25/17 2 Carl Collins MD [address] [place] [address] [address] [place] [address] Historical LMR Provider 03/25/17 06/11/21 Issa Nguyen MD [address] [place] [address] Historical LMR Provider 03/25/17 2 Lana Hardy BULK PLANT MANAGER [address] [place] [address] Historical LMR Provider 03/25/17 2 Rena Ruff MD 4 [facility] [place] [address] jose Historical LMR Provider 03/25/17 Yanni Walker MD 4 [facility], [place] [address] Historical LMR Provider 03/25/17 06/11/21 Radha Johnson MD [address], [place] [address] Historical LMR Provider 03/25/17 2 Erika Ceja CNP [address] [place] [address], [address] [place] [address] [email or web address] Historical LMR Provider 03/25/17 documented as of this encounter Additional Source Comments The information contained in this document represents components of the legal health record. It is not the complete legal health record.[facility]
--- OUTSIDE RECORDS SUMMARY | 2025-02-03 14:09 | XMS_ITS | Encounter Summary ---
Author Organization [facility] Address [address] [place] [address] Phone Care Team Providers Care Enrobing Machine Operator Name Role Phone Radha Fenton Primary Care Prov ider Trisha Abrams Primary Care Provider tia [email or web address] Encounter Details Date Type Department Care Team (Late st Contact Info) Description 02/27/2023 Procedure Pass [address] [place] [address] Social History Tobacco Use Types Packs/Day Years Used Date Smoking Tobacco: Never Smokeless Tobacco: Never Alcohol Use Standard Drinks/Week Comments Not Currently 0 (1 standard drink = 0.6 oz pur e alcohol) Education Answer Date Recorded Are you interested [...] 11:25 AM EDEloina Dean CNP * Patient is blind or has serious difficulty with seeing, even when wearing glasses Answer Date of Assessment Author No 08/24/2016 11:25 AM Eloina Herrera CNP * Patient has serious difficulty walking or climbing stairs (5yr old or older) Answer Date of Assessment Author No 08/24/2016 11:25 AM EDEloina Dean CNP * Patient has serious difficulty dressing [...] Contact Info) Description 03/13/2024 Procedure Pass [address] [address] 03/09/2025 8:30 AM EDT Appointment [address] [address] Trisha Abrams PA [address] [place] [address] [email or web address] documented as of this encounter Visit Diagnoses Not on filedocumented in this encounter Care Teams Enrobing Machine Operator Relationship Specialty Start Date End Date Radha Fenton PA [address] [place] [address] PCP - General 10/01/21 05/12/24 Trisha Abrams [address] [place] [address] [email or web address] PCP - General 05/13/24 documented as of this encounter Additional Source Comments The information contained in this document represents components of the legal health record. It is not the complete legal health record.[facility]
--- OUTSIDE RECORDS SUMMARY | 2025-02-03 14:09 | XMS_ITS | Encounter Summary ---
Author Organization [facility] Address [address] [address] [place] [address] [place] [address] Phone Care Team Providers Care Office Services Representative Name Role Phone Radha Fenton Primary Care Prov ider Trisha Abrams Primary Care Provider tia [email or web address] Reason for Referral * MRI/CAT Scan - Closed Specialty Diagnoses / Procedures Referred By Radha huertas Referred To Contact Radiology Diagnoses Expressive language disorder Procedures MRI Brain CHG MRI BRAIN COMBO CHG MRI BRAIN CHG MRI BRAIN CONTRAST Radha Fenton PA [address] [place] [address] Phone: tel: fax: mailto:[email or web address] Referral ID Status Reason Start Date Expiration Date Visits Re quested Visits Authorized [id number] Closed 02/27/2023 04/26/2023 1 1 Encounter Details Date Type Department Care Team (Late st Contact Info) Description 02/27/2023 Transcribe Orders [facility] Department [address] [place] [address] Radha Fenton PA [address] [place], [place] [id number] [email or web address] Expressive language disorder (Primary Dx) Social History Tobacco Use Types [...] st Contact Info) Description 03/13/2024 Procedure Pass [address] [address] 03/09/2025 8:30 AM EDT Appointment [address] [address] Trisha Abrams PA [address] [place] [address] [email or web address] documented as of this encounter Results * MRI BRAIN WITHOUT CONTRAST (03/21/2023 9:18 AM EDT) Anatomical Region Laterality Modality Head Magnetic Resonan ce 03/22/2023 11:0 2 AM EDT Impressions 03/22/2023 12:47 PM EDT Moderate chronic supratentorial white matter disease has mildly progressed since 01/18/2019, nonspecific, but likely related to chronic small vessel disease. There is similar left hemispheric white matter volume loss with associated asymmetric prominence of the left lateral ventricle. Redemonstrated scattered predominantly supratentorial microhemorrhages, with a few new foci of microhemorrhage since 01/18/2019, nonspecific. These could relate to areas of microvascular injury in the setting of prior Covid 19 infection and/or cardiac arrest. Given that a few of the lesions are located in the deep gordillo nuclei, these findings are not specific for cerebral amyloid angiopathy at this time, though continued follow-up imaging would be helpful to assess temporal evolution, particularly if symptoms continue to worsen. No acute intracranial findings. Narrative 03/22/2023 12:47 PM EDT MRI BRAIN WITHOUT CONTRAST TECHNIQUE: MRI BRAIN WITHOUT CONTRAST Multi-sequence, multi-planar MRI of the brain was performed without intravenous contrast. COMPARISON: Brain MRI 01/18/2019. FINDINGS: Brain Parenchyma: There is moderate confluent T2/FLAIR hyperintensity in the periventricular and deep white matter which is nonspecific and can be seen in the setting of chronic small vessel disease, mildly worsened since 01/18/2019.. No evidence of acute infarct, mass lesion, or hemorrhage. Scattered punctate supratentorial microhemorrhages, many of which are similar to prior, but a few of which are new, for example in the left posterior periventricular white matter on 9:50 and left thalamic region on 9:40. 9. Ventricular System and Extra-Axial Spaces: Similar chronic asymmetric prominence of the left lateral ventricle, without specific evidence of hydrocephalus this is likely related to some degree of loss of left hemispheric white matter volume related to old insult.. Extracranial Structures: Arterial flow voids in the skull base are present. Partially imaged cervical spinal fusion hardware. Procedure Note Agustin Berry MD - 03/22/2023 MRI BRAIN WITHOUT CONTRAST TECHNIQUE: MRI BRAIN WITHOUT CONTRAST Multi-sequence, multi-planar MRI of the brain was performed withoutintravenous contrast. COMPARISON: Brain MRI 01/18/2019. FINDINGS: Brain Parenchyma: There is moderate confluent T2/FLAIR hyperintensity inthe periventricular and deep white matter which is nonspecific and can beseen in the setting of chronic small vessel disease, mildly worsened since01/18/2019.. No evidence of acute infarct, mass lesion, or hemorrhage.Scattered punctate supratentorial microhemorrhages, many of which aresimilar to prior, but a few of which are new, for example in the leftposterior periventricular white matter on 9:50 and left thalamic region on9:40. 9. Ventricular System and Extra-Axial Spaces: Similar chronic asymmetricprominence of the left lateral ventricle, without specific evidence ofhydrocephalus this is likely related to some degree of loss of lefthemispheric white matter volume related to old insult.. Extracranial Structures: Arterial flow voids in the skull base arepresent. Partially imaged cervical spinal fusion hardware. IMPRESSION: Moderate chronic supratentorial white matter disease has mildly progressedsince 01/18/2019, nonspecific, but likely related to chronic small vesseldisease. There is similar left hemispheric white matter volume loss withassociated asymmetric prominence of the left lateral ventricle. Redemonstrated scattered predominantly supratentorial microhemorrhages,with a few new foci of microhemorrhage since 01/18/2019, nonspecific. Thesecould relate to areas of microvascular injury in the setting of priorCovid 19 infection and/or cardiac arrest. Given that a few of the lesionsare located in the deep gordillo nuclei, these findings are not specific forcerebral amyloid angiopathy at this time, though continued follow-upimaging would be helpful to assess temporal evolution, particularly ifsymptoms continue to worsen. No acute intracranial findings. Radha ARREOLA IMG MR HEAD/NECK F inal Result documented in this encounter Visit Diagnoses Diagnosis Expressive language disorder- Primary Expressive language disorder documented in this encounter Care Teams Office Services Representative Relationship Specialty Start Date End Date Radha Fenton PA [address] [place] [address] PCP - General 10/01/21 05/12/24 Trisha Abrams [address] [place] [address] PCP - General 05/13/24 documented as of this encounter Additional Source Comments The information contained in this document represents components of the legal health record. It is not the complete legal health record.[facility]
--- OUTSIDE RECORDS SUMMARY | 2025-02-03 14:09 | XMS_ITS | Encounter Summary ---
Author Organization [facility] Address [facility] [address] [place] [address] Phone Care Team Providers Care Salvage Mechanic Name Role Phone Orville Palomino MD Primary Care Provider [phone] Susana Cook CNM Unavailable Huma Sumner MATERIAL HANDLER LOADER Unavailable [phone] Angy Haywood MATERIAL HANDLER LOADER Unavailable Carl Collins MD Unavailable [phone] Issa Nguyen MD Unavailable Lana Hardy MATERIAL HANDLER LOADER Unavailable Rena Ruff MD Unavailable Yanni Walker MD Unavailable Radha Johnson MD Unavailable [phone] Erika Ceja ASSISTANT CORPORATE SECRETARY Unavailable Radha Fenton Primary Care Prov ider Trisha Abrams Primary Care Provider tia Reason for Referral * MRI/CAT Scan - Closed Specialty Diagnoses / Procedures Referred By Contac t Referred To Contact Radiology Diagnoses Other spondylosis with radiculopathy, lumbar region Spinal stenosis, 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 MRI Lumbar Spine Celso Fair MD Phone: tel: fax: mailto:[email or web address] Referral ID Status Reason Start Date Expiration Date Visits Re quested Visits Authorized [id number] Closed 07/23/2018 08/22/2018 1 1 Encounter Details Date Type Department Care Team (Late st Contact Info) Description 07/18/2018 Ancillary Orders Virtual Department [address] [place] [address] Celso Fair MD [address] [place] [address] [email or web address]) Other spondylosis with radiculopathy, lumbar region; Spinal stenosis, lumbar region with neurogenic claudication; Achondroplasia Social History Tobacco Use Types Packs/Day Years [...] No 08/24/2016 11:25 AM EDEloina Dean CNP documented as of this encounter Mental Status * Patient has serious difficulty concentrating, remembering, or making decisions due to physical, mental, or emotional condition Answer Entry Date Author No 08/24/2016 11:25 AM EDEloina Dean CNP documented in this encounter Plan of Treatment Upcoming Encounters Date Type Department Care Team (Late st Contact Info) Description 03/13/2024 Procedure Pass [address] [address] 03/09/2025 8:30 AM EDT Appointment [address] [address] Trisha Abrams PA [address] [place] [address] [email or web address] documented as of this encounter Results * MRI LUMBAR SPINE (NEURO) WITHOUT CONTRAST (08/08/2018 10:30 AM EST) Anatomical Region Laterality Modality L-spine Magnetic Resonan ce 08/08/2018 11:5 8 AM EST Impressions 08/08/2018 1:28 PM EST 1. Stable left foraminal disc protrusions at T12-L1 and L1-2. 2. Stable multilevel central stenosis, mild at L1-2, moderately severe at L2-3 and severe at L3-4, L4-5 and L5-S1. Much of the stenosis is developmental. 3. No significant new pathology has become apparent. POS - [id number] Edited by: Flower Mitchell on 08/08/2018 12:36 PM Narrative 08/08/2018 1:28 PM EST TECHNIQUE: 1.5 Annette high-field MRI scanner. Sagittal T1, T2 and STIR, axial T1 and T2 sequences . Compare to plain films 06/27/2016 and prior MRI 06/25/2016. The vertebral numbering scheme will follow the same as the prior MRI. FINDINGS: Chronic accentuated lordosis is unchanged. No spondylolisthesis. No worrisome marrow abnormalities. Normal conus position and appearance. T11-12: Sagittal imaging only. Chronic prominent broad disc bulge without focal protrusion or encroachment on the conus. No gross stenosis. T12-L1: Mild broad disc bulge. Chronic small lateral foraminal focal disc protrusion unchanged. Mild to moderate bilateral foraminal stenosis but no significant central canal narrowing. L1-2: Chronic small left foraminal disc protrusion unchanged. No new disc bulge or protrusion. Developmentally short pedicles and minor facet and ligamentous hypertrophy produce mild central stenosis, unchanged. L2-3: Chronic bilateral foraminal disc bulge without focal protrusion unchanged. Short pedicles, endplate spurring and moderate posterior hypertrophy all combine to produce moderately severe central stenosis, unchanged. L3-4: Minimal broad disc bulge without focal protrusion. Short pedicles, minimal endplate spurring and moderate posterior hypertrophy produce severe central stenosis, unchanged. L4-5: Chronic mild to moderate broad disc bulge without focal protrusion unchanged. Short pedicles and developmentally very narrow transverse diameter of the canal accentuated by small endplate spurs and moderate posterior hypertrophy resulting in severe stenosis, unchanged L5-S1: Mild broad disc bulge without focal protrusion. Again short pedicles, and developmentally narrow transverse diameter of the central canal is accentuated by facet and ligamentous hypertrophy resulting in severe central stenosis, unchanged. Procedure Note Basim George MD - 08/08/2018 TECHNIQUE: 1.5 Annette high-field MRI scanner. Sagittal T1, T2 and STIR, axial T1 and T2 sequences . Compare to plain films 06/27/2016 and prior MRI 06/25/2016. The vertebral numbering scheme will follow the same as the prior MRI. FINDINGS: Chronic accentuated lordosis is unchanged. No spondylolisthesis. Noworrisome marrow abnormalities. Normal conus position and appearance. T11-12: Sagittal imaging only. Chronic prominent broad disc bulge withoutfocal protrusion or encroachment on the conus. No gross stenosis. T12-L1: Mild broad disc bulge. Chronic small lateral foraminal focal discprotrusion unchanged. Mild to moderate bilateral foraminal stenosis but nosignificant central canal narrowing. L1-2: Chronic small left foraminal disc protrusion unchanged. No new discbulge or protrusion. Developmentally short pedicles and minor facet andligamentous hypertrophy produce mild central stenosis, unchanged. L2-3: Chronic bilateral foraminal disc bulge without focal protrusionunchanged. Short pedicles, endplate spurring and moderate posteriorhypertrophy all combine to produce moderately severe central stenosis,unchanged. L3-4: Minimal broad disc bulge without focal protrusion. Short pedicles,minimal endplate spurring and moderate posterior hypertrophy producesevere central stenosis, unchanged. L4-5: Chronic mild to moderate broad disc bulge without focal protrusionunchanged. Short pedicles and developmentally very narrow transversediameter of the canal accentuated by small endplate spurs and moderateposterior hypertrophy resulting in severe stenosis, unchanged L5-S1: Mild broad disc bulge without focal protrusion. Again shortpedicles, and developmentally narrow transverse diameter of the centralcanal is accentuated by facet and ligamentous hypertrophy resulting insevere central stenosis, unchanged. IMPRESSION: 1. Stable left foraminal disc protrusions at T12-L1 and L1-2. 2. Stable multilevel central stenosis, mild at L1-2, moderately severe atL2-3 and severe at L3-4, L4-5 and L5-S1. Much of the stenosis isdevelopmental. 3. No significant new pathology has become apparent. 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, lumbar region Spinal stenosis, lumbar region with neurogenic claudication Achondroplasia Chondrodystrophy documented in this encounter Additional Health Concerns Infection Onset Date Last Indicated Resolved Time CoV-Risk 12/10/2020 12/11/202012/20/2020 1:23 AM EDT documented as of this encounter Care Teams Salvage Mechanic Relationship Specialty Start Date End Date Orville Palomino MD [address] [place] [address] [place] [address] [email or web address] PCP - General 03/09/17 09/30/21 Radha Fenton PA [address] [place] [address] PCP - General 10/01/21 05/12/24 Trisha Abrams [address] [place] [address] PCP - General 05/13/24 Susana Cook CNM [address] [place] [address] Historical LMR Provider 03/25/17 2 Huma Sumner NP [address] [place] [address] Historical LMR Provider 03/25/17 06/11/21 Angy Haywood NP [address] [place] [address] Historical LMR Provider 03/25/17 2 Carl Collins MD [address] [place] [address] [address] [place] [address] Historical LMR Provider 03/25/17 06/11/21 Issa Nguyen MD [address] [place] [phone] Historical LMR Provider 03/25/17 2 Lana Hardy NP [address] [place] [address] Historical LMR Provider 03/25/17 2 Rena Ruff MD [address] [place] [address] [facility], [place] [address] jose Historical LMR Provider 03/25/17 Yanni Walker MD [address] [place] [address] Orthoped[facility], [place] [address] Historical LMR Provider 03/25/17 06/11/21 Radha Johnson MD [address] [place] [address] Historical LMR Provider 03/25/17 2 Erika Ceja CNP [address] [facility], [address] [place] [address] Historical LMR Provider 03/25/17 documented as of this encounter Additional Source Comments The information contained in this document represents components of the legal health record. It is not the complete legal health record.[facility]
--- OUTSIDE RECORDS SUMMARY | 2025-02-03 14:09 | XMS_ITS | Encounter Summary ---
Author Organization [facility] Address [facility] [employer] [facility] [address] [place] [address] Phone Care Team Providers Care Recreation Program Coordinator Name Role Phone Orville Palomino MD Primary Care Provider Susana Cook CNM Unavailable Huma Sumner HEALTH ADVISOR Unavailable [phone] Angy Haywood HEALTH ADVISOR Unavailable Carl Collins MD Unavailable [phone] Issa Nguyen MD Unavailable Lana Hardy HEALTH ADVISOR Unavailable Rena Ruff MD Unavailable Yanni Walker MD Unavailable Radha Johnson MD Unavailable [phone] Erika Ceja ELECTRONICS RECYCLER Unavailable Radha Fenton Primary Care Prov ider Trisha Abrams Primary Care Provider tia Encounter Details Date Type Department Care Team (Late st Contact Info) Description 06/21/2020 Procedure Pass [address] [address] Social History Tobacco Use Types Packs/Day Years [...] st Contact Info) Description 03/13/2024 Procedure Pass [address] [address] 03/09/2025 8:30 AM EDT Appointment [facility], [address] [address] Trisha Abrams PA [address] [place] [address] [email or web address] documented as of this encounter Visit Diagnoses Not on filedocumented in this encounter Additional Health Concerns Infection Onset Date Last Indicated Resolved Time CoV-Risk 12/10/2020 12/11/2020 12/20/2020 1:23 AM EDT documented as of this encounter Care Teams Recreation Program Coordinator Relationship Specialty Start Date End Date Orville Palomino MD [address] [phone] [email or web address] PCP - General 03/09/17 09/30/21 Radha Fenton PA [address] [place] [address] PCP - General 10/01/21 05/12/24 Trisha Abrams [address] [place] [address] PCP - General 05/13/24 Susana Cook CNM [address] [place] [address] Historical LMR Provider 03/25/17 2 Huma Sumner NP [address] [place] [address] Historical LMR Provider 03/25/17 06/11/21 Angy Haywood NP [address] [place] [address] Historical LMR Provider 03/25/17 2 Carl Collins MD 22 [facility], [address] [place] [address] Historical LMR Provider 03/25/17 06/11/21 Issa Nguyen MD [address] [place] [address] 7 [place] [phone] Historical LMR Provider 03/25/17 2 Lana Hardy NP [address] [place] [address] Historical LMR Provider 03/25/17 2 Rena Ruff MD [address] [place] [address] [facility], [place] [address] [email or web address] Historical LMR Provider 03/25/17 Yanni Walker MD [address] [place] [address] Orthopedics & Sports [facility] [place], [place] [address] Historical LMR Provider 03/25/17 06/11/21 Radha Johnson MD [address] [place] [address] Historical LMR Provider 03/25/17 2 Erika Ceja CNP [address] [place] [address], [address] [place] [address] Historical LMR Provider 03/25/17 documented as of this encounter Additional Source Comments The information contained in this document represents components of the legal health record. It is not the complete legal health record.[facility]
--- OUTSIDE RECORDS SUMMARY | 2025-02-03 14:09 | XMS_ITS | Encounter Summary ---
Author Organization [facility] Address [facility] [employer] [facility] [address] [place] [address] Phone Care Team Providers Care Banquet Food Server Name Role Phone Radha Fenton Primary Care Prov ider Trisha Abrams Primary Care Provider [email or web address] Encounter Details Date Type Department Care Team (Late st Contact Info) Description 12/01/2021 Procedure Pass [facility], [address] [address] Social History Tobacco Use Types Packs/Day Years [...] of Assessment Author No 08/24/2016 11:25 AM MARIAHT Eloina Carlisle, ENOCH * Patient is blind [...] st Contact Info) Description 03/13/2024 Procedure Pass [address] [address] 03/09/2025 8:30 AM EDT Appointment [address] [address] Trisha Abrams PA [address] [place] [address] [email or web address] documented as of this encounter Visit Diagnoses Not on filedocumented in this encounter Care Teams Banquet Food Server Relationship Specialty Start Date End Date Radha Fenton PA [address] [place] [address] PCP - General 10/01/21 05/12/24 Trisha Abrams [address] [place] [address] PCP - General 05/13/24 documented as of this encounter Additional Source Comments The information contained in this document represents components of the legal health record. It is not the complete legal health record.[facility]
--- OUTSIDE RECORDS SUMMARY | 2025-02-03 14:09 | XMS_ITS | Encounter Summary ---
Author Organization [facility] Address [address] [facility] [address] [place] [address] Phone Care Team Providers Care Juice Scaleman Name Role Phone Orville Palomino MD Primary Care Provider Susana Cook CNM Unavailable Huma Sumner TONGER Unavailable Angy Haywood TONGER Unavailable Carl Collins MD Unavailable [phone] Issa Nguyen MD Unavailable Lana Hardy TONGER Unavailable Rena Ruff MD Unavailable Yanni Walker MD Unavailable Radha Johnson MD Unavailable [phone] Erika Ceja SUPERVISOR NUT PROCESSING Unavailable Radha eFnton Primary Care Prov ider Trisha Abrams Primary Care Provider tia Encounter Details Date Type Department Care Team (Late st Contact Info) Description 05/22/2017 Procedure Pass [facility], [facility] - [address] [address] Social History Tobacco Use Types Packs/Day Years [...] st Contact Info) Description 03/13/2024 Procedure Pass [address] [address] 03/09/2025 8:30 AM EDT Appointment [facility], [address] [address] Trisha Abrams PA [address] [place] [address] [email or web address] documented as of this encounter Visit Diagnoses Not on filedocumented in this encounter Additional Health Concerns Infection Onset Date Last Indicated Resolved Time CoV-Risk 12/10/2020 12/11/2020 12/20/2020 1:23 AM EDT documented as of this encounter Care Teams Juice Scaleman Relationship Specialty Start Date End Date Orville Palomino MD [address] [phone] [email or web address] PCP - General 03/09/17 09/30/21 Radha Fenton PA [address] [place] [address] PCP - General 10/01/21 05/12/24 Trisha Abrams [address] [place] [address] PCP - General 05/13/24 Susana Cook CNM [address] [place] [address] Historical LMR Provider 03/25/17 2 Huma Sumner NP [address] [place] [address] Historical LMR Provider 03/25/17 06/11/21 Angy Haywood NP [address] [place] [address] Historical LMR Provider 03/25/17 2 Carl Collins MD 22 [facility], [address] [place] [address] Historical LMR Provider 03/25/17 06/11/21 Issa Nguyen MD [address] [place] [address] 7 [place] [phone] Historical LMR Provider 03/25/17 2 Lana Hardy NP [address] [place] [address] Historical LMR Provider 03/25/17 2 Rena Ruff MD [address] [place] [address] [facility], [place] [address] [email or web address] Historical LMR Provider 03/25/17 Yanni Walker MD [address] [place] [address] Orthopedics & Sports [facility], [place] [address] Historical LMR Provider 03/25/17 06/11/21 Radha Johnson MD [address] [place] [address] Historical LMR Provider 03/25/17 2 Erika Ceja CNP [address] [place] [address], [address] [place] [address] Historical LMR Provider 03/25/17 documented as of this encounter Additional Source Comments The information contained in this document represents components of the legal health record. It is not the complete legal health record.[facility]
--- OUTSIDE RECORDS SUMMARY | 2025-02-03 14:09 | XMS_ITS | Encounter Summary ---
Author Organization [facility] Address [address] [place] [address] [address]85 [place] [address] Phone Care Team Providers Care Speech Communication Professor Name Role Phone Orville Palomino MD Primary Care Provider [phone] Orivlle Palomino MD Primary Care Provider [phone] Susana Cook CNM Unavailable Huma Sumner JOB PRINTER Unavailable [phone] Angy Haywood JOB PRINTER Unavailable PerCarl olivo MD Unavailable [phone] Issa Nguyne MD Unavailable Lana Hardy JOB PRINTER Unavailable Rena Ruff MD Unavailable Yanni Walker MD Unavailable Radha Johnson MD Unavailable [phone] Erika Ceja ARCHERY INSTRUCTOR Unavailable Radha Fenton Primary Care Prov ider Trisha Abrams Primary Care Provider tia Encounter Details Date Type Department Care Team (Late st Contact Info) Description 02/15/2017 Procedure Pass [facility] [address] [place] [address] Social History Tobacco Use Types Packs/Day Years [...] st Contact Info) Description 03/13/2024 Procedure Pass [address] [address] 03/09/2025 8:30 AM EDT Appointment [address] [address] Trisha Abrams PA [address] [place] [address] [email or web address] documented as of this encounter Visit Diagnoses Not on filedocumented in this encounter Additional Health Concerns Infection Onset Date Last Indicated Resolved Time CoV-Risk 12/10/2020 12/11/2020 12/20/2020 1:23 AM EDT documented as of this encounter Care Teams Speech Communication Professor Relationship Specialty Start Date End Date Orville Palomino MD 230 [facility] [address] [place] [phone] [email or web address] PCP - General 07/12/16 03/08/17 Orville Palomino MD 230 [facility] [address] [place] [phone] [email or web address] PCP - General 03/09/17 09/30/21 Radha Fenton PA [address] [place] [address] PCP - General 10/01/21 05/12/24 Trisha Abrams [address] [place] [address] PCP - General 05/13/24 Susana Cook CNM [address] [place] [address] Historical LMR Provider 03/25/17 2 Huma Sumner NP [address] [place] [address] [email or web address] Historical LMR Provider 03/25/17 06/11/21 Angy Haywood NP [address] [place] [address] Historical LMR Provider 03/25/17 2 Carl Collins MD [address] [place] [address] [address] [place] [address] [email or web address] Historical LMR Provider 03/25/17 06/11/21 Issa Nguyen MD [address] [place] [phone] Historical LMR Provider 03/25/17 2 Lana Hardy NP [address] [place] [address] Historical LMR Provider 03/25/17 2 Rena Ruff MD [address] [place] [address] [facility], [place] [address] jose Historical LMR Provider 03/25/17 Yanni Walker MD [address] [place] [address] [facility], [facility] [place] [address] Historical LMR Provider 03/25/17 06/11/21 Radha Johnson MD [address], [place] [address] Historical LMR Provider 03/25/17 2 Erika Ceja CNP [address] [place] [address], [address] [place] [phone] [email or web address] Historical LMR Provider 03/25/17 documented as of this encounter Additional Source Comments The information contained in this document represents components of the legal health record. It is not the complete legal health record.[facility]
--- OUTSIDE RECORDS SUMMARY | 2025-02-03 14:09 | XMS_ITS | Encounter Summary ---
Author Organization [facility] Address [facility] [employer] [facility] [address] [place] [address] Phone Care Team Providers Care Claims Adjuster Name Role Phone Orville Palomino MD Primary Care Provider Susana Cook CNM Unavailable Huma Sumner ASTRONOMY INSTRUCTOR Unavailable [phone] Angy Haywood ASTRONOMY INSTRUCTOR Unavailable Carl Collins MD Unavailable [phone] Issa Nguyen MD Unavailable Lana Hardy ASTRONOMY INSTRUCTOR Unavailable Rena Ruff MD Unavailable Yanni Walker MD Unavailable Radha Johnson MD Unavailable [phone] Erika Ceja CIRCUS ARTIST Unavailable Radha Fenton Primary Care Prov ider Trisha Abrams Primary Care Provider tia Encounter Details Date Type Department Care Team (Late st Contact Info) Description 11/04/2019 Procedure Pass [facility], [address] [address] Social History Tobacco Use Types Packs/Day Years [...] st Contact Info) Description 03/13/2024 Procedure Pass [address] [address] 03/09/2025 8:30 AM EDT Appointment [facility] [address] [place] [address] Trisha Abrams PA [address] [place] [address] [email or web address] documented as of this encounter Visit Diagnoses Not on filedocumented in this encounter Additional Health Concerns Infection Onset Date Last Indicated Resolved Time CoV-Risk 12/10/2020 12/11/2020 12/20/2020 1:23 AM EDT documented as of this encounter Care Teams Claims Adjuster Relationship Specialty Start Date End Date Orville Palomino MD [address] [phone] [email or web address] PCP - General 03/09/17 09/30/21 Radha Fenton PA [address] [place] [address] PCP - General 10/01/21 05/12/24 Trisha Abrams [address] [place] [address] PCP - General 05/13/24 Susana Cook CNM [address] [place] [address] Historical LMR Provider 03/25/17 2 Huma Sumner NP [address] [place] [address] Historical LMR Provider 03/25/17 06/11/21 Angy Haywood NP [address] [place] [address] Historical LMR Provider 03/25/17 2 Carl Collins MD [address] [facility], [address] [place] [address] Historical LMR Provider 03/25/17 06/11/21 Issa Nguyen MD [address] [place] [address] 7 [place] [phone] Historical LMR Provider 03/25/17 2 Lana Hardy NP [address] [place] [address] Historical LMR Provider 03/25/17 2 Rena Ruff MD [address] [place] [address] [facility], [place] [address] [email or web address] Historical LMR Provider 03/25/17 Yanni Walker MD [address] [place] [address] Orthopedics & Sports [facility], [place] [address] Historical LMR Provider 03/25/17 06/11/21 Radha Johnson MD [address] [place] [address] Historical LMR Provider 03/25/17 2 Erika Ceja CNP [address] [place] [address], [address] [place] [address] Historical LMR Provider 03/25/17 documented as of this encounter Additional Source Comments The information contained in this document represents components of the legal health record. It is not the complete legal health record.[facility]
--- OUTSIDE RECORDS SUMMARY | 2025-02-03 14:09 | XMS_ITS | Encounter Summary ---
Author Organization [facility] Address Critical access hospital [facility] [address] [place] [address] Phone Care Team Providers Care Soccer Commentator Name Role Phone Orville Palomino MD Primary Care Provider Susana Cook CNM Unavailable Huma Sumner ENDOSCOPY REGISTERED NURSE Unavailable [phone] Angy Haywood ENDOSCOPY REGISTERED NURSE Unavailable Carl Collins MD Unavailable [phone] Issa Nguyen MD Unavailable Lana Hardy ENDOSCOPY REGISTERED NURSE Unavailable Rena Ruff MD Unavailable Yanni Walker MD Unavailable Radha Johnson MD Unavailable [phone] Erika Ceja MUSIC ASSISTANT Unavailable Radha Fenton Primary Care Prov ider Trisha Abrams Primary Care Provider tia Reason for Referral * MRI/CAT Scan - Closed Specialty Diagnoses / Procedures Referred By Contjose t Referred To Contact Radiology Diagnoses Achondroplasia Procedures CT Cervical Spine Lana Hardy, ENDOSCOPY REGISTERED NURSE Phone: tel: fax: Referral ID Status Reason Start Date Expiration Date Visits Re quested Visits Authorized [id number] Closed 05/16/2017 06/15/2017 1 1 Encounter Details Date Type Department Care Team (Late st Contact Info) Description 05/22/2017 Ancillary Orders Virtual Department [address] [place] [address] Lana Hardy NP [address] [place] [address] Achondroplasia Social History Tobacco Use Types Packs/Day [...] Author No 08/24/2016 11:25 AM MARIAHT Eloina Carlisle CNP * Patient is blind [...] st Contact Info) Description 03/13/2024 Procedure Pass [address] [address] 03/09/2025 8:30 AM EDT Appointment [address] [address] Trisha Abrams PA [address] [place] [id number] [email or web address] documented as of this encounter Results * CT CERVICAL SPINE WITHOUT CONTRAST (05/30/2017 12:41 PM EST) Anatomical Region Laterality Modality C-spine Computed Tomogra phy 05/30/2017 12:4 7 PM EST Impressions 05/30/2017 5:09 PM EST Bone graft again noted at C4-5 which overhangs the anterior margin of C5 as before. There is bony bridging across the disc space and involving the left posterior elements. Stable grade 1 spondylolisthesis at this level. Progressive degenerative endplate changes along the right side of C5-6. Stable minimal spondylolisthesis at this level. Other multilevel degenerative changes as described. TOTAL CTDIvol: 6.70 mGy POS [id number] Edited by: Flower Mitchell on 05/30/2017 1:34 PM Narrative 05/30/2017 5:09 PM EST COMPARISON: Cervical spine MRI 01/31/2017, radiography 12/08/2016. TECHNIQUE: Axial imaging through the cervical spine without IV contrast. Coronal and sagittal reformatted images are generated. Automated exposure control utilized. FINDINGS: Chronic reversal of the normal cervical lordosis. No new compression deformities. No acute fracture. C2-3: Minimal disc bulging, bilateral uncovertebral spurring, and bilateral facet arthropathy. Neural foramina are at least moderately narrowed. No significant spinal canal narrowing. C3-4: Mild loss of disc height with mild disc bulging. Bilateral uncovertebral spurring. Severe facet arthropathy on the left and moderate on the right. Severe bilateral neural foraminal narrowing again noted. Mild narrowing of the spinal canal. C4-5: There is a bone graft in place at the mid and anterior aspect of the disc space which overhangs the anterior margin of C5 as before. There is bony bridging across the disc space and fusion of the posterior elements on the left. 3 mm of anterolisthesis of C4 on C5 again noted. Neural foramina are severely narrowed. At least moderate narrowing of the spinal canal. Stable small notch along the anterior aspect of C4. C5-6: Moderate loss of disc height. Endplate irregularity, sclerosis, and spurring along the right side has progressed. Mild bilateral facet arthropathy. Mild to moderate bilateral neural foraminal narrowing is present. Stable minimal anterolisthesis of C5 on C6. Spinal canal is mild to moderately narrowed. C6-7: Moderate loss of disc height. Bilateral uncovertebral spurring and facet arthropathy. Neural foramina are moderately narrowed. Moderate narrowing of the spinal canal. C7-T1: No prominent disc bulging. Bilateral uncovertebral spurring and facet arthropathy. Neural foramina are severely narrowed as before. Spinal canal appears mildly narrowed. Thyroid gland is not enlarged. Stable tiny hypodense nodule in the right lobe. Atlantoaxial distance is within normal limits. Procedure Note Priscilla Toro MD - 05/30/2017 COMPARISON: Cervical spine MRI 01/31/2017, radiography 12/08/2016. TECHNIQUE: Axial imaging through the cervical spine without IV contrast.Coronal and sagittal reformatted images are generated. Automated exposurecontrol utilized. FINDINGS: Chronic reversal of the normal cervical lordosis. No new compressiondeformities. No acute fracture. C2-3: Minimal disc bulging, bilateral uncovertebral spurring, andbilateral facet arthropathy. Neural foramina are at least moderatelynarrowed. No significant spinal canal narrowing. C3-4: Mild loss of disc height with mild disc bulging. Bilateraluncovertebral spurring. Severe facet arthropathy on the left and moderateon the right. Severe bilateral neural foraminal narrowing again noted.Mild narrowing of the spinal canal. C4-5: There is a bone graft in place at the mid and anterior aspect of thedisc space which overhangs the anterior margin of C5 as before. There isbony bridging across the disc space and fusion of the posterior elementson the left. 3 mm of anterolisthesis of C4 on C5 again noted. Neuralforamina are severely narrowed. At least moderate narrowing of the spinalcanal. Stable small notch along the anterior aspect of C4. C5-6: Moderate loss of disc height. Endplate irregularity, sclerosis, andspurring along the right side has progressed. Mild bilateral facetarthropathy. Mild to moderate bilateral neural foraminal narrowing ispresent. Stable minimal anterolisthesis of C5 on C6. Spinal canal ismild to moderately narrowed. C6-7: Moderate loss of disc height. Bilateral uncovertebral spurring andfacet arthropathy. Neural foramina are moderately narrowed. Moderatenarrowing of the spinal canal. C7-T1: No prominent disc bulging. Bilateral uncovertebral spurring andfacet arthropathy. Neural foramina are severely narrowed as before.Spinal canal appears mildly narrowed. Thyroid gland is not enlarged. Stable tiny hypodense nodule in the rightlobe. Atlantoaxial distance is within normal limits. IMPRESSION: Bone graft again noted at C4-5 which overhangs the anterior margin of C5as before. There is bony bridging across the disc space and involving theleft posterior elements. Stable grade 1 spondylolisthesis at thislevel. Progressive degenerative endplate changes along the right side of C5-6.Stable minimal spondylolisthesis at this level. Other multilevel degenerative changes as described. 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 Additional Health Concerns Infection Onset Date Last Indicated Resolved Time CoV-Risk 12/10/2020 12/11/2020 12/20/2020 1:23 AM EDT documented as of this encounter Care Teams Soccer Commentator Relationship Specialty Start Date End Date Orville Palomino MD [address] [facility] [address] [place] [phone] [email or web address] PCP - General 03/09/17 09/30/21 Radha Fenton PA [address] [place] [address] PCP - General 10/01/21 05/12/24 Trisha Abrams [address] [place] [address] PCP - General 05/13/24 Susana Cook CNM [address] [place] [address] Historical LMR Provider 03/25/17 2 Huma Sumner NP [address] [place] [address] Historical LMR Provider 03/25/17 06/11/21 Angy Haywood NP [address] [place] [address] Historical LMR Provider 03/25/17 2 Carl Collins MD [address] [place] [address], [facility] [[email or web address]] [address] [place] [address] Historical LMR Provider 03/25/17 06/11/21 Issa Nguyen MD [address] [facility] [address] [place] [phone] Historical LMR Provider 03/25/17 2 Lana Hardy NP [address] [place] [address] Historical LMR Provider 03/25/17 2 Rena Ruff MD [address] [place] [address] [facility], [place] [address] jose Historical LMR Provider 03/25/17 Yanni Walker MD [address] [place] [address] [facility], [place] [address] Historical LMR Provider 03/25/17 06/11/21 Radha Johnson MD [address] [place] [id number] Historical LMR Provider 03/25/17 2 Erika Ceja CNP [address] [facility], [address] [place] [address] Historical LMR Provider 03/25/17 documented as of this encounter Additional Source Comments The information contained in this document represents components of the legal health record. It is not the complete legal health record.[facility]
--- OUTSIDE RECORDS SUMMARY | 2025-02-03 14:09 | XMS_ITS | Encounter Summary ---
Author Organization [facility] Address [address] [place] [address] [address] [place] [address] Phone Care Team Providers Care Airfield Services Officer Name Role Phone Orville Palomino MD Primary Care Provider Orville Palomino MD Primary Care Provider [phone] Susana Cook CNM Unavailable Huma Sumner FORENSICS TEAM DIRECTOR Unavailable Angy Haywood FORENSICS TEAM DIRECTOR Unavailable PerCarl olivo MD Unavailable [phone] Issa Nguyen MD Unavailable Lana Hardy FORENSICS TEAM DIRECTOR Unavailable Rena Ruff MD Unavailable Yanni Walker MD Unavailable Radha Johnson MD Unavailable [phone] Erika Ceja PREASSEMBLER [employer]ARD Unavailable Radha Fenton Primary Care Prov ider Trisha Abrams Primary Care Provider [email or web address] Encounter Details Date Type Department Care Team (Latest Contact Info) Description 08/22/2016 Prep for Surgery [facility] Orth[facility]edic Spine [address] [place], [address] Floor, [address] [place] [address] Cody Velazquez MD [address] [facility] [address] [place] [address] [email or web address] Cervical arthritis with myelopathy (Primary Dx) Social History Tobacco [...] 1:03 PM EDT Sexual Orientation Straight 05/13/2024 2 :08 AM EST documented as of this encounter Plan of Treatment Upcoming Encounters Date Type Department Care Team (Late st Contact Info) Description 03/13/2024 Procedure Pass [address] [address] 03/09/2025 8:30 AM EDT Appointment [address] [address] Trisha Abrams PA [address] [place] [address] [email or web address] documented as of this encounter Visit Diagnoses Diagnosis Cervical arthritis with myelopathy- Primary documented in this encounter Additional Health Concerns Infection Onset Date Last Indicated Resolved Time CoV-Risk 12/10/2020 12/11/2020 12/20/2020 1:23 AM EDT documented as of this encounter Care Teams Airfield Services Officer Relationship Specialty Start Date End Date Orville Palomino MD [address] [place] [address] [address] [place] [address] [email or web address] PCP - General 07/12/16 03/08/17 Orville Palomino MD [address] [facility] [address] [place] [address] [email or web address] PCP - General 03/09/17 09/30/21 Radha Fenton PA [address] [place] [address] PCP - General 10/01/21 05/12/24 Trisha Abrams [address] [place] [address] PCP - General 05/13/24 Susana Cook CNM [address] [place] [address] Historical LMR Provider 03/25/17 2 Huma Sumner NP [address] [place] [address] Historical LMR Provider 03/25/17 06/11/21 Angy Haywood NP [address] [place] [address] Historical LMR Provider 03/25/17 2 Carl Collins MD [address] [place] [address] [address] [place] [address] Historical LMR Provider 03/25/17 06/11/21 Issa Nguyen MD [address] [place] [address] [address] [place] [phone] Historical LMR Provider 03/25/17 2 Lana Hardy NP [address] [place] [address] Historical LMR Provider 03/25/17 2 Rena Ruff MD 4 [facility] Orthopedics & [facility], [place] [address] jose Historical LMR Provider 03/25/17 Yanni Walker MD [address] [place] [address] Orthopedics Sports [facility], [place] [address] [email or web address] Historical LMR Provider 03/25/17 06/11/21 Radha Johnson MD [address] [place] [address] Historical LMR Provider 03/25/17 2 Erika Ceja CNP [address] [facility] [address] [place] [address] [email or web address] Historical LMR Provider 03/25/17 documented as of this encounter Additional Source Comments The information contained in this document represents components of the legal health record. It is not the complete legal health record.[facility]
--- OUTSIDE RECORDS SUMMARY | 2025-02-03 14:09 | XMS_ITS | Encounter Summary ---
Author Organization [facility] Address [address] [place] [address] Phone Care Team Providers Care Cad Detailer Name Role Phone Trisha Abrams Primary Care Provider [email or web address] Encounter Details Date Type Department Care Team (Late st Contact Info) Description 06/25/2024 Transcribe Orders Virtual Department [address] [place] [address] Celso Fair MD [address] [place] [address] [email or web address] Social History Tobacco Use Types Packs/Day Years [...] st Contact Info) Description 03/13/2024 Procedure Pass [address] [address] 03/09/2025 8:30 AM EDT Appointment [address] [address] Trisha Abrams PA [address] [place] [address] [email or web address] documented as of this encounter Visit Diagnoses Not on filedocumented in this encounter Care Teams Cad Detailer Relationship Specialty Start Date End Date Trisha Abrams [address] [place] [address] PCP - General 05/13/24 documented as of this encounter Additional Source Comments The information contained in this document represents components of the legal health record. It is not the complete legal health record.[facility]
--- OUTSIDE RECORDS SUMMARY | 2025-02-03 14:09 | XMS_ITS | Encounter Summary ---
Author Organization [facility] Address [facility] [address] [place] [address] Phone Care Team Providers Care Stamp Analyst Name Role Phone Trisha Abrams Primary Care Provider tia Encounter Details Date Type Department Care Team (Late st Contact Info) Description 08/28/2024 Ancillary Orders [address] [address] Rena Ruff MD [address] [place] [address] Orthopedics & Sports Medicine, [place] [address] [email or web address] Chronic right hip pain (Primary Dx) Social History Tobacco Use Types [...] Upcoming Encounters Date Type Department Care Team (Daniel Contact Info) Description 03/13/2024 Procedure Pass [address] [address] 03/09/2025 8:30 AM EDT Appointment [address] [address] Trisha Abrams PA [address] [place] [address] [email or web address] Pending Results Name Type Priority Associated Diagnoses Date /Time FL Guidance Needle Placement Non-Spine Imaging Routine Chronic right hip pain 09/02/2024 10:12 AM EDT Scheduled Orders Name Type Priority Associated Diagnoses Orde r Schedule FL Guidance Needle Placement Non-Spine Imaging Routine Chronic right hip pain 1 Occurrences starting 08/28/2024 until 11/28/2024 documented as of this encounter Visit Diagnoses Diagnosis Chronic right hip pain- Primary documented in this encounter Care Teams Stamp Analyst Relationship Specialty Start Date End Date Trisha Abrams [address] [place] [address] PCP - General 05/13/24 documented as of this encounter Additional Source Comments The information contained in this document represents components of the legal health record. It is not the complete legal health record.[facility]
--- OUTSIDE RECORDS SUMMARY | 2025-02-03 14:09 | XMS_ITS | Encounter Summary ---
Author Organization [facility] Address [address] [place] [address] Phone Care Team Providers Care Health Nurse Name Role Phone Trisha Abrams Primary Care Provider [email or web address] Encounter Details Date Type Department Care Team (Late st Contact Info) Description 05/13/2024 Procedure Pass [facility], Ct Scan - [address] [address] Social History Tobacco Use Types Packs/Day Years [...] as food, clothing, or medical care? No 05/13/2024 In the past 12 months have y ou been in a relationship with a person who hurts, threatens, or tries to control you? No 05/13/2024 Are you denied basic needs s uch as food, clothing, or medical care? No 05/13/2024 In the past 12 months have y ou been in a relationship with a person who hurts, threatens, or tries to control you? No 05/13/2024 Comments No Sex and Gender Information Value [...] 08/24/2016 11:25 AM Eloina Herrera CNP * Calculated C-SSRS Risk Score (Lifetime/Recent) Answer Date of Assessment Author No Risk Indicated 05/13/2024 1:07 AM Oleg Miramontes, DILLAN * [place] Suicide Severity Rating Scale (Screener/Recent Self-Report) Question Answer Date of Assessment Author 1. Wish to be (Past 1 Month) No 024 1:07 AM Oleg Mirmaontes, RN 2. Non-Specific Active Suici martha Thoughts (Past 1 Month) No 05/13/2024 1:07 AM Raymond Miramontes, RN 6. Suicidal Behavior (Lifetime) No 1:07 AM Oleg Miramontes RN documented as of this encounter Mental Status * Patient has serious difficulty concentrating, remembering, or making decisions due to physical, mental, or emotional condition Answer Entry Date Author No 08/24/2016 11:25 AM EDT Eloina Carlisle CNP documented in this encounter Plan of Treatment Upcoming Encounters Date Type Department Care Team (Late st Contact Info) Description 03/13/2024 Procedure Pass [address] [address] 03/09/2025 8:30 AM EDT Appointment [address] [address] Trisha Abrams PA [address] [place] [address] [email or web address] documented as of this encounter Visit Diagnoses Not on filedocumented in this encounter Care Teams Health Nurse Relationship Specialty Start Date End Date Trisha Abrams [address] [place] [address] [email or web address] PCP - General 05/13/24 documented as of this encounter Additional Source Comments The information contained in this document represents components of the legal health record. It is not the complete legal health record.[facility]
--- OUTSIDE RECORDS SUMMARY | 2025-02-03 14:09 | XMS_ITS | Encounter Summary ---
Author Organization [facility] Address [address] [facility] [address] [place] [address] Phone Care Team Providers Care Filler Leaf Cutter Long Name Role Phone Trisha Abrams Primary Care Provider [email or web address] Encounter Details Date Type Department Care Team (Late st Contact Info) Description 05/13/2024 Procedure Pass [facility], [address] [address] Social History Tobacco Use Types Packs/Day Years [...] 05/13/2024 1:07 AM Oleg Miramontes, DILLAN * [place] Suicide Severity Rating Scale (Screener/Recent Self-Report) Question [...] st Contact Info) Description 03/13/2024 Procedure Pass [address] [address] 03/09/2025 8:30 AM EDT Appointment [address] [address] Trisha Abrams PA [address] [place] [address] [email or web address] documented as of this encounter Visit Diagnoses Not on filedocumented in this encounter Care Teams Filler Leaf Cutter Long Relationship Specialty Start Date End Date Trisha Abrams [address] [place] [address] [email or web address] PCP - General 05/13/24 documented as of this encounter Additional Source Comments The information contained in this document represents components of the legal health record. It is not the complete legal health record.[facility]
--- OUTSIDE RECORDS SUMMARY | 2025-02-03 14:09 | XMS_ITS | Encounter Summary ---
Author Organization [facility] Address [facility] [address] [place] [address] Phone Care Team Providers Care Manager Investment Name Role Phone Orville Palomino MD Primary Care Provider Susana Cook CNM Unavailable Huma Sumner HYDROSTATIC TESTER Unavailable [phone] Angy Haywood HYDROSTATIC TESTER Unavailable Carl Collins MD Unavailable [phone] Issa Nguyen MD Unavailable Lana Hardy HYDROSTATIC TESTER Unavailable Rena Ruff MD Unavailable Yanni Walker MD Unavailable Radha Johnson MD Unavailable [phone] Erika Ceja LINE REPAIRER TOWER Unavailable Radha Fenton Primary Care Prov ider Trisha Abrams Primary Care Provider tia Encounter Details Date Type Department Care Team (Late st Contact Info) Description 09/30/2018 Ancillary Orders Virtual Department [address] [place], [place] [phone] Celso Fair MD [address] [place] [address] [email or web address] Other spondylosis with myelopathy, cervical region Social History Tobacco Use Types Packs/Day Years [...] st Contact Info) Description 03/13/2024 Procedure [address] [address] 03/09/2025 8:30 AM EDT Appointment [address] [address] Trisha Abrams PA [address] [place] [address] [email or web address] documented as of this encounter Results * XR CERVICAL SPINE 4-5 VIEWS (10/21/2018 10:30 AM EDT) Anatomical Region Laterality Modality C-spine Radiographic Diana ging 10/21/2018 10:4 1 AM EDT Impressions 10/21/2018 10:45 AM EDT No evidence of instability or other post-operative complication. POS [id number] Narrative 10/21/2018 10:45 AM EDT Lateral views in neutral, flexion and extension and AP view Compared to CT 05/30/2017 In the interim the patient has undergone posterior fusion from C3 through C6 with rods and bilateral pedicle screws. No significant subluxation is apparent at any level in neutral, flexion or extension. Diffuse disc narrowing and the bone graft at C4-5 are unchanged. No compression fracture or other bony injury. No signs of infection or metastatic disease. Procedure Note Basim George MD - 10/21/2018 Lateral views in neutral, flexion and extension and AP view Compared to CT 05/30/2017 In the interim the patient has undergone posterior fusion from C3 throughC6 with rods and bilateral pedicle screws. No significant subluxation is apparent at any level in neutral, flexion orextension. Diffuse disc narrowing and the bone graft at C4-5 are unchanged. No compression fracture or other bony injury. No signs of infection or metastatic disease. IMPRESSION: No evidence of instability or other post-operative complication. POS [id number] Celso Fair MD IMG XR SPINE Final R esult documented in this encounter Visit Diagnoses Diagnosis Other spondylosis with myelopathy, cervical region Other spondylosis with myelopathy, cervical region documented in this encounter Additional Health Concerns Infection Onset Date Last Indicated Resolved Time CoV-Risk 12/10/2020 12/11/2020 12/20/2020 1:23 AM EDT documented as of this encounter Care Teams Manager Investment Relationship Specialty Start Date End Date Orville Palomino MD [address] [facility] [address] [place] [phone] [email or web address] PCP - General 03/09/17 09/30/21 Radha Fenton PA [address] [place] [address] PCP - General 10/01/21 05/12/24 Trisha Abrams 30 [place] [address] PCP - General 05/13/24 Susana Cook CNM [address] [place] [address] Historical LMR Provider 03/25/17 2 Huma Sumner HYDROSTATIC TESTER [address] [place] [address] Historical LMR Provider 03/25/17 06/11/21 Angy Haywood, KENISHA [address] [place] [address] Historical LMR Provider 03/25/17 2 Carl Collins MD 22 [facility], [address] [place] [address] [email or web address] Historical LMR Provider 03/25/17 06/11/21 Issa Nguyen MD [address] [place] [address] 7 [place] [phone] Historical LMR Provider 03/25/17 2 Lana Hardy NP [address] [place] [address] Historical LMR Provider 03/25/17 2 Rena Ruff MD [address] [place] [address] Orthopedics & Sports [facility], [place] [address] [email or web address] Historical LMR Provider 03/25/17 Yanni Walker MD [address] [place] [address] Orthopedics Sports [facility], [place] [address] [email or web address] Historical LMR Provider 03/25/17 06/11/21 aRdha Johnson MD [address] [place] [phone] Historical LMR Provider 03/25/17 2 Erika Ceja CNP [address] [place] [address], [address] [place] [address] Historical LMR Provider 03/25/17 documented as of this encounter Additional Source Comments The information contained in this document represents components of the legal health record. It is not the complete legal health record.[facility]
--- OUTSIDE RECORDS SUMMARY | 2025-02-03 14:09 | XMS_ITS | Encounter Summary ---
Author Organization [facility] Address [facility] [address] [place] [address] Phone Care Team Providers Care Insert Operator Name Role Phone Orville Palomino MD Primary Care Provider Susana Cook CNM Unavailable Huma Sumner ASSOCIATE MANAGER AFFILIATE MARKETING Unavailable [phone] Angy Haywood ASSOCIATE MANAGER AFFILIATE MARKETING Unavailable Carl Collins MD Unavailable [phone] Issa Nguyen MD Unavailable Lana Hardy ASSOCIATE MANAGER AFFILIATE MARKETING Unavailable Rena Ruff MD Unavailable Yanni Walker MD Unavailable Radha Johnson MD Unavailable [phone] Erika Ceja CONSTRUCTION REP Unavailable Radha Fenton Primary Care Prov ider Trisha Abrams Primary Care Provider tia Encounter Details Date Type Department Care Team (Late st Contact Info) Description 07/18/2018 Procedure Pass [facility], [address] [address] Social History Tobacco Use Types Packs/Day Years [...] st Contact Info) Description 03/13/2024 Procedure Pass [address] [address] 03/09/2025 8:30 AM EDT Appointment [facility] 30 [place] [address] Trisha Abrams PA [address] [place] [address] [email or web address] documented as of this encounter Visit Diagnoses Not on filedocumented in this encounter Additional Health Concerns Infection Onset Date Last Indicated Resolved Time CoV-Risk 12/10/2020 12/11/2020 12/20/2020 1:23 AM EDT documented as of this encounter Care Teams Insert Operator Relationship Specialty Start Date End Date Orville Palomino MD [address] [phone] [email or web address] PCP - General 03/09/17 09/30/21 Radha Fenton PA [address] [place] [address] PCP - General 10/01/21 05/12/24 Trisha Abrams [address] [place] [address] PCP - General 05/13/24 Susana Cook CNM [address] [place] [address] Historical LMR Provider 03/25/17 2 Huma Sumner NP [address] [place] [address] Historical LMR Provider 03/25/17 06/11/21 Angy Haywood NP [address] [place] [address] Historical LMR Provider 03/25/17 2 Carl Collins MD 22 [facility], [address] [place] [address] Historical LMR Provider 03/25/17 06/11/21 Issa Nguyen MD [address] [place] [address] 7 [place] [phone] Historical LMR Provider 03/25/17 2 Lana Hardy NP [address] [place] [address] Historical LMR Provider 03/25/17 2 Rena Ruff MD [address] [place] [address] Orthopedics & Sports Medicine, [place] [address] [email or web address] Historical LMR Provider 03/25/17 Yanni Walker MD [address] [place] [address] Orthopedics & Sports [facility], [place] [address] Historical LMR Provider 03/25/17 06/11/21 Radha Johnson MD [address] [place] [address] Historical LMR Provider 03/25/17 2 Erika Ceja CNP [address] [place] [address], [address] [place] [address] Historical LMR Provider 03/25/17 documented as of this encounter Additional Source Comments The information contained in this document represents components of the legal health record. It is not the complete legal health record.[facility]
--- OUTSIDE RECORDS SUMMARY | 2025-02-03 14:09 | XMS_ITS | Encounter Summary ---
Author Organization [facility] Address [facility] [place] [address] [address] Phone Care Team Providers Care Continuity Editor Name Role Phone Radha Fenton Primary Care Prov ider Trisha Abrams Primary Care Provider [email or web address] Encounter Details Date Type Department Care Team (Latest Contact Info) Description 03/13/2024 Transcribe Orders Virtual Department 30 [place] [address] Trisha Abrams PA [address] [place] [address] [email or web address] Breast screening (Primary Dx) Social History Tobacco [...] Contact Info) Description 03/13/2024 Procedure Pass [address] [address] 03/09/2025 8:30 AM EDT Appointment [address] [address] Trisha Abrams PA [address] [place] [address] [email or web address] Scheduled Orders Name Type Priority Associated Diagnoses Orde r Schedule Mammogram Screening (Bilateral) Imaging Routine Breast screening Expected: 04/13/2024, Expires: 03/13/2025 documented as of this encounter Visit Diagnoses Diagnosis Breast screening- Primary Breast screening, unspecified documented in this encounter Care Teams Continuity Editor Relationship Specialty Start Date End Date Radha Fenton PA [address] [place] [address] PCP - General 10/01/21 05/12/24 Trisha Abrams [address] [place] [address] [email or web address] PCP - General 05/13/24 documented as of this encounter Additional Source Comments The information contained in this document represents components of the legal health record. It is not the complete legal health record.[facility]
== END 2025-02-03 13:32 | disposition home or self-care (01) ==
LOC: HO.HPS 12:52
PROVIDERS: PCP Physician Assistant; Visit Provider Internal Medicine Pulmonary Disease
DX: G47.30 Sleep apnea, unspecified (principal)
CPT/HCPCS: 99213

== ENCOUNTER 2025-02-25 11:11 | Outpatient (AMB) | payer BC, SELFPAY ==
--- OUTSIDE RECORDS SUMMARY | 2016-06-08 01:00 | XMS_ITS | Encounter Summary ---
Author Organization [facility] Address [address] [facility] [address] [place] [address] Phone Care Team Providers Care Lawn Care Professional Name Role Phone Unavailable Primary Care Provider Unavailabl e Encounter Details Date Type Department Care Team ([facility] st Contact Info) Description 06/08/2016 Hospital Encounter [facility] General Imaging [address] [place] [address] Cody Velazquez MD 123 [facility] [address] [place] [phone] Social History Tobacco Use Types Packs/Day Years Used Date Smoking Tobacco: Never Smokeless Tobacco: Never Alcohol Use Standard Drinks/Week Comments Yes 0 (1 standard drink = 0.6 oz pur e alcohol) occassional Education Answer Date Recorded Are you interested [...] AM EST documented as of this encounter Functional Status * Calculated C-SSRS Risk Score (Lifetime/Recent) Answer Date of Assessment Author No Risk Indicated 05/13/2024 1:07 AM Oleg Miramontes, DILLAN * [place] Suicide Severity Rating Scale (Screener/Recent Self-Report) Question Answer Date of Assessment Author 1. Wish to be (Past 1 Month) No 024 1:07 AM Oleg Miramontes, DILLAN 2. Non-Specific Active Suici martha Thoughts (Past 1 Month) No 05/13/2024 1:07 AM Raymond Miramontes, RN 6. Suicidal Behavior (Lifetime) No 1:07 AM Oleg Miramontes, RN documented as of this encounter Plan of Treatment Upcoming Encounters Date Type Department Care Team (Late st Contact Info) Description 03/13/2024 Procedure Pass [address] [address] 02/19/2025 Procedure Pass [facility] [address] [place] [address] 03/09/2025 8:30 AM EDT Appointment [address] [address] Trisha Abrams PA [address] [place] [address] [email or web address] 03/13/2025 8:15 AM EDT Appointment [facility] [address] [place] [address] System, Provider Not In, [facility] [address] [place] [address] Dougie Feliz MD [address] [place] [phone] documented as of this encounter Procedures Procedure Name Priority Date/Time Associated Diagnosis Comments XR SPINE OUTSIDE (NO INTERPRETATION) Routine 06/08/2016 12:00 AM EST documented in this encounter Results * XR SPINE OUTSIDE(NO INTERPRETATION) (06/08/2016 12:00 AM EST) Narrative [facility] - 08/11/2016 8:34 AM EST This study is for PACS storage only and not for interpretation. Cody Velazquez MD IMG OUTSIDE IMAGING W/OUT INTERPRETATION Final Result [facility] documented in this encounter Visit Diagnoses Not on filedocumented in this encounter Additional Health Concerns Infection Onset Date Last Indicated Resolved Time CoV-Risk 12/10/2020 12/11/2020 12/20/2020 1:23 AM EDT documented as of this encounter Additional Source Comments The information contained in this document represents components of the legal health record. It is not the complete legal health record.[facility]
--- OUTSIDE RECORDS SUMMARY | 2016-06-25 01:00 | XMS_ITS | Encounter Summary ---
Author Organization [facility] Address [address] [facility] [address] [place] [address] Phone Care Team Providers Care Switchboard Operator Helper Name Role Phone Unavailable Primary Care Provider Unavailabl e Reason for Visit * MRI/CAT Scan - Closed Specialty Diagnoses / Procedures Referred By Radha huertas Referred To Contact Procedures MRI Spine (Bone) Outside (No Interpretation) Cody Velazquez MD [address] [address] Phone: tel: fax: mailto:[email or web address] Referral ID Status Reason Start Date Expiration Date Visits Re quested Visits Authorized [id number] Closed 08/11/2016 08/11/2017 1 1 Encounter Details Date Type Department Care Team ([facility] Contact Info) Description 06/25/2016 Hospital Encounter [facility] General Imaging [address] [place] [address] Cody Velazquez MD [address] [facility] [address] [place] [address] [email or web address] Social History Tobacco Use Types Packs/Day Years [...] 05/13/2024 1:07 AM Oleg Miramontes, DILLAN * [place] Suicide Severity Rating Scale (Screener/Recent Self-Report) Question Answer Date of Assessment Author 1. Wish to be (Past 1 Month) No 024 1:07 AM Oleg Miramontes, RN 2. Non-Specific Active Suici martha Thoughts (Past 1 Month) No 05/13/2024 1:07 AM Raymond Miramontes, RN 6. Suicidal Behavior (Lifetime) No 1:07 AM Oleg Miramontes, RN documented as of this encounter Plan of Treatment Upcoming Encounters Date Type Department Care Team (Late st Contact Info) Description 03/13/2024 Procedure Pass [facility] [address] [place] [address] 02/19/2025 Procedure Pass [facility] [address] [place] [address] 03/09/2025 8:30 AM EDT Appointment [facility] [address] [place] [address] Trisha Abrams PA [address] [place] [address] [email or web address] 03/13/2025 8:15 AM EDT Appointment [facility] [place] [facility] [place] [place] [address] System, Provider Not In, [place] [address] Dougie Feliz MD [address] [place] [phone] documented as of this encounter Procedures Procedure Name Priority Date/Time Associated Diagnosis Comments MRI SPINE MUSCULOSKELETAL FOCUS OUTSIDE (NO INTERPRETATION) Routine 06/25/2016 12:00 AM EST documented in this encounter Results * MRI Spine (Bone) Outside (No Interpretation) (06/25/2016 12:00 AM EST) Narrative [facility] - 08/11/2016 8:33 AM EST This study is for PACS storage only and not for interpretation. Cody Velazquez MD IMG OUTSIDE IMAGING W/OUT INTERPRETATION Final Result [facility] documented in this encounter Visit Diagnoses Not on filedocumented in this encounter Additional Health Concerns Infection Onset Date Last Indicated Resolved Time CoV-Risk 12/10/2020 12/11/2020 12/20/2020 1:23 AM EDT documented as of this encounter Additional Source Comments The information contained in this document represents components of the legal health record. It is not the complete legal health record.[facility]
--- OUTSIDE RECORDS SUMMARY | 2016-06-25 01:15 | XMS_ITS | Encounter Summary ---
Author Organization [facility] Address [address] [facility] [address] [place] [address] Phone Care Team Providers Care Outside Installation Machinist Name Role Phone Unavailable Primary Care Provider Unavailabl e Reason for Visit * MRI/CAT Scan - Closed Specialty Diagnoses / Procedures Referred By Radha huertas Referred To Contact Procedures MRI Spine (Bone) Outside (No Interpretation) Cody Velazquez MD [address] [address] Phone: tel: fax: [email or web address] Referral ID Status Reason Start Date Expiration Date Visits Re quested Visits Authorized [id number] Closed 08/11/2016 08/11/2017 1 1 Encounter Details Date Type Department Care Team ([facility] Contact Info) Description 06/25/2016 12:15 AM EST Hospital Encounter [facility] General Imaging [address] [facility] [place] [address] Cody Velazquez MD [address] [address] [email or web address] Social History Tobacco Use Types Packs/Day Years [...] 05/13/2024 1:07 AM Oleg Miramontes, RN * [place] Suicide Severity Rating Scale (Screener/Recent Self-Report) Question [...] st Contact Info) Description 03/13/2024 Procedure Pass [address] [address] 02/19/2025 Procedure Pass Echo [facility] [address] [place] [address] 03/09/2025 8:30 AM EDT Appointment [facility] [address] [place] [address] Trisha Abrams PA [address] [place] [address] [email or web address] 03/13/2025 8:15 AM EDT Appointment Echo [facility] [address] [place] [address] System, Provider Not In, [facility] [address] [address] Dougie Feliz MD [address] [place] [phone] documented as of this encounter Procedures Procedure Name Priority Date/Time Associated Diagnosis Comments MRI SPINE MUSCULOSKELETAL FOCUS OUTSIDE (NO INTERPRETATION) Routine 06/25/2016 12:15 AM EST documented in this encounter Results * MRI Spine (Bone) Outside (No Interpretation) (06/25/2016 12:15 AM EST) Narrative [facility] IMG INTERFACES - 08/11/2016 8:34 AM EST This study is for PACS storage only and not for interpretation. Cody Velazquez MD IMG OUTSIDE IMAGING W/OUT INTERPRETATION Final Result [facility] IMG INTERFACES documented in this encounter Visit Diagnoses Not on filedocumented in this encounter Additional Health Concerns Infection Onset Date Last Indicated Resolved Time CoV-Risk 12/10/2020 12/11/2020 12/20/2020 1:23 AM EDT documented as of this encounter Additional Source Comments The information contained in this document represents components of the legal health record. It is not the complete legal health record.[facility]
--- OUTSIDE RECORDS SUMMARY | 2016-06-27 01:00 | XMS_ITS | Encounter Summary ---
Author Organization [facility] Address [address] [facility] [address] [place] [address] Phone Care Team Providers Care Gravity Meter Observer Name Role Phone Unavailable Primary Care Provider Unavailabl e Encounter Details Date Type Department Care Team ([facility] st Contact Info) Description 06/27/2016 Hospital Encounter [facility] [address] [place] [address] Cody Velazquez MD 123 [facility] [address] [place] [address] Social History Tobacco Use Types Packs/Day Years [...] 05/13/2024 1:07 AM Oleg Miramontes, DILLAN * [place] Suicide Severity Rating Scale (Screener/Recent Self-Report) Question [...] st Contact Info) Description 03/13/2024 Procedure Pass [address] [address] 02/19/2025 Procedure Pass Echo [facility] [address] [place] [address] 03/09/2025 8:30 AM EDT Appointment [address] [address] Trisha Abrams PA [address] [place] [address] [email or web address] 03/13/2025 8:15 AM EDT Appointment [facility] [address] [place] [address] System, Provider Not In, [facility] [address] [place] [address] Dougie Feliz MD [address] [place] [phone] documented as of this encounter Procedures Procedure Name Priority Date/Time Associated Diagnosis Comments XR SPINE OUTSIDE (NO INTERPRETATION) Routine 06/27/2016 12:00 AM EST documented in this encounter Results * XR SPINE OUTSIDE(NO INTERPRETATION) (06/27/2016 12:00 AM EST) Narrative [facility] IMG INTERFACES - 08/11/2016 8:32 AM EST This study is for PACS storage only and not for interpretation. Cody Velazquez MD IMG OUTSIDE IMAGING W/OUT INTERPRETATION Final Result [facility] IMG INTERFACES documented in this encounter Visit Diagnoses Not on filedocumented in this encounter Additional Health Concerns Infection Onset Date Last Indicated Resolved Time CoV-Risk 12/10/2020 12/11/2020 12/20/2020 1:23 AM EDT documented as of this encounter Additional Source Comments The information contained in this document represents components of the legal health record. It is not the complete legal health record.[facility]
--- OUTSIDE RECORDS SUMMARY | 2016-06-27 01:15 | XMS_ITS | Encounter Summary ---
Author Organization [employer] [facility] Address [address] [facility] [address] [place] [address] Phone Care Team Providers Care Law Researcher Name Role Phone Unavailable Primary Care Provider Unavailabl e Encounter Details Date Type Department Care Team ([facility] Contact Info) Description 06/27/2016 12:15 AM EST Hospital Encounter [facility] Imaging [address] [place] [address] Cody Velazquez MD 123 [facility] [address] [place] [phone] Social History Tobacco Use Types Packs/Day Years [...] 05/13/2024 1:07 AM Oleg Miramontes, DILLAN * [place] Suicide Severity Rating Scale (Screener/Recent Self-Report) Question [...] st Contact Info) Description 03/13/2024 Procedure Pass [address] [address] 02/19/2025 Procedure Pass Echo [facility] [address] [place] [address] 03/09/2025 8:30 AM EDT Appointment [address] [address] Trisha Abrams PA [address] [place] [address] [email or web address] 03/13/2025 8:15 AM EDT Appointment Echo [facility] [address] [place] [address] System, Provider Not In, [place] [address] Dougie Feliz MD [address] [place] [phone] documented as of this encounter Procedures Procedure Name Priority Date/Time Associated Diagnosis Comments XR SPINE OUTSIDE (NO INTERPRETATION) Routine 06/27/2016 12:15 AM EST documented in this encounter Results * XR SPINE OUTSIDE(NO INTERPRETATION) (06/27/2016 12:15 AM EST) Narrative [facility] IMG INTERFACES - 08/11/2016 8:33 AM EST This study is for PACS storage only and not for interpretation. Cody Velazquez MD IMG OUTSIDE IMAGING W/OUT INTERPRETATION Final Result [facility] IMG INTERFACES documented in this encounter Visit Diagnoses Not on filedocumented in this encounter Additional Health Concerns Infection Onset Date Last Indicated Resolved Time CoV-Risk 12/10/2020 12/11/2020 12/20/2020 1:23 AM EDT documented as of this encounter Additional Source Comments The information contained in this document represents components of the legal health record. It is not the complete legal health record.[facility]
--- OUTSIDE RECORDS SUMMARY | 2016-08-16 | XMS_ITS | Encounter Summary ---
Author Organization [facility] Address [address] [facility] [address] [place] [address] Phone Care Team Providers Care Medical Doctor Md Name Role Phone Orville Palomino MD Primary Care Provider [phone] Reason for Visit * MRI/CAT Scan - Closed Specialty Diagnoses / Procedures Referred By Radha t Referred To Contact Procedures CT Spine (Bone) Focus Outside (No Interpretation) Cody Velazquez MD 123 [facility] [address] [place] [address] Phone: tel: fax: [email or web address]:[email or web address] Referral ID Status Reason Start Date Expiration Date Visits Re quested Visits Authorized [id number] Closed 08/21/2016 08/21/2017 1 1 Encounter Details Date Type Department Care Team ([facility] Contact Info) Description 08/16/2016 Hospital Encounter [facility] [address] [place] [address] Cody Velazquez MD 123 [facility] [address] [place] [address] [email or web address] Social History Tobacco Use Types Packs/Day Years [...] 05/13/2024 1:07 AM Oleg Miramontes, RN * [place] Suicide Severity Rating Scale (Screener/Recent Self-Report) Question [...] st Contact Info) Description 03/13/2024 Procedure Pass [address] [address] 02/19/2025 Procedure Pass [facility] [address] [place] [address] 03/09/2025 8:30 AM EDT Appointment [address] [address] Trisha Abrams PA [address] [place] [address] [email or web address] 03/13/2025 8:15 AM EDT Appointment Echo [facility] [address] [place], [place] [address] System, Provider Not In, [place] [address] Dougie Feliz MD [address] [place] [phone] documented as of this encounter Procedures Procedure Name Priority Date/Time Associated Diagnosis Comments CT SPINE (BONE) OUTSIDE (NO INTERPRETATION) Routine 08/16/2016 12:00 AM EDT documented in this encounter Results * CT Spine (Bone) Focus Outside (No Interpretation) (08/16/2016 12:00 AM EDT) Narrative [facility] IMG INTERFACES - 08/21/2016 10:49 AM EDT This study is for PACS storage only and not for interpretation. Cody Velazquez MD IMG OUTSIDE IMAGING W/OUT INTERPRETATION Final Result [facility] IMG INTERFACES documented in this encounter Visit Diagnoses Not on filedocumented in this encounter Additional Health Concerns Infection Onset Date Last Indicated Resolved Time CoV-Risk 12/10/2020 12/11/2020 12/20/2020 1:23 AM EDT documented as of this encounter Care Teams Medical Doctor Md Relationship Specialty Start Date End Date Orville Palomino MD 230 [facility] [address] [place] [address] [email or web address] PCP - General 07/12/16 03/08/17 documented as of this encounter Additional Source Comments The information contained in this document represents components of the legal health record. It is not the complete legal health record.[facility]
--- NOTE | 2025-02-25 11:13 | MHC.OFFVIS ---
Vital Signs 02/25/25 11:20 Height 3 ft 10 in Weight 65 lb 0.017 oz BMI 21.6 Intake Visit Reasons: mulitple hemorrhoids Intake Note: This patient was referred by Sara Anand PA-C for an assessment for multiple hemorrhoids. Pt c/o; reports had an episode where hemorrhoids were too painful and was not able to sit for prolong periods of time or walk, reports no rectal bleeding, reports has used preparation H and a rectal cream with no relieve, reports has not felt has much pain within the last week, last colonoscopy was over 5 years ago at ? [facility]. Group President Required: No Accompanied by: Family/Other Allergies lisinopril Allergy (Intermediate, Verified 02/25/25 11:23) Cough HPI HPI mulitple hemorrhoids: Details: 64 year female referred for hemorrhoids. She had significant swelling of her hemorrhoids about 2 months ago. She has apparently had persisted for a few weeks. She denied any bleeding. She did have discomfort of her anus at that time. She admits to occasional constipation Her says that the pain and swelling have improved significantly. She is able to sit down comfortably without any problems currently. She has achondroplasia. She has very poor balance and arthritis and is mostly in a wheelchair. She is able to stand up for a few sec with assistance. [facility] Medical History (Updated 02/25/25 @ 11:39 by Carlos Peraza MD) Hemorrhoids with complication HTN (hypertension) Cardiac arrest Urinary incontinence OA (osteoarthritis) Depression Surgical History History of appendectomy Social History Alcohol intake: never Patient Tobacco Use Status: Never used Tobacco Review of Systems Const Denies chills and Denies fever(s) Card Denies chest pain, Denies dyspnea and Reports dyspnea on exertion Resp Denies cough, Denies dyspnea and Reports dyspnea on exertion GI Denies hematochezia and Denies change in bowel habits Denies hematuria Musc Reports abnormal gait, Denies back pain, Reports arthralgias and Reports limited range of motion Neuro Details: Poor balance Reports abnormal gait, Denies focal weakness and Denies convulsions Psych Denies depression and Denies mood swings Physical Exam Vital Signs: BMI result Body Mass Index 21.6 Const Other: On wheelchair General: comfortable and no acute distress Orientation/consciousness: patient oriented x3 Neck Neck: Yes no lymphadenopathy Resp Auscultation: clear to auscultation bilaterally Cardio Rhythm: regular rhythm GI Other: Rectal exam shows external hemorrhoids, with some residual edema, no redness, no tenderness currently, no bleeding Palpation (GI): Soft to palpation, nontender and no guarding Neuro General: patient oriented x3 Office Procedures Anoscopy She was in left lateral tongue camilo-knife position. The anoscope was gently inserted. A full examination of the anal canal was done. She did have some small internal hemorrhoids. There was no bleeding or ulceration. There was no fissure or any lesion. He has no induration on digital exam. She did have some edema of external hemorrhoids on both the left and right side [id number] Assessment & Plan Assessment & Plan (1) Hemorrhoids with complication: Code(s): K64.8 - Other hemorrhoids Category: Medical Plan: She has some edema of her external hemorrhoids on both the left of the right side. This has actually worse over a month ago. This has been slowly improving according to the . She does not seem to need surgical intervention currently. I will prescribe her Calmoseptine for symptomatic relief of any discomfort. I will also prescribe her Metamucil to help with her additional constipation I told the to bring her in the office down the line if she has worse symptoms with the hemorrhoids. Coding Level of Care Code New Pt Level 3 (46042) Diagnoses Hemorrhoids with complication K64.8 CPT Codes Details - CPT: 31417-Mybetqve ([id number])
[2025-02-25 11:20] VITALS: BMI 21.6
--- OUTSIDE RECORDS SUMMARY | 2025-02-25 14:19 | XMS_ITS | Encounter Summary ---
Author Organization [facility] Address [facility] [address] [place] [address] Phone Care Team Providers Care Heating Fixture Tender Name Role Phone Orville Palomino MD Primary Care Provider [phone] Susana Cook CNM Unavailable Huma Sumner SIGNAL INTEGRITY ENGINEER Unavailable Angy Haywood SIGNAL INTEGRITY ENGINEER Unavailable Carl Collins MD Unavailable [phone] Issa Nguyen MD Unavailable Lana Hardy SIGNAL INTEGRITY ENGINEER Unavailable Rena Ruff MD Unavailable Yanni Walker MD Unavailable Radha Johnson MD Unavailable [phone] Erika Ceja SUPERVISOR FABRICATION Unavailable Radha Fenton Primary Care Prov ider Trisha Abrams Primary Care Provider Unava ilable Reason for Referral * MRI/CAT Scan - Closed Specialty Diagnoses / Procedures Referred By Contac t Referred To Contact Radiology Diagnoses Lumbar back pain Procedures MRI Lumbar Spine CHG MRI, LUMBAR SPINE Wade Dos Santos MD Phone: tel: fax: [address] Phone: tel: Referral ID Status Reason Start Date Expiration Date Visits Re quested Visits Authorized [id number] Closed 09/24/2020 10/24/2020 1 1 * MRI/CAT Scan - Closed Specialty Diagnoses / Procedures Referred By Contac t Referred To Contact Radiology Diagnoses Acute thoracic back pain, unspecified back pain laterality Procedures MRI Thoracic Spine CHG MRI, DORSAL SPINE COMBO Wade Garrison MD Phone: tel: fax: [address] Phone: tel: Referral ID Status Reason Start Date Expiration Date Visits Re quested Visits Authorized [id number] Closed 09/23/2020 10/23/2020 1 1 * MRI/CAT Scan - Closed Specialty Diagnoses / Procedures Referred By Contac t Referred To Contact Radiology Diagnoses Cervicalgia Procedures MRI Cervical Spine CHG MRI, CERV SPINE Wade Dos Santos MD Phone: tel: fax: [address] Phone: tel: Referral ID Status Reason Start Date Expiration Date Visits Re quested Visits Authorized [id number] Closed 09/23/2020 10/23/2020 1 1 Encounter Details Date Type Department Care Team (Late st Contact Info) Description 09/10/2020 Ancillary Orders Virtual Department [address] [place] [address] Wade Garrison MD [address] [place] [phone] Cervicalgia; Acute thoracic back pain, unspecified [...] st Contact Info) Description 03/13/2024 Procedure Pass [address] [address] 02/19/2025 Procedure Pass [facility] [address] [place] [address] 03/09/2025 8:30 AM EDT Appointment [address] [address] Trisha Abrams PA [address] [place] [address] [email or web address] 03/13/2025 8:15 AM EDT Appointment [facility] [address] Ruvalcaba [place] [address] System, Provider Not In, [place] [address] Dougie Feliz MD [address] [place] [phone] documented as of this encounter Results * [...] with evidence of slight cord contact at [id number]. Visualized lower thoracic spinal cord and conus [...] L4-L5 level: Small posterior disc protrusion. Bilateral L4-T1fqugtmqpcksua hemilaminectomies. Mild central canal stenosis. Severenarrowing of [...] EDT No significant changes from 11/21/2019. POS [id number] Narrative 09/23/2020 11:19 AM EDT HISTORY:. Cervical pain, bilateral arm pain and numbness in hands, abnormal previous exam, COMPARISON: MRI cervical spine 6 is . TECHNIQUE: Exam performed on a 1.5 [...] exam, COMPARISON: MRI cervical spine 6 is . TECHNIQUE: Exam performed on a 1.5 [...] IMPRESSION: No significant changes from 11/21/2019. POS [id number] Wade Garrison MD IM MR XSPECIALTY Fi nal Result documented in [...] documented as of this encounter Care Teams Heating Fixture Tender Relationship Specialty Start Date End Date Orville Palomino MD [address] [place] [address] [address] [place] [address] [email or web address] PCP - General 03/09/17 09/30/21 Radha Fenton PA [address] [place] [address] PCP - General 10/01/21 05/12/24 Trisha Abrams [address] [place] [address] PCP - General 05/13/24 Susana Cook CNM 30 [place] [address] Historical LMR Provider 03/25/17 2 Huma Sumner NP [address] [place] [address] [email or web address] Historical LMR Provider 03/25/17 06/11/21 Angy Haywood NP [address] [place] [address] Historical LMR Provider 03/25/17 2 Carl Collins MD [address] [place] [address] 301 [place] [address] Historical LMR Provider 03/25/17 06/11/21 Issa Nguyen MD [address] [place] [phone] Historical LMR Provider 03/25/17 2 Lana Hardy NP [address] [place] [address] Historical LMR Provider 03/25/17 2 Rena Ruff MD 4 [facility], [place] [address] jose Historical LMR Provider 03/25/17 Yanni Walker MD 4 [facility] Orthopedics Sports Medicine, [place] [address] Historical LMR Provider 03/25/17 06/11/21 Radha Johnson MD [address] [place] [phone] Historical LMR Provider 03/25/17 2 Erika Ceja CNP 22 [facility], [address] [place] [address] [email or web address] Historical LMR Provider 03/25/17 documented as of this encounter Additional Source Comments The information contained in this document represents components of the legal health record. It is not the complete legal health record.[facility]
--- OUTSIDE RECORDS SUMMARY | 2025-02-25 14:19 | XMS_ITS | Encounter Summary ---
Author Organization [facility] Address [facility] [address] [place] [address] Phone Care Team Providers Care Food Service Director Name Role Phone Orville Palomino MD Primary Care Provider Susana CookM Unavailable Huma Sumner SHOP TECHNICIAN Unavailable [phone] Angy Haywood SHOP TECHNICIAN Unavailable Carl Collins MD Unavailable [phone] Issa Nguyen MD Unavailable Lana Hardy SHOP TECHNICIAN Unavailable Rena Ruff MD Unavailable Yanni Walker MD Unavailable Radha Johnson MD Unavailable [phone] Erika Ceja RETAIL PHARMACIST Unavailable Radha Fenton Primary Care Prov ider Trisha Abrams Primary Care Provider Unava ilable Reason for Referral * Occupational Therapy (Routine) - Closed Specialty Diagnoses / Procedures Referred By Contac t Referred To Contact 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 Orville Palomino MD Phone: tel: fax: [email or web address] [address] [place] [address] Phone: tel: Referral ID Status Reason Start Date Expiration Date Visits Re quested Visits Authorized [id number] Closed 12/29/2020 06/03/2021 17 17 Encounter Details Date Type Department Care Team (Latest Contact Info) Description 12/29/2020 Transcribe Orders [facility] [address] [place] [address] Orville Palomino MD 230 [facility] [address] [place] [phone] [email or web address] Encounter for rehabilitation (Primary Dx) Social History [...] st Contact Info) Description 03/13/2024 Procedure Pass [address] [address] 02/19/2025 Procedure Pass [facility] [address] [place] [address] 03/09/2025 8:30 AM EDT Appointment [address] [address] Trisha Abrams PA [address] [place] [address] [email or web address] 03/13/2025 8:15 AM EDT Appointment [facility] [address] [place] [address] System, Provider Not In, [place] [address] Dougie Feliz MD [address] [place] [phone] Scheduled Referrals Name Type Priority Associated Diagnoses Orde r Schedule Ambulatory referral to [facility] Occupational Therapy Outpatient Referral Routine Encounter for rehabilitation Ordered: 12/29/2020 documented as of this encounter Visit Diagnoses Diagnosis Encounter for rehabilitation- Primary documented in this encounter Care Teams Food Service Director Relationship Specialty Start Date End Date Orville Palomino MD [address] [place], [place] [address] [phone] [email or web address] PCP - General 03/09/17 09/30/21 Radha Fenton PA 70 [place] [address] PCP - General 10/01/21 05/12/24 Trisha Abrams 70 [place] [address] PCP - General 05/13/24 Susana Cook CNM 30 [place] [address] Historical LMR Provider 03/25/17 2 Huma Sumner NP [address] [place] [address] Historical LMR Provider 03/25/17 06/11/21 Angy Haywood NP [address] [place] [address] Historical LMR Provider 03/25/17 2 Carl Collins MD [address] [place] [address] [address] [place] [address] Historical LMR Provider 03/25/17 06/11/21 Issa Nguyen MD [address] [place] [phone] Historical LMR Provider 03/25/17 2 Lana Hardy NP [address] [place] [address] Historical LMR Provider 03/25/17 2 Rena Ruff MD [address] [place] [address] Orthopedics & Sports Medicine, [facility] [place] [address] jose Historical LMR Provider 03/25/17 Yanni Walker MD [address] [place] [address] Orthopedics & Sports Medicine, [facility] [place] [address] Historical LMR Provider 03/25/17 06/11/21 Radha Johnson MD [address] [place] [address] Historical LMR Provider 03/25/17 2 Erika Ceja CNP [address] [place] [address], [address] [place] [address] [email or web address] Historical LMR Provider 03/25/17 documented as of this encounter Additional Source Comments The information contained in this document represents components of the legal health record. It is not the complete legal health record.[facility]
--- OUTSIDE RECORDS SUMMARY | 2025-02-25 14:19 | XMS_ITS | Encounter Summary ---
Author Organization [facility] Address [address] [place] [address] [address] [place] [address] Phone Care Team Providers Care Greeting Card Writer Name Role Phone Orville Palomino MD Primary Care Provider Orville Palomino MD Primary Care Provider [phone] Susana Cook CNM Unavailable Huma Sumner COSTUME SEAMSTRESS Unavailable [phone] Angy Haywood COSTUME SEAMSTRESS Unavailable PerCarl olivo MD Unavailable [phone] Issa Nguyen MD Unavailable Lana Hardy COSTUME SEAMSTRESS Unavailable Rena Ruff MD Unavailable Yanni Walker MD Unavailable Radha Johnson MD Unavailable [phone] Erika Ceja ACTIVITY THERAPY TEACHER Unavailable Radha Fenton Primary Care Prov ider Trisha Abrams Primary Care Provider Unava ilable Encounter Details Date Type Department Care Team (Late st Contact Info) Description 08/11/2016 Procedure Pass [facility] [address] [place] [address] Social History Tobacco Use Types Packs/Day Years [...] st Contact Info) Description 03/13/2024 Procedure Pass [address] [address] 02/19/2025 Procedure Pass [facility] [address] [place] [address] 03/09/2025 8:30 AM EDT Appointment [address] [address] Trisha Abrams PA [address] [place] [address] [email or web address] 03/13/2025 8:15 AM EDT Appointment Echo [facility] [address] [place] [address] System, Provider [place] In, [place] [address] Dougie Feliz MD [address] [place] [phone] documented as of this encounter Visit Diagnoses Not on filedocumented in this encounter Additional Health Concerns Infection Onset Date Last Indicated Resolved Time CoV-Risk 12/10/2020 12/11/2020 12/20/2020 1:23 AM EDT documented as of this encounter Care Teams Greeting Card Writer Relationship Specialty Start Date End Date Orville Palomino MD [address] [place] [address] [address] [place] [phone] [email or web address] PCP - General 07/12/16 03/08/17 Orville Palomino MD [address] [phone] [email or web address] PCP - General 03/09/17 09/30/21 Radha Fenton PA 70 [place] [address] PCP - General 10/01/21 05/12/24 Trisha Abrams 70 [place] [address] PCP - General 05/13/24 Susana Cook CNM 30 [place] [address] Historical LMR Provider 03/25/17 2 Huma Sumner NP [address] [place] [address] [email or web address] Historical LMR Provider 03/25/17 06/11/21 Angy Haywood NP [address] [place] [address] Historical LMR Provider 03/25/17 2 Carl Collins MD [address] [place] [address] 301 [place] [address] [email or web address] Historical LMR Provider 03/25/17 06/11/21 Issa Nguyen MD [address] [place] [phone] Historical LMR Provider 03/25/17 2 Lana Hardy NP [address] [place] [address] Historical LMR Provider 03/25/17 2 Rena Ruff MD [address] [place] [address] [facility], [place] [address] jose Historical LMR Provider 03/25/17 Yanni Walker MD [address] [place] [address] Orthopedics Sports [facility], [place] [address] Historical LMR Provider 03/25/17 06/11/21 Radha Johnson MD [address] [place] [address] Historical LMR Provider 03/25/17 2 Erika Ceja CNP 22 [facility], [address] [place] [address] Historical LMR Provider 03/25/17 documented as of this encounter Additional Source Comments The information contained in this document represents components of the legal health record. It is not the complete legal health record.[facility]
--- OUTSIDE RECORDS SUMMARY | 2025-02-25 14:19 | XMS_ITS | Encounter Summary ---
Author Organization [facility] Address [facility] [employer] [facility] [address] [place] [address] Phone Care Team Providers Care Machine Spreader Name Role Phone Orville Palomino MD Primary Care Provider Susana Cook CNM Unavailable Huma Sumner URBAN DESIGNER Unavailable [phone] Angy Haywood URBAN DESIGNER Unavailable Carl Collins MD Unavailable [phone] Issa Nguyen MD Unavailable Lana Hardy URBAN DESIGNER Unavailable Rena Ruff MD Unavailable Yanni Walker MD Unavailable Radha Johnson MD Unavailable [phone] Erika Ceja CERTIFIED PEDIATRIC NURSE PRACTITIONER Unavailable [phone] Radha Fenton Primary Care Prov ider Trisha Abrams Primary Care Provider Unava ilable Reason for Referral * Physical Therapy (Routine) - Closed Specialty Diagnoses / Procedures Referred By Contac t Referred To Contact Physical Therapy Diagnoses Encounter for rehabilitation Orville Palomino MD Phone: tel: fax: [email or web address] [facility] [address] [place] [address] Phone: tel: Referral ID Status Reason Start Date Expiration Date Visits Re quested Visits Authorized [id number] Closed 05/07/2019 06/03/2020 60 60 Encounter Details Date Type Department Care Team (Latest Contact Info) Description 05/07/2019 Transcribe Orders [facility] [address] [place] [address] Orville Palomino MD 230 [facility] [address] [place] [phone] [email or web address] Encounter for rehabilitation (Primary Dx) Social History [...] Contact Info) Description 03/13/2024 Procedure Pass [address] [address] 02/19/2025 Procedure Pass [facility] [address] [place] [address] 03/09/2025 8:30 AM EDT Appointment [address] [address] Trisha Abrams PA [address] [place] [address] [email or web address] 03/13/2025 8:15 AM EDT Appointment [facility] [address] [place] [address] System, Provider [place] In, [place] [address] Dougie Feliz MD [address] [place] [phone] documented as of this encounter Procedures Procedure Name Priority Date/Time Associated Diagnosis Comments AMB REFERRAL TO [facility] PHYSICAL THERAPY Routine 05/14/2019 8:35 PM EST Encounter for rehabilitation documented in this encounter Results * Ambulatory referral to [facility] Physical Therapy (05/14/2019 8:35 PM EST) Orville Palomino MD AMB [facility] REFERRALS Final Result documented in this encounter Visit Diagnoses Diagnosis Encounter for rehabilitation- Primary documented in this encounter Additional Health Concerns Infection Onset Date Last Indicated Resolved Time CoV-Risk 12/10/2020 12/11/2020 12/20/2020 1:23 AM EDT documented as of this encounter Care Teams Machine Spreader Relationship Specialty Start Date End Date Orville Palomino MD 230 [facility] [address] [place] [address] [email or web address] PCP - General 03/09/17 09/30/21 Radha Fenton PA 70 [place] [address] PCP - General 10/01/21 05/12/24 Trisha Abrams 70 [place] [address] PCP - General 05/13/24 Susana Cook CNM 30 [place] [address] Historical LMR Provider 03/25/17 2 Huma Sumner NP [address] [place] [address] [email or web address] Historical LMR Provider 03/25/17 06/11/21 Angy Haywood NP [address] [place] [address] Historical LMR Provider 03/25/17 2 Carl Collins MD [address] [place] [address] [email or web address] Historical LMR Provider 03/25/17 06/11/21 Issa Nguyen MD [address] [place] [address] [place] [address] Historical LMR Provider 03/25/17 2 Lana Hardy NP [address] [place] [address] Historical LMR Provider 03/25/17 2 Rena Ruff MD [address] [place] [address] [facility], [place] [address] jose Historical LMR Provider 03/25/17 Yanni Walker MD [address] [place] [address] Orthopedics Sports [facility], [place] [address] Historical LMR Provider 03/25/17 06/11/21 Radha Johnson MD [address] [place] [phone] Historical LMR Provider 03/25/17 2 Erika Ceja CNP 22 [facility], [address] [place] [address] Historical LMR Provider 03/25/17 documented as of this encounter Additional Source Comments The information contained in this document represents components of the legal health record. It is not the complete legal health record.[facility]
--- OUTSIDE RECORDS SUMMARY | 2025-02-25 14:20 | XMS_ITS | Encounter Summary ---
Author Organization [facility] Address [address] [facility] [address] [place] [address] Phone Care Team Providers Care Spud Driller Name Role Phone Orville Palomino MD Primary Care Provider Susana Cook CNM Unavailable Huma Sumner SERVICE ENGINE REPAIRER Unavailable [phone] Angy Haywood SERVICE ENGINE REPAIRER Unavailable Carl Collins MD Unavailable [phone] Issa Nguyen MD Unavailable Lana Hardy SERVICE ENGINE REPAIRER Unavailable Rena Ruff MD Unavailable Yanni Walker MD Unavailable Radha Johnson MD Unavailable [phone] Erika Ceja WAFER POLISHER Unavailable Radha Fenton Primary Care Prov ider Trisha Abrams Primary Care Provider Unava ilable Encounter Details Date Type Department Care Team (Late st Contact Info) Description 01/20/2020 Procedure Pass [facility], Ct Scan - [address] [phone] Social History Tobacco Use Types Packs/Day Years [...] st Contact Info) Description 03/13/2024 Procedure Pass [facility] [address] [place] [address] 02/19/2025 Procedure Pass [facility] [address] [place] [address] 03/09/2025 8:30 AM EDT Appointment [facility] 30 [place] [address] Trisha Abrams PA 70 [place] [address] [email or web address] 03/13/2025 8:15 AM EDT Appointment [facility] [place] [place] [address] System, Provider Not In, [place] [address] Dougie Feliz MD [address] [place] [phone] documented as of this encounter Visit Diagnoses Not on filedocumented in this encounter Additional Health Concerns Infection Onset Date Last Indicated Resolved Time CoV-Risk 12/10/2020 12/11/2020 12/20/2020 1:23 AM EDT documented as of this encounter Care Teams Spud Driller Relationship Specialty Start Date End Date Orville Palomino MD [address] [place], [place] [phone] [place] [phone] [email or web address] PCP - General 03/09/17 09/30/21 Radha Fenton PA [address] [place] [address] PCP - General 10/01/21 05/12/24 Trisha Abrams [address] [place] [address] PCP - General 05/13/24 Susana Cook CNM 30 [place] [address] Historical LMR Provider 03/25/17 2 Huma Sumner NP 30 [place] [address] [email or web address] Historical LMR Provider 03/25/17 06/11/21 Angy Haywood NP [address] [place] [address] Historical LMR Provider 03/25/17 2 Carl Collins MD 22 [facility] [address] [place] [address] [email or web address] Historical LMR Provider 03/25/17 06/11/21 Issa Nguyen MD [address] [place] [address] 7 [place] [phone] Historical LMR Provider 03/25/17 2 Lana Hardy NP 238 [place] [address] Historical LMR Provider 03/25/17 2 Rena Ruff MD [address] [place] [address] [facility], [place] [address] [email or web address] Historical LMR Provider 03/25/17 Yanni Walker MD [address] [place] [address] [facility], [place] [address] Historical LMR Provider 03/25/17 06/11/21 Radha Johnson MD [address] [place] [address] Historical LMR Provider 03/25/17 2 Erika Ceja CNP 22 [facility] [address] [place] [address] [email or web address] Historical LMR Provider 03/25/17 documented as of this encounter Additional Source Comments The information contained in this document represents components of the legal health record. It is not the complete legal health record.[facility]
--- OUTSIDE RECORDS SUMMARY | 2025-02-25 14:20 | XMS_ITS | Encounter Summary ---
Author Organization [facility] Address [facility] [employer] [facility] [address] [place] [address] Phone Care Team Providers Care Storage Specialist Name Role Phone Orville Palomino MD Primary Care Provider Susana Cook CNM Unavailable Huma Sumner YARD OPERATOR Unavailable [phone] Angy Haywood YARD OPERATOR Unavailable Carl Collins MD Unavailable [phone] Issa Nguyen MD Unavailable Lana Hardy YARD OPERATOR Unavailable Rena Ruff MD Unavailable Yanni Walker MD Unavailable Radha Johnson MD Unavailable [phone] Erika Ceja COLLECTION SPECIALIST Unavailable Radha Fenton Primary Care Prov ider Trisha Abrams Primary Care Provider Unava ilable Encounter Details Date Type Department Care Team (Late st Contact Info) Description 11/04/2019 Procedure Pass [facility], [address] [phone] Social History Tobacco Use Types Packs/Day Years [...] st Contact Info) Description 03/13/2024 Procedure Pass [facility] 30 [place] [address] 02/19/2025 Procedure Pass [facility] [address] [place] [address] 03/09/2025 8:30 AM EDT Appointment [facility] [address] [place] [address] Trisha Abrams PA [address] [place] [address] [email or web address] 03/13/2025 8:15 AM EDT Appointment [facility] [place] [place] [address] System, Provider Not In, [place] [address] Dougie Feliz MD [address] [place] [phone] documented as of this encounter Visit Diagnoses Not on filedocumented in this encounter Additional Health Concerns Infection Onset Date Last Indicated Resolved Time CoV-Risk 12/10/2020 12/11/2020 12/20/2020 1:23 AM EDT documented as of this encounter Care Teams Storage Specialist Relationship Specialty Start Date End Date Orville Palomino MD [address] [place] [address] [place] [phone] [email or web address] PCP - General 03/09/17 09/30/21 Radha Fenton PA [address] [place] [address] PCP - General 10/01/21 05/12/24 Trisha Abrams 70 [place] [address] PCP - General 05/13/24 Susana Cook CNM 30 [place] [address] Historical LMR Provider 03/25/17 2 Huma Sumner NP 30 [place] [address] [email or web address] Historical LMR Provider 03/25/17 06/11/21 Angy Haywood NP 710 [place] [address] Historical LMR Provider 03/25/17 2 Carl Collins MD 22 [facility], [address] [place] [address] [email or web address] Historical LMR Provider 03/25/17 06/11/21 Issa Nguyen MD [address] [place] [address] 7 [place] [phone] Historical LMR Provider 03/25/17 2 Lana Hardy NP 238 [place] [address] Historical LMR Provider 03/25/17 2 Rena Ruff MD [address] [place] [address] [facility], [place] [address] [email or web address] Historical LMR Provider 03/25/17 Yanni Walker MD [address] [place] [address] [facility], [place] [address] Historical LMR Provider 03/25/17 06/11/21 Radha Johnson MD [address] [place] [address] Historical LMR Provider 03/25/17 2 Erika Ceja CNP 22 [facility], [address] [place] [address] [email or web address] Historical LMR Provider 03/25/17 documented as of this encounter Additional Source Comments The information contained in this document represents components of the legal health record. It is not the complete legal health record.[facility]
--- OUTSIDE RECORDS SUMMARY | 2025-02-25 14:20 | XMS_ITS | Encounter Summary ---
Author Organization [facility] Address [address] [place] [address] Phone Care Team Providers Care Horticultural Specialty Grower Name Role Phone Radha Fenton Primary Care Prov ider Trisha Abrams Primary Care Provider Unava ilable Encounter Details Date Type Department Care Team (Late st Contact Info) Description 12/15/2022 Procedure Pass [facility], [address] [address] Social History Tobacco Use Types Packs/Day Years [...] Contact Info) Description 03/13/2024 Procedure Pass [address] [address] 02/19/2025 Procedure Pass [facility] [address] [address] 03/09/2025 8:30 AM EDT Appointment [address] [address] Trisha Abrams PA [address] [place] [address] [email or web address] 03/13/2025 8:15 AM EDT Appointment [facility] [place] [address] [place] [address] System, Provider Not In, [place] [address] Dougie Feliz MD [address] [place] [phone] documented as of this encounter Visit Diagnoses Not on filedocumented in this encounter Care Teams Horticultural Specialty Grower Relationship Specialty Start Date End Date Radha Fenton PA 70 [place] [address] PCP - General 10/01/21 05/12/24 Trisha Abrams 70 [place] [address] PCP - General 05/13/24 documented as of this encounter Additional Source Comments The information contained in this document represents components of the legal health record. It is not the complete legal health record.[facility]
--- OUTSIDE RECORDS SUMMARY | 2025-02-25 14:20 | XMS_ITS | Encounter Summary ---
Author Organization [facility] Address [facility] [employer] [facility] [address] [place] [address] Phone Care Team Providers Care Silviculture Forester Name Role Phone Orville Palomino MD Primary Care Provider Susana Cook CNM Unavailable Huma Sumner INVESTMENT TRADER Unavailable [phone] Angy Haywood INVESTMENT TRADER Unavailable Carl Collins MD Unavailable [phone] Issa Nguyen MD Unavailable Lana Hardy INVESTMENT TRADER Unavailable Rena Ruff MD Unavailable Yanni Walker MD Unavailable Radha Johnson MD Unavailable [phone] Erika Ceja CUSTOMER SECURITY CLERK Unavailable Radha Fenton Primary Care Prov ider Trisha Abrams Primary Care Provider Unava ilable Encounter Details Date Type Department Care Team (Late st Contact Info) Description 09/12/2020 Transcribe Orders Virtual Department 30 [place], [place] [phone] Wade Garrison MD [address] [place] [address] Social History Tobacco Use Types Packs/Day Years [...] Contact Info) Description 03/13/2024 Procedure Pass [address] [address] 02/19/2025 Procedure Pass [facility] [address] [place] [address] 03/09/2025 8:30 AM EDT Appointment [address] [address] Trisha Abrams PA [address] [place] [address] [email or web address] 03/13/2025 8:15 AM EDT Appointment [facility] [address] [place] [address] System, Provider [place] In, [place] [address] Dougie Feliz MD [address] [place] [phone] documented as of this encounter Visit Diagnoses Not on filedocumented in this encounter Additional Health Concerns Infection Onset Date Last Indicated Resolved Time CoV-Risk 12/10/2020 12/11/2020 12/20/2020 1:23 AM EDT documented as of this encounter Care Teams Silviculture Forester Relationship Specialty Start Date End Date Orville Palomino MD [address] [place] [phone] [email or web address] PCP - General 03/09/17 09/30/21 Radha Fenton PA [address] [place] [address] PCP - General 10/01/21 05/12/24 Trisha Abrams 70 [place] [address] PCP - General 05/13/24 Susana Cook CNM 30 [place] [address] Historical LMR Provider 03/25/17 2 Huma Sumner NP 30 [place] [address] [email or web address] Historical LMR Provider 03/25/17 06/11/21 Angy Haywood NP [address] [place] [address] Historical LMR Provider 03/25/17 2 Carl Collins MD [address] [place] [address] 301 [place] [address] [email or web address] Historical LMR Provider 03/25/17 06/11/21 Issa Nguyen MD [address] [place] [phone] Historical LMR Provider 03/25/17 2 Lana Hardy NP [address] [place] [address] Historical LMR Provider 03/25/17 2 Rena Ruff MD [address] [place] [address] [facility], [place] [address] jose Historical LMR Provider 03/25/17 Yanni Walker MD [address] [place] [address] [facility], [place] [address] Historical LMR Provider 03/25/17 06/11/21 Radha Johnson MD [address] [place] [phone] Historical LMR Provider 03/25/17 2 Erika Ceja CNP 22 [facility], [address] [place] [address] [email or web address] Historical LMR Provider 03/25/17 documented as of this encounter Additional Source Comments The information contained in this document represents components of the legal health record. It is not the complete legal health record.[facility]
--- OUTSIDE RECORDS SUMMARY | 2025-02-25 14:20 | XMS_ITS | Encounter Summary ---
Author Organization [facility] Address Pending sale to [facility] [address] [place] [address] Phone Care Team Providers Care Pourer Metal Name Role Phone Orville Palomino MD Primary Care Provider [phone] Susana Cook CNM Unavailable Huma Sumner HOT DOG VENDOR Unavailable [phone] Angy Haywood HOT DOG VENDOR Unavailable Carl Collins MD Unavailable [phone] Issa Nguyen MD Unavailable Lana Hardy HOT DOG VENDOR Unavailable Rena Ruff MD Unavailable Yanni Walker MD Unavailable Radha Johnson MD Unavailable [phone] Erika Ceja SERVICE TECHNICIAN Unavailable Radha Fenton Primary Care Prov ider Trisha Abrams Primary Care Provider Unava ilable Encounter Details Date Type Department Care Team (Late st Contact Info) Description 09/10/2020 Procedure Pass [facility], [address] [id number] Social History Tobacco Use Types Packs/Day Years [...] st Contact Info) Description 03/13/2024 Procedure Pass [facility] [address] [place] [address] 02/19/2025 Procedure Pass [facility] [address] [place] [address] 03/09/2025 8:30 AM EDT Appointment [facility] [address] [place] [address] Trisha Abrams PA [address] [place] [address] [email or web address] 03/13/2025 8:15 AM EDT Appointment [facility] [address] [place] [address] System, Provider [place] In, [place] [address] Dougie Feliz MD [address] [place] [phone] documented as of this encounter Visit Diagnoses Not on filedocumented in this encounter Additional Health Concerns Infection Onset Date Last Indicated Resolved Time CoV-Risk 12/10/2020 12/11/2020 12/20/2020 1:23 AM EDT documented as of this encounter Care Teams Pourer Metal Relationship Specialty Start Date End Date Orville Palomino MD [address] [place], [place] [phone] [place] [phone] [email or web address] PCP - General 03/09/17 09/30/21 Radha Fenton PA [address] [place] [address] PCP - General 10/01/21 05/12/24 Trisha Abrams [address] [place] [address] PCP - General 05/13/24 Susana Cook CNM [address] [place] [address] Historical LMR Provider 03/25/17 2 Huma Sumner NP 30 [place] [address] [email or web address] Historical LMR Provider 03/25/17 06/11/21 Angy Haywood NP [address] [place] [address] Historical LMR Provider 03/25/17 2 Carl Collins MD [address] [facility] [address] [place] [address] [email or web address] Historical LMR Provider 03/25/17 06/11/21 Issa Nguyen MD [address] [place] [address] 7 [place] [phone] Historical LMR Provider 03/25/17 2 Lana Hardy NP [address] [place] [address] Historical LMR Provider 03/25/17 2 Rena Ruff MD [address] [place] [address] [facility], [facility] [place] [address] [email or web address] Historical LMR Provider 03/25/17 Yanni Walker MD [address] [place] [address] [facility], [place] [address] Historical LMR Provider 03/25/17 06/11/21 Radha Johnson MD [address] [place] [address] Historical LMR Provider 03/25/17 2 Erika Ceja CNP 22 [facility], [address] [place] [address] [email or web address] Historical LMR Provider 03/25/17 documented as of this encounter Additional Source Comments The information contained in this document represents components of the legal health record. It is not the complete legal health record.[facility]
--- OUTSIDE RECORDS SUMMARY | 2025-02-25 14:20 | XMS_ITS | Encounter Summary ---
Author Organization [facility] Address [facility] [employer] [facility] [address] [place] [address] Phone Care Team Providers Care Pharmacy Graduate Intern Name Role Phone Orville Palomino MD Primary Care Provider Susana Cook CNM Unavailable Huma Sumner HOGSHEAD HEAD MATCHER Unavailable [phone] Angy Haywood HOGSHEAD HEAD MATCHER Unavailable Carl Collins MD Unavailable Issa Nguyen MD Unavailable Lana Hardy HOGSHEAD HEAD MATCHER Unavailable Rena Ruff MD Unavailable Yanni Walker MD Unavailable Radha Johnson MD Unavailable [phone] Erika Ceja CERTIFIED FINANCIAL PLANNER Unavailable Radha Fenton Primary Care Prov ider Trisha Abrams Primary Care Provider Unava ilable Encounter Details Date Type Department Care Team (Late st Contact Info) Description 09/10/2020 Procedure Pass [facility], [address] [phone] Social History Tobacco Use Types Packs/Day Years [...] st Contact Info) Description 03/13/2024 Procedure Pass [facility] [address] [place] [address] 02/19/2025 Procedure Pass [facility] [address] [place] [address] 03/09/2025 8:30 AM EDT Appointment [facility] [address] [place] [address] Trisha Abrams PA 70 [place] [address] [email or web address] 03/13/2025 8:15 AM EDT Appointment [facility] [address] [place] [address] System, Provider [place] In, [place] [address] Dougie Feliz MD [address] [place] [phone] documented as of this encounter Visit Diagnoses Not on filedocumented in this encounter Additional Health Concerns Infection Onset Date Last Indicated Resolved Time CoV-Risk 12/10/2020 12/11/2020 12/20/2020 1:23 AM EDT documented as of this encounter Care Teams Pharmacy Graduate Intern Relationship Specialty Start Date End Date Orville Palomino MD [address] [place], [place] [phone] [place] [address] [email or web address] PCP - General 03/09/17 09/30/21 Radha Fenton PA [address] [place] [address] PCP - General 10/01/21 05/12/24 Trisha Abrams [address] [place] [address] PCP - General 05/13/24 Susana Cook CNM [address] [place] [address] Historical LMR Provider 03/25/17 2 Huma Sumner NP 30 [place] [address] [email or web address] Historical LMR Provider 03/25/17 06/11/21 Angy Haywood NP [address] [place] [address] Historical LMR Provider 03/25/17 2 Carl Collins MD 22 [facility] [address] [place] [address] [email or web address] Historical LMR Provider 03/25/17 06/11/21 Issa Nguyen MD [address] [place] [address] 7 [place] [phone] Historical LMR Provider 03/25/17 2 Lana Hardy NP [address] [place] [address] Historical LMR Provider 03/25/17 2 Rena Ruff MD [address] [place] [address] Orthopedics & Sports Medicine, [facility] [place] [address] [email or web address] Historical LMR Provider 03/25/17 Yanni Walker MD [address] [place] [address] Orth[facility] Medicine, [place] [address] Historical LMR Provider 03/25/17 06/11/21 Radha Johnson MD [address] [place] [address] Historical LMR Provider 03/25/17 2 Erika Ceja CNP 22 [facility], [address] [place] [address] [email or web address] Historical LMR Provider 03/25/17 documented as of this encounter Additional Source Comments The information contained in this document represents components of the legal health record. It is not the complete legal health record.[facility]
--- OUTSIDE RECORDS SUMMARY | 2025-02-25 14:20 | XMS_ITS | Clinical Summary ---
Author Organization [facility] Address [address] [place] [address] Phone Care Team Providers Care [facility] Pricing Consultant Name Role Phone Trisha Abrams Primary Care Provider Unava ilable Allergies Active Allergy Reactions Criticality Noted Date Comments Lisinopril Cough 08/11/2016 Oxycodone Mental Status Change Low 06/27/2017 Medications gabapentin (NEURONTIN) 300 MG capsule Take 1 capsule (300 mg total) by mouth 3 (three) times a day. 90 capsule 2 7 Active Additional Information Patient taking differently:300 mg OralDaily, Reported on 06/12/2024 metoprolol succinate (TOPROL-XL) 50 MG 24 hr tablet Take 50 mg by mouth daily. Active acetaminophen (TYLENOL) 325 mg tablet Take 2 tablets (650 mg total) by mouth every 6 (six) hours as needed for mild pain or fever. 0 8 Active multivitamin per tablet as directed Orally Active FLUoxetine (PROZAC) 40 MG capsule Take by mouth daily. 3 Active oxyBUTYnin (DITROPAN XL) 15 MG 24 hr tablet Take 15 mg by mouth daily. 3 Active losartan (COZAAR) 100 MG tablet Take 1 tablet by mouth every morning. 3 Active diclofenac sodium (VOLTAREN) 1 % Gel Apply 2 g topically 4 (four) times a day for 5 days. 40 g 4 Active atorvastatin (LIPITOR) 10 MG tablet Take 10 mg by mouth daily. Active Active Problems Problem Noted Date Diagnosed Date Myeloradiculopathy 08/23/2016 Cervical stenosis of spine Encounters Date Type Department Care Team Description 02/19/2025 Transcribe [facility] [address], [address] [place] [address] Merlin Rubio Cardiac murmur, unspecified (Primary Dx) from Last 3 Months Family History Medical History Relation Comments Heart disease Father Heart disease Mother Breast cancer Neg Hx Relation Status Comments Father Mother Social History Tobacco Use Types Packs/Day Years Used Date Smoking Tobacco: Never Smokeless Tobacco: Never Tobacco Cessation:Counseling Given: Not Answered Alcohol Use Standard Drinks/Week Comments Yes 0 [...] 06/12/2024 Are you denied basic needs [facility] as food, clothing, or medical care? No [...] Orientation Straight 05/13/2024 2: 08 AM EST Last Filed Vital Signs Vital Sign Reading Time Taken Comments Blood Pressure 146/78 06/12/2024 1:28 PM EST man ual Pulse 79 05/13/2024 5:16 PM EST Temperature 36.2 C (97.2 F) 05/13/2024 5:16 PM EST Respiratory Rate 16 05/13/2024 5:16 PM EST Oxygen Saturation 95% 05/13/2024 5:16 PM EST Inhaled Oxygen Concentration 28% 07/04/2017 3 :10 AM EST Weight 29.5 kg (65 lb) 07/19/2024 11:08 AM EST Height 116.8 cm (3' 10 ) 07/19/2024 11:08 AM EST Body Mass Index 21.6 07/19/2024 11:08 AM EST Plan of Treatment Upcoming Encounters Date Type Department Care Team (Late st Contact Info) Description 03/13/2024 Procedure Pass [address] [address] 02/19/2025 Procedure Pass [facility] [address] [place] [address] 03/09/2025 8:30 AM EDT Appointment [address] [address] Trisha Abrams PA [address] [place] [address] [email or web address] 03/13/2025 8:15 AM EDT Appointment [facility] [address] [place] [address] System, Provider Not In, PhD Partners [address] [address] Dougie Feliz MD [address] [place] [phone] Health Maintenance Due Date Last Done Comments LIPID PANEL 1959 HEPATITIS C SCREENING 1977 HIV ONE-TIME SCREENING (18-65 YEARS) 1977 COLOGUARD 2004 COLONOSCOPY 2004 COLORECTAL CANCER SCREENING 2004 FIT TEST 2004 FOBT 2004 SIGMOIDOSCOPY 2004 VIRTUAL COLONOSCOPY 2004 PNEUMOCOCCAL VACCINES (50+ years) (1 of 1 - PCV) 2009 Adult Td,Tdap Booster 09/18/2022 09/18/2012, 006 OSTEOPOROSIS SCREENING INITIAL (ONE-TIME) 2024 INFLUENZA VACCINE (#1) 2025 , 04/04/2022, 03/01/2021, Additional history exists COVID-19 VACCINE ( season) 2025 02/13/2022, 02/13/2022, 03/21/2021, Additional history exists CREATININE LEVEL 05/13/2025 05/13/2024, , 10/01/2021, Additional history exists POTASSIUM LEVEL 05/13/2025 05/13/2024, 01/02, 10/01/2021, Additional history exists DEPRESSION SCREENING 06/07/2025 06/07/2024 MAMMOGRAM 03/07/2026 03/07/2024, 01/02, 12/01/2021, Additional history exists RSV VACCINE (1 - 1-dose 75+ series) 2034 ZOSTER VACCINES Completed 09/21/2020, 05/21/2020 SMOKING STATUS SCREENING (Once After 26 Yrs) Completed 07/10/2024 HEPATITIS A VACCINES Aged Out No long er eligible based on patient's age to complete this topic HIB VACCINES Aged Out No longer eligi ble based on patient's age to complete this topic MENINGOCOCCAL VACCINES (ACWY) Aged Out No longer eligible based on patient's age to complete this topic MENINGOCOCCAL VACCINES (B) Aged Out N o longer eligible based on patient's age to complete this topic Medical Devices Implanted Type Area Farm Planner Device Identifier Shelf Expiration Date Model / Serial / Lot Putty Bone Graft [place] Demineralized Matrix Jar 5.0ml - [id number] Implanted:Qty: 1 on 07/02/2017 by Jose Cosme MD at [facility] BONETISSUE N/A: Spine Cervical [employer] 02/06/2020 [id number] / [id number] / S/P Bilateral Tibial Osteotomies Graft Cervical Mj/Can [facility] - [id number] Implanted:Qty: 1 on 08/23/2016 by Cody Velazquez MD at [facility] N/A: Spine Cervical [employer] 12/29/2018 [id number] / [id number] / Screw Set Vuepoint Ii - [id number] Implanted:Qty: 8 on 07/02/2017 by Jose Cosme MD at [facility] N/A: Spine Cervical [employer] [id number] / / Screw Multi Axial 3.5x14mm - [id number] Implanted:Qty: 8 on 07/02/2017 by Jose Cosme MD at [facility] N/A: Spine Cervical [employer] [id number] / / Srinivasan Straight 60mm Vuepoint - [id number] Implanted:Qty: 2 on 07/02/2017 by Jose Cosme MD at [facility] N/A: Spine Cervical [employer] [id number] / / Procedures Procedure Name Priority Date/Time Associated Diagnosis Comments BASIC METABOLIC PANEL STAT 05/13/2024 3:13 AM EST BI MAMMOGRAM SCREENING WITH TOMOSYNTHESIS WITH CAD (BILATERAL) Routine 03/07/2024 9:57 AM EDT Breast screening from Last 3 Months or Most Recently Relevant to Health Maintenance Results * (ABNORMAL) Basic metabolic panel (05/13/2024 3:13 AM EST) SODIUM 138 133 - 146 mmol/L [facility] CHLORIDE 101 96 - 108 mmol/L [facility] POTASSIUM 3.4 3.3 - 5.1 mmol/L [facility] CO2 23 21 - 35 mmol/L [facility] BUN 12 6 - 19 mg/dL [facility] CREATININE 0.30(L) 0.5 - 1.5 mg/dL [facility] GLUCOSE 129(H) 70 - 99 mg/dL [facility] CALCIUM 9.4 8.4 - 10.3 mg/dL [facility] EGFR 118 >59 mL/min/1.7 3m2 [facility] Comment:Estimated glomerular filtration rate calculated using the CKD-EPI refit equation. ANION GAP 17 10 - 20 mmol/L [facility] Blood 05/13/2024 3:13 AM EST 05/13/2024 3:16 AM EST us Wade Clayton PA-C LAB BLOOD ORDERABLES Final R esult [address] [address] * BI MAMMOGRAM SCREENING WITH TOMOSYNTHESIS WITH CAD (BILATERAL) (03/07/2024 9:57 AM EDT) Anatomical Region Laterality Modality Breast Left, Breast Right, Breast Bilateral Bila teral Mammography 03/07/2024 3:13 PM EDT Impressions 03/07/2024 3:14 PM EDT No mammographic evidence of malignancy in either breast. Annual screening mammography is recommended. BI-RADS 1 NEGATIVE The patient will be notified of the results and recommendations. Narrative 03/07/2024 3:14 PM EDT BI MAMMOGRAM SCREENING WITH TOMOSYNTHESIS WITH CAD (BILATERAL) Additional patient information: Screening. COMPARISON: Comparison is made with relevant prior imaging. Breast composition: The breast tissue is heterogeneously dense which may obscure small masses. FINDINGS: Best possible images obtained in the setting of physical limitations. No abnormal masses, suspicious calcifications, or other significant findings are identified mammographically in either breast. Procedure Note Jolly Story MD - 03/07/2024 BI MAMMOGRAM SCREENING WITH TOMOSYNTHESIS WITH CAD (BILATERAL) Additional patient information: Screening. COMPARISON: Comparison is made with relevant prior imaging. Breast composition: The breast tissue is heterogeneously dense which mayobscure small masses. FINDINGS: Best possible images obtained in the setting of physical limitations. No abnormal masses, suspicious calcifications, or other significantfindings are identified mammographically in either breast. IMPRESSION: No mammographic evidence of malignancy in either breast. Annual screening mammography is recommended. BI-RADS 1 NEGATIVE The patient will be notified of the results and recommendations. Radha ARREOLA IMG MG EXAMS Fi nal Result from Last 3 Months or Most Recently Relevant to Health Maintenance [place] [address] [address] [place] [address] [address] [place] [address] [address] PPO EPO [place] [place] [address] PPO EPO [place] [address] PPO EPO [place] [address] PPO EPO Advance Directives For more information, please contact: [phone] (9AM - 5PM [facility], Sunday-Sunday) * Full Code (Presumed) (Latest Code Status on File) Date Activated Date Inactivated Comments 07/02/2017 11:02 AM 07/07/2017 5:23 PM * Full Code (Presumed) Date Activated Date Inactivated Comments 08/23/2016 10:48 AM 08/24/2016 4:18 PM * Full Code (Presumed) Date Activated Date Inactivated Comments 08/23/2016 7:15 AM 08/23/2016 10:48 AM Care Teams Healthcare Network Pricing Consultant Relationship Specialty Start Date End Date Trisha Abrams PCP - General 05/13/24 Additional Source Comments The information contained in this document represents components of the legal health record. It is not the complete legal health record.[facility]
--- OUTSIDE RECORDS SUMMARY | 2025-02-25 14:20 | XMS_ITS | Encounter Summary ---
Author Organization [facility] Address [facility] [employer] [address] [address] Phone Care Team Providers Care Automotive Airconditioning Mechanic Name Role Phone Radha Fenton Primary Care Prov ider Trisha Abrams Primary Care Provider Unava ilable Encounter Details Date Type Department Care Team (Latest Contact Info) Description 04/17/2022 Transcribe Orders Virtual Department [address] [place] [address] Alberto Robles MD, PhD [address] [place] [address] [email or web address] Cervical disc disorder at C4-C5 level with [...] st Contact Info) Description 03/13/2024 Procedure Pass [address] [address] 02/19/2025 Procedure Pass [facility] [address] [place] [address] 03/09/2025 8:30 AM EDT Appointment [address] [address] Trisha Abrams PA [address] [place] [address] [email or web address] 03/13/2025 8:15 AM EDT Appointment [facility] [address] [place] [address] System, Provider [place] In, [place] [address] Dougie Feliz MD [address] [place] [phone] documented as of this encounter Visit Diagnoses Diagnosis 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 It is not the complete legal health record.[facility]
--- OUTSIDE RECORDS SUMMARY | 2025-02-25 14:20 | XMS_ITS | Encounter Summary ---
Author Organization [facility] Address [facility] [address] [place] [address] Phone Care Team Providers Care Securities Clerk Name Role Phone Radha Fenton Primary Care Prov ider Trisha Abrams Primary Care Provider Unava ilable Encounter Details Date Type Department Care Team (Late st Contact Info) Description 12/01/2021 Procedure Pass [facility], [address] [address] Social History Tobacco Use Types Packs/Day Years [...] Contact Info) Description 03/13/2024 Procedure Pass [address] [address] 02/19/2025 Procedure Pass [facility] [address] [place] [address] 03/09/2025 8:30 AM EDT Appointment [address] [address] Trisha Abrams PA [address] [place] [address] [email or web address] 03/13/2025 8:15 AM EDT Appointment Echo [facility] [place] [address] [place] [address] System, Provider [place] In, [place] [address] Dougie Feliz MD [address] [place] [phone] documented as of this encounter Visit Diagnoses Not on filedocumented in this encounter Care Teams Securities Clerk Relationship Specialty Start Date End Date Radha Fenton PA [address] [place] [address] PCP - General 10/01/21 05/12/24 Trisha Abrams [address] [place] [address] PCP - General 05/13/24 documented as of this encounter Additional Source Comments The information contained in this document represents components of the legal health record. It is not the complete legal health record.[facility]
--- OUTSIDE RECORDS SUMMARY | 2025-02-25 14:20 | XMS_ITS | Encounter Summary ---
Author Organization [facility] Address [facility]ly [facility] [address] [place] [address] Phone Care Team Providers Care School Admissions Representative Name Role Phone Orville Palomino MD Primary Care Provider [phone] Susana Cook CNM Unavailable Huma Sumner EXTRACTOR AND WRINGER OPERATOR Unavailable Angy Haywood EXTRACTOR AND WRINGER OPERATOR Unavailable Carl Collins MD Unavailable [phone] Issa Nguyen MD Unavailable Lana Hardy EXTRACTOR AND WRINGER OPERATOR Unavailable Rena Ruff MD Unavailable Yanni Walker MD Unavailable Radha Johnson MD Unavailable [phone] Erika Ceja INFORMATION TECHNOLOGY PROJECT MANAGER Unavailable Radha Fenton Primary Care Prov ider Trisha Abrams Primary Care Provider Unava ilable Encounter Details Date Type Department Care Team (Late st Contact Info) Description 06/21/2020 [facility] [address] [address] Radha Fenton PA [address] [place] [address] [email or web address] Breast screening Social History Tobacco Use [...] st Contact Info) Description 03/13/2024 Procedure Pass [address] [address] 02/19/2025 Procedure Pass Echo Lab [address] [place] [address] 03/09/2025 8:30 AM EDT Appointment [address] [address] Trisha Abrams PA [address] [place] [address] [email or web address] 03/13/2025 8:15 AM EDT Appointment Echo Lab [address] [place] [address] System, Provider Not In, [place] [address] Dougie Feliz MD [address] [place] [phone] documented as of this encounter Results [...] DUE DATE: on schedule Right Mammography Screening Radha ARREOLA IMG MG EXAMS Fi nal Result documented in this encounter Visit Diagnoses Diagnosis Breast screening Breast screening, unspecified Breast screening Breast screening, unspecified documented in this encounter Additional Health Concerns Infection Onset Date Last Indicated Resolved Time CoV-Risk 12/10/2020 12/11/2020 12/20/2020 1:23 AM EDT documented as of this encounter Care Teams School Admissions Representative Relationship Specialty Start Date End Date Orville Palomino MD [address] [facility] [address] [place] [phone] [email or web address] PCP - General 03/09/17 09/30/21 Radha Fenton PA [address] [place] [address] PCP - General 10/01/21 05/12/24 Trisha Abrams [address] [place] [address] PCP - General 05/13/24 Susana Cook CNM 30 [place] [address] Historical LMR Provider 03/25/17 2 Huma Sumner NP 30 [place] [address] [email or web address] Historical LMR Provider 03/25/17 06/11/21 Angy Haywood NP [address] [place] [address] Historical LMR Provider 03/25/17 2 Carl Collins MD [address] [place] [address] Historical LMR Provider 03/25/17 06/11/21 Issa Nguyen MD [address] [place] [phone] Historical LMR Provider 03/25/17 2 Lana Hardy EXTRACTOR AND WRINGER OPERATOR [address] [place] [address] Historical LMR Provider 03/25/17 2 Rena Ruff MD 4 [facility] Orthopedics & Sports Medicine, [facility] [place] [address] jose Historical LMR Provider 03/25/17 Yanni Walekr MD [address] [place] [address] Orthopedics & Sports [facility], [place] [address] Historical LMR Provider 03/25/17 06/11/21 Radha Johnson MD [address], [place] [phone] Historical LMR Provider 03/25/17 2 Erika Ceja CNP [address] [place] [address] [address] [place] [address] [email or web address] Historical LMR Provider 03/25/17 documented as of this encounter Additional Source Comments The information contained in this document represents components of the legal health record. It is not the complete legal health record.[facility]
--- OUTSIDE RECORDS SUMMARY | 2025-02-25 14:20 | XMS_ITS | Encounter Summary ---
Author Organization [facility] Address [facility] [address] [place] [address] Phone Care Team Providers Care Medical Office Representative Name Role Phone Radha Fenton Primary Care Prov ider Trisha Abrams Primary Care Provider Unava ilable Encounter Details Date Type Department Care Team (Late st Contact Info) Description 12/15/2022 Transcribe Orders Virtual Department 30 [place] [address] Radha Fenton PA [address] [place], [place] [phone] [email or web address] Breast screening (Primary Dx) Social History [...] st Contact Info) Description 03/13/2024 Procedure Pass [address] [address] 02/19/2025 Procedure Pass Echo Lab [address] [place] [address] 03/09/2025 8:30 AM EDT Appointment [address] [address] Trisha Abrams PA [address] [place] [address] [email or web address] 03/13/2025 8:15 AM EDT Appointment Echo Lab [address] [place] [address] System, Provider [place] In, [place] [address] Dougie Feliz MD [address] [place] [phone] documented as of this encounter Results [...] unspecified documented in this encounter Care Teams Medical Office Representative Relationship Specialty Start Date End Date Radha Fenton PA [address] [place] [address] PCP - General 10/01/21 05/12/24 Trisha Abrams 70 [place] [address] PCP - General 05/13/24 documented as of this encounter Additional Source Comments The information contained in this document represents components of the legal health record. It is not the complete legal health record.[facility]
--- OUTSIDE RECORDS SUMMARY | 2025-02-25 14:20 | XMS_ITS | Encounter Summary ---
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, even when wearing glasses Answer Date of Assessment Author No 08/24/2016 11:25 AM EDEloina Dean CNP * Patient has serious difficulty walking [...] st Contact Info) Description 03/13/2024 Procedure Pass [address] [address] 02/19/2025 Procedure Pass Echo Lab [address] [place] [address] 03/09/2025 8:30 AM EDT Appointment [address] [address] Trisha Abrams PA [address] [place] [address] [email or web address] 03/13/2025 8:15 AM EDT Appointment Echo Lab [address] [place] [address] System, Provider [place] In, [place] [address] Dougie Feliz MD [address] [place] [phone] documented as of this encounter Visit Diagnoses Not on filedocumented in this encounter Care Teams Child Nurse Relationship Specialty Start Date End Date Radha Fenton PA [address] [place] [address] [email or web address] PCP - General 10/01/21 05/12/24 Trisha Abrams [address] [place] [address] PCP - General 05/13/24 documented as of this encounter Additional Source Comments The information contained in this document represents components of the legal health record. It is not the complete legal health record.[facility]
--- OUTSIDE RECORDS SUMMARY | 2025-02-25 14:20 | XMS_ITS | Encounter Summary ---
Author Organization [facility] Address [facility] [address] [place] [address] Phone Care Team Providers Care Weatherization Installer Name Role Phone Radha Fenton Primary Care [...] Alberto Robles MD, PhD Phone: tel: fax: [email or web address] [address] Phone: tel: Referral ID Status Reason Start Date Expiration Date Visits Re quested Visits Authorized [id number] Closed 04/30/2022 05/30/2022 1 1 Encounter Details Date Type Department Care Team (Latest Contact Info) Description 04/06/2022 Transcribe Orders Virtual Department [address] [place] [address] Alberto Robles MD, PhD [address] [place] [address] [place] Cervantes [phone] [email or web address] Cervical disc disorder at C4-C5 level with [...] st Contact Info) Description 03/13/2024 Procedure Pass [address] [address] 02/19/2025 Procedure Pass Echo Lab [address] [place] [address] 03/09/2025 8:30 AM EDT Appointment [address] [address] Trisha Abrams PA [address] [place] [address] [email or web address] 03/13/2025 8:15 AM EDT Appointment Echo Lab [address] [place] [address] System, Provider Not In, [place] [address] Dougie Feliz MD [address] [place] [phone] documented as of this encounter Results [...] atrophy, as well as a 0.8 cm O4tebpwicwydjj area at the level of C4-C5, not [...] myelopathy documented in this encounter Care Teams Weatherization Installer Relationship Specialty Start Date End Date Radha Fenton PA [address] [place] [address] PCP - General 10/01/21 05/12/24 Trisha Abrams 70 [place] [address] PCP - General 05/13/24 documented as of this encounter Additional Source Comments The information contained in this document represents components of the legal health record. It is not the complete legal health record.[facility]
--- OUTSIDE RECORDS SUMMARY | 2025-02-25 14:20 | XMS_ITS | Encounter Summary ---
Author Organization [facility] Address [facility] [employer] [facility] [address] [place] [address] Phone Care Team Providers Care Streetcar Dispatcher Name Role Phone Radha Fenton Primary Care Prov ider Trisha Abrams Primary Care Provider Unava ilable Encounter Details Date Type Department Care Team (Late st Contact Info) Description 04/06/2022 Procedure Pass [facility], [address] [address] Social History Tobacco Use Types Packs/Day Years [...] No 08/24/2016 11:25 AM EDT Eloina Carlisle, SEISMOMETER OPERATOR * Patient is blind or has serious [...] Contact Info) Description 03/13/2024 Procedure Pass [address] [address] 02/19/2025 Procedure Pass Echo Lab [address] [place] [address] 03/09/2025 8:30 AM EDT Appointment [address] [address] Trisha Abrams PA [address] [place] [address] [email or web address] 03/13/2025 8:15 AM EDT Appointment Echo Lab [address] [place] [address] System, Provider [place] In, [place] [address] Dougie Feliz MD [address] [place] [phone] documented as of this encounter Visit Diagnoses Not on filedocumented in this encounter Care Teams Streetcar Dispatcher Relationship Specialty Start Date End Date Radha Fenton PA [address] [place] [address] [email or web address] PCP - General 10/01/21 05/12/24 Trisha Abrams 70 [place] [address] PCP - General 05/13/24 documented as of this encounter Additional Source Comments The information contained in this document represents components of the legal health record. It is not the complete legal health record.[facility]
--- OUTSIDE RECORDS SUMMARY | 2025-02-25 14:20 | XMS_ITS | Encounter Summary ---
Author Organization [facility] Address [facility] [employer] [facility] [address] [place] [address] Phone Care Team Providers Care Managing Director Name Role Phone Orville Palomino MD Primary Care Provider Susana Cook CNM Unavailable Huma Sumner CATALOGUE ILLUSTRATOR Unavailable [phone] Angy Haywood CATALOGUE ILLUSTRATOR Unavailable Carl Collins MD Unavailable [phone] Issa Nguyen MD Unavailable Lana Hardy CATALOGUE ILLUSTRATOR Unavailable Rena Ruff MD Unavailable Yanni Walker MD Unavailable Radha Johnson MD Unavailable [phone] Erika Ceja GLASS BLOWING INSTRUCTOR Unavailable Radha Fenton Primary Care Prov ider Trisha Abrams Primary Care Provider Unava ilable Encounter Details Date Type Department Care Team (Late st Contact Info) Description 09/10/2020 Procedure Pass [facility], [address] [phone] Social History Tobacco Use Types Packs/Day Years [...] st Contact Info) Description 03/13/2024 Procedure Pass [facility] 30 [place] [address] 02/19/2025 Procedure Pass Echo Lab [address] [place] [address] 03/09/2025 8:30 AM EDT Appointment [facility] 30 [place] [address] Trisha Abrams PA [address] [place] [address] [email or web address] 03/13/2025 8:15 AM EDT Appointment Echo Lab [address] [place] [address] System, Provider Not In, [place] [address] Dougie Feliz MD [address] [place] [phone] documented as of this encounter Visit Diagnoses Not on filedocumented in this encounter Additional Health Concerns Infection Onset Date Last Indicated Resolved Time CoV-Risk 12/10/2020 12/11/2020 12/20/2020 1:23 AM EDT documented as of this encounter Care Teams Managing Director Relationship Specialty Start Date End Date Orville Palomino MD [address] [place], [place] [phone] [place] [phone] [email or web address] PCP - General 03/09/17 09/30/21 Radha Fenton PA [address] [place] [address] PCP - General 10/01/21 05/12/24 Trisha Abrams [address] [place] [address] PCP - General 05/13/24 Susana Cook CNM 30 [place] [address] Historical LMR Provider 03/25/17 2 Huma Sumner NP 30 [place] [address] [email or web address] Historical LMR Provider 03/25/17 06/11/21 Angy Haywood NP [address] [place] [address] Historical LMR Provider 03/25/17 2 Carl Collins MD 22 [facility] [address] [place] [address] [email or web address] Historical LMR Provider 03/25/17 06/11/21 Issa Nguyen MD [address] [place] [address] 7 [place] [phone] Historical LMR Provider 03/25/17 2 Lana Hardy NP [address] [place] [address] Historical LMR Provider 03/25/17 2 Rena Ruff MD [address] [place] [address] Orthopedics & Sports Medicine, [facility] [place] [address] [email or web address] Historical LMR Provider 03/25/17 Yanni Walker MD [address] [place] [address] Orthopedics & Sports Medicine, [place] [address] Historical LMR Provider 03/25/17 06/11/21 Radha Johnson MD [address] [place] [address] Historical LMR Provider 03/25/17 2 Erika Ceja CNP 22 [facility], [address] [place] [address] [email or web address] Historical LMR Provider 03/25/17 documented as of this encounter Additional Source Comments The information contained in this document represents components of the legal health record. It is not the complete legal health record.[facility]
--- OUTSIDE RECORDS SUMMARY | 2025-02-25 14:20 | XMS_ITS | Encounter Summary ---
Author Organization [facility] Address [facility] [employer] [facility] [address] [place] [address] Phone Care Team Providers Care Packing Room Worker Name Role Phone Radha Fenton Primary Care Prov ider Trisha Abrams Primary Care Provider Unava ilable Encounter Details Date Type Department Care Team (Late st Contact Info) Description 05/10/2022 Transcribe Orders Virtual Department 30 [place] [address] Radha Fenton PA [address] [place], [place] [phone] [email or web address] Other abnormal and inconclusive findings on [...] Contact Info) Description 03/13/2024 Procedure Pass [address] [address] 02/19/2025 Procedure Pass Echo Lab [address] [place] [address] 03/09/2025 8:30 AM EDT Appointment [address] [address] Trisha Abrams PA [address] [place] [address] [email or web address] 03/13/2025 8:15 AM EDT Appointment Echo Lab [address] [place] [address] System, Provider Not In, PhD Partners [address] [address] Dougie Feliz MD [facility] [place] [phone] Scheduled Orders Name Type Priority Associated Diagnoses [...] suspicious groups of microcalcifications. No suspicious masses. us Radha ARREOLA IMG MG EXAMS Fi nal Result documented in this encounter Visit Diagnoses Diagnosis Other abnormal and inconclusive findings on diagnostic imaging of breast- Primary Other abnormal and inconclusive findings on diagnostic imaging of breast documented in this encounter Care Teams Packing Room Worker Relationship Specialty Start Date End Date Radha Fenton PA [address] [place] [address] PCP - General 10/01/21 05/12/24 Trisha Abrams [address] [place] [address] PCP - General 05/13/24 documented as of this encounter Additional Source Comments The information contained in this document represents components of the legal health record. It is not the complete legal health record.[facility]
--- OUTSIDE RECORDS SUMMARY | 2025-02-25 14:21 | XMS_ITS | Encounter Summary ---
Author Organization [facility] Address [facility] [email or web address] [address] [address] Phone Care Team Providers Care Spot Cleaner Name Role Phone Radha Fenton Primary Care Prov ider Trisha Abrams Primary Care Provider Unava ilable Encounter Details Date Type Department Care Team (Latest Contact Info) Description 03/13/2024 Transcribe Orders Virtual Department 30 [place] [address] Trisha Abrams PA 70 [place] [address] [email or web address] Breast screening (Primary Dx) Social History Tobacco [...] Contact Info) Description 03/13/2024 Procedure Pass [address] [address] 02/19/2025 Procedure Pass Echo Lab [address] [place] [address] 03/09/2025 8:30 AM EDT Appointment [address] [address] Trisha Abrams PA [address] [place] [address] [email or web address] 03/13/2025 8:15 AM EDT Appointment Echo Lab [address] [place] [address] System, Provider [place] In, [place] [address] Dougie Feliz MD [address] [place] [phone] Scheduled Orders Name Type Priority Associated Diagnoses Orde r Schedule Mammogram Screening (Bilateral) Imaging Routine Breast screening Expected: 04/13/2024, Expires: 03/13/2025 documented as of this encounter Visit Diagnoses Diagnosis Breast screening- Primary Breast screening, unspecified documented in this encounter Care Teams Spot Cleaner Relationship Specialty Start Date End Date Radha Fenton PA [address] [place] [address] PCP - General 10/01/21 05/12/24 Trisha Abrams [address] [place] [address] PCP - General 05/13/24 documented as of this encounter Additional Source Comments The information contained in this document represents components of the legal health record. It is not the complete legal health record.[facility]
--- OUTSIDE RECORDS SUMMARY | 2025-02-25 14:21 | XMS_ITS | Encounter Summary ---
Author Organization [facility] Address [facility] [address] [place] [address] Phone Care Team Providers Care Mobile Developer Name Role Phone Orville Palomino MD Primary Care Provider Susana Cook CNM Unavailable Huma Sumner MAINTENANCE SUPERINTENDENT Unavailable [phone] Angy Haywood MAINTENANCE SUPERINTENDENT Unavailable Carl Collins MD Unavailable [phone] Issa Nguyen MD Unavailable Lana Hardy MAINTENANCE SUPERINTENDENT Unavailable Rena Ruff MD Unavailable Yanni Walker MD Unavailable Radha Johnson MD Unavailable [phone] Erika Ceja GUNNERY/ORDNANCE OFFICER Unavailable Radha Fenton Primary Care Prov ider Trisha Abrams Primary Care Provider Unava ilable Encounter Details Date Type Department Care Team (Late st Contact Info) Description 09/30/2018 Ancillary Orders Virtual Department [address] [place] [phone] Celso Fair MD [address] [place] [phone] [email or web address] Other spondylosis with myelopathy, cervical region Social [...] Contact Info) Description 03/13/2024 Procedure Pass [address] [address] 02/19/2025 Procedure Pass Echo Lab [address] [place] [address] 03/09/2025 8:30 AM EDT Appointment [address] [address] Trisha Abrams PA [address] [place] [address] [email or web address] 03/13/2025 8:15 AM EDT Appointment Echo Lab [address] [place] [address] System, Provider Not In, [place] [address] Dougie Feliz MD [address] [place] [phone] documented as of this encounter Results [...] instability or other post-operative complication. POS [id number] us Celso Fair MD IMG XR SPINE Final R esult documented in this encounter Visit Diagnoses Diagnosis Other spondylosis with myelopathy, cervical region Other spondylosis with myelopathy, cervical region documented in this encounter Additional Health Concerns Infection Onset Date Last Indicated Resolved Time CoV-Risk 12/10/2020 12/11/2020 12/20/2020 1:23 AM EDT documented as of this encounter Care Teams Mobile Developer Relationship Specialty Start Date End Date Orville Palomino MD [address] [place] [address] [place] [phone] [email or web address] PCP - General 03/09/17 09/30/21 Radha Fenton PA [address] [place] [address] PCP - General 10/01/21 05/12/24 Trisha Abrams 70 [place] [address] PCP - General 05/13/24 Susana Cook CNM 30 [place] [address] Historical LMR Provider 03/25/17 2 Huma Sumner NP 30 [place] [address] Historical LMR Provider 03/25/17 06/11/21 Angy Haywood NP [address] [place] [address] Historical LMR Provider 03/25/17 2 Carl Collins MD [address] [place] [address] [address] [place] [address] Historical LMR Provider 03/25/17 06/11/21 Issa Nguyen MD [address] [place] [phone] Historical LMR Provider 03/25/17 2 Lana Hardy NP [address] [place] [address] Historical LMR Provider 03/25/17 2 Rena Ruff MD [address] [place] [address] [facility] Medicine, [place] [address] jose Historical LMR Provider 03/25/17 Yanni Walker MD [address] [place] [address] [facility], [place] [address] Historical LMR Provider 03/25/17 06/11/21 Radha Johnson MD [address] [address] Historical LMR Provider 03/25/17 2 Erika Ceja CNP [address] [place] [address], [address] [place] [address] [email or web address] Historical LMR Provider 03/25/17 documented as of this encounter Additional Source Comments The information contained in this document represents components of the legal health record. It is not the complete legal health record.[facility]
--- OUTSIDE RECORDS SUMMARY | 2025-02-25 14:21 | XMS_ITS | Encounter Summary ---
Author Organization [facility] Address [facility] [employer] [facility] [address] [place] [address] Phone Care Team Providers Care Land Mobile Radio Technician Name Role Phone Orville Palomino MD Primary Care Provider [phone] Orville Palomino MD Primary Care Provider [phone] Susana Cook CNM Unavailable Huma Sumner SLEEVE SETTER LOCKSTITCH Unavailable [phone] Angy Haywood SLEEVE SETTER LOCKSTITCH Unavailable PerCarl olivo MD Unavailable Issa Nguyen MD Unavailable Lana Hardy SLEEVE SETTER LOCKSTITCH Unavailable Rena Rfuf MD Unavailable Yanni Walker MD Unavailable Radha Johnson MD Unavailable [phone] Erika Ceja GUEST RELATIONS MANAGER Unavailable Radha Fenton Primary Care Prov ider Trisha Abrams Primary Care Provider Unava ilable Encounter Details Date Type Department Care Team (Late st Contact Info) Description 08/23/2016 Procedure Pass [facility] PERIOPERATIVE DEPT [address] [place] [address] Social History Tobacco Use Types Packs/Day Years [...] st Contact Info) Description 03/13/2024 Procedure Pass [address] [address] 02/19/2025 Procedure Pass [facility] [address] [place] [address] 03/09/2025 8:30 AM EDT Appointment [address] [address] Trisha Abrams [address] [address] [email or web address] 03/13/2025 8:15 AM EDT Appointment [place] [facility] [address] [place] [address] System, Provider Not In, [place] [address] Dougie Feliz MD [address] [place] [phone] documented as of this encounter Visit Diagnoses Not on filedocumented in this encounter Additional Health Concerns Infection Onset Date Last Indicated Resolved Time CoV-Risk 12/10/2020 12/11/2020 12/20/2020 1:23 AM EDT documented as of this encounter Care Teams Land Mobile Radio Technician Relationship Specialty Start Date End Date Orville Palomino MD [address] [place] [address] [place] [phone] [email or web address] PCP - General 07/12/16 03/08/17 Orville Palomino MD [address] [facility] [address] [place] [phone] [email or web address] PCP - General 03/09/17 09/30/21 Radha Fenton PA [address] [place] [address] PCP - General 10/01/21 05/12/24 Trisha Abrams [address] [place] [address] PCP - General 05/13/24 Susana Cook CNM 30 [place] [address] Historical LMR Provider 03/25/17 2 Huma Sumner NP 30 [place] [address] [email or web address] Historical LMR Provider 03/25/17 06/11/21 Angy Haywood NP [address] [place] [address] Historical LMR Provider 03/25/17 2 Carl Collins MD [address] [place] [address] Historical LMR Provider 03/25/17 06/11/21 Issa Nguyen MD [address] [place] [phone] Historical LMR Provider 03/25/17 2 Lana Hardy NP [address] [place] [address] Historical LMR Provider 03/25/17 2 Rena Ruff MD [address] [place] [address] [facility], [place] [address] [email or web address] Historical LMR Provider 03/25/17 Yanni Walker MD [address] [place] [address] Orthopedics Sports [facility], [place] [address] Historical LMR Provider 03/25/17 06/11/21 Radha Johnson MD [address] [place] [address] Historical LMR Provider 03/25/17 2 Erika Ceja CNP 22 [facility], [address] [place] [address] Historical LMR Provider 03/25/17 documented as of this encounter Additional Source Comments The information contained in this document represents components of the legal health record. It is not the complete legal health record.[facility]
--- OUTSIDE RECORDS SUMMARY | 2025-02-25 14:21 | XMS_ITS | Encounter Summary ---
Author Organization [facility] Address [address] [place] [address] Phone Care Team Providers Care Dispatcher Chief Coal Slurry Name Role Phone Radha Fenton Primary Care Prov ider Trisha Abrams Primary Care Provider Unava ilable Encounter Details Date Type Department Care Team (Late st Contact Info) Description 11/30/2023 Procedure Pass [facility], [address] [address] Social History Tobacco Use Types Packs/Day Years [...] Contact Info) Description 03/13/2024 [place] [address] [address] 02/19/2025 Procedure Pass [place] [facility] [address] [address] 03/09/2025 8:30 AM EDT Appointment [address] [address] Trisha Abrams PA [address] [place] [address] [email or web address] 03/13/2025 8:15 AM EDT Appointment [place] [facility] [place] [place] [address] System, Provider Not In, [place] [address] Dougie Feliz MD [address] [place] [phone] documented as of this encounter Visit Diagnoses Not on filedocumented in this encounter Care Teams Dispatcher Chief Coal Slurry Relationship Specialty Start Date End Date Radha Fenton PA [address] [place] [address] PCP - General 10/01/21 05/12/24 Trisha Abrams [address] [place] [address] PCP - General 05/13/24 documented as of this encounter Additional Source Comments The information contained in this document represents components of the legal health record. It is not the complete legal health record.[facility]
--- OUTSIDE RECORDS SUMMARY | 2025-02-25 14:21 | XMS_ITS | Encounter Summary ---
Author Organization [facility] Address [address] [facility] [address] [place] [address] Phone Care Team Providers Care Wool Hat Hydraulicker Name Role Phone Orville Palomino MD Primary Care Provider Susana Cook CNM Unavailable Huma Sumner SMOKING PIPE DRILLER AND THREADER Unavailable [phone] Angy Haywood SMOKING PIPE DRILLER AND THREADER Unavailable Carl Collins MD Unavailable [phone] Issa Nguyen MD Unavailable Lana Hardy SMOKING PIPE DRILLER AND THREADER Unavailable Rena Ruff MD Unavailable Yanni Walker MD Unavailable Radha Johnson MD Unavailable [phone] Erika Ceja PUPIL PERSONNEL WORKER Unavailable Radha Fenton Primary Care Prov ider Trisha Abrams Primary Care Provider Unava ilable Encounter Details Date Type Department Care Team (Late st Contact Info) Description 06/21/2020 Procedure Pass [facility], [address] [phone] Social History Tobacco Use Types Packs/Day Years [...] Contact Info) Description 03/13/2024 Procedure Pass [facility] [address] [place] [address] 02/19/2025 Procedure Pass [facility] [address] [place] [address] 03/09/2025 8:30 AM EDT Appointment [facility] [address] [place] [address] Trisha Abrams PA 70 [place] [address] [email or web address] 03/13/2025 8:15 AM EDT Appointment [place] [facility] [address] [place] [address] System, Provider Not In, [place] [address] Dougie Feliz MD [address] [place] [phone] documented as of this encounter Visit Diagnoses Not on filedocumented in this encounter Additional Health Concerns Infection Onset Date Last Indicated Resolved Time CoV-Risk 12/10/2020 12/11/2020 12/20/2020 1:23 AM EDT documented as of this encounter Care Teams Wool Hat Hydraulicker Relationship Specialty Start Date End Date Orville Palomino MD [address] [place], [place] [address] [place] [address] [email or web address] PCP - General 03/09/17 09/30/21 Radha Fenton PA [address] [place] [address] PCP - General 10/01/21 05/12/24 Trisha Abrams [address] [place] [address] PCP - General 05/13/24 Susana Cook CNM 30 [place] [address] Historical LMR Provider 03/25/17 2 Huma Sumner NP 30 [place] [address] [email or web address] Historical LMR Provider 03/25/17 06/11/21 Angy Haywood NP [address] [place] [address] Historical LMR Provider 03/25/17 2 Carl Collins MD 22 [facility] [address] [place] [address] [email or web address] Historical LMR Provider 03/25/17 06/11/21 Issa Nguyen MD [address] [place] [address] 7 [place] [phone] Historical LMR Provider 03/25/17 2 Lana Hardy NP 238 [place] [address] Historical LMR Provider 03/25/17 2 Rena Ruff MD [address] [place] [address] Orthopedics & Sports Medicine, [facility] [place] [address] [email or web address] Historical LMR Provider 03/25/17 Yanni Walker MD [address] [place] [address] [facility], [place] [address] Historical LMR Provider 03/25/17 06/11/21 Radha Johnson MD [address] [place] [address] Historical LMR Provider 03/25/17 2 Erika Ceja CNP 22 [facility] [place] [address] [email or web address] Historical LMR Provider 03/25/17 documented as of this encounter Additional Source Comments The information contained in this document represents components of the legal health record. It is not the complete legal health record.[facility]
--- OUTSIDE RECORDS SUMMARY | 2025-02-25 14:21 | XMS_ITS | Encounter Summary ---
Author Organization [facility] Address [address] [place] [address] [address] [place] [address] Phone Care Team Providers Care Mainspring Former Brace End Name Role Phone Orville Palomino MD Primary Care Provider Orville Palomino MD Primary Care Provider [phone] Susana Cook CNM Unavailable Huma Sumner SALT WASHER Unavailable [phone] Angy Haywood SALT WASHER Unavailable PerCarl olivo MD Unavailable [phone] Issa Nguyen MD Unavailable Lana Hardy SALT WASHER Unavailable Rena Ruff MD Unavailable Yanni Walker MD Unavailable Radha Johnson MD Unavailable [phone] Erika Ceja DRYWALL STRIPPER Unavailable Radha Fenton Primary Care Prov ider Trisha Abrams Primary Care Provider Unava ilable Encounter Details Date Type Department Care Team (Late st Contact Info) Description 02/15/2017 Procedure Pass [facility] [address] [place] [address] Social History Tobacco Use Types Packs/Day Years [...] Contact Info) Description 03/13/2024 [place] [address] [address] 02/19/2025 Procedure Pass [place] [facility] [address] [place] [address] 03/09/2025 8:30 AM EDT Appointment [address] [address] Trisha Abrams PA [address] [place] [address] [email or web address] 03/13/2025 8:15 AM EDT Appointment [facility] [address] [place] [address] System, Provider [place] In, [place] [address] Dougie Feliz MD [address] [place] [phone] documented as of this encounter Visit Diagnoses Not on filedocumented in this encounter Additional Health Concerns Infection Onset Date Last Indicated Resolved Time CoV-Risk 12/10/2020 12/11/2020 12/20/2020 1:23 AM EDT documented as of this encounter Care Teams Mainspring Former Brace End Relationship Specialty Start Date End Date Orville Palomino MD 230 [facility] [address] [place] [phone] [email or web address] PCP - General 07/12/16 03/08/17 Orville Palomino MD 230 [facility] [address] [place] [phone] [email or web address] PCP - General 03/09/17 09/30/21 Radha Fenton PA [address] [place] [address] PCP - General 10/01/21 05/12/24 Trisha Abrams 70 [place] [address] PCP - General 05/13/24 Susana Cook CNM 30 [place] [address] Historical LMR Provider 03/25/17 2 Huma Sumner NP 30 [place] [address] [email or web address] Historical LMR Provider 03/25/17 06/11/21 Angy Haywood NP [address] [place] [address] Historical LMR Provider 03/25/17 2 Carl Collins MD [address] [place] [address] [email or web address] Historical LMR Provider 03/25/17 06/11/21 Issa Nguyen MD [address] [place] [phone] Historical LMR Provider 03/25/17 2 Lana Hardy NP 238 [place] [address] Historical LMR Provider 03/25/17 2 Rena Ruff MD [address] [place] [address] Orthopedics [facility] Sports Medicine, [place] [address] [email or web address] Historical LMR Provider 03/25/17 Yanni Walker MD [address] [place] [address] [facility] [place] [address] [email or web address] Historical LMR Provider 03/25/17 06/11/21 Radha Johnson MD [address] [place] [address] Historical LMR Provider 03/25/17 2 Erika Ceja CNP 22 [facility], [address] [place] [address] [email or web address] Historical LMR Provider 03/25/17 documented as of this encounter Additional Source Comments The information contained in this document represents components of the legal health record. It is not the complete legal health record.[facility]
--- OUTSIDE RECORDS SUMMARY | 2025-02-25 14:21 | XMS_ITS | Encounter Summary ---
Author Organization [facility] Address [facility] [address] [place] [address] Phone Care Team Providers Care Metal Can Inspector Name Role Phone Orville Palomino MD Primary Care Provider Susana Cook CNM Unavailable Huma Sumner APPRAISAL COORDINATOR Unavailable [phone] Angy Haywood APPRAISAL COORDINATOR Unavailable Carl Collins MD Unavailable [phone] Issa Nguyen MD Unavailable Lana Hardy APPRAISAL COORDINATOR Unavailable Rena Ruff MD Unavailable Yanni Walker MD Unavailable Radha Johnson MD Unavailable [phone] Erika Ceja HOME SUPERVISOR Unavailable Radha Fenton Primary Care Prov ider Trisha Abrams Primary Care Provider Unava ilable Encounter Details Date Type Department Care Team (Late st Contact Info) Description 10/09/2017 Procedure Pass [facility], [address] [phone] Social History Tobacco Use Types Packs/Day Years [...] Info) Description 03/13/2024 Procedure Pass [facility] 30 [place] [address] 02/19/2025 Procedure Pass [place] [facility] [address] [place] [address] 03/09/2025 8:30 AM EDT Appointment [facility] 30 [place] [address] Trisha Abrams PA 70 [place] [address] [email or web address] 03/13/2025 8:15 AM EDT Appointment [facility] [address] [place] [address] System, Provider Not In, [place] [address] Dougie Feliz MD [address] [place] [phone] documented as of this encounter Visit Diagnoses Not on filedocumented in this encounter Additional Health Concerns Infection Onset Date Last Indicated Resolved Time CoV-Risk 12/10/2020 12/11/2020 12/20/2020 1:23 AM EDT documented as of this encounter Care Teams Metal Can Inspector Relationship Specialty Start Date End Date Orville Palomino MD [address] [place] [address] [place] [phone] [email or web address] PCP - General 03/09/17 09/30/21 Radha Fenton PA [address] [place] [address] PCP - General 10/01/21 05/12/24 Trsiha Abrams 70 [place] [address] PCP - General 05/13/24 Susana Cook CNM 30 [place] [address] Historical LMR Provider 03/25/17 2 Huma Sumner NP 30 [place] [address] [email or web address] Historical LMR Provider 03/25/17 06/11/21 Angy Haywood NP [address] [place] [address] Historical LMR Provider 03/25/17 2 Carl Collins MD 22 [facility], [address] [place] [address] [email or web address] Historical LMR Provider 03/25/17 06/11/21 Issa Nguyen MD [address] [place] [address] 7 [place] [phone] Historical LMR Provider 03/25/17 2 Lana Hardy NP [address] [place] [address] Historical LMR Provider 03/25/17 2 Rena Ruff MD [address] [place] [address] [facility], [place] [address] [email or web address] Historical LMR Provider 03/25/17 Yanni Walker MD [address] [place] [address] [facility], [place] [address] Historical LMR Provider 03/25/17 06/11/21 Radha Johnson MD [address] [place] [address] Historical LMR Provider 03/25/17 2 Erika Ceja CNP 22 [facility], [address] [place] [address] [email or web address] Historical LMR Provider 03/25/17 documented as of this encounter Additional Source Comments The information contained in this document represents components of the legal health record. It is not the complete legal health record.[facility]
--- OUTSIDE RECORDS SUMMARY | 2025-02-25 14:21 | XMS_ITS | Encounter Summary ---
Author Organization [facility] Address [facility] [employer] [facility] [address] [place] [address] Phone Care Team Providers Care Prospecting Observer Name Role Phone Trisha Abrams Primary Care Provider Unava ilable Encounter Details Date Type Department Care Team ([facility] st Contact Info) Description 08/28/2024 Ancillary Orders [address] [address] Rena Ruff MD [address] [place] [address] Orth[facility] Sports Medicine, [place] [address] [email or web address] Chronic right hip pain (Primary Dx) Social [...] st Contact Info) Description 03/13/2024 Procedure Pass [facility], [address] [address] 02/19/2025 Procedure Pass [facility] [address] [place] [address] 03/09/2025 8:30 AM EDT Appointment [address] [address] Trisha Abrams PA [address] [place] [address] [email or web address] 03/13/2025 8:15 AM EDT Appointment [facility] [address] [place] [address] System, Provider Not In, [place] [address] Dougie Feliz MD [address] [place] [phone] Pending Results Name Type Priority Associated Diagnoses [...] Primary documented in this encounter Care Teams Prospecting Observer Relationship Specialty Start Date End Date Trisha Abrams PCP - General 05/13/24 documented as of this encounter Additional Source Comments The information contained in this document represents components of the legal health record. It is not the complete legal health record.[facility]
--- OUTSIDE RECORDS SUMMARY | 2025-02-25 14:21 | XMS_ITS | Encounter Summary ---
Author Organization [facility] Address [address] [employer] [facility] [address] [place] [address] Phone Care Team Providers Care Spice Room Worker Name Role Phone Orville Palomino MD Primary Care Provider Susana Cook CNM Unavailable Huma Sumner GRIP WRAPPER Unavailable Angy Haywood GRIP WRAPPER Unavailable Carl Collins MD Unavailable [phone] Issa Nguyen MD Unavailable Lana Hardy GRIP WRAPPER Unavailable Rena Ruff MD Unavailable Yanni Walker MD Unavailable Radha Johnson MD Unavailable [phone] Erika Ceja PCU RN Unavailable Radha Fenton Primary Care Prov ider Trisha Abrams Primary Care Provider Unava ilable Encounter Details Date Type Department Care Team (Late st Contact Info) Description 05/22/2017 Procedure Pass [facility], Ct Scan - [address] [id number] Social History Tobacco Use Types Packs/Day Years [...] Assessment Author No 08/24/2016 11:25 AM Eloina eHrrera CNP * Patient has serious difficulty dressing [...] st Contact Info) Description 03/13/2024 Procedure Pass [facility] 30 [place] [address] 02/19/2025 Procedure Pass [facility] [address] [place] [address] 03/09/2025 8:30 AM EDT Appointment [facility] 30 [place] [address] Trisha Abrams PA 70 [place] [address] [email or web address] 03/13/2025 8:15 AM EDT Appointment [facility] [address] [place] [address] System, Provider Not In, [place] [address] Dougie Feliz MD [address] [place] [phone] documented as of this encounter Visit Diagnoses Not on filedocumented in this encounter Additional Health Concerns Infection Onset Date Last Indicated Resolved Time CoV-Risk 12/10/2020 12/11/2020 12/20/2020 1:23 AM EDT documented as of this encounter Care Teams Spice Room Worker Relationship Specialty Start Date End Date Orville Palomino MD [address] [place], [place] [phone] [place] [phone] [email or web address] PCP - General 03/09/17 09/30/21 Radha Fenton PA [address] [place] [address] PCP - General 10/01/21 05/12/24 Trisha Abrams [address] [place] [address] PCP - General 05/13/24 Susana Cook CNM 30 [place] [address] Historical LMR Provider 03/25/17 2 Huma Sumner NP 30 [place] [address] [email or web address] Historical LMR Provider 03/25/17 06/11/21 Angy Haywood NP 710 [place] [address] Historical LMR Provider 03/25/17 2 Carl Collins MD 22 [facility] [address] [place] [address] [email or web address] Historical LMR Provider 03/25/17 06/11/21 Issa Nguyen MD [address] [place] [address] 7 [place] [phone] Historical LMR Provider 03/25/17 2 Lana Hardy NP 238 [place] [address] Historical LMR Provider 03/25/17 2 Rena Ruff MD [address] [place] [address] Orthopedics & Sports Medicine, [facility] [place] [address] [email or web address] Historical LMR Provider 03/25/17 Yanni Walker MD [address] [place] [address] [facility], [place] [address] Historical LMR Provider 03/25/17 06/11/21 Radha Johnson MD [address] [place] [address] Historical LMR Provider 03/25/17 2 Erika Ceja CNP 22 [facility], [address] [place] [address] [email or web address] Historical LMR Provider 03/25/17 documented as of this encounter Additional Source Comments The information contained in this document represents components of the legal health record. It is not the complete legal health record.[facility]
--- OUTSIDE RECORDS SUMMARY | 2025-02-25 14:21 | XMS_ITS | Encounter Summary ---
Author Organization [facility] Address [address] [facility] [address] [place] [address] Phone Care Team Providers Care Well Point Pumping Supervisor Name Role Phone Trisha Abrams Primary Care Provider Unava ilable Encounter Details Date Type Department Care Team (Late st Contact Info) Description 05/13/2024 Procedure Pass [facility], Ct Scan - [facility] [address] [place] [address] Social History Tobacco Use Types Packs/Day Years [...] 05/13/2024 1:07 AM Oleg Miramontes, RN * [place] Suicide Severity Rating Scale (Screener/Recent Self-Report) Question Answer Date of Assessment Author 1. Wish to be (Past 1 Month) No 024 1:07 AM Oleg Miramontes, RN 2. Non-Specific Active Suici martha Thoughts (Past 1 Month) No 05/13/2024 1:07 AM Raymond Miramontes, RN 6. Suicidal Behavior (Lifetime) No 1:07 AM Oleg Miramontes, DILLAN documented as of this encounter Mental Status * Patient has serious difficulty concentrating, remembering, or making decisions due to physical, mental, or emotional condition Answer Entry Date Author No 08/24/2016 11:25 AM EDT Eloina Carlisle CNP documented in this encounter Plan of Treatment Upcoming Encounters Date Type Department Care Team (Late st Contact Info) Description 03/13/2024 Procedure Pass [address] [address] 02/19/2025 Procedure Pass Echo Lab [address] [place] [address] 03/09/2025 8:30 AM EDT Appointment [address] [address] Trisha Abrams PA [address] [place] [address] [email or web address] 03/13/2025 8:15 AM EDT Appointment Echo Lab [address] [place] [address] System, Provider Not In, [place] [address] Dougie Feliz MD [address] [place] [phone] documented as of this encounter Visit Diagnoses Not on filedocumented in this encounter Care Teams Well Point Pumping Supervisor Relationship Specialty Start Date End Date Trisha Abrams PCP - General 05/13/24 documented as of this encounter Additional Source Comments The information contained in this document represents components of the legal health record. It is not the complete legal health record.[facility]
--- OUTSIDE RECORDS SUMMARY | 2025-02-25 14:21 | XMS_ITS | Encounter Summary ---
Author Organization [facility] Address [facility] [employer] [facility] ([place], [place]) [address] [place] [address] Phone Care Team Providers Care Science Technicians Name Role Phone Orville Palomino MD Primary Care Provider Susana Cook CNM Unavailable Huma Sumner TRIAL ATTORNEY Unavailable [phone] Angy Haywood TRIAL ATTORNEY Unavailable Carl Collins MD Unavailable [phone] Issa Nguyen MD Unavailable Lana Hardy TRIAL ATTORNEY Unavailable Rena Ruff MD Unavailable Yanni Walker MD Unavailable Radha Johnson MD Unavailable [phone] Erika Ceja INSTALLER TECHNICIAN Unavailable Radha Fenton Primary Care Prov ider Trisha Abrams Primary Care Provider Unava ilable Reason for Referral * MRI/CAT Scan - Closed Specialty Diagnoses / Procedures Referred By Contac t Referred To Contact Radiology Diagnoses Achondroplasia Procedures CT Cervical Spine Lana Hardy, TRIAL ATTORNEY Phone: tel: fax: Referral ID Status Reason Start Date Expiration Date Visits Re quested Visits Authorized [id number] Closed 05/16/2017 06/15/2017 1 1 Encounter Details Date Type Department Care Team (Late st Contact Info) Description 05/22/2017 Ancillary Orders Virtual Department [address] [place] [address] Lana Hardy NP [address] [place] [address] Achondroplasia Social History Tobacco Use Types Packs/Day [...] Contact Info) Description 03/13/2024 Procedure Pass [address] [address] 02/19/2025 Procedure Pass Echo Lab [address] [place] [address] 03/09/2025 8:30 AM EDT Appointment [address] [address] Trisha Abrams PA [address] [place] [address] [email or web address] 03/13/2025 8:15 AM EDT Appointment Echo Lab [address] [place] [address] System, Provider [place] In, [place] [address] Dougie Feliz MD [address] [place] [phone] documented as of this encounter Results [...] by: Flower Mitchell on 05/30/2017 1:34 PM us Lana Hardy TRIAL ATTORNEY IMG CT XSPECIALTY ORDERABLES Final Result documented in this encounter 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 Additional Health Concerns Infection Onset Date Last Indicated Resolved Time CoV-Risk 12/10/2020 12/11/2020 12/20/2020 1:23 AM EDT documented as of this encounter Care Teams Science Technicians Relationship Specialty Start Date End Date Orville Palomino MD [address] [phone] [email or web address] PCP - General 03/09/17 09/30/21 Radha Fenton PA [address] [place] [address] PCP - General 10/01/21 05/12/24 Trisha Abrams [address] [place] [address] PCP - General 05/13/24 Susana Cook CNM [address] [place] [address] Historical LMR Provider 03/25/17 2 Huma Sumner NP 30 [place] [address] Historical LMR Provider 03/25/17 06/11/21 Angy Haywood NP [address] [place] [address] Historical LMR Provider 03/25/17 2 Carl Collins MD 22 [facility], [address] [place] [address] Historical LMR Provider 03/25/17 06/11/21 Issa Nguyen MD [address] [place] [address] 7 [place] [phone] Historical LMR Provider 03/25/17 2 Lana Hardy NP [address] [place] [address] Historical LMR Provider 03/25/17 2 Rena Ruff MD [address] [place] [address] [facility], [place] [address] jose Historical LMR Provider 03/25/17 Yanni Walker MD [address] [place] [address] [facility], [place] [address] Historical LMR Provider 03/25/17 06/11/21 Radha Johnson MD [address] [place] [phone] Historical LMR Provider 03/25/17 2 Erika Ceja CNP 22 [facility], [address] [place] [address] [email or web address] Historical LMR Provider 03/25/17 documented as of this encounter Additional Source Comments The information contained in this document represents components of the legal health record. It is not the complete legal health record.[facility]
--- OUTSIDE RECORDS SUMMARY | 2025-02-25 14:21 | XMS_ITS | Encounter Summary ---
Author Organization [facility] Address [facility] [address] [place] [address] Phone Care Team Providers Care Roof Tile Layer Name Role Phone Orville Palomino MD Primary Care Provider [phone] Orville Palomino MD Primary Care Provider [phone] Susana Cook CNM Unavailable Huma Sumner VB DEVELOPER Unavailable [phone] Angy Haywood VB DEVELOPER Unavailable PerCarl olivo MD Unavailable [phone] Issa Nguyen MD Unavailable Lana Hardy VB DEVELOPER Unavailable Rena Ruff MD Unavailable Yanni Walker MD Unavailable Radha Johnson MD Unavailable [phone] Erika Ceja CONSTRUCTION ADMINISTRATOR Unavailable Radha Fenton Primary Care Prov ider Trisha Abrams Primary Care Provider Unava ilable Encounter Details Date Type Department Care Team (Latest Contact Info) Description 08/22/2016 Prep for Surgery [facility] Orthopaedic Spine [address] [place] [address] Floor, [address] [place] [address] Cody Velazquez MD [address] [facility] [address] [place] [address] [email or web address] Cervical arthritis with myelopathy (Primary Dx) Social [...] st Contact Info) Description 03/13/2024 Procedure Pass [address] [address] 02/19/2025 Procedure Pass Echo Lab [address] [place] [address] 03/09/2025 8:30 AM EDT Appointment [address] [address] Trisha Abrams PA [address] [place] [address] [email or web address] 03/13/2025 8:15 AM EDT Appointment Echo Lab [address] [place] [address] System, Provider Not In, [facility] [address] [address] Dougie Feliz MD [address] [place] [phone] documented as of this encounter Visit Diagnoses Diagnosis Cervical arthritis with myelopathy- Primary documented in this encounter Additional Health Concerns Infection Onset Date Last Indicated Resolved Time CoV-Risk 12/10/2020 12/11/2020 12/20/2020 1:23 AM EDT documented as of this encounter Care Teams Roof Tile Layer Relationship Specialty Start Date End Date Orville Palomino MD [address] [place] [address] [email or web address] PCP - General 07/12/16 03/08/17 Orville Palomino MD [address] [place] [phone] [email or web address] PCP - General 03/09/17 09/30/21 Radha Fenton PA 70 [place] [address] PCP - General 10/01/21 05/12/24 Trisha Abrams 70 [place] [address] PCP - General 05/13/24 Susana Cook CNM 30 [place] [address] Historical LMR Provider 03/25/17 2 Huma Sumner VB DEVELOPER 30 [place] [address] Historical LMR Provider 03/25/17 06/11/21 Angy Haywood NP [address] [place] [address] Historical LMR Provider 03/25/17 2 Carl Collins MD [address] [place] [address], [address] [place] [address] [email or web address] Historical LMR Provider 03/25/17 06/11/21 Issa Nguyen MD [address] [facility] 7 [place] [phone] Historical LMR Provider 03/25/17 2 Lana Hardy NP [address] [place] [address] Historical LMR Provider 03/25/17 2 Rena Ruff MD [address] [place] [address] [facility], [place] [address] [email or web address] Historical LMR Provider 03/25/17 Yanni Walker MD [address] [place] [address] [facility], [place] [address] [email or web address] Historical LMR Provider 03/25/17 06/11/21 Radha Johnson MD [address] [place] [address] Historical LMR Provider 03/25/17 2 Erika Ceja CNP 22 [facility], [address] [place] [address] [email or web address] Historical LMR Provider 03/25/17 documented as of this encounter Additional Source Comments The information contained in this document represents components of the legal health record. It is not the complete legal health record.[facility]
--- OUTSIDE RECORDS SUMMARY | 2025-02-25 14:21 | XMS_ITS | Encounter Summary ---
Author Organization [facility] Address [address] [place] [address] [address] [place] [address] Phone Care Team Providers Care Video Coordinator Name Role Phone Orville Palomino MD Primary Care Provider Orville Palomino MD Primary Care Provider [phone] Susana Cook CNM Unavailable Huma Sumner APICULTURIST Unavailable [phone] Angy Haywood APICULTURIST Unavailable PerCarl olivo MD Unavailable [phone] Issa Nguyen MD Unavailable Lana Hardy APICULTURIST Unavailable Rena Ruff MD Unavailable Yanni Walker MD Unavailable Radha Johnson MD Unavailable [phone] Erika Ceja 911 EMERGENCY SERVICES DISPATCHER Unavailable Radha Fenton Primary Care Prov ider Trisha Abrams Primary Care Provider Unava ilable Encounter Details Date Type Department Care Team (Late st Contact Info) Description 08/11/2016 Procedure Pass [facility] [address] [place] [address] Social History Tobacco Use Types Packs/Day Years [...] st Contact Info) Description 03/13/2024 Procedure Pass [address] [address] 02/19/2025 Procedure Pass Echo Lab [address] [place] [address] 03/09/2025 8:30 AM EDT Appointment [address] [address] Trisha Abrams PA [address] [place] [address] [email or web address] 03/13/2025 8:15 AM EDT Appointment Echo Lab [address] [place] [address] System, Provider [place] In, [place] [address] Dougie Feliz MD [address] [place] [phone] documented as of this encounter Visit Diagnoses Not on filedocumented in this encounter Additional Health Concerns Infection Onset Date Last Indicated Resolved Time CoV-Risk 12/10/2020 12/11/2020 12/20/2020 1:23 AM EDT documented as of this encounter Care Teams Video Coordinator Relationship Specialty Start Date End Date Orville Palomino MD [address] [place] [address] [address] [place] [phone] [email or web address] PCP - General 07/12/16 03/08/17 Orville Palomino MD [address] [phone] [email or web address] PCP - General 03/09/17 09/30/21 Radha Fenton PA 70 [place] [address] PCP - General 10/01/21 05/12/24 Trisha Abrams 70 [place] [address] PCP - General 05/13/24 Susana Cook CNM 30 [place] [address] Historical LMR Provider 03/25/17 2 Huma Sumner NP [address] [place] [address] [email or web address] Historical LMR Provider 03/25/17 06/11/21 Angy Haywood NP [address] [place] [address] Historical LMR Provider 03/25/17 2 Carl Collins MD [address] [place] [address] 301 [place] [address] [email or web address] Historical LMR Provider 03/25/17 06/11/21 Issa Nguyen MD [address] [place] [phone] Historical LMR Provider 03/25/17 2 Lana Hardy NP [address] [place] [address] Historical LMR Provider 03/25/17 2 Rena Ruff MD [address] [place] [address] [facility], [place] [address] [email or web address] Historical LMR Provider 03/25/17 Yanni Walker MD [address] [place] [address] Orthopedics Sports [facility], [place] [address] Historical LMR Provider 03/25/17 06/11/21 Radha Johnson MD [address] [place] [address] Historical LMR Provider 03/25/17 2 Erika Ceja CNP [address] [facility], [address] [place] [address] Historical LMR Provider 03/25/17 documented as of this encounter Additional Source Comments The information contained in this document represents components of the legal health record. It is not the complete legal health record.[facility]
--- OUTSIDE RECORDS SUMMARY | 2025-02-25 14:21 | XMS_ITS | Encounter Summary ---
Author Organization [facility] Address [address] [place] [address] Phone Care Team Providers Care Tool Room Supervisor Name Role Phone Radha Fenton Primary Care Prov ider Trisha Abrams Primary Care Provider Unava ilable Encounter Details Date Type Department Care Team (Late st Contact Info) Description 02/27/2023 Procedure Pass [facility], [address] [place] [address] Social History Tobacco Use Types Packs/Day Years [...] st Contact Info) Description 03/13/2024 Procedure Pass [address] [address] 02/19/2025 Procedure Pass Echo Lab [address] [place] [address] 03/09/2025 8:30 AM EDT Appointment [address] [address] Trisha Abrams PA [address] [place] [address] [email or web address] 03/13/2025 8:15 AM EDT Appointment Echo [facility] [address] [place] [address] System, Provider Not In, [facility] [address] [address] Dougie Feliz MD [address] [place] [phone] documented as of this encounter Visit Diagnoses Not on filedocumented in this encounter Care Teams Tool Room Supervisor Relationship Specialty Start Date End Date Radha Fenton PA [address] [place] [address] PCP - General 10/01/21 05/12/24 Trisha Abrams 70 [place] [address] PCP - General 05/13/24 documented as of this encounter Additional Source Comments The information contained in this document represents components of the legal health record. It is not the complete legal health record.[facility]
--- OUTSIDE RECORDS SUMMARY | 2025-02-25 14:21 | XMS_ITS | Encounter Summary ---
Author Organization [facility] Address [address] [employer] [facility] [address] [place] [address] Phone Care Team Providers Care Primary Teaching Assistant Name Role Phone Trisha Abrams Primary Care Provider Unava ilable Encounter Details Date Type Department Care Team (Late st Contact Info) Description 05/13/2024 Procedure Pass [facility], [address] [address] Social History Tobacco Use Types Packs/Day Years [...] 05/13/2024 1:07 AM Oleg Miramontes, RN * [place] Suicide Severity Rating Scale (Screener/Recent Self-Report) Question [...] st Contact Info) Description 03/13/2024 Procedure Pass [address] [address] 02/19/2025 Procedure Pass Echo Lab [address] [place] [address] 03/09/2025 8:30 AM EDT Appointment [address] [address] Trisha Abrams PA [address] [place] [address] [email or web address] 03/13/2025 8:15 AM EDT Appointment Echo Lab [address] [place] [address] System, Provider Not In, [place] [address] Dougie Feliz MD [address] [place] [phone] documented as of this encounter Visit Diagnoses Not on filedocumented in this encounter Care Teams Primary Teaching Assistant Relationship Specialty Start Date End Date Trisha Abrams PCP - General 05/13/24 documented as of this encounter Additional Source Comments The information contained in this document represents components of the legal health record. It is not the complete legal health record.[facility]
--- OUTSIDE RECORDS SUMMARY | 2025-02-25 14:21 | XMS_ITS | Encounter Summary ---
Author Organization [facility] Address [address] [place] [address] 9[address] [place] [address] Phone Care Team Providers Care Veneer Sander Name Role Phone Orville Palomino MD Primary Care Provider Orville Palomino MD Primary Care Provider [phone] Susana Cook CNM Unavailable Huma Sumner DECKHAND SPONGE BOAT Unavailable [phone] Angy Haywood DECKHAND SPONGE BOAT Unavailable PerCarl olivo MD Unavailable [phone] Issa Nguyen MD Unavailable Lana Hardy DECKHAND SPONGE BOAT Unavailable Rena Ruff MD Unavailable Yanni Walker MD Unavailable Radha Johnson MD Unavailable [phone] Erika Ceja PROGRAM PROJECT ANALYST Unavailable Radha Fenton Primary Care Prov ider Trisha Abrams Primary Care Provider Unava ilable Encounter Details Date Type Department Care Team (Late st Contact Info) Description 08/21/2016 Procedure Pass [facility] General Imaging [address] [place] [address] Social History Tobacco Use Types Packs/Day Years [...] st Contact Info) Description 03/13/2024 Procedure Pass [address] [address] 02/19/2025 Procedure Pass Echo Lab [address] [place] [address] 03/09/2025 8:30 AM EDT Appointment [address] [address] Trisha Abrams PA [address] [place] [address] [email or web address] 03/13/2025 8:15 AM EDT Appointment Echo Lab [address] [place] [address] System, Provider [place] In, [place] [address] Dougie Feliz MD [address] [place] [phone] documented as of this encounter Visit Diagnoses Not on filedocumented in this encounter Additional Health Concerns Infection Onset Date Last Indicated Resolved Time CoV-Risk 12/10/2020 12/11/2020 12/20/2020 1:23 AM EDT documented as of this encounter Care Teams Veneer Sander Relationship Specialty Start Date End Date Orville Palomino MD [address] [place] [address] [address] [place] [phone] [email or web address] PCP - General 07/12/16 03/08/17 Orville Palomino MD [address] [phone] [email or web address] PCP - General 03/09/17 09/30/21 Radha Fenton PA 70 [place] [address] PCP - General 10/01/21 05/12/24 Trisha Abrams 70 [place] [address] PCP - General 05/13/24 Susana Cook CNM 30 [place] [address] Historical LMR Provider 03/25/17 2 Huma Sumner NP [address] [place] [address] [email or web address] Historical LMR Provider 03/25/17 06/11/21 Angy Haywood NP [address] [place] [address] Historical LMR Provider 03/25/17 2 Carl Collins MD [address] [place] [address] 301 [place] [address] [email or web address] Historical LMR Provider 03/25/17 06/11/21 Issa Nguyen MD [address] [place] [phone] Historical LMR Provider 03/25/17 2 Lana Hardy NP [address] [place] [address] Historical LMR Provider 03/25/17 2 Rena Ruff MD [address] [place] [address] [facility], [place] [address] jose Historical LMR Provider 03/25/17 Yanni Walker MD [address] [place] [address] Orthopedics Sports [facility], [place] [address] Historical LMR Provider 03/25/17 06/11/21 Radha Johnson MD [address] [place] [address] Historical LMR Provider 03/25/17 2 Erika Ceja CNP 22 [facility], [address] [place] [address] Historical LMR Provider 03/25/17 documented as of this encounter Additional Source Comments The information contained in this document represents components of the legal health record. It is not the complete legal health record.[facility]
--- OUTSIDE RECORDS SUMMARY | 2025-02-25 14:21 | XMS_ITS | Encounter Summary ---
Author Organization [facility] Address [address] [place] [address] Phone Care Team Providers Care Model Maker Fiberglass Name Role Phone Trisha Abrams Primary Care Provider Unava ilable Encounter Details Date Type Department Care Team ([facility] st Contact Info) Description 06/25/2024 Transcribe Orders Virtual Department [address] [place] [address] Celso Fair MD 6 [place] [phone] [email or web address] Social History Tobacco Use Types Packs/Day Years [...] st Contact Info) Description 03/13/2024 Procedure Pass [facility], [address] [address] 02/19/2025 Procedure Pass Echo Lab [address] [place] [address] 03/09/2025 8:30 AM EDT Appointment [facility], [address] [address] Trisha Abrams PA [address] [place] [address] [email or web address] 03/13/2025 8:15 AM EDT Appointment Echo Lab [address] [place] [address] System, Provider Not In, [place] [address] Dougie Feliz MD [address] [place] [phone] documented as of this encounter Visit Diagnoses Not on filedocumented in this encounter Care Teams Model Maker Fiberglass Relationship Specialty Start Date End Date Trisha Abrams PCP - General 05/13/24 documented as of this encounter Additional Source Comments The information contained in this document represents components of the legal health record. It is not the complete legal health record.[facility]
--- OUTSIDE RECORDS SUMMARY | 2025-02-25 14:21 | XMS_ITS | Encounter Summary ---
Author Organization [facility] Address [facility] [email or web address] [facility] [address] [place] [address] Phone Care Team Providers Care Weather Stripper Name Role Phone Orville Palomino MD Primary Care Provider Susana Cook CNM Unavailable Huma Sumner EMBROIDERY PATTERNMAKER Unavailable [phone] Angy Haywood EMBROIDERY PATTERNMAKER Unavailable Carl Collins MD Unavailable [phone] Issa Nguyen MD Unavailable Laan Hardy EMBROIDERY PATTERNMAKER Unavailable Rena Ruff MD Unavailable Yanni Walker MD Unavailable Radha Johnson MD Unavailable [phone] Erika Ceja CLINICAL FELLOW Unavailable Radha Fenton Primary Care Prov ider Trisha Abrams Primary Care Provider Unava ilable Reason for Referral * MRI/CAT Scan - Closed Specialty Diagnoses / Procedures Referred By Contac t Referred To Contact Radiology Diagnoses Other spondylosis with radiculopathy, lumbar region Spinal stenosis, 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 Other spondylosis with radiculopathy, lumbar region; Spinal [...] st Contact Info) Description 03/13/2024 Procedure Pass [address] [address] 02/19/2025 Procedure Pass [facility] [address] [place] [address] 03/09/2025 8:30 AM EDT Appointment [address] [address] Trisha Abrams PA [address] [place] [address] [email or web address] 03/13/2025 8:15 AM EDT Appointment [facility] [address] [place] [address] System, Provider [place] In, [place] [address] Dougie Feliz MD [address] [place] [phone] documented as of this encounter Results [...] new pathology has become apparent. POS - [id number] Edited by: Flower Mitchell on 08/08/2018 12:36 [...] new pathology has become apparent. POS - [id number] Edited by: Flower Mitchell on 08/08/2018 12:36 [...] documented as of this encounter Care Teams Weather Stripper Relationship Specialty Start Date End Date Orville Palomino MD [address] [facility] [address] [place] [phone] [email or web address] PCP - General 03/09/17 09/30/21 Radha Fenton PA [address] [place] [address] PCP - General 10/01/21 05/12/24 Trisha Abrams [address] [place] [address] PCP - General 05/13/24 Susana Cook CNM [address] [place] [address] Historical LMR Provider 03/25/17 2 Huma Sumner NP [address] [place] [address] Historical LMR Provider 03/25/17 06/11/21 Angy Haywood NP [address] [place] [address] Historical LMR Provider 03/25/17 2 Carl Collins MD 22 [facility], [address] [place] [address] [email or web address] Historical LMR Provider 03/25/17 06/11/21 Issa Nguyen MD [address] [place] [address] 7 [place] [phone] Historical LMR Provider 03/25/17 2 Lana Hardy NP [address] [place] [address] Historical LMR Provider 03/25/17 2 Rena Ruff MD [address] [place] [address] [facility], [place] [address] [email or web address] Historical LMR Provider 03/25/17 Yanni Walker MD [address] [place] [address] [facility], [place] [address] Historical LMR Provider 03/25/17 06/11/21 Radha Johnson MD [address] [place] [address] Historical LMR Provider 03/25/17 2 Erika Ceja CNP [address] [facility], [address] [place] [address] Historical LMR Provider 03/25/17 documented as of this encounter Additional Source Comments The information contained in this document represents components of the legal health record. It is not the complete legal health record.[facility]
--- OUTSIDE RECORDS SUMMARY | 2025-02-25 14:21 | XMS_ITS | Encounter Summary ---
Author Organization [facility] Address [address] [place] [address] Phone Care Team Providers Care Cold Patcher Name Role Phone Trisha Abrams Primary Care Provider Unava ilable Encounter Details Date Type Department Care Team ([facility] Contact Info) Description 06/25/2024 Procedure Pass [facility], [address] [place] [address] Social History Tobacco Use Types Packs/Day Years [...] st Contact Info) Description 03/13/2024 Procedure Pass [facility] 30 [place] [address] 02/19/2025 Procedure Pass [facility] [address] [place] [address] 03/09/2025 8:30 AM EDT Appointment [facility], [facility] [address] [place] [address] Trisha Abrams PA [address] [place] [phone] [email or web address] 03/13/2025 8:15 AM EDT Appointment [facility] [place] [place] [address] System, Provider Not In, [facility] [employer] [address] [address] Dougie Feliz MD [address] [place] [phone] documented as of this encounter Visit Diagnoses Not on filedocumented in this encounter Care Teams Cold Patcher Relationship Specialty Start Date End Date Trisha Abrams PCP - General 05/13/24 documented as of this encounter Additional Source Comments The information contained in this document represents components of the legal health record. It is not the complete legal health record.[facility]
--- OUTSIDE RECORDS SUMMARY | 2025-02-25 14:21 | XMS_ITS | Encounter Summary ---
Author Organization [facility] Address [address] [place] [address] Phone Care Team Providers Care Ems Director Name Role Phone Trisha Abrams Primary Care Provider Unava ilable Encounter Details Date Type Department Care Team ([facility] Contact Info) Description 06/12/2024 Procedure Pass [facility], [address] [place] [address] Social History Tobacco Use Types Packs/Day Years [...] st Contact Info) Description 03/13/2024 Procedure Pass [facility] 30 [place] [address] 02/19/2025 Procedure Pass [facility] [address] [place] [address] 03/09/2025 8:30 AM EDT Appointment [facility], [facility] [address] [place] [address] Trisha Abrams PA [address] [place] [phone] [email or web address] 03/13/2025 8:15 AM EDT Appointment [facility] [place] [place] [address] System, Provider Not In, [facility] [employer] [address] [address] Dougie Feliz MD [address] [place] [phone] documented as of this encounter Visit Diagnoses Not on filedocumented in this encounter Care Teams Ems Director Relationship Specialty Start Date End Date Trisha Abrams PCP - General 05/13/24 documented as of this encounter Additional Source Comments The information contained in this document represents components of the legal health record. It is not the complete legal health record.[facility]
--- OUTSIDE RECORDS SUMMARY | 2025-02-25 14:21 | XMS_ITS | Encounter Summary ---
Author Organization [facility] Address [facility] [address] [place] [address] Phone Care Team Providers Care Machine Puller Name Role Phone Orville Palomino MD Primary Care Provider [phone] Susana Cook CNM Unavailable Huma Sumner RENTAL CAR PORTER Unavailable [phone] Angy Haywood RENTAL CAR PORTER Unavailable Carl Collins MD Unavailable [phone] Issa Nguyen MD Unavailable Lana Hardy RENTAL CAR PORTER Unavailable Rena Ruff MD Unavailable Yanni Walker MD Unavailable Radha Johnson MD Unavailable [phone] Erika Ceja HARMONIC ANALYST Unavailable Radha Fenton Primary Care Prov ider Trisha Abrams Primary Care Provider Unava ilable Encounter Details Date Type Department Care Team (Late st Contact Info) Description 07/18/2018 Procedure Pass [facility], [address] [id number] Social History Tobacco Use Types Packs/Day Years [...] st Contact Info) Description 03/13/2024 Procedure Pass [facility] 30 [place] [address] 02/19/2025 Procedure Pass [facility] [address] [place] [address] 03/09/2025 8:30 AM EDT Appointment [facility] 30 [place] [address] Trisha Abrams PA [address] [place] [address] [email or web address] 03/13/2025 8:15 AM EDT Appointment [facility] [place] [place] [address] System, Provider [place] In, [place] [address] Dougie Feliz MD [address] [place] [phone] documented as of this encounter Visit Diagnoses Not on filedocumented in this encounter Additional Health Concerns Infection Onset Date Last Indicated Resolved Time CoV-Risk 12/10/2020 12/11/2020 12/20/2020 1:23 AM EDT documented as of this encounter Care Teams Machine Puller Relationship Specialty Start Date End Date Orville Palomino MD [address] [place] [address] [place] [phone] [email or web address] PCP - General 03/09/17 09/30/21 Radha Fenton PA [address] [place] [address] PCP - General 10/01/21 05/12/24 Trisha Abrams [address] [place] [address] PCP - General 05/13/24 Susana Cook CNM 30 [place] [address] Historical LMR Provider 03/25/17 2 Huma Sumner NP 30 [place] [address] [email or web address] Historical LMR Provider 03/25/17 06/11/21 Angy Haywood NP [address] [place] [address] Historical LMR Provider 03/25/17 2 Carl Collins MD [address] [facility], [address] [place] [address] [email or web address] Historical LMR Provider 03/25/17 06/11/21 Issa Nguyen MD [address] [place] [address] 7 [place] [phone] Historical LMR Provider 03/25/17 2 Lana Hardy NP [address] [place] [address] Historical LMR Provider 03/25/17 2 Rena Ruff MD [address] [place] [address] [facility], [place] [address] [email or web address] Historical LMR Provider 03/25/17 Yanni Walker MD [address] [place] [address] [facility], [place] [address] Historical LMR Provider 03/25/17 06/11/21 Radha Johnson MD [address] [place] [address] Historical LMR Provider 03/25/17 2 Erika Ceja CNP [address] [facility], [address] [place] [address] [email or web address] Historical LMR Provider 03/25/17 documented as of this encounter Additional Source Comments The information contained in this document represents components of the legal health record. It is not the complete legal health record.[facility]
--- OUTSIDE RECORDS SUMMARY | 2025-02-25 14:21 | XMS_ITS | Encounter Summary ---
Author Organization [facility] Address [facility] [employer] [facility] [address] [place] [address] Phone Care Team Providers Care Medical Receptionist Assistant Name Role Phone Orville Palomino MD Primary Care Provider [phone] Susana Cook CNM Unavailable Huma Sumnre ECOMMERCE MERCHANDISING MANAGER Unavailable [phone] Angy Haywood ECOMMERCE MERCHANDISING MANAGER Unavailable Carl Collins MD Unavailable [phone] Issa Nguyen MD Unavailable Lana Hardy E[employer]ER[employer] MERCHANDISING MANAGER Unavailable Rena Ruff MD Unavailable Yanni Walker MD Unavailable Radha Johnson MD Unavailable [phone] Erika Ceja FOOD AND BEVERAGE SERVICE MANAGER Unavailable Radha Fenton Primary Care Prov ider Trisha Abrams Primary Care Provider Unava ilable Encounter Details Date Type Department Care Team (Late st Contact Info) Description 07/02/2017 Procedure Pass [facility] [address] [place] [address] Social History Tobacco Use Types Packs/Day Years [...] st Contact Info) Description 03/13/2024 Procedure Pass [facility] [address] [place] [address] 02/19/2025 Procedure Pass [facility] [address] [place] [address] 03/09/2025 8:30 AM EDT Appointment [facility], [facility] 30 [place] [address] Trisha Abrams PA [address] [place] [phone] [email or web address] 03/13/2025 8:15 AM EDT Appointment [facility] [place] [place] [address] System, Provider Not In, [facility] [employer] [address] [address] Dougie Feliz MD [address] [place] [phone] documented as of this encounter Visit Diagnoses Not on filedocumented in this encounter Additional Health Concerns Infection Onset Date Last Indicated Resolved Time CoV-Risk 12/10/2020 12/11/2020 12/20/2020 1:23 AM EDT documented as of this encounter Care Teams Medical Receptionist Assistant Relationship Specialty Start Date End Date Orville Palomino MD [address] [place] [phone] [email or web address] PCP - General 03/09/17 09/30/21 Radha Fenton PA [address] [place] [address] PCP - General 10/01/21 05/12/24 Trisha Abrams [address] [place] [address] PCP - General 05/13/24 Susana Cook CNM 30 [place] [address] Historical LMR Provider 03/25/17 2 Huma Sumner NP 30 [place] [address] [email or web address] Historical LMR Provider 03/25/17 06/11/21 Angy Haywood NP [address] [place] [address] Historical LMR Provider 03/25/17 2 Carl Collins MD 22 [facility] [address] [place] [address] [email or web address] Historical LMR Provider 03/25/17 06/11/21 Issa Nguyen MD [address] [place] [phone] Historical LMR Provider 03/25/17 2 Lana Hardy NP [address] [place] [address] Historical LMR Provider 03/25/17 2 Rena Ruff MD [address] [place] [address] [facility], [place] [address] [email or web address] Historical LMR Provider 03/25/17 Yanni Walker MD [address] [place] [address] [facility], [place] [address] Historical LMR Provider 03/25/17 06/11/21 Radha Johnson MD [address] [place] [address] Historical LMR Provider 03/25/17 2 Erika Ceja CNP [address] [place] [address], [address] [place] [address] [email or web address] Historical LMR Provider 03/25/17 documented as of this encounter Additional Source Comments The information contained in this document represents components of the legal health record. It is not the complete legal health record.[facility]
== END 2025-02-25 11:32 | disposition home or self-care (01) ==
PROVIDERS: PCP Physician Assistant; Visit Provider Surgery
DX: K64.8 Other hemorrhoids (principal)
CPT/HCPCS: 46600; 99203

== ENCOUNTER → 2025-02-25 11:11 | Outpatient (BNVA) | payer BC, SELFPAY | PROVIDERS: PCP Physician Assistant; Visit Provider Surgery | DX: K64.8 Other hemorrhoids (principal) | CPT/HCPCS: 46600 ==

== ENCOUNTER 2025-06-01 13:05 | Outpatient (REF) | payer MEDICARE, BC, SELFPAY ==
--- OUTSIDE RECORDS SUMMARY | 2025-06-01 16:29 | XMS_ITS | Data Portability ---
Author Organization [facility] [employer], [email or web address] Address [address] [place] [address] [place] [address] Care Team Providers Care Dumping Machine Operator Name Role Phone TERRI STACY Primary Care [...] needed for me in this direction. The [place] consultation has recommended physical therapy. This has also been recommended by others. Supervisor Border Department with experience in rehabilitation is the best [...] July 02, 2017 cervical spine surgery at [facility], With subsequent opinion from neurosurgery at [facility] that further spine [...] needed for me in this direction. The [place] consultation has recommended physical therapy. This has also been recommended by others. Supervisor Border Department with experience in rehabilitation is the best [...] s/p August 2016 and July 02, 2017 [facility] surgery [facility] [address] imaging center will call you [...] July 02, 2017 cervical spine surgery at [facility], With subsequent opinion from neurosurgery at [facility] that further spine surgery was not advisable IMAGING MRI cervical spine April 30, 2022 with and without contrast compared to previous MRI cervical spine September 23, 2020 per dictation [facility] radiology: Evidence of prior surgery with posterior [...] Both she and her feel that 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 I therefore have no further suggestions for changes in management for the neurological perspective except for the use of trekking poles when climbing mount time as discussed in the HPI. To review, before 12/20/21 initial consult with me, She has had consultation in [place] with neurosurgery. They have suggested repeat surgery in her neck to change everything back from what is there in the context of her previous August 2016 and July 02, 2017 C3 6 fusion & C4-5 laminectomy. She has had second opinion in the [facility] in [facility]. They have recommended against any such repeat cervical spine surgery and in favor of physical therapy. Supervisor Border Department with experience in rehabilitation is the best [...] s/p August 2016 and July 02, 2017 [facility] cspine surgery 2021 022 [place] Not available [...] ction study No observ ation record ed. [address] [facility] ([facility] [address] [place], [address], 12/22/2020 16:51:55 04/30/20 22 04/30/2022 MRI, cervi sarah spine , w/wo contr ast No observ ation record ed. [address] [facility] [address] [place], [address], 05/01/2022 11:40:44 05/22/2004/30/2022 MRI, cervi sarah spine , w/wo contr ast No observ ation record ed. [email or web address] [facility] [address] [place], [address], 05/25/2022 14:36:26 Result Notes None recorded. Procedures Surgical History Date Name Laterality Status Provider Name and Address Organization Details Recorded Time 06/08/2022 DATA REVIEW completed Alberto Robles MD [address] [place] [address] [place], [phone], [facility] [employer] 06/08/2022 12:13:28 04/06/2022 DATA REVIEW completed Alberto Robles MD [address] [place] [address] [place], [phone], [facility] [employer] 04/06/2022 12:34:55 12/20/2020 DATA REVIEW completed Alberto Robles MD [address] [place] [address] [place], [phone], [facility] [employer] 12/20/2020 11:51:28 Imaging Results None recorded. Procedure [...] Codes Diagnosis Note 1292 Alberto Robles MD [address] [place] [address] 12/20/2020 08:39:57 12/20/2020 11:54:41 Brief loss of consciousness [id number] R55 Cervical d isc prolapse with myelopathy [id number] M50.021 6905 Alberto Robles MD [address] [place] [address] 04/06/2022 12:33:26 04/06/2022 14:42:16 Brief loss of consciousness [id number] R55 Cervical d isc prolapse with myelopathy [id number] M50.021 7424 Alberto Robles MD [address] [place] [address] 06/08/2022 11:59:26 06/08/2022 17:07:29 Brief loss of consciousness [id number] R55 Abnormal gait [id number] R 26.81 Health Concerns Section Related Observation LastModified by Organization Detai ls LastModified Time None Recorded Concern Status LastModified by Organization Details LastModified Time None Recorded Advance Directives Directive None Recorded Payers Insurance Date Sequence Insurance Name Policy Number Policy Lamar Covered Member ID Lamar Member ID Guarantor Name 04/06/2022 1 [facility] [place] (HMO) [id number] Junior Triana [id number] Mandy Triana 06/12/2022 1 [facility] ([facility]) [id number] Mandy Triana [id number] Mandy Triana Notes Date Note Type Note Provider Name and Address Organization Details Recorded Time 12/20/2020 text/html Reconsultation for January 2019 seizure. She is a previous patient of Dr. Butcher, neurology, [facility]. I saw her once previously, November 20, [...] the tingling. She has had consultation in [place] with neurosurgery. They have suggested repeat surgery in her neck to change everything back from what is there in the context of her previous surgery. She has had second opinion in the [facility] in [facility]. They have recommended against any such repeat [...] She presented for diagnostic evaluation, first with [facility] and then with spine surgery, Dr. Galicia. Carpal tunnel syndrome was entertained at first but then was not found, per patient report. 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 She had a second opinion with Dr. Daniel melgar, [facility] neurosurgeon and has subsequently had 2 surgeries [...] helped with the symptoms. Alberto Robles MD [address] [place] [address], [phone], [facility] 12/20/2020 11:51:48 04/06/2022 text/html Reconsultation for January 2019 seizure. She is a previous patient of Dr. Butcher, neurology, [facility]. I saw her once previously, November 20, [...] the tingling. She has had consultation in [place] with neurosurgery. They have suggested repeat surgery in her neck to change everything back from what is there in the context of her previous surgery. She has had second opinion in the [facility] in [facility]. They have recommended against any such repeat [...] She presented for diagnostic evaluation, first with [facility] and then with spine surgery, Dr. Galicia. Carpal tunnel syndrome was entertained at first but then was not found, per patient report. 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 She had a second opinion with Dr. Daniel melgar, [facility] neurosurgeon and has subsequently had 2 surgeries [...] helped with the symptoms. Alberto Robles MD [address] [place] [address] [place], [phone], [place] [facility] 04/06/2022 13:15:40 06/08/2022 text/html Reconsultation for January 2019 seizure. She is a previous patient of Dr. Butcher, neurology, [facility]. I saw her once previously, November 20, [...] better. 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 She has had consultation in [place] with neurosurgery. They have suggested repeat surgery in her neck to change everything back from what is there in the context of her previous surgery. She has had second opinion in the [facility] in [facility]. They have recommended against any such repeat [...] She presented for diagnostic evaluation, first with [facility] and then with spine surgery, Dr. Galicia. Carpal tunnel syndrome was entertained at first but then was not found, per patient report. 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 She had a second opinion with Dr. Daniel melgar, [facility] neurosurgeon and has subsequently had 2 surgeries [...] helped with the symptoms. Alberto Robles MD [address] [place] [address] [place], [address], [facility] 06/08/2022 12:46:35 OBGyn Episode No OBEpisode recorded.
== END 2025-06-01 13:06 | disposition home or self-care (01) ==
LOC: HO.LAB 13:05
PROVIDERS: PCP Physician Assistant; Visit Provider Nurse Practitioner Family
DX: R35.1 Nocturia (principal); R32 Unspecified urinary incontinence; N39.0 Urinary tract infection, site not specified; R31.29 Other microscopic hematuria; R33.9 Retention of urine, unspecified; K59.00 Constipation, unspecified
CPT/HCPCS: 51798; 81003; 87086; 87088; 87186; 88112; 99212

== ENCOUNTER 2025-06-01 13:05 | Outpatient (AMB) | payer MEDICARE, BC, SELFPAY ==
--- OUTSIDE RECORDS SUMMARY | 2016-06-08 | XMS_ITS | Encounter Summary ---
Author Organization [facility] Address [address] [facility] [address] [place] [address] Phone Care Team Providers Care Plug And Mold Finisher Name Role Phone Unavailable Primary Care Provider Unavailabl e Encounter Details Date Type Department Care Team ([facility] st Contact Info) Description 06/08/2016 Hospital Encounter [facility] [address] [place] [address] Cody Velazquez MD 123 [facility] [address] [place] [address] [email or web address] Social History Tobacco Use Types Packs/Day Years Used Date Smoking Tobacco: Never Smokeless Tobacco: Never Alcohol Use Standard Drinks/Week Comments Not Currently 0 (1 standard drink = 0.6 oz pure alcohol) Havent had a drink in 5 years. Education Answer Date Recorded Are you interested in more education? Not on berenice e 09/30/2022 Are you concerned about learning? Not on file 09/30/2022 No 09/30/2022 No 09/30/2022 Digital Access Answer Date Recorded No 10/29/2022 No 10/29/2022 Reliable internet access at home? Not on file 10/29/2022 Device with a working camera? Not on file Intimate Partner Violence Answer Date R ecorded Are you denied basic needs s uch as food, clothing, or medical care? No 06/12/2024 In the past 12 months have y ou been in a relationship with a person who hurts, threatens, or tries to control you? No 06/12/2024 Are you denied basic needs s uch as food, clothing, or medical care? No 06/12/2024 In the past 12 months have y ou been in a relationship with a person who hurts, threatens, or tries to control you? No 06/12/2024 Comments No Sex and Gender Information Value Date Recorded Sex Assigned at Female 10/01/2021 1:03 PM EDT Legal Sex Female 5:41 PM EST Gender Identity Female 10/01/2021 1:03 PM EDT Sexual Orientation Straight 05/13/2024 2: 08 AM EST documented as of this encounter Plan of Treatment Upcoming Encounters Date Type Department Care Team (Late st Contact Info) Description 04/11/2025 Procedure Pass [facility] [address] [place] [address] [place] [address] 08/10/2025 10:15 AM EDT Appointment [facility] [address] [place] [address] [place] [address] Wade Overton, DO [address] [place] [address] [place] [address] [email or web address] 10/09/2025 12:30 PM EDT Office Visit [facility] [address] [place] [address] 3rd Floor, [address] [place] [address] Blanka Weinstein, [address] [address] [email or web address] documented as of this encounter Procedures Procedure Name Priority Date/Time Associated Diagnosis Comments XR SPINE OUTSIDE (NO INTERPRETATION) Routine 06/08/2016 12:00 AM EST documented in this encounter Results * XR SPINE OUTSIDE(NO INTERPRETATION) (06/08/2016 12:00 AM EST) Narrative [facility] - 08/11/2016 8:34 AM EST This study is for PACS storage only and not for interpretation. us Cody Velazquez MD IMG OUTSIDE IMAGING W/OUT INTERPRETATION Final Result [facility] documented in this encounter Visit Diagnoses Not on filedocumented in this encounter Additional Health Concerns Infection Onset Date Last Indicated Resolved Time CoV-Risk 12/10/2020 12/11/2020 12/20/2020 1:23 AM EDT documented as of this encounter Additional Source Comments The information contained in this document represents components of the legal health record. It is not the complete legal health record.[facility]
--- OUTSIDE RECORDS SUMMARY | 2016-06-25 | XMS_ITS | Encounter Summary ---
Author Organization [facility] Address [address] [facility] [address] [place] [address] Phone Care Team Providers Care Tai Chi Instructor Name Role Phone Unavailable Primary Care Provider Unavailabl e Reason for Visit * MRI/CAT Scan - Closed Specialty Diagnoses / Procedures Referred By Radha huertas Referred To Contact Procedures MRI Spine (Bone) Outside (No Interpretation) Cody Velazquez MD [address] [address] Phone: tel: fax: mailto:[email or web address] Referral ID Status Reason Start Date Expiration Date Visits Re quested Visits Authorized [id number] Closed 08/11/2016 08/11/2017 1 1 Encounter Details Date Type Department Care Team ([facility] Contact Info) Description 06/25/2016 Hospital Encounter [facility] General Imaging [address] [facility] [place] [address] Cody Velazquez MD 123 [facility] [address] [place] [phone] [email or web address] Social History Tobacco Use Types Packs/Day Years [...] Contact Info) Description 04/11/2025 Procedure Pass [facility] [address] [place] [address] [place] [address] 08/10/2025 10:15 AM EDT Appointment [facility] [address] [place] [address] [place] [address] Wade Overton, [address] [place] [address] [place] [address] 10/09/2025 12:30 PM EDT Office Visit [facility] Sw[facility] [address] [place] [address] [address] Floor, [address] [place] [address] Blanka Weinstein, [address] [address] documented as of this encounter Procedures Procedure Name Priority Date/Time Associated Diagnosis Comments MRI SPINE MUSCULOSKELETAL FOCUS OUTSIDE (NO INTERPRETATION) Routine 06/25/2016 12:00 AM EST documented in this encounter Results * MRI Spine (Bone) Outside (No Interpretation) (06/25/2016 12:00 AM EST) Narrative [facility] - 08/11/2016 8:33 AM EST This study is for PACS storage only and not for interpretation. us Cody Velazquez MD IMG OUTSIDE IMAGING W/OUT INTERPRETATION Final Result [facility] documented in this encounter Visit Diagnoses Not on filedocumented in this encounter Additional Health Concerns Infection Onset Date Last Indicated Resolved Time CoV-Risk 12/10/2020 12/11/2020 12/20/2020 1:23 AM EDT documented as of this encounter Additional Source Comments The information contained in this document represents components of the legal health record. It is not the complete legal health record.[facility]
--- OUTSIDE RECORDS SUMMARY | 2016-06-25 00:15 | XMS_ITS | Encounter Summary ---
Author Organization [facility] Address [address] [facility] [address] [place] [address] Phone Care Team Providers Care Application Developer Manager Name Role Phone Unavailable Primary Care Provider Unavailabl e Reason for Visit * MRI/CAT Scan - Closed Specialty Diagnoses / Procedures Referred By Radha huertas Referred To Contact Procedures MRI Spine (Bone) Outside (No Interpretation) Cody Velazquez MD [address] [address] Phone: tel: fax: mailto: Referral ID Status Reason Start Date Expiration Date Visits Re quested Visits Authorized [id number] Closed 08/11/2016 08/11/2017 1 1 Encounter Details Date Type Department Care Team ([facility] Contact Info) Description 06/25/2016 12:15 AM EST Hospital Encounter [facility] General Imaging [address] [facility] [place] [address] Cody Velazquez MD [address] [address] Social History Tobacco Use Types Packs/Day Years [...] Info) Description 04/11/2025 Procedure Pass [facility] [place] [address] 08/10/2025 10:15 AM EDT Appointment Elisa Swenson Echo [place] [address] Wade Overton, [address] [place] [address] 10/09/2025 12:30 PM EDT Office Visit [facility] 3rd Floor, [address] [place] [address] Blanka Weinstein, [address] [address] [email or web address] documented as of this encounter Procedures Procedure Name Priority Date/Time Associated Diagnosis Comments MRI SPINE MUSCULOSKELETAL FOCUS OUTSIDE (NO INTERPRETATION) Routine 06/25/2016 12:15 AM EST documented in this encounter Results * MRI Spine (Bone) Outside (No Interpretation) (06/25/2016 12:15 AM EST) Narrative [facility] - 08/11/2016 8:34 AM EST This study is for PACS storage only and not for interpretation. us Cody Velazquez MD IMG OUTSIDE IMAGING W/OUT INTERPRETATION Final Result [facility] documented in this encounter Visit Diagnoses Not on filedocumented in this encounter Additional Health Concerns Infection Onset Date Last Indicated Resolved Time CoV-Risk 12/10/2020 12/11/2020 12/20/2020 1:23 AM EDT documented as of this encounter Additional Source Comments The information contained in this document represents components of the legal health record. It is not the complete legal health record.[facility]
--- OUTSIDE RECORDS SUMMARY | 2016-06-27 | XMS_ITS | Encounter Summary ---
Author Organization [facility] Address [address] [facility] [address] [place] [address] Phone Care Team Providers Care Bell Clerk Name Role Phone Unavailable Primary Care Provider Unavailabl e Encounter Details Date Type Department Care Team ([facility] st Contact Info) Description 06/27/2016 Hospital Encounter [facility] [address] [place] [address] Cody Velazquez MD 123 [facility] [address] [place] [address] [email or web address] Social History Tobacco Use Types Packs/Day Years [...] 04/11/2025 Procedure Pass [facility] [address] [place] [address] [place] [address] 08/10/2025 10:15 AM EDT Appointment [facility] [address] [place] [address] [place] [address] Wade Overton, DO [address] [place] [address] [place] [address] [email or web address] 10/09/2025 12:30 PM EDT Office Visit [facility] [address] [place] [address] 3rd Floor, [address] [place] [address] Blanka Weinstein, [address] [address] [email or web address] documented as of this encounter Procedures Procedure Name Priority Date/Time Associated Diagnosis Comments XR SPINE OUTSIDE (NO INTERPRETATION) Routine 06/27/2016 12:00 AM EST documented in this encounter Results * XR SPINE OUTSIDE(NO INTERPRETATION) (06/27/2016 12:00 AM EST) Narrative [facility] IMG INTERFACES - 08/11/2016 8:32 AM EST This study is for PACS storage only and not for interpretation. us Cody Velazquez MD IMG OUTSIDE IMAGING W/OUT INTERPRETATION Final Result [facility] IMG INTERFACES documented in this encounter Visit Diagnoses Not on filedocumented in this encounter Additional Health Concerns Infection Onset Date Last Indicated Resolved Time CoV-Risk 12/10/2020 12/11/2020 12/20/2020 1:23 AM EDT documented as of this encounter Additional Source Comments The information contained in this document represents components of the legal health record. It is not the complete legal health record.[facility]
--- OUTSIDE RECORDS SUMMARY | 2016-06-27 00:15 | XMS_ITS | Encounter Summary ---
Author Organization [employer] [facility] Address [address] [facility] [address] [place] [address] Phone Care Team Providers Care Category Planner Name Role Phone Unavailable Primary Care Provider Unavailabl e Encounter Details Date Type Department Care Team ([facility] st Contact Info) Description 06/27/2016 12:15 AM EST Hospital Encounter [facility] General Imaging [address] [place] [address] Cody Velazquez MD 123 [facility] [address] [place] [address] [email or web address] Social History Tobacco Use Types Packs/Day Years [...] 04/11/2025 Procedure Pass [facility] [address] [place] [address] [place] [address] 08/10/2025 10:15 AM EDT Appointment [facility] [address] [place] [address] [place] [address] Wade Overton, DO [address] [facility] [address] [place] [address] [email or web address] 10/09/2025 12:30 PM EDT Office Visit [facility] [address] [place] [address] 3rd Floor, [address] [place] [address] Blanka Weinstein, [address] [address] [email or web address] documented as of this encounter Procedures Procedure Name Priority Date/Time Associated Diagnosis Comments XR SPINE OUTSIDE (NO INTERPRETATION) Routine 06/27/2016 12:15 AM EST documented in this encounter Results * XR SPINE OUTSIDE(NO INTERPRETATION) (06/27/2016 12:15 AM EST) Narrative [facility] IMG INTERFACES - 08/11/2016 8:33 AM EST This study is for PACS storage only and not for interpretation. us Cody Velazquez MD IMG OUTSIDE IMAGING W/OUT INTERPRETATION Final Result [facility] IM INTERFACES documented in this encounter Visit Diagnoses Not on filedocumented in this encounter Additional Health Concerns Infection Onset Date Last Indicated Resolved Time CoV-Risk 12/10/2020 12/11/2020 12/20/2020 1:23 AM EDT documented as of this encounter Additional Source Comments The information contained in this document represents components of the legal health record. It is not the complete legal health record.[facility]
--- OUTSIDE RECORDS SUMMARY | 2016-08-15 23:00 | XMS_ITS | Encounter Summary ---
Author Organization [facility] Address [address] [employer] [facility] [address] [place] [address] Phone Care Team Providers Care Director Of Dementia Operations Name Role Phone Orville Palomino MD Primary Care Provider [phone] Reason for Visit * MRI/CAT Scan - Closed Specialty Diagnoses / Procedures Referred By Contjose t Referred To Contact Procedures CT Spine (Bone) Focus Outside (No Interpretation) Cody Velazquez MD 123 [facility] [address] [place] [address] Phone: tel: fax: mailto:[email or web address] Referral ID Status Reason Start Date Expiration Date Visits Re quested Visits Authorized [id number] Closed 08/21/2016 08/21/2017 1 1 Encounter Details Date Type Department Care Team ([facility] Contact Info) Description 08/16/2016 Hospital Encounter [facility] [address] [place] [address] Cody Velazquez MD 123 [facility] [address] [place] [address] [email or web address] Social History Tobacco Use Types Packs/Day Years [...] 04/11/2025 Procedure Pass [facility] [address] 08/10/2025 10:15 AM EDT Appointment [facility] [address] [place] [address] Wade Overton, 22 [facility] [address] [place] [address] 10/09/2025 12:30 PM EDT Office Visit Elisa Swenson [facility] Perl[address] Goodman 3rd Floor, [address] [place] [address] Blanka Weinstein, [address] [address] documented as of this encounter Procedures Procedure Name Priority Date/Time Associated Diagnosis Comments CT SPINE (BONE) OUTSIDE (NO INTERPRETATION) Routine 08/16/2016 12:00 AM EDT documented in this encounter Results * CT Spine (Bone) Focus Outside (No Interpretation) (08/16/2016 12:00 AM EDT) Narrative [facility] IMG INTERFACES - 08/21/2016 10:49 AM EDT This study is for PACS storage only and not for interpretation. Cody Velazquez MD IMG OUTSIDE IMAGING W/OUT INTERPRETATION Final Result [facility]G INTERFACES documented in this encounter Visit Diagnoses Not on filedocumented in this encounter Additional Health Concerns Infection Onset Date Last Indicated Resolved Time CoV-Risk 12/10/2020 12/11/2020 12/20/2020 1:23 AM EDT documented as of this encounter Care Teams Director Of Dementia Operations Relationship Specialty Start Date End Date Orville Palomino MD [address] [facility] [address] [place] [address] [email or web address] PCP - General 07/12/16 03/08/17 documented as of this encounter Additional Source Comments The information contained in this document represents components of the legal health record. It is not the complete legal health record.[facility]
--- NOTE | 2025-06-01 13:18 | A.OFFVIS_ITS ---
Intake Visit Reasons: 6M/PVR/UA(SET) Intake Note: Patient presents today for follow up on: nocturia, incontinence, incomplete bladder emptying c/o urine odor today per patient she has had 3 UTI prior to this visit seen at [facility] last UTI tX was Cephalexin 500 mg 1 tab po bid x7days Urology Medications: none Blood Thinner: none No Abx Allergy PVR: 0 ml's Psychology Fellow Required: No Accompanied by: Spouse Allergies lisinopril Allergy (Intermediate, Verified 06/01/25 14:26) Cough Medication List - Last Reconciled 06/01/25 by TRINIDAD Dawson- atorvastatin 10 mg PO DAILY fluoxetine 20 mg PO DAILY gabapentin 300 mg PO ONCE losartan 100 mg PO DAILY menthol-zinc oxide 0.44-20.6 % (Calmoseptine) 1 appl topical QID PRN metoprolol succinate ER 50 mg PO DAILY nitrofurantoin monohyd/m-cryst 100 mg (Macrobid) 100 mg PO BID 10 days psyllium seed (sugar) (Metamucil (sugar) oral powder) 1 tbsp PO DAILY HPI Comments Details: Mandy is a pleasant 64 year old female patient of Dr. Anand who is accompained by her at todays visit. She presents to the office today for follow-up of her urinary incontinence. She has a PMH of cardiac arrest, depression, HTN, and osteoarthritis. In discussion with the patient and her today she reports since her last office visit here approximately 8 months ago she has had followed up with her PCP for issues with constipation as well as recurrent urinary tract infections. She reports since March she has had 3 urinary tract infections. She reports a longstanding history of constipation however had been managed well with MiraLax [id number] however more recently has been having issues again. We did discuss correlation of constipation with recurrent urinary tract infections. In office urinalysis results reviewed with the patient today. 3+ leukocytes positive nitrates. PVR 0 mL. Patient's reports patient has typical UTI like symptoms are i rritability. She denies hematuria, dysuria, foul smelling urine, changes to urinary stream, flank pain, fever, and or chills. Of note, patient had previously been on oxybutynin for lower urinary tract symptoms however this has since been discontinued and patient has been self managing urinary issues independently. Previous workup has included a retroperitoneal ultrasound 02/23 that noted unremarkable examination of the kidneys in the bladder. All questions were answered. She otherwise offers no other issues or concerns at this time. [facility] Medical History Hemorrhoids with complication HTN (hypertension) Cardiac arrest Urinary incontinence OA (osteoarthritis) Depression Surgical History History of appendectomy Social History Alcohol intake: never Patient Tobacco Use Status: Never used Tobacco Review of Systems Const Reports as per HPI Eyes Reports no additional complaints ENT Reports no additional complaints Card Reports no additional complaints Resp Reports no additional complaints GI Reports no additional complaints Reports as per HPI Musc Reports as per HPI Neuro Reports as per HPI Psych Reports no additional complaints Endo Reports no additional complaints Zbigniew/Lymph Reports no additional complaints Aller/Immun Reports no additional complaints Physical Exam Const General: cooperative, healthy appearing, comfortable, no acute distress, well developed, alert and awake Orientation/consciousness: patient oriented x3 Limitations: wheelchair HEENT Head: Yes normal to inspection, Yes normocephalic and Yes atraumatic Ears: hearing grossly normal bilaterally Eyes General: appearance normal, both eyes and all related structures Neck Neck: Yes normal visual inspection and Yes trachea midline Chest Chest palpation & inspection: normal inspection of the chest Resp Effort & Inspection: normal respiratory effort and able to speak in complete sentences Cardio Rate: regular rate GI Inspection: Yes normal to inspection General: Yes no CVA tenderness Back/Spine/Pelvis Back: no CVA tenderness Skin General skin exam: no rashes or lesions noted Neuro General: patient oriented x3 Extrem General: Yes normal to inspection Psych Appearance: grossly normal and well kempt Mental Status: mental status grossly normal Speech and movement: Clear speech present Affect: normal affect Attitude: cooperative Thought process: Normal thought process present Thought content: Normal thought content present Insight: Fair insight present (Psych) Judgement: Fair judgement present (Psych) Office Procedures Post Void Residual Post Residual Void Post Void Residual (PVR): 0 [id number] Void Residual by ultrasound Results AMB Urinalysis, Automated UA Leukoctes 500 Claudia/uL Last Edit by Marlen Morgan [facility] on 06/01/25 13:41 UA Nitrite Positive Last Edit by Marlen Mora, [facility] on 06/01/25 13:41 UA Urobilinogen 0.2 mg/dL Last Edit by Marlen Morgan, [facility] on 06/01/25 13:41 UA Protein 30 mg/dL [facility] on 06/01/25 13:41 UA pH 6.0 Last Edit by Marlen Morgan, [facility] on 06/01/25 13:41 UA Blood 80 Ajith/uL Last Edit by Marlen Tunica, [facility] on 06/01/25 13:41 UA Specific Hendley 1.020 Last Edit by Marlen Mora, [facility] on 06/01/25 13:4 1 UA Ketone Negative Last Edit by Marlen Morgan, [facility] on 06/01/25 13:41 UA Bilirubin 0 mg/dL Last Edit by Marlen Mora, [facility] on 06/01/25 13:41 UA Glucose 0 mg/dL Last Edit by Marlen Morgan, [facility] on 06/01/25 13:41 Results Reviewed Results Reviewed: Laboratory Last Values Urine pH (Auto) 6.0 06/01/25 13:33 Specific Hendley (Auto) 1.020 06/01/25 13:33 Urine Protein (Auto) 30 mg/dL 06/01/25 13:33 Glucose (UA)(Auto) 0 mg/dL 06/01/25 13:33 Urine Ketones (Auto) Negative 06/01/25 13:33 Urine Blood (Auto) 80 Ajith/uL 06/01/25 13:33 Urine Nitrite (Auto) Positive 06/01/25 13:33 Urine Bilirubin (Auto) 0 mg/dL 06/01/25 13:33 Urine Urobilinogen (Auto) 0.2 mg/dL 06/01/25 13:33 Leukocyte Esterase (Auto) 500 Claudia/uL 06/01/25 13:33 Assessment & Plan Assessment & Plan (1) Nocturia: Code(s): R35.1 - Nocturia Category: Medical (2) Urinary incontinence: Code(s): R32 - Unspecified urinary incontinence Category: Medical (3) Recurrent urinary tract infection: Code(s): N39.0 - Urinary tract infection, site not specified Category: Medical (4) Complicated urinary tract infection: Code(s): N39.0 - Urinary tract infection, site not specified Category: Medical Plan In office urinalysis results with the patient today; as noted above; will send for urine culture as well as urine cytology. PVR 0 mL. We did discussed potential causes of recurrent urinary tract infections as well as further treatment options and risks and benefits of these treatment options. We discussed correlation of constipation with recurrent urinary tract infections. All questions were answered. Start Macrobid as discussed and prescribed. Discussed UTI prevention with D mannose supplement, vitamin-C, increasing fluid intake, behavioral therapy with timed voiding, perineal hygiene and postcoital voiding, and management of constipation with stool softeners and increased fiber intake. Will refer to gastroenterology for further assessment evaluation. Follow-up in 1-3 months with PVR; or sooner with any issues, concerns, and or questions. Orders: Orders AMB Post Void Residual by ultrasound Today N40.1 - Benign prostatic hyperplasia with lower urinary tract symptoms Urine Cytology Today R31.29 - Other microscopic hematuria Urine Culture Today R33.9 - Retention of urine, unspecified AMB Urinalysis Automated Today N13.8 - Other obstructive and reflux uropathy, N40.1 - Benign prostatic hyperplasia with lower urinary tract symptoms Referrals Gastroenterology Referral K59.00 - Constipation, unspecified Medications: New nitrofurantoin monohyd/m-cryst 100 mg (Macrobid) must administer with a meal/food 100 mg PO BID 20 caps 0RF 10 days Patient Instructions: The patient had an opportunity to ask questions regarding the treatment plan. All questions were answered. Physical exam, labs, and imaging were discussed and reviewed in detail. As well as risks, benefits, and discussion of treatment choices. No major barriers to understanding were identified. The patient expressed understanding and agreement with the above treatment plan. The patient was made aware they should contact our office by phone for worsening of their current condition, the appearance of new symptoms, or with any questions or concerns. Compliance is encouraged with any medications and follow up testing that is ordered. It is a privilege to be allowed the opportunity to participate in? your urological care.? Again, if you have any questions or concerns If you have any questions or concerns please do not hesitate to contact me. The office is [phone]. This note is constructed using voice recognition software. While every effort has been made to ensure accuracy prepress supervisor errors may have been included. Yours sincerely, DEREK Dawson Coding Level of Care Code Est Pt Level 4 (83463) Add On Problem Visit Only Diagnoses Nocturia R35.1 Urinary incontinence R32 Recurrent urinary tract infection N39.0 Complicated urinary tract infection N39.0 CPT Codes Post Residual Void - PVR CPT Code: 55703-Juaa Void Residual by ultrasound ([id number])
--- OUTSIDE RECORDS SUMMARY | 2025-06-01 15:03 | XMS_ITS | Encounter Summary ---
Author Organization [facility] Address [facility] [address] [place] [address] Phone Care Team Providers Care Warehouse Insulation Worker Name Role Phone Orivlle Palomino MD Primary Care Provider Susana Cook CNM Unavailable Huma Sumner BOTTLE SELECTOR Unavailable [phone] Angy Haywood BOTTLE SELECTOR Unavailable Carl Collins MD Unavailable [phone] Issa Nguyen MD Unavailable Lana Hardy BOTTLE SELECTOR Unavailable Rena Ruff MD Unavailable Yanni Walker MD Unavailable Radha Johnson MD Unavailable [phone] Erika Ceja HEEL CUTTER Unavailable Radha Fenton Primary Care Prov ider Trisha Abrams Primary Care Provider Unava ilable Encounter Details Date Type Department Care Team (Late st Contact Info) Description 09/10/2020 Procedure Pass [facility], [address] [id number] Social History Tobacco Use Types Packs/Day Years [...] 04/11/2025 Procedure Pass [facility] [address] [place] [address] 08/10/2025 10:15 AM EDT Appointment [facility] [address] [place] [address] Wade Overton DO 22 [facility] [address] [place] [address] 10/09/2025 12:30 PM EDT Office Visit [facility] 22 [facility] 3rd Floor, [address] [place] [address] Blanka Weinstein, DNP [address] [place] [address] documented as of this encounter Visit Diagnoses Not on filedocumented in this encounter Additional Health Concerns Infection Onset Date Last Indicated Resolved Time CoV-Risk 12/10/2020 12/11/2020 12/20/2020 1:23 AM EDT documented as of this encounter Care Teams Warehouse Insulation Worker Relationship Specialty Start Date End Date Orville Palomino MD [address] [place] [address] [place] [phone] [email or web address] PCP - General 03/09/17 09/30/21 Radha Fenton PA [address] [place] [address] PCP - General 10/01/21 05/12/24 Trisha Abrams [address] [place] [address] PCP - General 05/13/24 Susana Cook CNM [address] [place] [address] Historical LMR Provider 03/25/17 2 Huma Sumner, BOTTLE SELECTOR [address] [place] [address] Historical LMR Provider 03/25/17 06/11/21 Angy Haywood NP [address] [place] [address] Historical LMR Provider 03/25/17 2 Carl Collins MD 22 [facility] [address] [place] [address] [email or web address] Historical LMR Provider 03/25/17 06/11/21 Issa Nguyen MD [address] [place] [phone] Historical LMR Provider 03/25/17 2 Lana Hardy NP [address] [place] [address] Historical LMR Provider 03/25/17 2 Rena Ruff MD [address] [place] [address] [facility], [place] [address] [email or web address] Historical LMR Provider 03/25/17 Yanni Walker MD [address] [place] [address] [facility] [place] [address] Historical LMR Provider 03/25/17 06/11/21 Radha Johnson MD [address] [place] [address] Historical LMR Provider 03/25/17 2 Erika Ceja CNP [address] [place] [address], [address] [place] [address] [email or web address] Historical LMR Provider 03/25/17 documented as of this encounter Additional Source Comments The information contained in this document represents components of the legal health record. It is not the complete legal health record.[facility]
--- OUTSIDE RECORDS SUMMARY | 2025-06-01 15:03 | XMS_ITS | Clinical Summary ---
Author Organization [facility] Address [address] [place] [address] Care Team Providers Care Interpreter Translator Name Role Phone Sara Anand Primary Care Provider [phone] Social History Tobacco Use Types Packs/Day Years Used Date Smoking Tobacco: Never Assessed Comments Unknown Sex and Gender Information Value Date Recorded Sex Assigned at Not on file Legal Sex Female 11:28 AM EST Gender Identity Not on file Sexual Orientation Not on file Plan of Treatment Upcoming Encounters Date Type Department Care Team (Late st Contact Info) Description 06/13/2025 3:45 PM EST Appointment [facility] Department of Magnetic Resonance Imaging (MRI) [address] [place] [address] Insurance MEDICARE PART A & B [facility] MEDICARE PART A & B [facility] Care Teams Interpreter Translator Relationship Specialty Start Date End Date Sara Anand [address] [place] [address] PCP - General 05/20/25
--- OUTSIDE RECORDS SUMMARY | 2025-06-01 15:03 | XMS_ITS | Encounter Summary ---
Author Organization [facility] Address Count includes the [facility] [address] [place] [address] Phone Care Team Providers Care Dependency Counselor Name Role Phone Orville Palomino MD Primary Care Provider [phone] Susana Cook CNM Unavailable Huma Sumner CNC TECHNICIAN Unavailable [phone] Angy Haywood CNC TECHNICIAN Unavailable Carl Collins MD Unavailable Issa Nguyen MD Unavailable Lana Hardy CNC TECHNICIAN Unavailable Rena Ruff MD Unavailable Yanni Walker MD Unavailable Radha Johnson MD Unavailable [phone] Erika Ceja COMMERCIAL SEWING INSTRUCTOR Unavailable Radha Fenton Primary Care Prov ider Trisha Abrams Primary Care Provider Unava ilable Encounter Details Date Type Department Care Team (Late st Contact Info) Description 09/12/2020 Transcribe Orders Virtual Department [address] [place], [place] [phone] Wade Garrison MD [address] [place] [address] Social History Tobacco Use Types Packs/Day Years [...] Procedure Pass [facility] [address] [place] [address] 08/10/2025 10:15 AM EDT Appointment [facility] [address] [place] [address] Wade Overton DO 22 [facility] [address] [place] [address] 10/09/2025 12:30 PM EDT Office Visit [facility] 22 [facility] 3rd Floor, [address] [place] [address] Blanka Weinstein, DNP [address] [place] [address] [email or web address] documented as of this encounter Visit Diagnoses Not on filedocumented in this encounter Additional Health Concerns Infection Onset Date Last Indicated Resolved Time CoV-Risk 12/10/2020 12/11/2020 12/20/2020 1:23 AM EDT documented as of this encounter Care Teams Dependency Counselor Relationship Specialty Start Date End Date Orville Palomino MD 230 [facility] [address] [place] [phone] [email or web address] PCP - General 03/09/17 09/30/21 Radha Fenton PA [address] [place] [address] PCP - General 10/01/21 05/12/24 Trisha Abrams [address] [place] [address] PCP - General 05/13/24 Susana Cook CNM [address] [place] [address] Historical LMR Provider 03/25/17 2 Huma Sumner CNC TECHNICIAN [address] [place] [address] [email or web address] Historical LMR Provider 03/25/17 06/11/21 Angy Haywood NP [address] [place] [address] Historical LMR Provider 03/25/17 2 Carl Collins MD [address] [place] [address] [address] [place] [address] [email or web address] Historical LMR Provider 03/25/17 06/11/21 Issa Nguyen MD [address] [place] [phone] Historical LMR Provider 03/25/17 2 Lana Hardy NP [address] [place] [address] Historical LMR Provider 03/25/17 2 Rena Ruff MD [address] [place] [address] [facility], [place] [address] [email or web address] Historical LMR Provider 03/25/17 Yanni Walker MD [address] [place] [address] [facility], [place] [address] Historical LMR Provider 03/25/17 06/11/21 Radha Johnson MD [address] [place] [address] Historical LMR Provider 03/25/17 2 Erika Ceja CNP [address] [place] [address], [address] [place] [address] [email or web address] Historical LMR Provider 03/25/17 documented as of this encounter Additional Source Comments The information contained in this document represents components of the legal health record. It is not the complete legal health record.[facility]
--- OUTSIDE RECORDS SUMMARY | 2025-06-01 15:03 | XMS_ITS | Encounter Summary ---
Author Organization [facility] Address [facility] [employer] [facility] [address] [place] [address] Phone Care Team Providers Care Oil Seal Assembler Name Role Phone Orville Palomino MD Primary Care Provider Susana Cook CNM Unavailable Huma Sumner WIND FIELD MANAGER Unavailable [phone] Angy Haywood WIND FIELD MANAGER Unavailable Carl Collins MD Unavailable [phone] Issa Nguyen MD Unavailable Lana Hardy WIND FIELD MANAGER Unavailable Rena Ruff MD Unavailable Yanni Walker MD Unavailable Radha Johnson MD Unavailable [phone] Erika Ceja SOCIAL DIRECTOR Unavailable Radha Fenton Primary Care Prov ider Trisha Abrams Primary Care Provider Unava ilable Reason for Referral * Physical Therapy (Routine) - Closed Specialty Diagnoses / Procedures Referred By Contac t Referred To Contact Physical Therapy Diagnoses Encounter for rehabilitation Orville Palomino MD Phone: tel: fax: [email or web address] [facility] [address] [place] [address] Phone: tel: Referral ID Status Reason Start Date Expiration Date Visits Re quested Visits Authorized [id number] Closed 05/07/2019 06/03/2020 60 60 Encounter Details Date Type Department Care Team (Latest Contact Info) Description 05/07/2019 Transcribe Orders [facility] [address] [place] [address] Orville Palomino MD 230 [facility] [address] [place] [phone] [email or web address] Encounter for rehabilitation (Primary Dx) Social History [...] 04/11/2025 Procedure Pass [facility] [address] [place] [address] [place] [address] 08/10/2025 10:15 AM EDT Appointment [facility] [address] [place] [address] [place] [address] Wade Overton, [address] [place] [address] [place] [address] 10/09/2025 12:30 PM EDT Office Visit [facility] [address] [place] [address] 3rd Floor, [address] [place] [address] Blanka Weinstein, [address] [address] [email or web address] documented as of this encounter Procedures Procedure Name Priority Date/Time Associated Diagnosis Comments AMB REFERRAL TO [facility] PHYSICAL THERAPY Routine 05/14/2019 8:35 PM EST Encounter for rehabilitation documented in this encounter Results * Ambulatory referral to [facility] Physical Therapy (05/14/2019 8:35 PM EST) Orville [facility] REFERRALS Final Result documented in this encounter Visit Diagnoses Diagnosis Encounter for rehabilitation- Primary documented in this encounter Additional Health Concerns Infection Onset Date Last Indicated Resolved Time CoV-Risk 12/10/2020 12/11/2020 12/20/2020 1:23 AM EDT documented as of this encounter Care Teams Oil Seal Assembler Relationship Specialty Start Date End Date Orville Palomino MD 230 [facility] [address] [place] [phone] [email or web address] PCP - General 03/09/17 09/30/21 Radha Fenton PA [address] [place] [address] PCP - General 10/01/21 05/12/24 Trisha Abrams [address] [place] [address] PCP - General 05/13/24 Susana Cook CNM [address] [place] [address] Historical LMR Provider 03/25/17 2 Huma Sumner NP [address] [place] [address] [email or web address] Historical LMR Provider 03/25/17 06/11/21 Angy Haywood NP [address] [place] [address] Historical LMR Provider 03/25/17 2 Carl Collins MD [address] [place] [address] [address] [place] [address] Historical LMR Provider 03/25/17 06/11/21 Issa Nguyen MD [address] [place] [address] [address] [place] [phone] Historical LMR Provider 03/25/17 2 Lana Hardy NP [address] [place] [address] Historical LMR Provider 03/25/17 2 Rena Ruff MD 4 [facility] [place] [facility], [place] [address] [email or web address] Historical LMR Provider 03/25/17 Yanni Walker MD [address] [place] [address] Orthopedics Sports [facility], [place] [address] [email or web address] Historical LMR Provider 03/25/17 06/11/21 Radha Johnson MD [address] [place] [address] Historical LMR Provider 03/25/17 2 Erika Ceja CNP 22 [facility], [address] [place] [address] [email or web address] Historical LMR Provider 03/25/17 documented as of this encounter Additional Source Comments The information contained in this document represents components of the legal health record. It is not the complete legal health record.[facility]
--- OUTSIDE RECORDS SUMMARY | 2025-06-01 15:03 | XMS_ITS | Encounter Summary ---
Author Organization [facility] Address [facility] [address] [place] [address] Phone Care Team Providers Care Boston Cutter Name Role Phone Orville Palomino MD Primary Care Provider [phone] Susana Cook CNM Unavailable Huma Sumner CO PILOT Unavailable [phone] Angy Haywood CO PILOT Unavailable Carl Collins MD Unavailable [phone] Issa Nguyen MD Unavailable Lana Hardy CO PILOT Unavailable Rena uRff MD Unavailable Yanni Walker MD Unavailable Radha Johnson MD Unavailable [phone] Erika Ceja PROP DRAWER Unavailable Radha Fenton Primary Care Prov ider Trisha Abrams Primary Care Provider Unava ilable Encounter Details Date Type Department Care Team (Late st Contact Info) Description 09/10/2020 Procedure Pass [facility], [address] [id number] Social History Tobacco Use Types Packs/Day Years [...] Assessment Author No 08/24/2016 11:25 AM Eloina Hererra CNP * Patient is blind or has [...] [facility] [address] [place] [address] 08/10/2025 10:15 AM EDT Appointment [facility] [address] [place] [address] Wade Overton DO 22 [facility] [address] [place] [address] 10/09/2025 12:30 PM EDT Office Visit [facility] 22 [facility] 3rd Floor, [address] [place] [address] Blanka Weinstein, DNP [address] [place] [address] documented as of this encounter Visit Diagnoses Not on filedocumented in this encounter Additional Health Concerns Infection Onset Date Last Indicated Resolved Time CoV-Risk 12/10/2020 12/11/2020 12/20/2020 1:23 AM EDT documented as of this encounter Care Teams Boston Cutter Relationship Specialty Start Date End Date Orville Palomino MD [address] [place] [address] [place] [phone] [email or web address] PCP - General 03/09/17 09/30/21 Radha Fenton PA [address] [place] [address] PCP - General 10/01/21 05/12/24 Trisha Abrams [address] [place] [address] PCP - General 05/13/24 Susana Cook CNM 30 [place] [address] Historical LMR Provider 03/25/17 2 Huma Sumner, [place] PILOT 30 [place] [address] Historical LMR Provider 03/25/17 06/11/21 Angy Haywood NP [address] [place] [address] Historical LMR Provider 03/25/17 2 Carl Collins MD [address] [facility] [address] [place] [address] [email or web address] Historical LMR Provider 03/25/17 06/11/21 Issa Nguyen MD [address] [place] [phone] Historical LMR Provider 03/25/17 2 Lana Hardy NP [address] [place] [address] Historical LMR Provider 03/25/17 2 Rena Ruff MD [address] [place] [address] [facility], [place] [address] jose Historical LMR Provider 03/25/17 Yanni Walker MD [address] [place] [address] [facility] [place] [address] Historical LMR Provider 03/25/17 06/11/21 Radha Johnson MD [address] [place] [address] Historical LMR Provider 03/25/17 2 Erika Ceja CNP [address] [place] [address], [address] [place] [address] [email or web address] Historical LMR Provider 03/25/17 documented as of this encounter Additional Source Comments The information contained in this document represents components of the legal health record. It is not the complete legal health record.[facility]
--- OUTSIDE RECORDS SUMMARY | 2025-06-01 15:03 | XMS_ITS | Encounter Summary ---
Author Organization [facility] Address [address] [place] [address] [address] [place] [address] Phone Care Team Providers Care Transportation Aid Name Role Phone Orville Palomino MD Primary Care Provider [phone] Orville Palomino MD Primary Care Provider [phone] Susana Cook CNM Unavailable Huma Sumner DIRECTOR SAFETY COUNCIL Unavailable [phone] Angy Haywood DIRECTOR SAFETY COUNCIL Unavailable PerCarl olivo MD Unavailable [phone] Issa Nguyen MD Unavailable Lana Hardy DIRECTOR SAFETY COUNCIL Unavailable Rena Ruff MD Unavailable Yanni Walker MD Unavailable Radha Johnson MD Unavailable [phone] Erika Ceja SURFACE WATER TECHNICIAN Unavailable Radha Fenton Primary Care Prov ider Trisha Abrams Primary Care Provider Unava ilable Encounter Details Date Type Department Care Team (Late st Contact Info) Description 08/11/2016 Procedure Pass [facility] [address] [place] [address] Social History Tobacco Use Types Packs/Day Years Used Date Smoking Tobacco: Never Smokeless Tobacco: Never Alcohol Use Standard Drinks/Week Comments Not Currently 0 (1 standard drink = 0.6 oz pure alcohol) Havent had a drink in 5 years. Comments No Sex and Gender Information Value [...] Procedure Pass [facility] [address] [place] [address] 08/10/2025 10:15 AM EDT Appointment [facility] [address] [place] [address] [place] [address] Wade Overton DO 22 [facility] [address] [place] [address] [email or web address] 10/09/2025 12:30 PM EDT Office Visit [facility] [address] [place] [address] 3rd Floor, [address] [place] [address] Blanka Weinstein, [facility] 50 [place] [address] [email or web address] documented as of this encounter Visit Diagnoses Not on filedocumented in this encounter Additional Health Concerns Infection Onset Date Last Indicated Resolved Time CoV-Risk 12/10/2020 12/11/2020 12/20/2020 1:23 AM EDT documented as of this encounter Care Teams Transportation Aid Relationship Specialty Start Date End Date Orville Palomino MD 230 [facility] [address] [place] [address] [email or web address] PCP - General 07/12/16 03/08/17 Orville Palomino MD 230 [facility] [address] [place] [phone] [email or web address] PCP - General 03/09/17 09/30/21 Radha Fenton PA [address] [place] [address] PCP - General 10/01/21 05/12/24 Trisha Abrams [address] [place] [address] PCP - General 05/13/24 Susana Cook CNM 30 [place] [address] Historical LMR Provider 03/25/17 2 Huma Sumner NP 30 [place] [address] [email or web address] Historical LMR Provider 03/25/17 06/11/21 Angy Haywood NP [address] [place] [address] Historical LMR Provider 03/25/17 2 Carl Collins MD [address] [place] [address] [address] [place] [address] Historical LMR Provider 03/25/17 06/11/21 Issa Nguyen MD [address] [place] [address] 7 [place] [phone] Historical LMR Provider 03/25/17 2 Lana Hardy NP [address] [place] [address] Historical LMR Provider 03/25/17 2 Rena Ruff MD 4 [facility], [place] [address] jose Historical LMR Provider 03/25/17 Yanni Walker MD [address] [place] [address] [facility], [place] [address] [email or web address] Historical LMR Provider 03/25/17 06/11/21 Radha Johnson MD [address] [place] [address] Historical LMR Provider 03/25/17 2 Erika Ceja CNP 22 [facility], [address] [place] [address] [email or web address] Historical LMR Provider 03/25/17 documented as of this encounter Additional Source Comments The information contained in this document represents components of the legal health record. It is not the complete legal health record.[facility]
--- OUTSIDE RECORDS SUMMARY | 2025-06-01 15:03 | XMS_ITS | Encounter Summary ---
Author Organization [facility] Address [facility] [address] [place] [address] Phone Care Team Providers Care First Crusher Name Role Phone Orville Palomino MD Primary Care Provider Susana Cook CNM Unavailable Huma Sumner MANAGEMENT LIAISON Unavailable [phone] Angy Haywood MANAGEMENT LIAISON Unavailable Carl Collins MD Unavailable [phone] Issa Nguyen MD Unavailable Lana Hardy MANAGEMENT LIAISON Unavailable Rena Ruff MD Unavailable Yanni Walker MD Unavailable Radha Johnson MD Unavailable [phone] Erika Ceja SHIRT CLEANER Unavailable Radha Fenton Primary Care Prov ider Trisha Abrams Primary Care Provider Unava ilable Encounter Details Date Type Department Care Team (Late st Contact Info) Description 09/10/2020 Procedure Pass [facility], [address] [phone] Social History Tobacco Use Types Packs/Day Years [...] [facility] [address] [place] [address] 08/10/2025 10:15 AM EDT Appointment [facility] [address] [place] [address] Wade Overton DO 22 [facility] [address] [place] [address] 10/09/2025 12:30 PM EDT Office Visit [facility] 22 [facility] 3rd Floor, [address] [place] [address] Blanka Weinstein, DNP [address] [place] [address] documented as of this encounter Visit Diagnoses Not on filedocumented in this encounter Additional Health Concerns Infection Onset Date Last Indicated Resolved Time CoV-Risk 12/10/2020 12/11/2020 12/20/2020 1:23 AM EDT documented as of this encounter Care Teams First Crusher Relationship Specialty Start Date End Date Orville Palomino MD [address] [place] [address] [place] [phone] [email or web address] PCP - General 03/09/17 09/30/21 Radha Fenton PA [address] [place] [address] PCP - General 10/01/21 05/12/24 Trisha Abrams [address] [place] [address] PCP - General 05/13/24 Susana Cook CNM 30 [place] [address] Historical LMR Provider 03/25/17 2 Huma Sumner, MANAGEMENT LIAISON 30 [place] [address] Historical LMR Provider 03/25/17 06/11/21 Angy Haywood NP [address] [place] [address] Historical LMR Provider 03/25/17 2 Carl Collins MD 22 [facility] 301 [place] [address] [email or web address] Historical LMR Provider 03/25/17 06/11/21 Issa Nguyen MD [address] [place] [phone] Historical LMR Provider 03/25/17 2 Lana Hardy NP [address] [place] [address] Historical LMR Provider 03/25/17 2 Rena Ruff MD [address] [place] [address] [facility], [place] [address] jose Historical LMR Provider 03/25/17 Yanni Walker MD [address] [place] [address] [facility] [place] [address] Historical LMR Provider 03/25/17 06/11/21 Radha Johnson MD [address] [place] [address] Historical LMR Provider 03/25/17 2 Erika Ceja CNP [address] [place] [address], [address] [place] [address] [email or web address] Historical LMR Provider 03/25/17 documented as of this encounter Additional Source Comments The information contained in this document represents components of the legal health record. It is not the complete legal health record.[facility]
--- OUTSIDE RECORDS SUMMARY | 2025-06-01 15:03 | XMS_ITS | Encounter Summary ---
Author Organization [facility] Address [facility] [address] [place] [address] Phone Care Team Providers Care Tube Trailer Filler Name Role Phone Orville Palomino MD Primary Care Provider Susana Cook CNM Unavailable Huma Sumner BEHAVIORAL CONSULTANT Unavailable Angy Haywood BEHAVIORAL CONSULTANT Unavailable Carl Collins MD Unavailable Issa Nguyen MD Unavailable Lana Hardy BEHAVIORAL CONSULTANT Unavailable Rena Ruff MD Unavailable Yanni Walker MD Unavailable Radha Johnson MD Unavailable [phone] Erika Ceja MORTGAGE ASSISTANT Unavailable Radha Fenton Primary Care Prov ider Trisha Abrams Primary Care Provider Unava ilable Reason for Referral * MRI/CAT Scan - Closed Specialty Diagnoses / Procedures Referred By Contac t Referred To Contact Radiology Diagnoses Lumbar back pain Procedures MRI Lumbar Spine CHG MRI, LUMBAR SPINE Wade Dos Santos MD Phone: tel: fax: [address] Phone: tel: Referral ID Status Reason Start Date Expiration Date Visits Re quested Visits Authorized [id number] Closed 09/24/2020 10/24/2020 1 1 * MRI/CAT Scan - Closed Specialty Diagnoses / Procedures Referred By Contac t Referred To Contact Radiology Diagnoses Acute thoracic back pain, unspecified back pain laterality Procedures MRI Thoracic Spine CHG MRI, DORSAL SPINE COMBO Wade Garrison MD Phone: tel: fax: [address] Phone: tel: Referral ID Status Reason Start Date Expiration Date Visits Re quested Visits Authorized [id number] Closed 09/23/2020 10/23/2020 1 1 * MRI/CAT Scan - Closed Specialty Diagnoses / Procedures Referred By Contac t Referred To Contact Radiology Diagnoses Cervicalgia Procedures MRI Cervical Spine CHG MRI, CERV SPINE Wade Dos Santos MD Phone: tel: fax: [address] Phone: tel: Referral ID Status Reason Start Date Expiration Date Visits Re quested Visits Authorized [id number] Closed 09/23/2020 10/23/2020 1 1 Encounter Details Date Type Department Care Team (Late st Contact Info) Description 09/10/2020 Ancillary Orders Virtual Department [address] [place] [address] Wade Garrison MD [address] [place] [phone] Cervicalgia; Acute thoracic back pain, unspecified [...] Procedure Pass [facility] [address] [place] [address] 08/10/2025 10:15 AM EDT Appointment [facility] [address] [place] [address] Wade Overton, 22 [facility] [address] [place] [address] 10/09/2025 12:30 PM EDT Office Visit [facility] 22 [facility] 3rd Floor, [address] [place] [address] Blanka Weinstein, [address] [address] [email or web address] documented as of this encounter Results * [...] with evidence of slight cord contact at [id number]. Visualized lower thoracic spinal cord and conus [...] L4-L5 level: Small posterior disc protrusion. Bilateral L4-[id number] hemilaminectomies. Mild central canal stenosis. Severenarrowing of lateral recesses. Moderately severe neural foraminalnarrowing. L4 level: Posterior and slightly left posterolateral disc protrusion.Severe central canal stenosis. Severe neural foraminal narrowing. L2-L3 level: Posterior and left paramedian-left posterolateral discprotrusion. Severe central canal stenosis. Severe left neural foraminalnarrowing. Additional findings, as described. us Wade Garrison MD IMG MR XSPECIALTY Fi [...] or high-grade neuroforaminal narrowing. Wade Garrison MD IM MR XSPECIALTY Fi nal Result * MRI CERVICAL SPINE (NEURO) FOCUS WITHOUT CONTRAST (09/23/2020 10:33 AM EDT) Anatomical Region Laterality Modality C-spine Magnetic Resonan ce 09/23/2020 10:5 9 AM EDT Impressions 09/23/2020 11:19 AM EDT No significant changes from 11/21/2019. POS [id number] Narrative 09/23/2020 11:19 AM EDT HISTORY:. Cervical pain, bilateral arm pain and numbness in hands, abnormal previous exam, COMPARISON: MRI cervical spine /20. TECHNIQUE: Exam performed on a 1.5 Annette [...] IMPRESSION: No significant changes from 11/21/2019. POS [id number] Wade Garrison MD IMG MR XSPECIALTY Fi [...] documented as of this encounter Care Teams Tube Trailer Filler Relationship Specialty Start Date End Date Orville Plaomino MD [address] [place] [address] [address] [place] [phone] [email or web address] PCP - General 03/09/17 09/30/21 Radha Fenton PA [address] [place] [address] PCP - General 10/01/21 05/12/24 Aliza Trisha [address] [place] [address] PCP - General 05/13/24 Susana Cook CNM 30 [place] [address] Historical LMR Provider 03/25/17 2 Huma Sumner NP 30 [place] [address] [email or web address] Historical LMR Provider 03/25/17 06/11/21 Angy Haywood NP [address] [place] [address] Historical LMR Provider 03/25/17 2 Carl Collins MD [address] [place] [address] Historical LMR Provider 03/25/17 06/11/21 Issa Nguyen MD [address] [place] [phone] Historical LMR Provider 03/25/17 2 Lana Hardy BEHAVIORAL CONSULTANT [address] [place] [address] Historical LMR Provider 03/25/17 2 Rena Ruff MD 4 [facility] [place] [address] jose Historical LMR Provider 03/25/17 Yanni Walker MD [address] [place] [address] [facility], [place] [address] Historical LMR Provider 03/25/17 06/11/21 Radha Johnson MD [address], [place] [phone] Historical LMR Provider 03/25/17 2 Erika Ceja CNP [address] [place], [place] [address] [place] [address] [email or web address] Historical LMR Provider 03/25/17 documented as of this encounter Additional Source Comments The information contained in this document represents components of the legal health record. It is not the complete legal health record.[facility]
--- OUTSIDE RECORDS SUMMARY | 2025-06-01 15:03 | XMS_ITS | Encounter Summary ---
Author Organization [facility] Address [address] [place] [address] Phone Care Team Providers Care Server Systems Administrator Name Role Phone Radha Fenton Primary Care Prov ider Trisha Abrams Primary Care Provider Unava ilable Encounter Details Date Type Department Care Team (Late st Contact Info) Description 03/13/2024 Procedure Pass [facility], [address] [address] Social History Tobacco Use Types Packs/Day Years [...] 04/11/2025 Procedure Pass [facility] [address] [address] 08/10/2025 10:15 AM EDT Appointment [facility] [place] [address] Wade Overton DO 22 [facility] [address] [place] [address] [email or web address] 10/09/2025 12:30 PM EDT Office Visit [facility] [address] 3rd Floor, [address] [place] [address] Balnka Weinstein, DNP [address] [place] [address] [email or web address] documented as of this encounter Visit Diagnoses Not on filedocumented in this encounter Care Teams Server Systems Administrator Relationship Specialty Start Date End Date Radha Fenton PA [address] [place] [address] PCP - General 10/01/21 05/12/24 Trisha Abrams [address] [place] [address] PCP - General 05/13/24 documented as of this encounter Additional Source Comments The information contained in this document represents components of the legal health record. It is not the complete legal health record.[facility]
--- OUTSIDE RECORDS SUMMARY | 2025-06-01 15:03 | XMS_ITS | Encounter Summary ---
Author Organization [facility] Address [facility] [employer] [facility] [address] [place] [address] Phone Care Team Providers Care Electrical Software Engineer Name Role Phone Orville Palomino MD Primary Care Provider [phone] Susana CookM Unavailable Huma Sumner BANQUET ATTENDANT Unavailable [phone] Angy Haywood BANQUET ATTENDANT Unavailable Carl Collins MD Unavailable [phone] Issa Nguyen MD Unavailable Lana Hardy BANQUET ATTENDANT Unavailable Rena Ruff MD Unavailable Yanni Walker MD Unavailable Radha Johnson MD Unavailable [phone] Erika Ceja OCEANOLOGIST Unavailable Radha Fenton Primary Care Prov ider Trisha Abrams Primary Care Provider Unava ilable Reason for Referral * Occupational Therapy (Routine) - Closed Specialty Diagnoses / Procedures Referred By Contac t Referred To Contact 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 Orville Palomino MD Phone: tel: fax: [email or web address] [facility] [address] [place] [address] Phone: tel: Referral ID Status Reason Start Date Expiration Date Visits Re quested Visits Authorized [id number] Closed 12/29/2020 06/03/2021 17 17 Encounter Details Date Type Department Care Team (Latest Contact Info) Description 12/29/2020 Transcribe Orders [facility] [address] [place] [address] Orville Palomino MD 230 [facility] [address] [place] [phone] [email or web address] Encounter for rehabilitation (Primary Dx) Social History [...] Procedure Pass [facility] [address] [place] [address] 08/10/2025 10:15 AM EDT Appointment [facility] [address] [place] [address] Wade Overton, 22 [facility] [address] [place] [address] 10/09/2025 12:30 PM EDT Office Visit [facility] [address] [place] [address] 3rd Floor, [address] [place] [address] Blanka Weinstein, [address] [address] [email or web address] Scheduled Referrals Name Type Priority Associated Diagnoses Orde r Schedule Ambulatory referral to [facility] Occupational Therapy Outpatient Referral Routine Encounter for rehabilitation Ordered: 12/29/2020 documented as of this encounter Visit Diagnoses Diagnosis Encounter for rehabilitation- Primary documented in this encounter Care Teams Electrical Software Engineer Relationship Specialty Start Date End Date Orville Palomino MD 230 [facility] [address] [place] [phone] [email or web address] PCP - General 03/09/17 09/30/21 Radha Fenton PA [address] [place] [address] PCP - General 10/01/21 05/12/24 Trisha Abrams [address] [place] [address] PCP - General 05/13/24 Susana Cook CNM 30 [place] [address] Historical LMR Provider 03/25/17 2 Huma Sumner NP [address] [place] [address] [email or web address] Historical LMR Provider 03/25/17 06/11/21 Angy Haywood NP [address] [place] [address] Historical LMR Provider 03/25/17 2 Carl Collins MD [address] [place] [address] [address] [place] [address] Historical LMR Provider 03/25/17 06/11/21 Issa Nguyen MD [address] [place] [phone] Historical LMR Provider 03/25/17 2 Lana Hardy BANQUET ATTENDANT [address] [place] [address] Historical LMR Provider 03/25/17 2 Rena Ruff MD 4 [facility], [facility] [place] [address] jose Historical LMR Provider 03/25/17 Yanni Walker MD 4 [facility] Sports [facility], [place] [address] Historical LMR Provider 03/25/17 06/11/21 Radha Johnson MD [address] [phone] Historical LMR Provider 03/25/17 2 Erika Ceja CNP [address] [place] [address], [address] [place] [address] [email or web address] Historical LMR Provider 03/25/17 documented as of this encounter Additional Source Comments The information contained in this document represents components of the legal health record. It is not the complete legal health record.[facility]
--- OUTSIDE RECORDS SUMMARY | 2025-06-01 15:04 | XMS_ITS | Encounter Summary ---
Author Organization Located Within [facility] Address [address] [place] [address] Phone Care Team Providers Care Butting Saw Operator Name Role Phone Trisha Abrams Primary Care Provider Unava ilable Encounter Details Date Type Department Care Team ([facility] Contact Info) Description 02/19/2025 Procedure Pass [facility] [employer] [facility] [address] [place] [address] Social History Tobacco Use Types Packs/Day Years [...] [facility] [address] [place] [address] 08/10/2025 10:15 AM EDT Appointment [facility] [address] [place] [address] Wade Overton DO 22 [facility] [address] [place] [address] 10/09/2025 12:30 PM EDT Office Visit [facility] [address] [facility] 3rd Floor, [address] [place] [address] Blanka Weinstein, DARRYL [address] [place] [address] documented as of this encounter Visit Diagnoses Not on filedocumented in this encounter Care Teams Butting Saw Operator Relationship Specialty Start Date End Date Trisha Abrams PCP - General 05/13/24 documented as of this encounter Additional Source Comments The information contained in this document represents components of the legal health record. It is not the complete legal health record.[facility]
--- OUTSIDE RECORDS SUMMARY | 2025-06-01 15:04 | XMS_ITS | Clinical Summary ---
Author Organization [facility] Address [address] [place] [address] Phone Care Team Providers Care Vice President Of Compliance Name Role Phone Trisha Abrams Primary Care Provider Unava ilable Allergies Active Allergy Reactions Criticality Noted Date Comments Lisinopril Cough 08/11/2016 Oxycodone Mental Status Change Low 06/27/2017 Medications gabapentin (NEURONTIN) 300 MG capsule Take 1 capsule (300 mg total) by mouth 3 (three) times a day. 90 capsule 2 7 Active Additional Information Patient taking differently:300 mg OralDaily, Reported on 04/11/2025 metoprolol succinate (TOPROL-XL) 50 MG 24 hr [...] Active Problems Problem Noted Date Diagnosed Date Pericardial effusion 04/11/2025 Assessment & Plan (04/11/2025 9:41 AM EST): She has a small pericardial effusion at this point we are going to repeat her study in 3 months time Cardiac arrest 04/11/2025 Assessment & Plan (04/11/2025 9:42 AM EST): It is quite unclear as to the details of this cardiac arrest she has a normal ejection fraction with no prior history of infarct I will order an MCT monitor for a week to make sure she is not having any significant arrhythmias Myeloradiculopathy 08/23/2016 Cervical stenosis of spine Assessment & Plan (04/11/2025 9:42 AM EST): At some point she will need surgery and clearance we will reevaluate this in 6 months time or sooner if she needs surgery sooner. Nothing is scheduled as of yet Encounters Date Type Department Care Team Description 04/28/2025 12:52 PM EST - 04/28/2025 11:59 PM EST Hospital Encounter [facility] [place] [address] [place] [address] Wade Overton, Discharge Disposition: Home or Self Care 04/11/2025 9:30 AM EST Office Visit [facility] [address], [address] [place] [address] Wade Overton, Shortness of breath (Primary Dx); Palpitations; Pericardial effusion; Cardiac arrest; Cervical stenosis of spine 04/11/2025 Procedure Pass [facility] [place] [address] 04/03/2025 Transcribe Orders [facility] [address], [address] [place] [address] Merlin Rubio Personal history of sudden cardiac arrest (Primary Dx) 03/20/2025 Telephone [facility] [address], [address] [place] [address] Trisha Abrams 03/13/2025 8:05 AM EDT - 03/13/2025 11:59 PM EDT Hospital Encounter [facility] [address] [place] [address] System, Provider Not In, PhD Dougie Feliz MD Discharge Disposition: Home or Self Care 03/09/2025 8:01 AM EDT - 03/09/2025 11:59 PM EDT Hospital Encounter [address] [address] Trisha Abrams PA Discharge Disposition: Home or Self Care 02/19/2025 Procedure Pass [facility] [address] [place] [address] 03/13/2024 Procedure Pass [address] [address] from Last 3 Months Family History Medical History Relation Comments Heart disease Father Stroke Father Cardiovascular disease Mother Heart disease Mother Breast cancer Neg Hx Relation Status Comments Father Mother Social History Tobacco Use Types Packs/Day Years Used Date Smoking Tobacco: Never Smokeless Tobacco: Never Tobacco Cessation:Counseling Given: Not Answered Alcohol Use Standard Drinks/Week Comments Not Currently [...] Sign Reading Time Taken Comments Blood Pressure 130/80 04/11/2025 9:24 AM EST Pulse 50 04/11/2025 9:24 AM EST Temperature 36.2 C (97.2 F) 05/13/2024 5:16 PM EST Respiratory Rate 16 05/13/2024 5:16 PM EST Oxygen Saturation 100% 04/11/2025 9:24 AM EST Inhaled Oxygen Concentration 28% 07/04/2017 3 :10 AM EST Weight 32.7 kg (72 lb) 04/11/2025 9:24 AM EST Height 116.8 cm (3' 9.98 ) 04/11/2025 9:24 AM ES T Body Mass Index 23.94 04/11/2025 9:24 AM EST Plan of Treatment Upcoming Encounters Date Type Department Care Team (Late st Contact Info) Description 04/11/2025 Procedure Pass [facility] [address] [place] [address] [place] [address] 08/10/2025 10:15 AM EDT Appointment [facility] [address] [place] [address] Wade Overton, 22 [facility] [address] [place] [address] 10/09/2025 12:30 PM EDT Office Visit [facility] [address] [place] [address] 3rd Floor, [address] [place] [address] Blanka Weinstein, [address] [address] Health Maintenance Due Date Last Done Comments [...] 04/04/2022, 03/01/2021, Additional history exists COVID-19 VACCINE (2024- season) 2025 02/13/2022, 02/13/2022, 03/21/2021, Additional history exists CREATININE LEVEL 05/13/2025 05/13/2024, , 10/01/2021, Additional history exists POTASSIUM LEVEL 05/13/2025 05/13/2024, 01/02, 10/01/2021, Additional history exists DEPRESSION SCREENING 06/07/2025 06/07/2024 MAMMOGRAM 03/09/2027 03/09/2025, 1009/2023, 01/19/2023, Additional history exists RSV VACCINE (1 - 1-dose 75+ series) 2034 ZOSTER VACCINES Completed 09/21/2020, 05/21/2020 SMOKING STATUS SCREENING (Once After 26 Yrs) Completed 03/09/2025 HEPATITIS A VACCINES Aged Out No long [...] this topic Medical Devices Implanted Type Area Complaints Coordinator Device Identifier Shelf Expiration Date Model / Serial / Lot Putty Bone Graft Brock Demineralized Matrix Jar 5.0ml - [id number] Implanted:Qty: 1 on 07/02/2017 by Jose Cosme MD at [facility] [employer]UE N/A: Spine Cervical [employer] 02/06/2020 [id number] / [id number] / S/P Bilateral Tibial Osteotomies Graft Cervical Mj/Can 5mm - [id number] Implanted:Qty: 1 on 08/23/2016 by Cody Velazquez MD at [facility] N/A: Spine Cervical [employer] 12/29/2018 [id number] / [id number] / Screw Set Vuepoint Ii - [id number] Implanted:Qty: 8 on 07/02/2017 by Jose Cosme MD at [facility] N/A: Spine Cervical [employer] [id number] / / Screw Multi Axial 3.5x14mm - [id number] Implanted:Qty: 8 on 07/02/2017 by Jose Cosme MD at [facility] N/A: Spine Cervical [employer] [id number] / / Srinivasan Straight 60mm Vuepoint - [id number] Implanted:Qty: 2 on 07/02/2017 by Jose Cosme MD at [facility] N/A: Spine Cervical [employer] [id number] / / Procedures Procedure Name Priority Date/Time Associated Diagnosis Comments TTE COMPREHENSIVE Routine 03/13/2025 8:5 8 AM EDT Cardiac murmur, unspecified BI MAMMOGRAM SCREENING WITH TOMOSYNTHESIS WITH CAD (BILATERAL) Routine 03/09/2025 8:38 AM EDT Breast screening BASIC METABOLIC PANEL (BMP) STAT 05/13/2024 3:13 AM EST from Last 3 Months or Most Recently Relevant to Health Maintenance Results * TTE COMPREHENSIVE (03/13/2025 8:58 AM EDT) Height 117 cm Weight 29 kg Systolic BP 128 mmHg Diastolic BP 80 mmHg Left Atrium Dimension Anterior-Posterior 20 15 - 40 mm Aortic Valve Mean Gradient 2 mmHg Aortic Valve Time Velocity Integral 214.0 mm Aortic Valve Peak Velocity 1.0 m/s Aortic Valve Peak Gradient 4 mmHg Aortic Arch Diameter 13 mm Ascending Aorta Diameter 21 <36 mm Inferior Vena Cava Diameter 8 <21 mm Interventricular Septum Thickness 8 6 - 11 mm Left Ventricle Internal Diameter End Diastole 34 37 - 52 mm Left Ventricle Internal Diameter End Systole 20 <35 mm Left Ventricular Outflow Tract Diameter 17.0 mm Left Ventricular Posterior Wall Thickness 7 6 - 11 mm Left Ventricle Ea Lateral Wave Speed 4.8 cm/s Left Ventricle Ea Septal Wave Speed 5.0 cm/s Ejection Fraction 80 50 - 75 Percent Mitral Valve Deceleration Time 345 ms Left Ventricle A Wave Speed 101.0 cm/s Left Ventricle E Wave Speed 106.0 cm/s Mitral Valve Mean Gradient 2 mmHg Mitral Valve Peak Gradient 5 mmHg Mitral Valve Area Continuity Equation 0.80 cm2 Pulmonary Valve Peak Velocity 0.9 m/s Pulmonary Valve Peak Gradient 3 mmHg Right Ventricle Basal Diameter 23 25 - 41 mm Tricuspid Valve Peak Velocity 2.5 m/s Raw LV EF% 65 % MV E/E' Tissue Velocity Lateral 22.08 Relative Wall Thickness 0.41 0.22 - 0.42 MV E/A ratio 1.0 MV E/e' septal 21.20 Left Ventricle E/e' Average 21.6 Aortic Valve Prosthetic Peak Gradient 4 mmHg Asc Aorta CSA Index by Height 2.96 cm2/m Mitral Valve Prosthetic Peak Gradient 5 mmHg Mitral Valve Prosthetic Mean Gradient 2 mmHg Right Ventricle to Right Atrium Pressure Gradient 25 mmHg Right Ventricle Peak Systolic Pressure (Assuming RAP 10) 35 mmHg MGB CV ECHO TV RVSP (ASSUMING RAP OF 5) 30 mmHg RVSP (Exclusive of RAP) 25 mmHg Pulmonic Valve Prosthetic Peak Gradient 3 mmHg Echo E/Ea 21.20 Body Surface Area 0.95 m2 Right Ventricle Peak Systolic Pressure 28 mmHg Left Ventricle indexed to BSA 69.2 g/m2 Aortic Valve Prosthetic Mean Gradient 2 mmHg Ascending Aorta Index 22 mm/m2 Right Atrium Pressure Estimated 3 mmHg Ascending Aorta Index 22 mm Ascending Aorta Diameter 22 mm AO ASC DIAM BSA INDEX 22.11 Aortic Sinus Diameter 17 <40 mm Left Atrial Volume Index 38 16 - 34 mL/m2 Right Ventricle TAPSE 19 >=17 mm Right Ventricle Pulse Doppler S Wave 7.8 >=9.5 cm/s Left Atrial Volume 36 mL Left Atrial Volume Index by Height 31 mL/m Right Atrium Area 6 cm2 Right Atrium Area index 6 cm2/m2 Aortic Valve Sinus Index by BSA 18 mm/m2 Aorta Sinus Index by Height 1.45 cm/m Aorta Sinus CSA index by Height 1.94 cm2/m Aortic Sinus Index 18 mm Aortic Valve Sinus Index 1 18 19 - 27 mm Anatomical Region Laterality Modality Heart Ultrasound Narrative 03/13/2025 12:37 PM EDT Images from the original result were not included. Poor endocardial definition limits study interpretation. Left ventricular size is normal. Borderline increased LV wall thickness likely under measured. Grade 2 diastolic dysfunction with elevation of estimated filling pressures. Normal RV size and systolic function. Left atrium is mildly dilated. Aortic valve sclerosis without any evidence of significant stenosis. Mild to moderate mitral annular calcification with no significant mitral stenosis and trace mitral regurgitation. Estimated pulm artery systolic pressure appears within normal range. There is a small bordering moderate posterior pericardial effusion with no evidence of tamponade. No prior echoes for comparison. If clinically indicated based on indication of follow-up echocardiogram to assess effusion should be considered. Left Ventricle The left ventricle is normal in size. There is normal wall thickness. The LV ejection fraction is 80%. There are no wall motion abnormalities. There is abnormal diastolic function. There is Grade II diastolic dysfunction. The E/A ratio is 1.0. The e' septal wave velocity is 5.0 cm/s. The e' lateral wave velocity is 4.8 cm/s. The average E/e' ratio is 21.6. Right Ventricle The right ventricle is normal in size. The RV basal dimension is 23 mm. There is normal right ventricular systolic function. TAPSE is 19 mm. RV S' wave is 7.8 cm/s. Left Atrium The left atrium is mildly dilated. The left atrial volume is 36 mL. The left atrial volume index by BSA is 38 mL/m2. There are normal flow patterns in the pulmonary vein. Right Atrium The right atrium is normal in size. The right atrial area is 6 cm2. The IVC is normal in size with normal inspiratory collapse. This is consistent with normal RA pressure. The IVC diameter is 8 mm (normal: <= 21 mm). Hepatic veins are normal in size. Mitral Valve There is moderate mitral valve thickening. There is anterior mitral annular calcification. There is chordal calcification present. There is no mitral stenosis. The mitral valve peak and mean gradients are 5 mmHg and 2 mmHg respectively. There is trace mitral regurgitation. Tricuspid Valve The tricuspid valve appears normal. There is no tricuspid stenosis. There is trace to mild tricuspid regurgitation. The RV systolic pressure was calculated at 28 mmHg (using TR peak velocity of 2.5 m/s and assuming an RA pressure of 3 mmHg). Aortic Valve The aortic valve is tricuspid. There is moderate leaflet thickening. There is leaflet calcification. The aortic valve peak velocity is 1.0 m/s. The peak aortic valve gradient is 4 mmHg. There is no aortic regurgitation. The ascending aorta is dilated. The ascending aortic diameter is 21 mm. The ascending aorta index by BSA is 22 mm/m2. Pulmonic Valve The pulmonic valve appears normal. Pericardium There is a small circumferential pericardial effusion. There are no pleural effusions. General Findings The study was technically difficult (4). Study quality explanation: body habitus. Technique(s) used in the evaluation: Color flow Doppler and Spectral Doppler. The predominant rhythm during the study was sinus. Patient tolerated the procedure well. Comparison Findings There are no prior studies for comparison. IAS/IVS The interatrial septum appears normal. There is no evidence of patent foramen ovale (PFO). The interventricular septum appears normal. There is no evidence of a ventricular septal defect. us Provider Not In System PhD CV ECHO ORDERABLES Fi nal Result * BI MAMMOGRAM SCREENING WITH TOMOSYNTHESIS WITH CAD (BILATERAL) (03/09/2025 8:38 AM EDT) Anatomical Region Laterality Modality Breast Left, Breast Right, Breast Bilateral Bila teral Mammography 03/09/2025 2:11 PM EDT Impressions 03/09/2025 2:17 PM EDT No mammographic evidence of malignancy in either breast. Annual screening mammography is recommended. BI-RADS 1 NEGATIVE The patient will be notified of the results and recommendations. Narrative 03/09/2025 2:17 PM EDT BI MAMMOGRAM SCREENING WITH TOMOSYNTHESIS WITH CAD (BILATERAL) Additional patient information: Screening. COMPARISON: Comparison is made with relevant prior imaging. Breast composition: The breasts are heterogeneously dense, which may obscure small masses. FINDINGS: Best possible images were obtained within the limits of patient's ability to be positioned with the help of multiple technologists. No abnormal masses, suspicious calcifications, or other significant findings are identified mammographically in either breast. Procedure Note Vida Nathan MD - 03/09/2025 BI MAMMOGRAM SCREENING WITH TOMOSYNTHESIS WITH CAD (BILATERAL) Additional patient information: Screening. COMPARISON: Comparison is made with relevant prior imaging. Breast composition: The breasts are heterogeneously dense, which mayobscure small masses. FINDINGS: Best possible images were obtained within the limits of patient's abilityto be positioned with the help of multiple technologists. No abnormal masses, suspicious calcifications, or other significantfindings are identified mammographically in either breast. IMPRESSION: No mammographic evidence of malignancy in either breast. Annual screening mammography is recommended. BI-RADS 1 NEGATIVE The patient will be notified of the results and recommendations. Trisha ARREOLA IMG MG EXAMS Final Res ult * (ABNORMAL) Basic metabolic panel (05/13/2024 3:13 AM EST) SODIUM 138 133 - 146 mmol/L [facility] CHLORIDE 101 96 - 108 mmol/L [facility] POTASSIUM 3.4 3.3 - 5.1 mmol/L [facility] CO2 23 21 - 35 mmol/L [facility] BUN 12 6 - 19 mg/dL [facility] CREATININE 0.30(L) 0.5 - 1.5 mg/dL [facility] GLUCOSE 129(H) 70 - 99 mg/dL [facility] CALCIUM 9.4 8.4 - 10.3 mg/dL [facility] EGFR 118 >59 mL/min/1.7 3m2 [facility] Comment:Estimated glomerular filtration rate calculated using the CKD-EPI refit equation. ANION GAP 17 10 - 20 mmol/L [facility] Blood 05/13/2024 3:13 AM EST 05/13/2024 3:16 AM EST us Wade Clayton PA-C LAB BLOOD BKR ORDERABLES Fin al Result [facility] [address] [place], [place] [id number] from Last 3 Months or Most Recently Relevant to Health Maintenance [place] [address] [place] [address] PPO EPO MEDICARE PART A & [place] [address] [place] [address] PPO EPO MEDICARE PART A & B [facility] PPO EPO [facility] [place] [address] [place] [address] MEDICARE PART A & [place] [address] [place] [address] [place] [place] [address] PPO EPO MEDICARE PART A & [place] [place] [address] PPO EPO MEDICARE PART A & B [facility] PPO EPO MEDICARE PART A & B Advance Directives For more information, please contact: [phone] (9AM - 5PM [facility], Sunday-Sunday) * Full Code (Presumed) (Latest Code Status on File) Date Activated Date Inactivated Comments 07/02/2017 11:02 AM 07/07/2017 5:23 PM * Full Code (Presumed) Date Activated Date Inactivated Comments 08/23/2016 10:48 AM 08/24/2016 4:18 PM * Full Code (Presumed) Date Activated Date Inactivated Comments 08/23/2016 7:15 AM 08/23/2016 10:48 AM Care Teams Vice President Of Compliance Relationship Specialty Start Date End Date Trisha Abrams PCP - General 05/13/24 Additional Source Comments The information contained in this document represents components of the legal health record. It is not the complete legal health record.[facility]
--- OUTSIDE RECORDS SUMMARY | 2025-06-01 15:04 | XMS_ITS | Encounter Summary ---
Author Organization [facility] Address [facility] [address] [place] [address] Phone Care Team Providers Care Photography Manager Name Role Phone Radha Fenton Primary Care Prov ider Trisha Abrams Primary Care Provider Unava ilable Encounter Details Date Type Department Care Team (Late st Contact Info) Description 04/06/2022 Procedure Pass [facility], [address] [address] Social History Tobacco Use Types Packs/Day Years [...] No 08/24/2016 11:25 AM EDT Eloina Carlisle, CNC TECHNICIAN * Patient is blind or has serious [...] Procedure Pass [facility] [address] [place] [address] 08/10/2025 10:15 AM EDT Appointment [facility] [address] [place] [address] Wade Overton, DO 22 [facility] [address] [place] [address] 10/09/2025 12:30 PM EDT Office Visit Elisa [facility] [address] [place] [address] 3rd Floor, [address] [place] [address] Blanka Weinstein, [facility] [address] [place] [address] documented as of this encounter Visit Diagnoses Not on filedocumented in this encounter Care Teams Photography Manager Relationship Specialty Start Date End Date Radha Fenton PA [address] [place] [address] PCP - General 10/01/21 05/12/24 Trisha Abrams [address] [place] [address] PCP - General 05/13/24 documented as of this encounter Additional Source Comments The information contained in this document represents components of the legal health record. It is not the complete legal health record.[facility]
--- OUTSIDE RECORDS SUMMARY | 2025-06-01 15:04 | XMS_ITS | Encounter Summary ---
Author Organization [facility] Address [address] [place] [address] Phone Care Team Providers Care Medical Laboratory Technicians Name Role Phone Trisha Abrams Primary Care Provider Unava ilable Encounter Details Date Type Department Care Team ([facility] Contact Info) Description 04/11/2025 Procedure Pass [employer] [facility] [address] [place] [address] Social History Tobacco Use Types Packs/Day Years [...] [facility] [address] [place] [address] 08/10/2025 10:15 AM EDT Appointment [facility] [address] [place] [address] Wade Overton DO 22 [facility] [address] [place] [address] 10/09/2025 12:30 PM EDT Office Visit [facility] [address] [facility] 3rd Floor, [address] [place] [address] Blanka Weinstein, DARRYL [address] [place] [address] documented as of this encounter Visit Diagnoses Not on filedocumented in this encounter Care Teams Medical Laboratory Technicians Relationship Specialty Start Date End Date Trisha Abrams PCP - General 05/13/24 documented as of this encounter Additional Source Comments The information contained in this document represents components of the legal health record. It is not the complete legal health record.[facility]
--- OUTSIDE RECORDS SUMMARY | 2025-06-01 15:04 | XMS_ITS | Encounter Summary ---
Author Organization [facility] Address [address] [facility] [address] [place] [address] Phone Care Team Providers Care Gas Analyst Name Role Phone Radha Fenton Primary Care Prov ider Trisha Abrams Primary Care Provider Unava ilable Encounter Details Date Type Department Care Team (Late st Contact Info) Description 12/15/2022 Transcribe Orders Virtual Department [address] [place] [address] Radha Fenton PA [address] [place] [address] sandra Breast screening (Primary Dx) Social History [...] Procedure Pass [facility] [address] [place] [address] 08/10/2025 10:15 AM EDT Appointment [facility] [address] [place] [address] Wade Overton, DO 22 [facility] [address] [place] [address] 10/09/2025 12:30 PM EDT Office Visit [facility] [address] 3rd Floor, [address] [place] [address] CorinnaBlanka, DNP [address] [place] [address] documented as of this encounter Results * [...] unspecified documented in this encounter Care Teams Gas Analyst Relationship Specialty Start Date End Date Radha Fenton PA [address] [place] [address] PCP - General 10/01/21 05/12/24 Trisha Abrams [address] [place] [address] PCP - General 05/13/24 documented as of this encounter Additional Source Comments The information contained in this document represents components of the legal health record. It is not the complete legal health record.[facility]
--- OUTSIDE RECORDS SUMMARY | 2025-06-01 15:04 | XMS_ITS | Encounter Summary ---
Author Organization [facility] Address Formerly [facility] [employer] [facility] [address] [place] [address] Phone Care Team Providers Care Brown Sourer Name Role Phone Radha Fenton Primary Care Prov ider Trisha Abrams Primary Care Provider Unava ilable Encounter Details Date Type Department Care Team (Late st Contact Info) Description 05/10/2022 Procedure Pass [facility], [address] [address] Social History Tobacco Use Types Packs/Day Years [...] Author No 08/24/2016 11:25 AM EDT Eloina Carlilse, ENOCH * Patient is blind or has [...] Procedure Pass [facility] [address] [place] [address] 08/10/2025 10:15 AM EDT Appointment [facility] [address] [place] [address] Wade Overton, DO 22 [facility] [address] [place] [address] 10/09/2025 12:30 PM EDT Office Visit [facility] [address] [place] [address] 3rd Floor, [address] [place] [address] Blanka Weinstein, [facility] [address] [place] [address] documented as of this encounter Visit Diagnoses Not on filedocumented in this encounter Care Teams Brown Sourer Relationship Specialty Start Date End Date Radha Fenton PA [address] [place] [address] PCP - General 10/01/21 05/12/24 Trisha Abrams [address] [place] [address] PCP - General 05/13/24 documented as of this encounter Additional Source Comments The information contained in this document represents components of the legal health record. It is not the complete legal health record.[facility]
--- OUTSIDE RECORDS SUMMARY | 2025-06-01 15:04 | XMS_ITS | Encounter Summary ---
Author Organization [facility] Address [address] [facility] [address] [place] [address] Phone Care Team Providers Care Sales Manager [place] Name Role Phone Radha Fenton Primary Care Prov ider Trisha Abrams Primary Care Provider Unava ilable Encounter Details Date Type Department Care Team (Late st Contact Info) Description 05/10/2022 Transcribe Orders Virtual Department [address] [place] [address] Radha Fenton PA [address] [place] [address] [email or web address] Other abnormal and inconclusive findings on [...] [facility] [place] [address] [address] 08/10/2025 10:15 AM EDT Appointment [facility] [address] [place] [address] Wade Overton, 22 [facility] [address] [place] [address] 10/09/2025 12:30 PM EDT Office Visit Elisa [facility] [address] 3rd Floor, [address] [place] [address] Blanka Weinstein, [address] [address] Scheduled Orders Name Type Priority Associated Diagnoses [...] breast documented in this encounter Care Teams Sales Manager [place] Relationship Specialty Start Date End Date Radha Fenton PA [address] [place] [address] PCP - General 10/01/21 05/12/24 Trisha Abrams [address] [place] [address] PCP - General 05/13/24 documented as of this encounter Additional Source Comments The information contained in this document represents components of the legal health record. It is not the complete legal health record.[facility]
--- OUTSIDE RECORDS SUMMARY | 2025-06-01 15:04 | XMS_ITS | Encounter Summary ---
Author Organization [facility] Address [address] [employer] [facility] [address] [place] [address] Phone Care Team Providers Care Photoengraving Etcher Name Role Phone Orville Palomino MD Primary Care Provider [phone] Susana Cook CNM Unavailable Huma Sumner KETTLEMAN Unavailable [phone] Angy Haywood KETTLEMAN Unavailable Carl Collins MD Unavailable [phone] Issa Nguyen MD Unavailable Lana Hardy KETTLEMAN Unavailable Rena Ruff MD Unavailable Yanni Walker MD Unavailable Radha Johnson MD Unavailable [phone] Erika Ceja BINDING NICKER Unavailable Radha Fenton Primary Care Prov ider Trisha Abrams Primary Care Provider Unava ilable Encounter Details Date Type Department Care Team (Late st Contact Info) Description 01/20/2020 Procedure Pass [facility], Ct Scan - [address] [id number] Social History Tobacco Use Types Packs/Day Years [...] [facility] [address] [place] [address] 08/10/2025 10:15 AM EDT Appointment [facility] [address] [place] [address] Wade Overton DO 22 [facility] [address] [place] [address] 10/09/2025 12:30 PM EDT Office Visit [facility] 22 [facility] 3rd Floor, [address] [place] [address] Blanka Weinstein, DNP [address] [place] [address] documented as of this encounter Visit Diagnoses Not on filedocumented in this encounter Additional Health Concerns Infection Onset Date Last Indicated Resolved Time CoV-Risk 12/10/2020 12/11/2020 12/20/2020 1:23 AM EDT documented as of this encounter Care Teams Photoengraving Etcher Relationship Specialty Start Date End Date Orville Palomino MD [address] [place] [address] [place] [phone] [email or web address] PCP - General 03/09/17 09/30/21 Radha Fenton PA [address] [place] [address] PCP - General 10/01/21 05/12/24 Trisha Abrams [address] [place] [address] PCP - General 05/13/24 Susana Cook CNM [address] [place] [address] Historical LMR Provider 03/25/17 2 Huma Sumner, KETTLEMAN [address] [place] [address] Historical LMR Provider 03/25/17 06/11/21 Angy Haywood NP [address] [place] [address] Historical LMR Provider 03/25/17 2 Carl Collins MD 22 [facility] [address] [place] [address] [email or web address] Historical LMR Provider 03/25/17 06/11/21 Issa Nguyen MD [address] [place] [phone] Historical LMR Provider 03/25/17 2 Lana Hardy NP [address] [place] [address] Historical LMR Provider 03/25/17 2 Rena Ruff MD [address] [place] [address] [facility], [place] [address] [email or web address] Historical LMR Provider 03/25/17 Yanni Walker MD [address] [place] [address] [facility] [place] [address] Historical LMR Provider 03/25/17 06/11/21 Radha Johnson MD [address] [place] [address] Historical LMR Provider 03/25/17 2 Erika Ceja CNP [address] [place] [address], [address] [place] [address] [email or web address] Historical LMR Provider 03/25/17 documented as of this encounter Additional Source Comments The information contained in this document represents components of the legal health record. It is not the complete legal health record.[facility]
--- OUTSIDE RECORDS SUMMARY | 2025-06-01 15:04 | XMS_ITS | Encounter Summary ---
Author Organization [facility] Address [facility] [employer] [facility] [address] [place] [address] Phone Care Team Providers Care Dispatcher Motor Vehicle Name Role Phone Radha Fenton Primary Care [...] Alberto Robles MD, PhD Phone: tel: fax: [email or web address] [address] Phone: tel: Referral ID Status Reason Start Date Expiration Date Visits Re quested Visits Authorized [id number] Closed 04/30/2022 05/30/2022 1 1 Encounter Details Date Type Department Care Team (Latest Contact Info) Description 04/06/2022 Transcribe Orders [facility] Department [address] [place] [phone] Alberto Robles MD, PhD 31 [facility] [place] [phone] [email or web address] Cervical disc disorder at C4-C5 level with [...] Procedure Pass [facility] [address] [place] [address] 08/10/2025 10:15 AM EDT Appointment [facility] [address] [place] [address] Wade Overton, DO [address] [place] [address] 10/09/2025 12:30 PM EDT Office Visit [facility] [address] Floor, [address] [place] [address] Blanka Weinstein, [address] [address] documented as of this encounter Results * [...] atrophy, as well as a 0.8 cm [id number] area at the level of C4-C5, not [...] myelopathy documented in this encounter Care Teams Dispatcher Motor Vehicle Relationship Specialty Start Date End Date Radha Fenton PA [address] [place] [address] PCP - General 10/01/21 05/12/24 Trisha Abrams [address] [place] [address] PCP - General 05/13/24 documented as of this encounter Additional Source Comments The information contained in this document represents components of the legal health record. It is not the complete legal health record.[facility]
--- OUTSIDE RECORDS SUMMARY | 2025-06-01 15:04 | XMS_ITS | Encounter Summary ---
Author Organization [facility] Address [facility] [address] [address] Phone Care Team Providers Care Pipe Stress Engineer Name Role Phone Radha Fenton Primary Care Prov ider Trisha Abrams Primary Care Provider Unava ilable Encounter Details Date Type Department Care Team (Latest Contact Info) Description 04/17/2022 Transcribe Orders Virtual Department [address] [place] [address] Alberto Robles MD, PhD [address] [place] [address] [email or web address] Cervical disc disorder at C4-C5 level with [...] 04/11/2025 Procedure Pass [facility] [address] [place] [address] [place] [address] 08/10/2025 10:15 AM EDT Appointment [facility] [address] [place] [address] [place] [address] Wade Overton, [address] [place] [address] [place] [address] 10/09/2025 12:30 PM EDT Office Visit Elisa [facility] [address] [place] [address] 3rd Floor, [address] [place] [address] Blanka Weinstein, [address] [address] [email or web address] documented as of this encounter Visit Diagnoses Diagnosis 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 It is not the complete legal health record.[facility]
--- OUTSIDE RECORDS SUMMARY | 2025-06-01 15:04 | XMS_ITS | Encounter Summary ---
Author Organization [facility] Address [address] [place] [address] Phone Care Team Providers Care College Scouting Coordinator Name Role Phone Radha Fenton Primary Care Prov ider Trisha Abrams Primary Care Provider Unava ilable Encounter Details Date Type Department Care Team (Late st Contact Info) Description 12/15/2022 Procedure Pass [facility], [address] [address] Social History Tobacco Use Types Packs/Day Years [...] Entry Date Author No 08/24/2016 11:25 AM Eloian Herrera CNP documented in this encounter Plan of Treatment Upcoming Encounters Date Type Department Care Team (Late st Contact Info) Description 04/11/2025 Procedure Pass [facility] [place] [address] [place] [address] 08/10/2025 10:15 AM EDT Appointment [facility] [place] [address] Wade Overton DO 22 [facility] [address] [place] [address] [email or web address] 10/09/2025 12:30 PM EDT Office Visit Elisa Sw[facility] [address] 3rd Floor, [address] [place] [address] Blanka Weinstein, [address] [address] [email or web address] documented as of this encounter Visit Diagnoses Not on filedocumented in this encounter Care Teams College Scouting Coordinator Relationship Specialty Start Date End Date Radha Fenton PA [address] [place] [address] PCP - General 10/01/21 05/12/24 Trisha Abrams [address] [place] [address] PCP - General 05/13/24 documented as of this encounter Additional Source Comments The information contained in this document represents components of the legal health record. It is not the complete legal health record.[facility]
--- OUTSIDE RECORDS SUMMARY | 2025-06-01 15:04 | XMS_ITS | Encounter Summary ---
Author Organization [facility] Address [address] [employer] [facility] [address] [place] [address] Phone Care Team Providers Care Medical Instrument Cable Fabricator Name Role Phone Orville Palomino MD Primary Care Provider Susana Cook CNM Unavailable Huma Sumner INFANT ROOM TEACHER Unavailable [phone] Angy Haywood INFANT ROOM TEACHER Unavailable Carl Collins MD Unavailable [phone] Issa Nguyen MD Unavailable Lana Haryd INFANT ROOM TEACHER Unavailable Rena Ruff MD Unavailable Yanni Walker MD Unavailable Radha Johnson MD Unavailable [phone] Erika Ceja HOTEL HOUSEMAN Unavailable Radha Fenton Primary Care Prov ider Trisha Abrams Primary Care Provider Unava ilable Encounter Details Date Type Department Care Team (Late st Contact Info) Description 06/21/2020 Ancillary Orders [facility] at [address] [address] Radha Fenton, MAXWELL [address] [place] [address] [email or web address] Breast screening Social History Tobacco Use [...] Procedure Pass [facility] [address] [place] [address] 08/10/2025 10:15 AM EDT Appointment [facility] [address] [place] [address] Wade Overton, 22 [facility] [address] [place] [address] 10/09/2025 12:30 PM EDT Office Visit Elisa [facility] 22 [facility] 3rd Floor, [address] [place] [address] Blanka Weinstein, [address] [address] documented as of this encounter Results * [...] as of this encounter Care Teams Medical Instrument Cable Fabricator Relationship Specialty Start Date End Date Orville Palomino MD 230 [facility] [address] [place] [phone] [email or web address] PCP - General 03/09/17 09/30/21 Radha Fenton PA [address] [place] [facility] [address] PCP - General 10/01/21 05/12/24 Trisha Abrams [address] [place] [address] PCP - General 05/13/24 Susana Cook CNM 30 [place] [address] Historical LMR Provider 03/25/17 2 Huma Sumner NP [address] [place] [address] [email or web address] Historical LMR Provider 03/25/17 06/11/21 Angy Haywood NP [address] [place] [address] Historical LMR Provider 03/25/17 2 Carl Collins MD [address] [place] [address] [address] [place] [address] Historical LMR Provider 03/25/17 06/11/21 Issa Nguyen MD [address] [place] [phone] Historical LMR Provider 03/25/17 2 Lana Hardy INFANT ROOM TEACHER [address] [place] [address] Historical LMR Provider 03/25/17 2 Rena Ruff MD [address] [place] [address] [facility], [place] [address] jose Historical LMR Provider 03/25/17 Yanni Walker MD 4 [facility], [facility] [place] [address] [email or web address] Historical LMR Provider 03/25/17 06/11/21 Radha Johnson MD [address] [place] [id number] Historical LMR Provider 03/25/17 2 Erika Ceja CNP 22 [facility], [address] [place] [address] [email or web address] Historical LMR Provider 03/25/17 documented as of this encounter Additional Source Comments The information contained in this document represents components of the legal health record. It is not the complete legal health record.[facility]
--- OUTSIDE RECORDS SUMMARY | 2025-06-01 15:05 | XMS_ITS | Encounter Summary ---
Author Organization [facility] Address [employer] [facility] [address] [place] [address] Phone Care Team Providers Care Peoplesoft Hr Developer Name Role Phone Trisha Abrams Primary Care Provider Unava ilable Encounter Details Date Type Department Care Team ([facility] st Contact Info) Description 08/28/2024 Ancillary Orders [address] [address] Rena Ruff MD [address] [place] [address] [facility], [place] [address] [email or web address] Chronic right hip pain [...] Procedure Pass [facility] [address] [place] [address] 08/10/2025 10:15 AM EDT Appointment [facility] [address] [place] [address] Wade Overton, DO 22 [facility] [address] [place] [address] 10/09/2025 12:30 PM EDT Office Visit Elisa [facility] 22 [facility] 3rd Floor, [address] [place] [address] Blanka Weinstein, [address] [address] Pending Results Name Type Priority Associated Diagnoses [...] Primary documented in this encounter Care Teams Peoplesoft Hr Developer Relationship Specialty Start Date End Date Trisha Abrams PCP - General 05/13/24 documented as of this encounter Additional Source Comments The information contained in this document represents components of the legal health record. It is not the complete legal health record.[facility]
--- OUTSIDE RECORDS SUMMARY | 2025-06-01 15:05 | XMS_ITS | Encounter Summary ---
Author Organization [facility] Address [address] [employer] [facility] [address] [place] [address] Phone Care Team Providers Care Lock Assembler Name Role Phone Trisha Abrams Primary Care Provider Unava ilable Encounter Details Date Type Department Care Team (Late st Contact Info) Description 05/13/2024 Procedure Pass [facility], Ct Scan - [facility] [address] [place] [address] Social History Tobacco Use Types Packs/Day Years [...] [facility] [address] [place] [address] 08/10/2025 10:15 AM EDT Appointment Elisa [facility] [address] [place] [address] Wade Overton DO 22 [facility] [address] [place] [address] 10/09/2025 12:30 PM EDT Office Visit [facility] 22 [facility] 3rd Floor, [address] [place] [address] Blanka Weinstein, DARRYL [address] [place] [address] documented as of this encounter Visit Diagnoses Not on filedocumented in this encounter Care Teams Lock Assembler Relationship Specialty Start Date End Date Trisha Abrams PCP - General 05/13/24 documented as of this encounter Additional Source Comments The information contained in this document represents components of the legal health record. It is not the complete legal health record.[facility]
--- OUTSIDE RECORDS SUMMARY | 2025-06-01 15:05 | XMS_ITS | Encounter Summary ---
Author Organization [facility] Address [address] [employer] [facility] [address] [place] [address] Phone Care Team Providers Care Vocational Nursing Instructor Name Role Phone Trisha Abrams Primary Care Provider Unava ilable Encounter Details Date Type Department Care Team (Late st Contact Info) Description 05/13/2024 Procedure Pass [facility], [address] [address] Social History Tobacco Use Types Packs/Day Years [...] [facility] [address] [place] [address] 08/10/2025 10:15 AM EDT Appointment [facility] [address] [place] [address] Wade Overton, 22 [facility] [address] [place] [address] 10/09/2025 12:30 PM EDT Office Visit [facility] 3rd [facility], [address] [place] [address] Blanka Weinstein, DARRYL [address] [place] [address] documented as of this encounter Visit Diagnoses Not on filedocumented in this encounter Care Teams Vocational Nursing Instructor Relationship Specialty Start Date End Date Trisha Abrams PCP - General 05/13/24 documented as of this encounter Additional Source Comments The information contained in this document represents components of the legal health record. It is not the complete legal health record.[facility]
--- OUTSIDE RECORDS SUMMARY | 2025-06-01 15:05 | XMS_ITS | Data Portability ---
Author Organization [facility] [employer], [employer] Address [address] [place] [address] [place] [address] Care Team Providers Care Cannoneer Name Role Phone TERRI STACY Primary Care Provider Assessment Encounter Date Assessment [...] needed for me in this direction. The [place] consultation has recommended physical therapy. This has also been recommended by others. Portfolio Architect with experience in rehabilitation is the best [...] sure. He has not remembered that his s eyes were open as the chart [...] July 02, 2017 cervical spine surgery at [facility], With subsequent opinion from neurosurgery at [facility] that further spine surgery was not advisable TINGLING AND MYELOPATHY She is weaker in her hip flexors in the lower extremities and has distal weakness on the right in her upper extremities t his was only on the left [...] needed for me in this direction. The [place] consultation has recommended physical therapy. This has also been recommended by others. Portfolio Architect with experience in rehabilitation is the best [...] sure. He has not remembered that his s eyes were open as the chart [...] s/p August 2016 and July 02, 2017 [facility] surgery [facility] [address] imaging center will call you [...] July 02, 2017 cervical spine surgery at [facility], With subsequent opinion from neurosurgery at [facility] that further spine surgery was not advisable IMAGING MRI cervical spine April 30, 2022 with and without contrast compared to previous MRI cervical spine September 23, 2020 per dictation [facility] radiology: Evidence of prior surgery with posterior [...] weakness on the right in her upper extremities t his was only on the left [...] Both she and her feel that 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 I therefore have no further suggestions for changes in management for the neurological perspective except for the use of trekking poles when climbing mount time as discussed in the HPI. To review, before 12/20/21 initial consult with me, She has had consultation in [place] with neurosurgery. They have suggested repeat surgery in her neck to change everything back from what is there in the context of her previous August 2016 and July 02, 2017 C3 6 fusion & C4-5 laminectomy. She has had second opinion in the [facility] in [facility]. They have recommended against any such repeat cervical spine surgery and in favor of physical therapy. Portfolio Architect with experience in rehabilitation is the best [...] sure. He has not remembered that his s eyes were open as the chart [...] s/p August 2016 and July 02, 2017 [facility] cspine surgery 2021 022 PARI Not available [...] ction study No observ ation record ed. [address] [facility] (Imaging) [address] [place], [address], 12/22/2020 16:51:55 04/30/20 22 04/30/2022 MRI, cervi sarah spine , w/wo contr ast No observ ation record ed. [address] [facility] [address] [place], [address], 05/01/2022 11:40:44 05/22/2004/30/2022 MRI, cervi sarah spine , w/wo contr ast No observ ation record ed. [email or web address] [facility] [address] [place], [address], 05/25/2022 14:36:26 Result Notes None recorded. Procedures Surgical History Date Name Laterality Status Provider Name and Address Organization Details Recorded Time 06/08/2022 DATA REVIEW completed Alberto Robles MD [address] [place] [address] [place], [phone], Formerly [facility] 06/08/2022 12:13:28 04/06/2022 DATA REVIEW completed Alberto Robles MD [address] [place] [address] [place], [phone], [facility] 04/06/2022 12:34:55 12/20/2020 DATA REVIEW completed Alberto Robles MD [address] [place] [address] [place], [phone], [facility] 12/20/2020 11:51:28 Imaging Results None recorded. Procedure Notes None recorded. Medical Equipment None [...] Diagnosis SNOMED-CT Code Diagnosis ICD10 Code Diagnosis IMO Codes Diagnosis Note 1292 Alberto Robles MD [address] [place] [address] 12/20/2020 08:39:57 12/20/2020 11:54:41 Brief loss of consciousness 10803564 R55 Cervical d isc prolapse with myelopathy 969362232 M50.021 6905 Alberto Robles MD [address] [place] [address] 04/06/2022 12:33:26 04/06/2022 14:42:16 Brief loss of consciousness [id number] R55 Cervical d isc prolapse with myelopathy 082990807 M50.021 7424 lAberto Robles MD [address] [place] [address] 06/08/2022 11:59:26 06/08/2022 17:07:29 Brief loss of consciousness 69098417 R55 Abnormal gait 87201250 R 26.81 Health Concerns Section Related Observation LastModified by Organization Detai ls LastModified Time None Recorded Concern Status LastModified by Organization Details LastModified Time None Recorded Advance Directives Directive None Recorded Payers Insurance Date Sequence Insurance Name Policy Number Policy Lamar Covered Member ID Lamar Member ID Guarantor Name 04/06/2022 1 [facility] [facility] (HMO) [id number] Junior Triana [id number] Mandy Triana 06/12/2022 1 [facility] ([place] [id number] Mandy Triana [id number] Mandy Triana Notes Date Note Type Note Provider Name and Address Organization Details Recorded Time 12/20/2020 text/html Reconsultation for January 2019 seizure. She is a previous patient of Dr. Butcher, neurology, [facility]. I saw her once previously, November [...] the tingling. She has had consultation in [place] with neurosurgery. They have suggested repeat surgery in her neck to change everything back from what is there in the context of her previous surgery. She has had [facility] opinion in the [facility] in [facility]. They have recommended against any such repeat cervical spine surgery. Presenting symptomatology relating to post cervical spine surgery is reviewed from initial neurology consultation November 20, 2017: In approximately 2016, she began having left sided upper extremity numbness/tingling and weakness. Soon after this, she noticed more mild similar tingling in the right upper extremity. Over ensuing months or year or so, she began noticing left greater than right foot tingling and dragging of her left foot. She presented for diagnostic evaluation, first with [facility] and then with spine surgery, Dr. Galicia. Carpal tunnel syndrome was entertained at first but then was not found, per patient report. 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 She had a second opinion with Dr. Daniel melgar, [facility] neurosurgeon and has subsequently had 2 surgeries [...] helped with the symptoms. Alberto Robles MD [address] [place] [address], [phone], [facility] 12/20/2020 11:51:48 04/06/2022 text/html Reconsultation for January 2019 seizure. She is a previous patient of Dr. Butcher, neurology, [facility]. I saw her once previously, November [...] feet. She has trouble lifting her left leg h er better leg w hen getting into the car. She [...] the tingling. She has had consultation in [place] with neurosurgery. They have suggested repeat surgery in her neck to change everything back from what is there in the context of her previous surgery. She has had second opinion in the [facility] in [facility]. They have recommended against any such repeat [...] She presented for diagnostic evaluation, first with [facility] and then with spine surgery, Dr. Galicia. Carpal tunnel syndrome was entertained at first but then was not found, per patient report. 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 She had a second opinion with Dr. Daniel melgar, [facility] neurosurgeon and has subsequently had 2 surgeries [...] helped with the symptoms. Alberto Robles MD [address] [place] [address] [place], [phone], [place] [facility] 04/06/2022 13:15:40 06/08/2022 text/html Reconsultation for January 2019 seizure. She is a previous patient of Dr. Butcher, neurology, [facility]. I saw her once previously, November 20, 2017, for symptoms status post cervical spine surgery, including left arm weakness, left greater than right extremity numbness and tingling. She is accompanied by her significant other, who helps with history. Since April 06, 2022 neurology follow-up, she has had no further falls h er describes the falls around the beginning of March 2022 as four freak falls over a week. Her trouble maneuvering is also better. 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 She has trouble lifting her left leg h er better leg w hen getting into the car. She [...] the tingling. She has had consultation in [place] with neurosurgery. They have suggested repeat surgery in her neck to change everything back from what is there in the context of her previous surgery. She has had second opinion in the [facility] in [facility]. They have recommended against any such repeat [...] She presented for diagnostic evaluation, first with [facility] and then with spine surgery, Dr. Galicia. Carpal tunnel syndrome was entertained at first but then was not found, per patient report. 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 She had a second opinion with Dr. Daniel melgar, [facility] neurosurgeon and has subsequently had 2 surgeries [...] helped with the symptoms. Alberto Robles MD [address] [place] [address] [place], [phone], [facility] 06/08/2022 12:46:35 OBGyn Episode No OBEpisode recorded.
--- OUTSIDE RECORDS SUMMARY | 2025-06-01 15:05 | XMS_ITS | Encounter Summary ---
Author Organization [facility] Address [address] [place] [address] Phone Care Team Providers Care School Social Worker Name Role Phone Trisha Abrams Primary Care Provider Unava ilable Encounter Details Date Type Department Care Team ([facility] Contact Info) Description 06/25/2024 Procedure Pass [facility], [address] [place] [address] Social History Tobacco Use Types Packs/Day Years [...] Pass [facility] [address] [place] [address] 08/10/2025 10:15 AM EDT Appointment [facility] [address] [place] [address] Wade Overton DO [address] [facility] [address] [place] [address] 10/09/2025 12:30 PM EDT Office Visit [facility] 22 [facility] 3rd Floor, [address] [place] [address] Blanka Weinstein, [address] [address] documented as of this encounter Visit Diagnoses Not on filedocumented in this encounter Care Teams School Social Worker Relationship Specialty Start Date End Date Trisha Abrams PCP - General 05/13/24 documented as of this encounter Additional Source Comments The information contained in this document represents components of the legal health record. It is not the complete legal health record.[facility]
--- OUTSIDE RECORDS SUMMARY | 2025-06-01 15:05 | XMS_ITS | Encounter Summary ---
Author Organization [facility] Address [facility] [employer] [facility] [address] [place] [address] Phone Care Team Providers Care Supervisor Component Assembler Name Role Phone Radha Fenton Primary Care Prov ider Trisha Abrams Primary Care Provider Unava ilable Reason for Referral * MRI/CAT Scan - Closed Specialty Diagnoses / Procedures Referred By Radha huertas Referred To Contact Radiology Diagnoses Expressive language disorder Procedures MRI Brain CHG MRI BRAIN COMBO CHG MRI BRAIN CHG MRI BRAIN CONTRAST Radha Fenton PA Phone: tel: fax: mailto:luis Referral ID Status Reason Start Date Expiration Date Visits Re quested Visits Authorized [id number] Closed 02/27/2023 04/26/2023 1 1 Encounter Details Date Type Department Care Team (Late st Contact Info) Description 02/27/2023 Transcribe Orders Virtual Department [address] [place] [address] Radha Fenton PA [address] [place] [address] [email or web address] Expressive language disorder (Primary Dx) Social History [...] st Contact Info) Description 04/11/2025 Procedure Pass [facility] [address] [place] [address] 08/10/2025 10:15 AM EDT Appointment [facility] [address] [address] Wade Overton, 22 [facility] [address] [place] [address] 10/09/2025 12:30 PM EDT Office Visit [facility] 22 [facility] 3rd Floor, [address] [place] [address] Blanka Weinstein, [address] [address] documented as of this encounter Results * [...] disorder documented in this encounter Care Teams Supervisor Component Assembler Relationship Specialty Start Date End Date Radha Fenton PA [address] [place] [address] PCP - General 10/01/21 05/12/24 Trisha Abrams [address] [place] [address] PCP - General 05/13/24 documented as of this encounter Additional Source Comments The information contained in this document represents components of the legal health record. It is not the complete legal health record.[facility]
--- OUTSIDE RECORDS SUMMARY | 2025-06-01 15:05 | XMS_ITS | Encounter Summary ---
Author Organization [facility] Address [facility] [employer] [facility] [address] [place] [address] Phone Care Team Providers Care Tire Bagger Name Role Phone Orville Palomino MD Primary Care Provider Susana Cook CNM Unavailable Huma Sumner ROTARY ENGINE ASSEMBLER Unavailable [phone] Angy Haywood ROTARY ENGINE ASSEMBLER Unavailable Carl Collins MD Unavailable [phone] Issa Nguyen MD Unavailable Lana Hardy ROTARY ENGINE ASSEMBLER Unavailable Rena Ruff MD Unavailable Yanni Walker MD Unavailable Radha Johnson MD Unavailable [phone] Erika Ceja [employer] SE[employer]ATION PLANT MANAGER Unavailable Radha Fenton Primary Care Prov ider Trisha Abrams Primary Care Provider Unava ilable Encounter Details Date Type Department Care Team (Late st Contact Info) Description 11/04/2019 Procedure Pass [facility], [address] [id number] Social History Tobacco Use Types Packs/Day Years [...] Procedure Pass [facility] [address] [place] [address] 08/10/2025 10:15 AM EDT Appointment [facility] [address] [place] [address] Wade Overton DO 22 [facility] [address] [place] [address] 10/09/2025 12:30 PM EDT Office Visit [facility] [address] Floor, [address] [place] [address] Blanka Weinstein, DNP [address] [place] [address] documented as of this encounter Visit Diagnoses Not on filedocumented in this encounter Additional Health Concerns Infection Onset Date Last Indicated Resolved Time CoV-Risk 12/10/2020 12/11/2020 12/20/2020 1:23 AM EDT documented as of this encounter Care Teams Tire Bagger Relationship Specialty Start Date End Date Orville Palomino MD [address] [facility] [address] [place] [phone] [email or web address] PCP - General 03/09/17 09/30/21 Radha Fenton PA [address] [place] [address] PCP - General 10/01/21 05/12/24 Trisha Abrams [address] [place] [address] PCP - General 05/13/24 Susana Cook CNM [address] [place] [address] Historical LMR Provider 03/25/17 2 Huma Sumner ROTARY ENGINE ASSEMBLER [address] [place] [address] Historical LMR Provider 03/25/17 06/11/21 Angy Haywood NP [address] [place] [address] Historical LMR Provider 03/25/17 2 Carl Collins MD 22 [facility] [address] [place] [address] [email or web address] Historical LMR Provider 03/25/17 06/11/21 Issa Nguyen MD [address] [place] [phone] Historical LMR Provider 03/25/17 2 Lana Hardy NP [address] [place] [address] Historical LMR Provider 03/25/17 2 Rena Ruff MD [address] [place] [address] [facility], [facility] [place] [address] [email or web address] Historical LMR Provider 03/25/17 Yanni Walker MD [address] [place] [address] [facility] [place] [address] Historical LMR Provider 03/25/17 06/11/21 Radha Johnson MD [address] [place] [address] Historical LMR Provider 03/25/17 2 Erika Ceja CNP [address] [place] [address], [address] [place] [address] [email or web address] Historical LMR Provider 03/25/17 documented as of this encounter Additional Source Comments The information contained in this document represents components of the legal health record. It is not the complete legal health record.[facility]
--- OUTSIDE RECORDS SUMMARY | 2025-06-01 15:05 | XMS_ITS | Encounter Summary ---
Author Organization [facility] Address [facility] [address] [place] [address] Phone Care Team Providers Care Naval Marine Engineer Name Role Phone Radha Fenton Primary Care Prov ider Trisha Abrams Primary Care Provider Unava ilable Encounter Details Date Type Department Care Team (Late st Contact Info) Description 12/01/2021 Procedure Pass [facility], [address] [address] Social History Tobacco Use Types Packs/Day Years [...] [facility] [address] [place] [address] 08/10/2025 10:15 AM EDT Appointment [facility] [address] [place] [address] Wade Overton, DO 22 [facility] [address] [place] [address] 10/09/2025 12:30 PM EDT Office Visit [facility] [place] [address] Floor, [address] [place] [address] Blanka Weinstein, [facility] [address] [place] [address] documented as of this encounter Visit Diagnoses Not on filedocumented in this encounter Care Teams Naval Marine Engineer Relationship Specialty Start Date End Date Radha Fenton PA [address] [place] [address] PCP - General 10/01/21 05/12/24 Trisha Abrams [address] [place] [address] PCP - General 05/13/24 documented as of this encounter Additional Source Comments The information contained in this document represents components of the legal health record. It is not the complete legal health record.[facility]
--- OUTSIDE RECORDS SUMMARY | 2025-06-01 15:05 | XMS_ITS | Encounter Summary ---
Author Organization [facility] Address [facility] [employer] [address] [address] Phone Care Team Providers Care Central Station Operator Name Role Phone Radha Fenton Primary Care Prov ider Trisha Abrams Primary Care Provider Unava ilable Encounter Details Date Type Department Care Team (Latest Contact Info) Description 03/13/2024 Transcribe Orders Virtual Department [address] [place] [address] Trisha Abrams PA [address] [place] [address] [email or web address] Breast screening (Primary Dx) Social History Tobacco [...] Procedure Pass [facility] [address] [place] [address] 08/10/2025 10:15 AM EDT Appointment [facility] [address] [place] [address] Wade Overton, DO 22 [facility] [address] [place] [address] 10/09/2025 12:30 PM EDT Office Visit [facility] [address] Floor, [address] [place] [address] Corinna Blanka Chi, [facility] [address] [place] [address] [email or web address] documented as of this encounter Results * [...] be notified of the results and recommendations. us Trisha ARREOLA IMG MG EXAMS Final Res ult documented in this encounter Visit Diagnoses Diagnosis Breast screening- Primary Breast screening, unspecified Breast screening Breast screening, unspecified documented in this encounter Care Teams Central Station Operator Relationship Specialty Start Date End Date Radha Fenton PA [address] [place] [address] PCP - General 10/01/21 05/12/24 Trisha Abrams [address] [place] [address] PCP - General 05/13/24 documented as of this encounter Additional Source Comments The information contained in this document represents components of the legal health record. It is not the complete legal health record.[facility]
--- OUTSIDE RECORDS SUMMARY | 2025-06-01 15:05 | XMS_ITS | Encounter Summary ---
Author Organization [facility] Address [address] [place] [address] Phone Care Team Providers Care Employment Manager Name Role Phone Trisha Abrams Primary Care Provider Unava ilable Encounter Details Date Type Department Care Team ([facility] Contact Info) Description 06/12/2024 Procedure Pass [facility], [address] [place] [address] Social History Tobacco Use Types Packs/Day Years [...] [facility] [address] [place] [address] 08/10/2025 10:15 AM EDT Appointment [facility] [address] [place] [address] Wade Overton DO 22 [facility] [address] [place] [address] 10/09/2025 12:30 PM EDT Office Visit [facility] 22 [facility] 3rd Floor, [address] [place] [address] Blanka Weinstein, [address] [address] documented as of this encounter Visit Diagnoses Not on filedocumented in this encounter Care Teams Employment Manager Relationship Specialty Start Date End Date Trisha Abrams PCP - General 05/13/24 documented as of this encounter Additional Source Comments The information contained in this document represents components of the legal health record. It is not the complete legal health record.[facility]
--- OUTSIDE RECORDS SUMMARY | 2025-06-01 15:05 | XMS_ITS | Encounter Summary ---
Author Organization [facility] Address [address] [facility] [address] [place] [address] Phone Care Team Providers Care County Judge Name Role Phone Orville Palomino MD Primary Care Provider Susana Cook CNM Unavailable Huma Sumner HIGH DENSITY PRESS OPERATOR Unavailable [phone] Angy Haywood HIGH DENSITY PRESS OPERATOR Unavailable Carl Collins MD Unavailable Issa Nguyen MD Unavailable Lana Hardy HIGH DENSITY PRESS OPERATOR Unavailable Rena Ruff MD Unavailable Yanni Walker MD Unavailable Radha Johnson MD Unavailable [phone] Erika Ceja REFERRAL NURSE Unavailable Radha Fenton Primary Care Prov ider Trisha Abrams Primary Care Provider Unava ilable Encounter Details Date Type Department Care Team (Late st Contact Info) Description 05/22/2017 Procedure Pass [facility], Ct Scan - [address] [id number] Social History Tobacco Use Types Packs/Day Years [...] [facility] [address] [place] [address] 08/10/2025 10:15 AM EDT Appointment [facility] [address] [place] [address] Wade Overton DO 22 [facility] [address] [place] [address] 10/09/2025 12:30 PM EDT Office Visit [facility] 22 [facility] 3rd Floor, [address] [place] [address] Blanka Weinstein, DNP [address] [place] [address] documented as of this encounter Visit Diagnoses Not on filedocumented in this encounter Additional Health Concerns Infection Onset Date Last Indicated Resolved Time CoV-Risk 12/10/2020 12/11/2020 12/20/2020 1:23 AM EDT documented as of this encounter Care Teams County Judge Relationship Specialty Start Date End Date Orville Palomino MD [address] [place] [address] [place] [phone] [email or web address] PCP - General 03/09/17 09/30/21 Radha Fenton PA [address] [place] [address] PCP - General 10/01/21 05/12/24 Trisha Abrams [address] [place] [address] PCP - General 05/13/24 Susana Cook CNM 30 [place] [address] Historical LMR Provider 03/25/17 2 Huma Sumner, HIGH DENSITY PRESS OPERATOR 30 [place] [address] Historical LMR Provider 03/25/17 06/11/21 Angy Haywood NP [address] [place] [address] Historical LMR Provider 03/25/17 2 Carl Collins MD 22 [facility] 301 [place] [address] Historical LMR Provider 03/25/17 06/11/21 Issa Nguyen MD [address] [place] [phone] Historical LMR Provider 03/25/17 2 Lana Hardy NP [address] [place] [address] Historical LMR Provider 03/25/17 2 Rena Ruff MD [address] [place] [address] [facility], [place] [address] jose Historical LMR Provider 03/25/17 Yanni Walker MD [address] [place] [address] [facility] [place] [address] Historical LMR Provider 03/25/17 06/11/21 Radha Johnson MD [address] [place] [address] Historical LMR Provider 03/25/17 2 Erika Ceja CNP [address] [place] [address], [address] [place] [address] Historical LMR Provider 03/25/17 documented as of this encounter Additional Source Comments The information contained in this document represents components of the legal health record. It is not the complete legal health record.[facility]
--- OUTSIDE RECORDS SUMMARY | 2025-06-01 15:05 | XMS_ITS | Encounter Summary ---
Author Organization [facility] Address [address] [facility] [address] [place] [address] Phone Care Team Providers Care Software Validation Technician Name Role Phone Orville Palomino MD Primary Care Provider Susana Cook CNM Unavailable Huma Sumner RESERVE OFFICER Unavailable [phone] Angy Haywood RESERVE OFFICER Unavailable Carl Collins MD Unavailable [phone] Issa Nguyen MD Unavailable Lana Hardy RESERVE OFFICER Unavailable Rena Ruff MD Unavailable Yanni Walker MD Unavailable Radha Johnson MD Unavailable [phone] Erika Ceja REFLESHER Unavailable Radha Fenton Primary Care Prov ider Trisha Abrams Primary Care Provider Unava ilable Encounter Details Date Type Department Care Team (Late st Contact Info) Description 06/21/2020 Procedure Pass [facility], [address] [phone] Social History Tobacco Use Types Packs/Day Years [...] [facility] [address] [place] [address] 08/10/2025 10:15 AM EDT Appointment [facility] [address] [place] [address] Wade Overton DO 22 [facility] [address] [place] [address] 10/09/2025 12:30 PM EDT Office Visit [facility] 22 [facility] 3rd Floor, [address] [place] [address] Blanka Weinstein, DNP [address] [place] [address] documented as of this encounter Visit Diagnoses Not on filedocumented in this encounter Additional Health Concerns Infection Onset Date Last Indicated Resolved Time CoV-Risk 12/10/2020 12/11/2020 12/20/2020 1:23 AM EDT documented as of this encounter Care Teams Software Validation Technician Relationship Specialty Start Date End Date Orville Palomino MD [address] [place] [address] [place] [phone] [email or web address] PCP - General 03/09/17 09/30/21 Radha Fenton PA [address] [place] [address] PCP - General 10/01/21 05/12/24 Trisha Abrams [address] [place] [address] PCP - General 05/13/24 Susana Cook CNM 30 [place] [address] Historical LMR Provider 03/25/17 2 Huma Sumner, RESERVE OFFICER [address] [place] [address] Historical LMR Provider 03/25/17 06/11/21 Angy Haywood NP [address] [place] [address] Historical LMR Provider 03/25/17 2 Carl Collins MD 22 [facility] 301 [place] [address] [email or web address] Historical LMR Provider 03/25/17 06/11/21 Issa Nguyen MD [address] [place] [phone] Historical LMR Provider 03/25/17 2 Lana Hardy NP [address] [place] [address] Historical LMR Provider 03/25/17 2 Rena Ruff MD [address] [place] [address] [facility], [place] [address] jose Historical LMR Provider 03/25/17 Yanni Walker MD [address] [place] [address] [facility] [place] [address] Historical LMR Provider 03/25/17 06/11/21 Radha Johnson MD [address] [place] [address] Historical LMR Provider 03/25/17 2 Erika Ceja CNP [address] [place] [address], [address] [place] [address] [email or web address] Historical LMR Provider 03/25/17 documented as of this encounter Additional Source Comments The information contained in this document represents components of the legal health record. It is not the complete legal health record.[facility]
--- OUTSIDE RECORDS SUMMARY | 2025-06-01 15:05 | XMS_ITS | Encounter Summary ---
Author Organization [facility] Address [address] [place] [address] Phone Care Team Providers Care Meat Processing Center Manager Name Role Phone Radha Fenton Primary Care Prov ider Trisha Abrams Primary Care Provider Unava ilable Encounter Details Date Type Department Care Team (Late st Contact Info) Description 11/30/2023 Procedure Pass [facility], [address] [address] Social History Tobacco Use Types Packs/Day Years [...] [facility] [place] [address] 08/10/2025 10:15 AM EDT Appointment [facility] [place] [address] Wade Overton, 22 [facility] [address] [place] [address] 10/09/2025 12:30 PM EDT Office Visit El[facility] [address] 3rd Floor, [address] [place] [address] Blanka Weinstein, DNP [address] [place] [address] [email or web address] documented as of this encounter Visit Diagnoses Not on filedocumented in this encounter Care Teams Meat Processing Center Manager Relationship Specialty Start Date End Date Radha Fenton PA [address] [place] [address] PCP - General 10/01/21 05/12/24 Trisha Abrams [address] [place] [address] PCP - General 05/13/24 documented as of this encounter Additional Source Comments The information contained in this document represents components of the legal health record. It is not the complete legal health record.[facility]
--- OUTSIDE RECORDS SUMMARY | 2025-06-01 15:05 | XMS_ITS | Encounter Summary ---
Author Organization [facility] Address [address] [place] [address] Phone Care Team Providers Care Making Line Worker Name Role Phone Trisha Abrams Primary Care Provider Unava ilable Encounter Details Date Type Department Care Team ([facility] st Contact Info) Description 06/25/2024 Transcribe Orders Virtual Department 30 [place] [address] Celso Fair MD 6 [place] [phone] [email or web address] Social History Tobacco Use Types Packs/Day Years [...] Procedure Pass [facility] [address] [place] [address] 08/10/2025 10:15 AM EDT Appointment [facility] [address] [place] [address] Wade Overton, DO 22 [facility] [address] [place] [address] 10/09/2025 12:30 PM EDT Office Visit [facility] 22 [facility] 3rd Floor, [address] [place] [address] Blanka Weinstein, [address] [address] [email or web address] documented as of this encounter Visit Diagnoses Not on filedocumented in this encounter Care Teams Making Line Worker Relationship Specialty Start Date End Date Trisha Abrams PCP - General 05/13/24 documented as of this encounter Additional Source Comments The information contained in this document represents components of the legal health record. It is not the complete legal health record.[facility]
--- OUTSIDE RECORDS SUMMARY | 2025-06-01 15:05 | XMS_ITS | Encounter Summary ---
Author Organization [facility] Address [address] [place] [address] Phone Care Team Providers Care Rod Filler Name Role Phone Radha Fenton Primary Care Prov ider Trisha Abrams Primary Care Provider Unava ilable Encounter Details Date Type Department Care Team (Late st Contact Info) Description 02/27/2023 Procedure Pass [facility], [address] [place] [address] Social History Tobacco Use Types Packs/Day Years [...] [facility] [place] [address] 08/10/2025 10:15 AM EDT Appointment [facility] [place] [address] Wade Overton, 22 [facility] [address] [place] [address] [email or web address] 10/09/2025 12:30 PM EDT Office Visit Elisa [facility] [address] 3rd Floor, [address] [place] [address] Blanka Weinstein, DNP [address] [place] [address] [email or web address] documented as of this encounter Visit Diagnoses Not on filedocumented in this encounter Care Teams Rod Filler Relationship Specialty Start Date End Date Radha Fenton PA [address] [place] [address] PCP - General 10/01/21 05/12/24 Trisha Abrams [address] [place] [address] PCP - General 05/13/24 documented as of this encounter Additional Source Comments The information contained in this document represents components of the legal health record. It is not the complete legal health record.[facility]
--- OUTSIDE RECORDS SUMMARY | 2025-06-01 15:05 | XMS_ITS | Encounter Summary ---
Author Organization [facility] Address [facility] [address] [place] [address] Phone Care Team Providers Care Combat Systems Operator Name Role Phone Orville Palomino MD Primary Care Provider [phone] Susana Cook CNM Unavailable Huma Sumner TELECOM SPECIALIST Unavailable [phone] Angy Haywood TELECOM SPECIALIST Unavailable Carl Collins MD Unavailable [phone] Issa Nguyen MD Unavailable Lana Hardy TELECOM SPECIALIST Unavailable Rena Ruff MD Unavailable Yanni Walker MD Unavailable Radha Johnson MD Unavailable [phone] Erika Ceja GEOTHERMAL INSTALLER Unavailable Radha Fenton Primary Care Prov ider Trisha Abrams Primary Care Provider Unava ilable Encounter Details Date Type Department Care Team (Late st Contact Info) Description 07/02/2017 Procedure Pass [facility] [address] [place] [address] Social History Tobacco Use Types [...] [facility] [address] [place] [address] 08/10/2025 10:15 AM EDT Appointment Elisa [place] [address] Wade Overton DO 22 [facility] [address] [place] [address] 10/09/2025 12:30 PM EDT Office Visit [facility] 22 [facility] 3rd Floor, [address] [place] [address] Blanka Weinstein, DARRYL [address] [place] [address] documented as of this encounter Visit Diagnoses Not on filedocumented in this encounter Additional Health Concerns Infection Onset Date Last Indicated Resolved Time CoV-Risk 12/10/2020 12/11/2020 12/20/2020 1:23 AM EDT documented as of this encounter Care Teams Combat Systems Operator Relationship Specialty Start Date End Date Orville Palomino MD 230 [facility] [address] [place] [phone] [email or web address] PCP - General 03/09/17 09/30/21 Radha Fenton PA [address] [place] [address] PCP - General 10/01/21 05/12/24 Trisha Abrams [address] [place] [address] PCP - General 05/13/24 Susana Cook CNM 30 [place] [address] Historical LMR Provider 03/25/17 2 Huma Sumenr TELECOM SPECIALIST 30 [place] [address] Historical LMR Provider 03/25/17 06/11/21 Angy Haywood NP [address] [place] [address] Historical LMR Provider 03/25/17 2 Carl Collins MD 22 [facility] [address] [place] [address] Historical LMR Provider 03/25/17 06/11/21 Issa Nguyen MD [address] [phone] Historical LMR Provider 03/25/17 2 Lana Hardy NP [address] [place] [address] Historical LMR Provider 03/25/17 2 Rena Ruff MD [address] [place] [address] [facility], [facility] [place] [address] jose Historical LMR Provider 03/25/17 Yanni Walker MD [address] [place] [address] [facility], [facility] [place] [address] Historical LMR Provider 03/25/17 06/11/21 Radha Johnson MD [address] [place] [address] Historical LMR Provider 03/25/17 2 Erika Ceja CNP [address] [place] [address], [address] [place] [address] [email or web address] Historical LMR Provider 03/25/17 documented as of this encounter Additional Source Comments The information contained in this document represents components of the legal health record. It is not the complete legal health record.[facility]
--- OUTSIDE RECORDS SUMMARY | 2025-06-01 15:06 | XMS_ITS | Encounter Summary ---
Author Organization [facility] Address [facility] [facility] [address] [place] [address] Phone Care Team Providers Care Surgical Dressing Maker Name Role Phone Orville Palomino MD Primary Care Provider Orville Palomino MD Primary Care Provider [phone] Susana Cook CNM Unavailable Huma Sumner PLANT SPECIALIST Unavailable [phone] Angy Haywood PLANT SPECIALIST Unavailable PerCarl olivo MD Unavailable [phone] Issa Nguyen MD Unavailable Lana Hardy PLANT SPECIALIST Unavailable Rena Ruff MD Unavailable Yanni Walker MD Unavailable Radha Johnson MD Unavailable [phone] Erika Ceja WARDROBE CONSULTANT Unavailable Radha Fenton Primary Care Prov ider Trisha Abrams Primary Care Provider Unava ilable Encounter Details Date Type Department Care Team (Late st Contact Info) Description 08/23/2016 Procedure Pass [facility] [address] [place] [address] Social History Tobacco Use Types Packs/Day Years [...] Procedure Pass [facility] [address] [place] [address] 08/10/2025 10:15 AM EDT Appointment [facility] [address] [place] [address] [place] [address] Wade Overton DO [address] [place] [address] [place] [address] 10/09/2025 12:30 PM EDT Office Visit [facility]isa [facility] [address] [place] [address] 3rd Floor, [address] [place] [address] Blanka Weinstein, [facility] 50 [place] [address] [email or web address] documented as of this encounter Visit Diagnoses Not on filedocumented in this encounter Additional Health Concerns Infection Onset Date Last Indicated Resolved Time CoV-Risk 12/10/2020 12/11/2020 12/20/2020 1:23 AM EDT documented as of this encounter Care Teams Surgical Dressing Maker Relationship Specialty Start Date End Date Orville Palomino MD 230 [facility] [address] [place] [address] [email or web address] PCP - General 07/12/16 03/08/17 Orville Palomino MD 230 [facility] [address] [place] [phone] [email or web address] PCP - General 03/09/17 09/30/21 Radha Fenton PA [address] [place] [address] PCP - General 10/01/21 05/12/24 Trisha Abrams [address] [place] [address] PCP - General 05/13/24 Susana Cook CNM 30 [place] [address] Historical LMR Provider 03/25/17 2 Huma Sumner NP [address] [place] [address] [email or web address] Historical LMR Provider 03/25/17 06/11/21 Angy Haywood NP [address] [place] [address] Historical LMR Provider 03/25/17 2 Carl Collins MD [address] [place] [address] [address] [place] [address] Historical LMR Provider 03/25/17 06/11/21 Issa Nguyen MD [address] [place] [address] [address] [place] [phone] Historical LMR Provider 03/25/17 2 Lana Hardy NP [address] [place] [address] Historical LMR Provider 03/25/17 2 Rena Ruff MD 4 [facility], [place] [address] jose Historical LMR Provider 03/25/17 Yanni Walker MD 4 [facility], [place] [address] [email or web address] Historical LMR Provider 03/25/17 06/11/21 Radha Johnson MD [address] [place] [address] Historical LMR Provider 03/25/17 2 Erika Ceja CNP 22 [facility], [address] [place] [address] [email or web address] Historical LMR Provider 03/25/17 documented as of this encounter Additional Source Comments The information contained in this document represents components of the legal health record. It is not the complete legal health record.[facility]
--- OUTSIDE RECORDS SUMMARY | 2025-06-01 15:06 | XMS_ITS | Encounter Summary ---
Author Organization [facility] Address [address] [place] [address] [address] [place] [address] Phone Care Team Providers Care Athletic Team Physician Name Role Phone Orville Palomino MD Primary Care Provider Orville Palomino MD Primary Care Provider [phone] Susana Cook CNM Unavailable Huma Sumner SERVICE MANAGER Unavailable [phone] Angy Hayowod SERVICE MANAGER Unavailable PerCarl olivo MD Unavailable [phone] Issa Nguyen MD Unavailable Lana Hardy SERVICE MANAGER Unavailable Rena Ruff MD Unavailable Yanni Walker MD Unavailable Radha Johnson MD Unavailable [phone] Erika Ceja J2EE ANDROID DEVELOPER Unavailable Radha Fenton Primary Care Prov ider Trisha Abrams Primary Care Provider Unava ilable Encounter Details Date Type Department Care Team (Late st Contact Info) Description 08/11/2016 Procedure Pass [facility] [address] [place] [address] Social History Tobacco Use Types Packs/Day Years [...] Procedure Pass [facility] [address] [place] [address] 08/10/2025 10:15 AM EDT Appointment [facility] [address] [place] [address] [place] [address] Wade Overton DO 22 [facility] [address] [place] [address] [email or web address] 10/09/2025 12:30 PM EDT Office Visit [facility] [address] [place] [address] 3rd Floor, [address] [place] [address] Blanka Weinstein, [facility] [address] [place] [address] [email or web address] documented as of this encounter Visit Diagnoses Not on filedocumented in this encounter Additional Health Concerns Infection Onset Date Last Indicated Resolved Time CoV-Risk 12/10/2020 12/11/2020 12/20/2020 1:23 AM EDT documented as of this encounter Care Teams Athletic Team Physician Relationship Specialty Start Date End Date Orville Palomino MD 230 [facility] [address] [place] [address] [email or web address] PCP - General 07/12/16 03/08/17 Orville Palomino MD 230 [facility] [address] [place] [phone] [email or web address] PCP - General 03/09/17 09/30/21 Radha Fenton PA [address] [place] [address] PCP - General 10/01/21 05/12/24 Trisha Abrams [address] [place] [address] PCP - General 05/13/24 Susana Cook CNM [address] [place] [address] Historical LMR Provider 03/25/17 2 Huma Sumner NP [address] [place] [address] [email or web address] Historical LMR Provider 03/25/17 06/11/21 Angy Haywood NP [address] [place] [address] Historical LMR Provider 03/25/17 2 Carl Collins MD [address] [place] [address] [address] [place] [address] Historical LMR Provider 03/25/17 06/11/21 Issa Nguyen MD [address] [place] [address] 7 [place] [phone] Historical LMR Provider 03/25/17 2 Lana Hardy NP [address] [place] [address] Historical LMR Provider 03/25/17 2 Rena Ruff MD 4 [facility], [place] [address] jose Historical LMR Provider 03/25/17 Yanni Walker MD [address] [place] [address] [facility], [place] [address] [email or web address] Historical LMR Provider 03/25/17 06/11/21 Radha Johnson MD [address] [place] [address] Historical LMR Provider 03/25/17 2 Erika Ceja CNP 22 [facility], [address] [place] [address] [email or web address] Historical LMR Provider 03/25/17 documented as of this encounter Additional Source Comments The information contained in this document represents components of the legal health record. It is not the complete legal health record.[facility]
--- OUTSIDE RECORDS SUMMARY | 2025-06-01 15:06 | XMS_ITS | Encounter Summary ---
Author Organization [facility] Address Formerly [facility] [employer] [facility] [address] [place] [address] Phone Care Team Providers Care Golf Coach Name Role Phone Orville Palomino MD Primary Care Provider Susana Cook CNM Unavailable Huma Sumner IMMERSION METALCLEANER Unavailable [phone] Angy Haywood IMMERSION METALCLEANER Unavailable Carl Collins MD Unavailable [phone] Issa Nguyen MD Unavailable Lana Hardy IMMERSION METALCLEANER Unavailable Rena Ruff MD Unavailable Yanni Walker MD Unavailable Radha Johnson MD Unavailable [phone] Erika Ceja CARDIAC CARE UNIT NURSE Unavailable Radha [place] Primary Care Prov ider Trisha Abrams Primary Care Provider Unava ilable Encounter Details Date Type Department Care Team (Late st Contact Info) Description 10/09/2017 Procedure Pass [facility], [address] [id number] Social History Tobacco Use Types Packs/Day Years [...] Procedure Pass [facility] [address] [place] [address] 08/10/2025 10:15 AM EDT Appointment [facility] [address] [place] [address] Wade Overton DO 22 [facility] [address] [place] [address] 10/09/2025 12:30 PM EDT Office Visit [facility] [address] 3rd Floor, [address] [place] [address] Blanka Weinstein, DNP [address] [place] [address] documented as of this encounter Visit Diagnoses Not on filedocumented in this encounter Additional Health Concerns Infection Onset Date Last Indicated Resolved Time CoV-Risk 12/10/2020 12/11/2020 12/20/2020 1:23 AM EDT documented as of this encounter Care Teams Golf Coach Relationship Specialty Start Date End Date Orville Palomino MD 230 [facility] [address] [place] [phone] [email or web address] PCP - General 03/09/17 09/30/21 Radha [place] PA [address] [place] [address] PCP - General 10/01/21 05/12/24 Trisha Abrams [address] [place] [address] PCP - General 05/13/24 Susana Cook CNM 30 [place] [address] Historical LMR Provider 03/25/17 2 Huma Sumner IMMERSION METALCLEANER 30 [place] [address] Historical LMR Provider 03/25/17 06/11/21 Angy Haywood NP [address] [place] [address] Historical LMR Provider 03/25/17 2 Carl Collins MD 22 [facility] [address] [place] [address] [email or web address] Historical LMR Provider 03/25/17 06/11/21 Issa Nguyen MD [address] [place] [phone] Historical LMR Provider 03/25/17 2 Lana Hardy NP [address] [place] [address] Historical LMR Provider 03/25/17 2 Rena Ruff MD [address] [place] [address] Orthopedics & Sports Medicine, [facility] [place] [address] jose Historical LMR Provider 03/25/17 Yanni Walker MD [address] [place] [address] [facility] [place] [address] Historical LMR Provider 03/25/17 06/11/21 Radha Johnson MD [address] [place] [address] Historical LMR Provider 03/25/17 2 Erika Ceja CNP [address] [place] [address], [address] [place] [address] [email or web address] Historical LMR Provider 03/25/17 documented as of this encounter Additional Source Comments The information contained in this document represents components of the legal health record. It is not the complete legal health record.[facility]
--- OUTSIDE RECORDS SUMMARY | 2025-06-01 15:06 | XMS_ITS | Encounter Summary ---
Author Organization [facility] Address Formerly [facility] [employer] [facility] [address] [place] [address] Phone Care Team Providers Care Tour Consultant Name Role Phone Orville Palomino MD Primary Care Provider Susana Cook CNM Unavailable Huma Sumner SHINGLE SHEARING MACHINE OPERATOR Unavailable [phone] Angy Haywood SHINGLE SHEARING MACHINE OPERATOR Unavailable Carl Collins MD Unavailable [phone] Issa Nguyen MD Unavailable Lana Hardy SHINGLE SHEARING MACHINE OPERATOR Unavailable Rena Ruff MD Unavailable Yanni Walker MD Unavailable Radha Johnson MD Unavailable [phone] Erika Ceja CONSULTING HR PROFESSIONAL Unavailable Radha [place] Primary Care Prov ider Trisha Abrams Primary Care Provider Unava ilable Encounter Details Date Type Department Care Team (Late st Contact Info) Description 09/30/2018 Ancillary Orders Virtual Department [address] [place] [address] [phone] Celso Fair MD [address] [place] [address] [email or web address] Other spondylosis with myelopathy, cervical region Social [...] Pass [facility] [address] [place] [id number] 08/10/2025 10:15 AM EDT Appointment [facility] [address] [place] [id number] Wade Overton, [address] [place] [address] 10/09/2025 12:30 PM EDT Office Visit El[facility] [address] Floor, [address] [place] [address] Blanka Weinstein, [address] [address] documented as of this encounter Results * [...] documented as of this encounter Care Teams Tour Consultant Relationship Specialty Start Date End Date Orville Palomino MD [address] [place] [address] [phone] [email or web address] PCP - General 03/09/17 09/30/21 Radha [place] PA [address] [place] [address] PCP - General 10/01/21 05/12/24 Trisha Abrams [address] [place] [address] PCP - General 05/13/24 Susana Cook CNM 30 [place] [address] Historical LMR Provider 03/25/17 2 Huma Sumner, SHINGLE SHEARING MACHINE OPERATOR 30 [place] [address] Historical LMR Provider 03/25/17 06/11/21 RisAngy nuñez NP [address] [place] [address] Historical LMR Provider 03/25/17 2 Carl Collins MD 22 [facility], [address] [place] [address] Historical LMR Provider 03/25/17 06/11/21 Issa Nguyen MD [address] [place] [address] 7 [place] [phone] Historical LMR Provider 03/25/17 2 Lana Hardy NP [address] [place] [address] Historical LMR Provider 03/25/17 2 Rena Ruff MD [address] [place] [address] [facility] Medicine, [place] [address] jose Historical LMR Provider 03/25/17 Yanni Walker MD [address] [place] [address] [facility], [place] [address] Historical LMR Provider 03/25/17 06/11/21 Radha Johnson MD [address] [place] [address] Historical LMR Provider 03/25/17 2 Erika Ceja, CONSULTING HR PROFESSIONAL [address] [place] [address], [address] [place] [address] [email or web address] Historical LMR Provider 03/25/17 documented as of this encounter Additional Source Comments The information contained in this document represents components of the legal health record. It is not the complete legal health record.[facility]
--- OUTSIDE RECORDS SUMMARY | 2025-06-01 15:06 | XMS_ITS | Encounter Summary ---
Author Organization [facility] Address [facility] [employer] [facility] [address] [place] [address] Phone Care Team Providers Care Aerial Advertiser Name Role Phone Orville Palomino MD Primary Care Provider Orville Palomino MD Primary Care Provider [phone] Susana Cook CNM Unavailable Huma Sumner DESIZING MACHINE OFFBEARER Unavailable [phone] Angy Haywood DESIZING MACHINE OFFBEARER Unavailable Carl Collins MD Unavailable [phone] Issa Nguyen MD Unavailable Lana Hardy DESIZING MACHINE OFFBEARER Unavailable Rena Ruff MD Unavailable Yanni Walker MD Unavailable Radha Johnson MD Unavailable [phone] Erika Ceja DIRECTOR OF AUTOMATION Unavailable Radha [place] Primary Care Prov ider Trisha Abrams Primary Care Provider Unava ilable Encounter Details Date Type Department Care Team (Latest Contact Info) Description 08/22/2016 Prep for Surgery [facility] Orthopaedic Spine [address] 3rd Floor, [address] [place] [address] Cody Velazquez MD 123 [facility] [address] [place] [address] [email or web address] Cervical arthritis with myelopathy (Primary Dx) Social [...] Procedure Pass [facility] [address] [place] [address] 08/10/2025 10:15 AM EDT Appointment [facility] [address] [place] [address] Wade Overton DO [address] [place] [address] [address] [place] [address] [email or web address] 10/09/2025 12:30 PM EDT Office Visit [facility] [address] Floor, [address] [place] [address] Blanka Weinstein, [address] [address] [email or web address] documented as of this encounter Visit Diagnoses Diagnosis Cervical arthritis with myelopathy- Primary documented in this encounter Additional Health Concerns Infection Onset Date Last Indicated Resolved Time CoV-Risk 12/10/2020 12/11/2020 12/20/2020 1:23 AM EDT documented as of this encounter Care Teams Aerial Advertiser Relationship Specialty Start Date End Date Orville Palomino MD 230 [facility] [address] [place] [phone] [email or web address] PCP - General 07/12/16 03/08/17 Orville Palomino MD 230 [facility] [address] [place] [phone] [email or web address] PCP - General 03/09/17 09/30/21 Radha [place] PA [address] [place] [address] PCP - General 10/01/21 05/12/24 Trisha Abrams [address] [place] [address] PCP - General 05/13/24 Susana Cook CNM 30 [place] [address] Historical LMR Provider 03/25/17 2 Huma Sumner NP 30 [place] [address] Historical LMR Provider 03/25/17 06/11/21 Angy Haywood NP [address] [place] [address] Historical LMR Provider 03/25/17 2 Carl Collins MD [address] [place] [address], [address] [address] Historical LMR Provider 03/25/17 06/11/21 Issa Nguyen MD 236 [facility] 7 [place] [phone] Historical LMR Provider 03/25/17 2 Lana Hardy NP 238 [place] [address] Historical LMR Provider 03/25/17 2 Rena Ruff MD [address] [place] [address] Orthopedics & Sports [facility], [place] [address] jose Historical LMR Provider 03/25/17 Yanni Walker MD [address] [place] [address] Orth[facility] Medicine, [place] [address] Historical LMR Provider 03/25/17 06/11/21 Radha Johnson MD [address] [place] [phone] Historical LMR Provider 03/25/17 2 Erika Ceja CNP 22 [facility], [address] [place] [address] Historical LMR Provider 03/25/17 documented as of this encounter Additional Source Comments The information contained in this document represents components of the legal health record. It is not the complete legal health record.[facility]
--- OUTSIDE RECORDS SUMMARY | 2025-06-01 15:06 | XMS_ITS | Encounter Summary ---
Author Organization [facility] Address [address] [place] [address] [address] [place] [address] Phone Care Team Providers Care Denture Laboratory Technician Name Role Phone Orville Palomino MD Primary Care Provider Orville Palomino MD Primary Care Provider [phone] Susana Cook CNM Unavailable Huma Sumner SALES SERVICE REPRESENTATIVE Unavailable [phone] Angy Haywood SALES SERVICE REPRESENTATIVE Unavailable PerCarl olivo MD Unavailable Issa Nguyen MD Unavailable Lana Hardy SALES SERVICE REPRESENTATIVE Unavailable Rena Ruff MD Unavailable Yanni Walker MD Unavailable Radha Johnson MD Unavailable [phone] Erika Ceja HOME BASED ASSISTANT Unavailable Radha [place] Primary Care Prov ider Trisha Abrams Primary Care Provider Unava ilable Encounter Details Date Type Department Care Team (Late st Contact Info) Description 08/21/2016 Procedure Pass [facility] [address] [place] [address] Social History Tobacco Use Types Packs/Day Years [...] Procedure Pass [facility] [address] [place] [address] 08/10/2025 10:15 AM EDT Appointment [facility] [address] [place] [address] [place] [address] Wade Overton DO 22 [facility] [address] [place] [address] [email or web address] 10/09/2025 12:30 PM EDT Office Visit Elisa [facility] [address] [place] [address] 3rd Floor, [address] [place] [address] Blanka Weinstein, [facility] [address] [place] [address] [email or web address] documented as of this encounter Visit Diagnoses Not on filedocumented in this encounter Additional Health Concerns Infection Onset Date Last Indicated Resolved Time CoV-Risk 12/10/2020 12/11/2020 12/20/2020 1:23 AM EDT documented as of this encounter Care Teams Denture Laboratory Technician Relationship Specialty Start Date End Date Orville Palomino MD 230 [facility] [address] [place] [address] [email or web address] PCP - General 07/12/16 03/08/17 Orville Palomino MD 230 [facility] [address] [place] [phone] [email or web address] PCP - General 03/09/17 09/30/21 Radha [place] PA [address] [place] [address] PCP - General 10/01/21 05/12/24 Trisha Abrams [address] [place] [address] PCP - General 05/13/24 Susana Cook CNM 30 [place] [address] Historical LMR Provider 03/25/17 2 Huma Sumner NP 30 [place] [address] [email or web address] Historical LMR Provider 03/25/17 06/11/21 Angy Haywood NP [address] [place] [address] Historical LMR Provider 03/25/17 2 Carl Collins MD [address] [place] [address] [address] [place] [address] Historical LMR Provider 03/25/17 06/11/21 Issa Nguyen MD [address] [place] [address] 7 [place] [phone] Historical LMR Provider 03/25/17 2 Lana Hardy NP [address] [place] [address] Historical LMR Provider 03/25/17 2 Rena Ruff MD 4 [facility] Orthopedics & Sports [facility], [place] [address] jose Historical LMR Provider 03/25/17 Yanni Walker MD [address] [place] [address] Orthopedics Sports [facility], [place] [address] [email or web address] Historical LMR Provider 03/25/17 06/11/21 Radha Johnson MD [address] [place] [address] Historical LMR Provider 03/25/17 2 Erika Ceja CNP 22 [facility], [address] [place] [address] [email or web address] Historical LMR Provider 03/25/17 documented as of this encounter Additional Source Comments The information contained in this document represents components of the legal health record. It is not the complete legal health record.[facility]
--- OUTSIDE RECORDS SUMMARY | 2025-06-01 15:06 | XMS_ITS | Encounter Summary ---
Author Organization [facility] Address [facility] [address] [place] [address] Phone Care Team Providers Care Coil Builder Name Role Phone Orville Palomino MD Primary Care Provider Susana Cook CNM Unavailable Huma Sumner YARN MAN Unavailable [phone] Angy Haywood YARN MAN Unavailable [phone] Carl Collins MD Unavailable [phone] Issa Nguyen MD Unavailable [phone] Lana Hardy YARN MAN Unavailable Rena Ruff MD Unavailable Yanni Walker MD Unavailable Radha Johnson MD Unavailable [phone] Erika Ceja MEDICAL SALES REPRESENTATIVE Unavailable Radha [place] Primary Care Prov ider Trisha [place] Primary Care Provider Unava ilable Reason for Referral * MRI/CAT Scan - Closed Specialty Diagnoses / Procedures Referred By Contac t Referred To Contact Radiology Diagnoses Achondroplasia Procedures CT Cervical Spine Lana Hardy, YARN MAN Phone: tel: fax: Referral ID Status Reason Start Date Expiration Date Visits Re quested Visits Authorized [id number] Closed 05/16/2017 06/15/2017 1 1 Encounter Details Date Type Department Care Team (Late st Contact Info) Description 05/22/2017 Ancillary Orders Virtual Department 30 [place] [address] Lana Hardy NP [address] [place] [address] Achondroplasia Social History Tobacco Use Types Packs/Day [...] Procedure Pass [facility] [address] [place] [address] 08/10/2025 10:15 AM EDT Appointment [facility] [address] [place], [place] [address] Wade Overton, 22 [facility] [address] [place] [address] 10/09/2025 12:30 PM EDT Office Visit Elisa [facility] [address] [place] [address] 3rd Floor, [address] [place] [address] Blanka Weinstein, [address] [address] [email or web address] documented as of this encounter Results * [...] Mitchell on 05/30/2017 1:34 PM Lana Hardy YARN MAN IMG CT XSPECIALTY ORDERABLES Final Result documented in this encounter 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 Additional Health Concerns Infection Onset Date Last Indicated Resolved Time CoV-Risk 12/10/2020 12/11/2020 12/20/2020 1:23 AM EDT documented as of this encounter Care Teams Coil Builder Relationship Specialty Start Date End Date Orville Palomino MD 230 [facility] [address] [place] [phone] [email or web address] PCP - General 03/09/17 09/30/21 Radha [place] PA [address] [place] [address] PCP - General 10/01/21 05/12/24 Trisha [place] [address] [place] [address] PCP - General 05/13/24 Susana Cook CNM 30 [place] [address] Historical LMR Provider 03/25/17 2 Huma Sumner YARN MAN 30 [place] [address] [email or web address] Historical LMR Provider 03/25/17 06/11/21 Angy Haywood, KENISHA [address] [place] [address] Historical LMR Provider 03/25/17 2 Carl Collins MD 22 [facility], [address] [place] [address] [email or web address] Historical LMR Provider 03/25/17 06/11/21 Issa Nguyen MD [address] [place] [address] 7 [place] [phone] Historical LMR Provider 03/25/17 2 Lana Hardy NP [address] [place] [address] Historical LMR Provider 03/25/17 2 Rena Ruff MD [address] [place] [address] Orthopedics & Sports [facility], [place] [address] [email or web address] Historical LMR Provider 03/25/17 Yanni Walker MD [address] [place] [address] Orthopedics & [facility], [place] [address] [email or web address] Historical LMR Provider 03/25/17 06/11/21 Radha Johnson MD [address] [place] [address] Historical LMR Provider 03/25/17 2 Erika Ceja CNP 22 [facility], [address] [place] [address] [email or web address] Historical LMR Provider 03/25/17 documented as of this encounter Additional Source Comments The information contained in this document represents components of the legal health record. It is not the complete legal health record.[facility]
--- OUTSIDE RECORDS SUMMARY | 2025-06-01 15:06 | XMS_ITS | Encounter Summary ---
Author Organization [facility] Address [address] [place] [address] [address] [place] [address] Phone Care Team Providers Care [employer] Social Studies Tutor Name Role Phone Orville Palomino MD Primary Care Provider Orville Palomino MD Primary Care Provider [phone] Susana Cook CNM Unavailable Huma Sumner JUNIOR BRAND MANAGER Unavailable [phone] Angy Haywood JUNIOR BRAND MANAGER Unavailable PerCarl olivo MD Unavailable Issa Nguyen MD Unavailable Lana Hardy JUNIOR BRAND MANAGER Unavailable Rena Ruff MD Unavailable Yanni Walker MD Unavailable Radha Johnson MD Unavailable [phone] Erika Ceja MEAT APPRENTICE Unavailable Radha [place] Primary Care Prov ider Trisha [place] Primary Care Provider Unava ilable Encounter Details Date Type Department Care Team (Late st Contact Info) Description 02/15/2017 Procedure Pass [facility] General Imaging [address] [place] [address] Social History Tobacco Use Types Packs/Day Years [...] [facility] [address] [place] [address] 08/10/2025 10:15 AM EDT Appointment [facility] [place] [address] Wade Overton DO 22 [facility] [address] [place] [address] 10/09/2025 12:30 PM EDT Office Visit [facility] 22 [facility] 3rd Floor, [address] [place] [address] Blanka Weinstein, DNP [address] [place] [address] documented as of this encounter Visit Diagnoses Not on filedocumented in this encounter Additional Health Concerns Infection Onset Date Last Indicated Resolved Time CoV-Risk 12/10/2020 12/11/2020 12/20/2020 1:23 AM EDT documented as of this encounter Care Teams High School Social Studies Tutor Relationship Specialty Start Date End Date Orville Palomino MD 230 [facility] [address] [place] [phone] [email or web address] PCP - General 07/12/16 03/08/17 Orville Palomino MD 230 [facility] [address] [place] [phone] [email or web address] PCP - General 03/09/17 09/30/21 Radha [place] PA [address] [place] [address] PCP - General 10/01/21 05/12/24 Trisha Abrams [address] [place] [address] PCP - General 05/13/24 Susana Cook CNM 30 [place] [address] Historical LMR Provider 03/25/17 2 Huma Sumner NP 30 [place] [address] Historical LMR Provider 03/25/17 06/11/21 Angy Haywood NP [address] [place] [address] Historical LMR Provider 03/25/17 2 Carl Collins MD [address] [place] [address] [address] [place] [address] [email or web address] Historical LMR Provider 03/25/17 06/11/21 Issa Nguyen MD [address] [place] [phone] Historical LMR Provider 03/25/17 2 Lana Hardy NP [address] [place] [address] Historical LMR Provider 03/25/17 2 Rena Ruff MD [address] [place] [address] Orthopedics & Sports Medicine, [facility] [place] [address] jose Historical LMR Provider 03/25/17 Yanni Walker MD [address] [place] [address] [facility] [place] [address] [email or web address] Historical LMR Provider 03/25/17 06/11/21 Radha Johnson MD [address] [address] Historical LMR Provider 03/25/17 2 Erika Ceja CNP [address] [place] [address], [address] [place], [place] [phone] [email or web address] Historical LMR Provider 03/25/17 documented as of this encounter Additional Source Comments The information contained in this document represents components of the legal health record. It is not the complete legal health record.[facility]
--- OUTSIDE RECORDS SUMMARY | 2025-06-01 15:06 | XMS_ITS | Encounter Summary ---
Author Organization [facility] Address [facility] [address] [place] [address] Phone Care Team Providers Care Battery Hand Name Role Phone Orville Palomino MD Primary Care Provider [phone] Susana Cook CNM Unavailable Huma Sumner MECHANICAL PRODUCT ENGINEER Unavailable [phone] Angy Haywood MECHANICAL PRODUCT ENGINEER Unavailable Carl Collins MD Unavailable [phone] Issa Nguyen MD Unavailable Lana Hardy MECHANICAL PRODUCT ENGINEER Unavailable Rena Ruff MD Unavailable Yanni Walker MD Unavailable Radha Johnson MD Unavailable [phone] Erika Ceja WEB PORTAL DEVELOPER Unavailable Radha Fenton Primary Care Prov ider Trisha Abrams Primary Care Provider Unava ilable Reason for Referral * MRI/CAT Scan - Closed Specialty Diagnoses / Procedures Referred By Contac t Referred To Contact Radiology Diagnoses Other spondylosis with radiculopathy, lumbar region Spinal stenosis, 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 MRI Lumbar Spine Celso Fair MD Phone: tel: fax: [email or web address] Referral ID Status Reason Start Date Expiration Date Visits Re quested Visits Authorized [id number] Closed 07/23/2018 08/22/2018 1 1 Encounter Details Date Type Department Care Team (Late st Contact Info) Description 07/18/2018 Ancillary Orders Virtual Department [address] [place] [address] Celso Fair MD [address] [place] [phone] [email or web address] Other spondylosis with radiculopathy, lumbar region; Spinal [...] 04/11/2025 Procedure Pass [facility] [address] [place] [address] [place] [address] 08/10/2025 10:15 AM EDT Appointment [facility] [address] [place] [address] [place] [address] Wade Overton, DO [address] [place] [address] [place] [address] 10/09/2025 12:30 PM EDT Office Visit [facility] [address] [place] [address] 3rd Floor, [address] [place] [address] Blanka Weinstein, [address] [address] [email or web address] documented as of this encounter Results * [...] new pathology has become apparent. POS - [id number] Edited by: Flower Mitchell on 08/08/2018 12:36 [...] new pathology has become apparent. POS - [id number] Edited by: Flower Mitchell on 08/08/2018 12:36 [...] documented as of this encounter Care Teams Battery Hand Relationship Specialty Start Date End Date Orville Palomino MD [address] [facility] [address] [place] [address] [email or web address] PCP - General 03/09/17 09/30/21 Radha Fenton PA [address] [place] [address] PCP - General 10/01/21 05/12/24 Trisha Abrams [address] [place] [address] PCP - General 05/13/24 Susana Cook CNM [address] [place] [address] Historical LMR Provider 03/25/17 2 Huma Sumner NP [address] [place] [address] [email or web address] Historical LMR Provider 03/25/17 06/11/21 Angy Haywood NP [address] [place] [address] Historical LMR Provider 03/25/17 2 Carl Collins MD [address] [place] [address], [facility] [address] [place] [address] Historical LMR Provider 03/25/17 06/11/21 Issa Nguyen MD [address] [place] [phone] Historical LMR Provider 03/25/17 2 Lana Hardy NP [address] [place] [address] Historical LMR Provider 03/25/17 2 Rena Ruff MD [address] [place] [address] [facility] [place] [address] jose Historical LMR Provider 03/25/17 Yanni Walker MD [address] [place] [address] [facility], [place] [address] Historical LMR Provider 03/25/17 06/11/21 Radha Johnson MD [address] [place] [phone] Historical LMR Provider 03/25/17 2 Erika Ceja CNP 22 [facility] [place] [address] Historical LMR Provider 03/25/17 documented as of this encounter Additional Source Comments The information contained in this document represents components of the legal health record. It is not the complete legal health record.[facility]
--- OUTSIDE RECORDS SUMMARY | 2025-06-01 15:06 | XMS_ITS | Encounter Summary ---
Author Organization [facility] Address [facility] [address] [place] [address] Phone Care Team Providers Care Sr. Payroll Processor Name Role Phone Orville Palomino MD Primary Care Provider [phone] Susana Cook CNM Unavailable Huma Sumner WIRE TRANSFER CLERK Unavailable [phone] Angy Haywood WIRE TRANSFER CLERK Unavailable Carl Collins MD Unavailable [phone] Issa Nguyen MD Unavailable Lana Hardy WIRE TRANSFER CLERK Unavailable Rena Ruff MD Unavailable Yanni Walker MD Unavailable Radha Johnson MD Unavailable [phone] Erika Ceja [employer] Unavailable Radha Fenton Primary Care Prov ider Trisha Abrams Primary Care Provider Unava ilable Encounter Details Date Type Department Care Team (Late st Contact Info) Description 07/18/2018 Procedure Pass [facility], [address] [phone] Social History Tobacco Use Types Packs/Day Years [...] Procedure Pass [facility] [address] [place] [address] 08/10/2025 10:15 AM EDT Appointment [facility] [address] [place] [address] Wade Overton DO 22 [facility] [address] [place] [address] 10/09/2025 12:30 PM EDT Office Visit [facility] [address] Floor, [address] [place] [address] Blanka Weinstein, DNP [address] [place] [address] documented as of this encounter Visit Diagnoses Not on filedocumented in this encounter Additional Health Concerns Infection Onset Date Last Indicated Resolved Time CoV-Risk 12/10/2020 12/11/2020 12/20/2020 1:23 AM EDT documented as of this encounter Care Teams Sr. Payroll Processor Relationship Specialty Start Date End Date Orville Palomino MD 230 [facility] [address] [place] [phone] [email or web address] PCP - General 03/09/17 09/30/21 Radha Fenton PA [address] [place] [address] PCP - General 10/01/21 05/12/24 Trisha Abrams [address] [place] [address] PCP - General 05/13/24 Susana Cook CNM [address] [place] [address] Historical LMR Provider 03/25/17 2 Huma Sumner WIRE TRANSFER CLERK [address] [place] [address] Historical LMR Provider 03/25/17 06/11/21 Angy Haywood NP [address] [place] [address] Historical LMR Provider 03/25/17 2 Carl Collins MD 22 [facility] [address] [place] [address] [email or web address] Historical LMR Provider 03/25/17 06/11/21 Issa Nguyen MD [address] [place] [phone] Historical LMR Provider 03/25/17 2 Lana Hardy NP [address] [place] [address] Historical LMR Provider 03/25/17 2 Rena Ruff MD [address] [place] [address] [facility] [place] [address] jose Historical LMR Provider 03/25/17 Yanni Walker MD [address] [place] [address] [facility] [place] [address] Historical LMR Provider 03/25/17 06/11/21 Radha Johnson MD [address] [place] [address] Historical LMR Provider 03/25/17 2 Erika Ceja CNP [address] [place] [address], [address] [place] [address] [email or web address] Historical LMR Provider 03/25/17 documented as of this encounter Additional Source Comments The information contained in this document represents components of the legal health record. It is not the complete legal health record.[facility]
== END 2025-06-01 14:36 | disposition home or self-care (01) ==
LOC: HO.HUSH 13:06
PROVIDERS: PCP Physician Assistant; Visit Provider Nurse Practitioner Family
DX: R35.1 Nocturia (principal); R32 Unspecified urinary incontinence; N39.0 Urinary tract infection, site not specified; N40.1 Benign prostatic hyperplasia with lower urinary tract symptoms; N13.8 Other obstructive and reflux uropathy
CPT/HCPCS: 99214; G2211